=== PATIENT | female | born 1965 | race African-American/Black ===

== ENCOUNTER 2019-03-22 19:34 | Inpatient (IN) | payer OTHER ==
[~2019-03-22] VITALS: Ht 177.8 cm; Wt 103.6 kg
--- NOTE | 2019-03-22 19:45 | NUR ---
ED Nurse Note: Patient was BIBA from home due to SOB. AAO x4, VSS at this time. Patient's O2 sat upon arricval was 100 on 2L via NC. Patient has non-labor even breathing. Stated that has sarcoidosis for 7 years. Patient presented with dark brown, edematouse, with strong odor legs.
[2019-03-22 19:55] VITALS: BP 150/80
[2019-03-22 20:33] LABS: BASOPHILS % (AUTO) 1.3 % (0.0-2.0); EOSINOPHILS % (AUTO) 0.7 % (0.0-3.0); HEMATOCRIT 28.7 % (37.0-47.0); HEMOGLOBIN 9.1 G/DL (12.0-16.0); LYMPHOCYTES % (AUTO) 19.1 % (20.0-45.0); MEAN CORPUSCULAR VOLUME 88 FL (80-99); MONOCYTES % (AUTO) 4.5 % (1.0-10.0); NEUTROPHILS % (AUTO) 74.4 % (45.0-75.0); PLATELET COUNT 401 K/UL (150-450); RED BLOOD COUNT 3.25 M/UL (4.20-5.40); RED CELL DISTRIBUTION WIDTH 11.5 % (11.6-14.8); WHITE BLOOD COUNT 12.7 K/UL (4.8-10.8)
[2019-03-22 20:55] LABS: ANION GAP 8 mmol/L (5-15); BLOOD UREA NITROGEN 7 mg/dL (7-18); CALCIUM 9.6 MG/DL (8.5-10.1); CARBON DIOXIDE 34 MMOL/L (21-32); CHLORIDE 98 MMOL/L (98-107); CREATININE 0.8 MG/DL (0.55-1.30); SODIUM 140 MMOL/L (136-145)
[2019-03-22] MEDS ORDERED: AMLODIPINE BESY10 MG ORAL (20:58)
[2019-03-22] MEDS ORDERED: RANITIDINE HCL150 M2 PO (20:58)
[2019-03-22] MEDS ORDERED: GLIMEPIRIDE4 MG ORAL (20:58)
[2019-03-22] MEDS ORDERED: MONTELUKAST SOD10 MG ORAL (20:58)
[2019-03-22] MEDS ORDERED: PREDNISONE2.5 MG ORAL (20:58)
[2019-03-22] MEDS ORDERED: METOPROLOL TAR100 M1 ORAL (20:58)
[2019-03-22] MEDS ORDERED: CATAPRES0.1 MG ORAL (20:58)
[2019-03-22] MEDS ORDERED: GLIPIZIDE5 MG ORAL (20:58)
[2019-03-22] MEDS ORDERED: CEFUROXIME500 MG PO (20:58)
[2019-03-22] MEDS ORDERED: LISINOPRIL20 MG ORAL (20:58)
[2019-03-22] MEDS ORDERED: FUROSEMIDE20 M1 ORAL (20:58)
[2019-03-22] MEDS ORDERED: IPRATROPIU0.2 MG/1 M HHN (20:58)
[2019-03-22] MEDS ORDERED: SIMVASTATIN20 MG ORAL (20:58)
[2019-03-22] MEDS ORDERED: METFORMIN HCL1000 M1 ORAL (20:58)
[2019-03-22] MEDS ORDERED: DAILY VITE1 EACH ORAL (20:58)
[2019-03-22] MEDS ORDERED: FOLIC ACID1 MG ORAL (20:58)
[2019-03-22 21:06] LABS: ALANINE AMINOTRANSFERASE 18 U/L (12-78); ALBUMIN 2.9 G/DL (3.4-5.0); ALBUMIN/GLOBULIN RATIO 0.6 (1.0-2.7); ALKALINE PHOSPHATASE 115 U/L (46-116); ASPARTATE AMINO TRANSFERASE 13 U/L (15-37); BILIRUBIN,TOTAL 0.2 MG/DL (0.2-1.0)
[2019-03-22 21:19] LABS: APPEARANCE,URINE CLEAR; BILIRUBIN, URINE NEGATIVE (NEGATIVE); COLOR,URINE PALE YELLOW; GLUCOSE, URINE (UA) 3+ (NEGATIVE); KETONES,URINE NEGATIVE (NEGATIVE); LEUKOCYTE ESTERASE ,URINE NEGATIVE (NEGATIVE); NITRITE,URINE NEGATIVE (NEGATIVE); PH,URINE 7 (4.5-8.0); PROTEIN,URINE 1+ (NEGATIVE); UROBILINOGEN,URINE NORMAL MG/DL (0.0-1.0)
[2019-03-22] MEDS ORDERED: Azithromycin 500 MG in NS 275 ML IV ONE (21:30)
[2019-03-22] MEDS ORDERED: Piperacillin/Tazobactam 3.375 GM in NS 110 ML IVPB ONE (21:30)
[2019-03-22 21:55] VITALS: BP 150/80
--- NOTE | 2019-03-22 22:23 | Emergency Room Report ---
History of Present Illness General Chief Complaint: Edema Source: Patient, Family Member Present Illness HPI 53-year-old female presents ED for evaluation. Brought in by sister for evaluation of shortness of breath. History of sarcoidosis on home oxygen. States she was increasingly short of breath for the last 2 days. Also notes a cough productive with yellowish phlegm. Denies fevers or chills. Also notes swelling to her legs. Sister states she has had this swelling to her legs for several months now. Denies pain. No other aggravating relieving factors. Denies any other associated symptoms Allergies: Coded Allergies: No Known Allergies (Unverified , 03/22/19) Patient History Past Medical History: DM, other - sarcoidosis Past Surgical History: none Pertinent Family History: none Social History: Denies: smoking, alcohol use, drug use Now: No Immunizations: UTD Reviewed Nursing Documentation: PMH: Agreed; PSxH: Agreed Nursing Documentation-PM Past Medical History: No History, Except For Hx Diabetes: Yes Review of Systems All Other Systems: negative except mentioned in HPI Physical Exam Vital Signs Date Time Temp Pulse Resp B/P (MAP) Pulse Ox O2 Delivery O2 Flow Rate FiO2 03/22/19 19:28 97.9 80 18 150/80 (103) 95 Room Air Sp02 EP Interpretation: reviewed, normal General Appearance: no apparent distress, alert, GCS 15, non-toxic Head: normocephalic Eyes: bilateral eye normal inspection, bilateral eye PERRL ENT: normal ENT inspection Neck: normal inspection Respiratory: chest non-tender, lungs clear, crackles, speaking full sentences Cardiovascular #1: regular rate, rhythm, no edema Gastrointestinal: normal inspection Rectal: deferred Genitourinary: no CVA tenderness Musculoskeletal: swelling - chronic cutaneous venous stasis ulcers bilateral LEs Neurologic: alert, oriented x3, responsive, motor strength/tone normal, sensory intact, speech normal Psychiatric: normal inspection Skin: other - see nursing notes for skin Lymphatic: no adenopathy Medical Decision Making Diagnostic Impression: Primary Impression: Dyspnea Qualified Codes: R06.00 - Dyspnea, unspecified Additional Impressions: Sarcoidosis Chronic cutaneous venous stasis ulcer ER Course Hospital Course 53-year-old F presenting to ED with SOB. h/o sarcoidosis. leg welling Differential diagnoses include: Pneumonia, CHF exacerbation, pneumothorax, fluid overload Clinical course Patient placed on stretcher. On quality assurance monitor body with stable vitals. After initial history and physical, I ordered labs, IV fluids, EKG, chest x-ray, blood cultures, UA. Labs - noted leukocytosis hemoglobin/hematocrit stable, glucose 304, lactic 3.0 , K 3.0 CXR - difffuse interstitial changes, ? infiltrate abx givne. K repleted. Patient not given 30 cc/kg fluid bolus due to interstitial lung disease. Dr Rubi will consult for wound care of the legs Case discussed with Dr. Little and he agreed to the patient to his service for further care and support I feel this is a highly complex case requiring extensive working including EKG/ Rhythm strip, Xray/CT/US, Blood/urine lab work, repeat exams while in ED, and administration of strong opiates/narcotics for pain control, admission to hospital or close patient follow up. Diagnosis - dyspnea, sarcoidosis, chronic utaneous venous stasis ulcer Patient admitted to telemetry in serious condition Labs Test 03/22/19 20:19 03/22/19 20:35 03/22/19 22:01 White Blood Count 12.7 K/UL (4.8-10.8) Red Blood Count 3.25 M/UL (4.20-5.40) Hemoglobin 9.1 G/DL (12.0-16.0) Hematocrit 28.7 % (37.0-47.0) Mean Corpuscular Volume 88 FL (80-99) Mean Corpuscular Hemoglobin 28.2 PG (27.0-31.0) Mean Corpuscular Hemoglobin Concent 31.9 G/DL (32.0-36.0) Red Cell Distribution Width 11.5 % (11.6-14.8) Platelet Count 401 K/UL (150-450) Mean Platelet Volume 5.6 FL (6.5-10.1) Neutrophils (%) (Auto) 74.4 % (45.0-75.0) Lymphocytes (%) (Auto) 19.1 % (20.0-45.0) Monocytes (%) (Auto) 4.5 % (1.0-10.0) Eosinophils (%) (Auto) 0.7 % (0.0-3.0) Basophils (%) (Auto) 1.3 % (0.0-2.0) Sodium Level 140 MMOL/L (136-145) Potassium Level 3.0 MMOL/L (3.5-5.1) Chloride Level 98 MMOL/L (98-107) Carbon Dioxide Level 34 MMOL/L (21-32) Anion Gap 8 mmol/L (5-15) Blood Urea Nitrogen 7 mg/dL (7-18) Creatinine 0.8 MG/DL (0.55-1.30) Estimat Glomerular Filtration Rate > 60 mL/min (>60) Glucose Level 304 MG/DL (74-106) Lactic Acid Level 3.00 mmol/L (0.4-2.0) Calcium Level 9.6 MG/DL (8.5-10.1) Total Bilirubin 0.2 MG/DL (0.2-1.0) Aspartate Amino Transf (AST/SGOT) 13 U/L (15-37) Alanine Aminotransferase (ALT/SGPT) 18 U/L (12-78) Alkaline Phosphatase 115 U/L (46-116) Troponin I 0.000 ng/mL (0.000-0.056) Pro-B-Type Natriuretic Peptide 481 pg/mL (0-125) Total Protein 8.1 G/DL (6.4-8.2) Albumin 2.9 G/DL (3.4-5.0) Globulin 5.2 g/dL Albumin/Globulin Ratio 0.6 (1.0-2.7) Urine Color Pale yellow Urine Appearance Clear Urine pH 7 (4.5-8.0) Urine Specific [employer] 1.005 (1.005-1.035) Urine Protein 1+ (NEGATIVE) Urine Glucose (UA) 3+ (NEGATIVE) Urine Ketones Negative (NEGATIVE) Urine Blood Negative (NEGATIVE) Urine Nitrite Negative (NEGATIVE) Urine Bilirubin Negative (NEGATIVE) Urine Urobilinogen Normal MG/DL (0.0-1.0) Urine Leukocyte Esterase Negative (NEGATIVE) Urine RBC 0-2 /HPF (0 - 2) Urine WBC 0-2 /HPF (0 - 2) Urine Squamous Epithelial Cells Few /LPF (NONE/OCC) Urine Bacteria Few /HPF (NONE) EKG Diagnostic Results Rate: tachycardiac Rhythm: NSR ST Segments: no acute changes Rhythm Strip Diag. Results EP Interpretation: yes Rhythm: NSR, no PVC's, no ectopy Chest X-Ray Diagnostic Results Chest X-Ray Diagnostic Results : Chest X-Ray Ordered: Yes # of Views/Limited/Complete: 1 View Indication: Shortness of Breath EP Interpretation: Yes Interpretation: no pneumothorax, other - diffuse interstitial changes Impression: Other - sarcoidosis/?infiltrate Electronically Signed by: Electronically signed by Dixon Cole MD Last Vital Signs Date Time Temp Pulse Resp B/P (MAP) Pulse Ox O2 Delivery O2 Flow Rate FiO2 03/22/19 19:55 80 18 Room Air 03/22/19 19:55 97.9 150/80 95 Status: improved Disposition: ADMITTED INPATIENT Condition: Serious Referrals: NOT CHOSEN IPA/,REFERRING (PCP) Dixon Cole MD Mar 22, 2019 22:23
--- NOTE | 2019-03-22 23:20 | NUR ---
ED Nurse Note: Patient was admirted to Tele due to SOB, and severe sarcoidosis of vlopwer extremityes. AAO x4, VSS at this time. Patient was transfered to the unit via gurney by [facility] protocol, with all belongings.
[2019-03-23] VITALS: BP 141/84
--- NOTE | 2019-03-23 | NUR ---
NURSE NOTES: report received from Larissa RN, pt. in bed awake, A/O x's3-4- able to make needs known, family at bedside, equipment monitor phototypesetting placed, pt. teaching done, full body assessment done- skin intact- pt. has history of Sarcoidosis and has very dry thick flakey skin to bilateral lower extremities, no signs or symptoms of acute cardiac or respiratory distress noted, bed in lowest position and call light within easy reach, safety brakes engaged, pt,. appears to be saturating well on 2L NC- no distress noted- pt. noted to be anxious, pt. 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 hand 20G - IV intact and patent, safety measures continued, will continue with plan of care.
--- NOTE | 2019-03-23 | NUR ---
NURSE NOTES: DR. Cano called with orders- orders given by doctor and read back to doctor- orders carried out. Also Home medications reviewed with physician with some changes made.
[2019-03-23] MEDS ORDERED: Azithromycin 500 MG in D5W 275 ML IVPB SCH (01:15)
[2019-03-23] MEDS ORDERED: Azithromycin 500 MG in D5W 275 ML IV SCH (01:30)
[2019-03-23] MEDS: Albuterol/Ipratropium 3ml neb HHN SCH ×6 (02:15→23:06)
[2019-03-23 03:57] VITALS: BP 154/74
[2019-03-23] MEDS: NovoLOG Insulin Flexpen SUBQ SCH ×4 (06:18→21:15)
[2019-03-23] MEDS: Piperacillin/Tazobactam 3.375 GM in NS 110 ML IVPB SCH ×3 (06:18→22:53)
--- NOTE | 2019-03-23 07:14 | NUR ---
HAND-OFF: Report given to Maye RN, pt. remains stable and no signs of distress noted.
--- NOTE | 2019-03-23 07:34 | NUR ---
HAND-OFF: Report given to Maye KOENIG, nurse aware to f/u on abnormal am labs and RX prednisone and simvastatin ordered by doctor with pharmacy to see if available.
--- NOTE | 2019-03-23 07:35 | NUR ---
NURSE NOTES: Report received from Angy KOENIG.Pt resting in bed awake,alert anxious c/o sob ,pt on 2l NC but requested RT to increase it to 4 L NC.c/o pain to LE ,pt with Cellulitis,will medic with pain med Tylenol 650 mg,SR up x2,call nvoak within reach at bedside, HOB elevated ,bed lock in lowest position ,IV site to RH intact,skin warm and dry,will continue with plans of care.
[2019-03-23 08:00] VITALS: BP 182/72
--- NOTE | 2019-03-23 08:00 | NUR ---
NURSE NOTES: seen by Dr Walker,noted K level low 3.0,ordered for potassuim replacement. Kdur 40 meq PO.
--- NOTE | 2019-03-23 08:26 | Pulmonology Progress Note ---
Assessment/Plan Assessment/Plan Pulmonary Consultation HPI Patient is a 53-year-old woman admitted with cough, shortness of breath, worse for 2 days, LE swelling. Previous history of sarcoidosis, respiratory failure on home oxygen, on chronic Prednisone therapy, Diabetes, Hypertension. Complains of a cough productive with yellowish phlegm. Denies fevers or chills. She has had this swelling to her legs for several months. Denies pain. No other aggravating relieving factors. Denies any other associated symptoms Allergies: No Known Allergies Past Medical History: Diabetes Mellitus, Sarcoidosis, Hypertension Past Surgical History: none Pertinent Family History: none Social History: Denies: smoking, alcohol use, drug use All Other Systems: negative except mentioned in HPI Physical Exam Vital Signs Noted Date Time Temp Pulse Resp B/P (MAP) Pulse Ox O2 Delivery O2 Flow Rate FiO2 03/22/19 19:28 97.9 80 18 150/80 (103) 95 Room Air General Appearance: no apparent distress, alert, GCS 15, non-toxic Head: normocephalic Eyes: bilateral eye normal inspection, bilateral eye PERRL ENT: moist mm, no LN Neck: normal inspection Respiratory: chest non-tender, lungs clear, basal crackles Cardiovascular: regular rate, rhythm, HS1, HS2 normal, no edema Gastrointestinal: normal inspection Musculoskeletal: swelling - chronic cutaneous venous stasis ulcers bilateral legs Neurologic: alert, oriented x3, responsive, motor strength/tone normal, sensory intact, speech normal, no focal signs Impression: Pneumonia Sarcoidosis Chronic Respiratory Failure Diabetes on Metformin Elevated lactic acid Hypertension Chronic cutaneous venous stasis ulcer Plan IV antibiotics DC Metformin ISS Swallowing evaluation Aspiration precautions TIP PUNCHER meds including prednisone HHN O2 PRN PPX Analgesia PRN Dr Rubi followingt for wound care Labs Test 03/22/19 20:19 03/22/19 20:35 03/22/19 22:01 White Blood Count 12.7 K/UL (4.8-10.8) Red Blood Count 3.25 M/UL (4.20-5.40) Hemoglobin 9.1 G/DL (12.0-16.0) Hematocrit 28.7 % (37.0-47.0) Mean Corpuscular Volume 88 FL (80-99) Mean Corpuscular Hemoglobin 28.2 PG (27.0-31.0) Mean Corpuscular Hemoglobin Concent 31.9 G/DL (32.0-36.0) Red Cell Distribution Width 11.5 % (11.6-14.8) Platelet Count 401 K/UL (150-450) Mean Platelet Volume 5.6 FL (6.5-10.1) Neutrophils (%) (Auto) 74.4 % (45.0-75.0) Lymphocytes (%) (Auto) 19.1 % (20.0-45.0) Monocytes (%) (Auto) 4.5 % (1.0-10.0) Eosinophils (%) (Auto) 0.7 % (0.0-3.0) Basophils (%) (Auto) 1.3 % (0.0-2.0) Sodium Level 140 MMOL/L (136-145) Potassium Level 3.0 MMOL/L (3.5-5.1) Chloride Level 98 MMOL/L (98-107) Carbon Dioxide Level 34 MMOL/L (21-32) Anion Gap 8 mmol/L (5-15) Blood Urea Nitrogen 7 mg/dL (7-18) Creatinine 0.8 MG/DL (0.55-1.30) Estimat Glomerular Filtration Rate > 60 mL/min (>60) Glucose Level 304 MG/DL (74-106) Lactic Acid Level 3.00 mmol/L (0.4-2.0) Calcium Level 9.6 MG/DL (8.5-10.1) Total Bilirubin 0.2 MG/DL (0.2-1.0) Aspartate Amino Transf (AST/SGOT) 13 U/L (15-37) Alanine Aminotransferase (ALT/SGPT) 18 U/L (12-78) Alkaline Phosphatase 115 U/L (46-116) Troponin I 0.000 ng/mL (0.000-0.056) Pro-B-Type Natriuretic Peptide 481 pg/mL (0-125) Total Protein 8.1 G/DL (6.4-8.2) Albumin 2.9 G/DL (3.4-5.0) Globulin 5.2 g/dL Albumin/Globulin Ratio 0.6 (1.0-2.7) Urine Color Pale yellow Urine Appearance Clear Urine pH 7 (4.5-8.0) Urine Specific [place] 1.005 (1.005-1.035) Urine Protein 1+ (NEGATIVE) Urine Glucose (UA) 3+ (NEGATIVE) Urine Ketones Negative (NEGATIVE) Urine Blood Negative (NEGATIVE) Urine Nitrite Negative (NEGATIVE) Urine Bilirubin Negative (NEGATIVE) Urine Urobilinogen Normal MG/DL (0.0-1.0) Urine Leukocyte Esterase Negative (NEGATIVE) Urine RBC 0-2 /HPF (0 - 2) Urine WBC 0-2 /HPF (0 - 2) Urine Squamous Epithelial Cells Few /LPF (NONE/OCC) Urine Bacteria Few /HPF (NONE) EKG: Rate: tachycardiac Rhythm: NSR ST Segments: no acute changes Chest X-Ray: no pneumothorax, other - diffuse interstitial changes - sarcoidosis, ?infiltrate Subjective ROS Limited/Unobtainable: No Respiratory: Reports: shortness of breath Allergies: Coded Allergies: No Known Allergies (Unverified , 03/22/19) Objective Last 24 Hour Vital Signs Date Time Temp Pulse Resp B/P (MAP) Pulse Ox O2 Delivery O2 Flow Rate FiO2 03/23/19 04:00 105 03/23/19 03:57 98.9 81 20 154/74 (100) 98 03/23/19 02:27 110 22 99 Nasal Cannula 3.0 32 03/23/19 02:26 98.4 110 20 135/76 100 Nasal Cannula 2.0 03/23/19 02:24 98 Nasal Cannula 3.0 32 03/23/19 02:22 108 22 98 Nasal Cannula 3.0 03/23/19 02:20 108 22 98 Nasal Cannula 3.0 03/23/19 00:00 97.4 64 18 141/84 (103) 96 03/23/19 00:00 Nasal Cannula 2.0 03/23/19 00:00 135 03/22/19 21:55 97.9 18 150/80 95 Room Air 03/22/19 19:55 80 18 Room Air 03/22/19 19:55 97.9 18 150/80 95 Room Air 03/22/19 19:28 97.9 80 18 150/80 (103) 95 Room Air Laboratory Tests 03/22/19 20:19: White Blood Count 12.7H, Red Blood Count 3.25L, Hemoglobin 9.1L, Hematocrit 28.7L, Mean Corpuscular Volume 88, Mean Corpuscular Hemoglobin 28.2, Mean Corpuscular Hemoglobin Concent 31.9L, Red Cell Distribution Width 11.5L, Platelet Count 401, Mean Platelet Volume 5.6L, Neutrophils (%) (Auto) 74.4, Lymphocytes (%) (Auto) 19.1L, Monocytes (%) (Auto) 4.5, Eosinophils (%) (Auto) 0.7, Basophils (%) (Auto) 1.3, Sodium Level 140, Potassium Level 3.0L, Chloride Level 98, Carbon Dioxide Level 34H, Anion Gap 8, Blood Urea Nitrogen 7, Creatinine 0.8, Estimat Glomerular Filtration Rate > 60, Glucose Level 304H, Lactic Acid Level 3.00H, Calcium Level 9.6, Total Bilirubin 0.2, Aspartate Amino Transf (AST/SGOT) 13L, Alanine Aminotransferase (ALT/SGPT) 18, Alkaline Phosphatase 115, Troponin I 0.000, Pro-B-Type Natriuretic Peptide 481H, Total Protein 8.1, Albumin 2.9L, Globulin 5.2, Albumin/Globulin Ratio 0.6L 03/22/19 20:35: Urine Color Pale yellow, Urine Appearance Clear, Urine pH 7, Urine Specific [place] 1.005, Urine Protein 1+H, Urine Glucose (UA) 3+H, Urine Ketones Negative , Urine Blood Negative, Urine Nitrite Negative, Urine Bilirubin Negative, Urine Urobilinogen Normal, Urine Leukocyte Esterase Negative, Urine RBC 0-2, Urine WBC 0-2, Urine Squamous Epithelial Cells Few, Urine Bacteria Few 03/22/19 22:01: Lactic Acid Level 3.10H Current Medications Medications (Trade) Dose Ordered Sig/Malissa Route PRN Reason Start Time Stop Time Status Last Admin Dose Admin Acetaminophen (Tylenol) 650 mg Q6H PRN ORAL Mild Pain/Temp > 100.5 03/23/19 00:30 04/22/19 00:29 Albuterol/ Ipratropium (Albuterol/ Ipratropium) 3 ml Q4HRT HHN 03/23/19 03:00 03/28/19 02:59 03/23/19 08:01 Amlodipine Besylate (Norvasc) 10 mg DAILY ORAL 03/23/19 09:00 04/22/19 08:59 Azithromycin 500 mg/Dextrose 275 ml @ 275 mls/hr Q24HRS IV 03/23/19 21:00 03/29/19 21:59 Clonidine HCl (Catapres Tab) 0.1 mg Q12H PRN ORAL SBP >160 03/23/19 00:30 04/22/19 00:29 Dextrose (Dextrose 50%) 25 ml Q30M PRN IV Hypoglycemia 03/23/19 00:30 04/22/19 00:29 Dextrose (Dextrose 50%) 50 ml Q30M PRN IV Hypoglycemia 03/23/19 00:30 04/22/19 00:29 Famotidine (Pepcid) 20 mg BID ORAL 03/23/19 09:00 04/22/19 08:59 Folic Acid (Folate) 1 mg DAILY ORAL 03/23/19 09:00 04/22/19 08:59 Furosemide (Lasix) 20 mg DAILY ORAL 03/23/19 09:00 04/22/19 08:59 Glipizide (Glucotrol) 10 mg BID ORAL 03/23/19 09:00 04/22/19 08:59 Heparin Sodium (Porcine) (Heparin 5000 units/ml) 5,000 units EVERY 12 HOURS SUBQ 03/23/19 09:00 04/22/19 08:59 Insulin Aspart (NovoLOG) BEFORE MEALS AND HS SUBQ 03/23/19 06:30 04/22/19 06:29 Lisinopril (Prinivil) 20 mg DAILY ORAL 03/23/19 09:00 04/22/19 08:59 Metoprolol Tartrate (Lopressor) 50 mg Q12HR ORAL 03/23/19 09:00 04/22/19 08:59 Montelukast Sodium (Singulair) 10 mg DAILY ORAL 03/23/19 09:00 04/22/19 08:59 Multivitamins (Multivitamins) 1 tab DAILY ORAL 03/23/19 09:00 04/22/19 08:59 Ondansetron HCl (Zofran) 4 mg Q6H PRN IVP Nausea & Vomiting 03/23/19 00:30 04/22/19 00:29 Piperacillin Sod/ Tazobactam Sod 3.375 gm/Sodium Chloride 110 ml @ 27.5 mls/hr Q8HR IVPB 03/23/19 06:00 03/30/19 05:59 03/23/19 06:18 Vinh Cano MD Mar 23, 2019 08:26
[2019-03-23] MEDS: Metoprolol Tartrate 50mg tab ORAL SCH ×2 (08:52→21:01)
[2019-03-23] MEDS ORDERED: Lisinopril 20mg tab ORAL SCH (09:00)
[2019-03-23] MEDS ORDERED: GlipiZIDE 5mg tab ORAL SCH (09:00)
[2019-03-23] MEDS ORDERED: Montelukast 10mg tablet ORAL SCH (09:00)
[2019-03-23] MEDS ORDERED: Heparin 5000 units/ml inj SUBQ SCH (09:00)
--- NOTE | 2019-03-23 11:18 | NUR ---
NURSE NOTES: Seen by Dr Cano,with orders noted
--- NOTE | 2019-03-23 11:23 | NUR ---
NURSE NOTES: Called Dr. Cano upon patient's request for Prednisone. Order noted and carried out
[2019-03-23 12:00] VITALS: BP 150/71
--- NOTE | 2019-03-23 12:23 | Consultation ---
Consult Note Consult Note asked to eval for fluid and electrolyte management 53-year-old female presents ED for evaluation. Brought in by sister for evaluation of shortness of breath. History of sarcoidosis on home oxygen. States she was increasingly short of breath for the last 2 days. Also notes a cough productive with yellowish phlegm. Denies fevers or chills. Also notes swelling to her legs. Sister states she has had this swelling to her legs for several months now. Denies pain. No other aggravating relieving factors. Denies any other associated symptoms No Known Allergies (Unverified , 03/22/19) Past Medical History: DM, other - sarcoidosis Reviewed Nursing Documentation: PMH: Agreed; PSxH: Agreed Past Medical History: No History, Except For Hx Diabetes: Yes interviewed examined data reviewed . Assessment/Plan Hypokalemia Pneumonia Sarcoidosis Chronic Respiratory Failure Diabetes OOC Elevated lactic acid Hypertension OOC Chronic cutaneous venous stasis ulcer Adjust BP meds Adjust BS meds K supplement Monitor labs 2D echo per orders Tre Ochoa MD Mar 23, 2019 12:23
[2019-03-23] MEDS ORDERED: HydrALAZINE 25mg tab ORAL PRN (12:30)
--- NOTE | 2019-03-23 13:39 | Diagnostic Imaging Report ---
APPROVED REPORT CPT Code: 79797 Present Symptoms Lower Extremity Edema: Bilateral Shortness of breath Technically difficult study due to pain. BILATERAL: Imaging reveals a patent deep venous system bilaterally. There is no evidence of thrombus within the common femoral, superficial femoral, and popliteal veins. The greater saphenous veins are within normal limits. Doppler indicates normal spontaneous flow within these segments. The calf veins not well visualized.
[2019-03-23] MEDS: Guaifenesin/DM 10ml syrup ORAL PRN ×2 (13:49→22:59)
--- NOTE | 2019-03-23 14:30 | NUR ---
NURSE NOTES: Seen by MENA Vega and cleaned LE cellulitis.
--- NOTE | 2019-03-23 14:50 | NUR ---
SWALLOW / SPEECH THERAPY NOTE: SWALLOW STATUS: PATIENT REFERRED FOR SWALLOW EVAL. CHART REVIEWED BUT PT NOT AVAILABLE. PER RN, NO OVERT S/S OF ASPIRATION ON SOFT CHEW DIET WITH ADEQUATE INTAKE. PATIENT HAS A CHRONIC COUGH W/O PO INTAKE. DR BERMUDEZ PUT PT ON NECTAR THICK LIQUIDS BUT PER RN NO OVERT S/S OF ASPIRATION WHEN SHE OBSERVED HER WITH THIN LIQUIDS. PT MAY NOT COMPLY WITH NECTAR THICK LIQUIDS. HAS ASPIRATION RISK GIVEN RESPIRATORY ISSUES. ? IF HAS A SILENT ASPIRATION RISK AND CXR NOTES SARCODOSIS / ? INFILTRATE AND MD NOTES BASAL CRACKLES. PT HAS GERD ON PROTONIX. PLAN: WILL ASSESS FULLY TOMORROW CONSIDER MOD BARIUM SWALLOW STUDY TO ASSESS SWALLOW, DETERMINE ASPIRATION RISK, AND ATTEMPT TRIAL TX TECHNIQUES. CONTINUE WITH CURRENT DIET/LIQUIDS WITH GENERAL ASPIRATION PRECAUTIONS FOR NOW. D/W ARYA OSBORNE
[2019-03-23] MEDS ORDERED: NS 275ml ONE (15:18)
[2019-03-23] MEDS ORDERED: Tubing IV Secondary IV ONE (15:18)
--- NOTE | 2019-03-23 15:46 | NUR ---
NURSE NOTES:WOUND CARE NOTES: Pt that is legally blind whom on admission with lymphedemae both lower ext with Hyperkeratosis skin . Both lower ext are grossly malodorous.Both lower ext thoroughly assessed for presence of any wounds under scales and fissures but no wounds noted . Pt verbalized R lower ext is more tender than L lower ext. Toes are mycotic and grossly elongated and malformed web spaces of toes are difficult to separate due to poor hygiene and xerosis skin. Pt admitted to being unable to care for feet secondary to being blind and stated she lives at home with mother. Pt stated she was advised in past to see a sports director for nail care. Both lower ext washed and scrubbed with washcloths. Excessive amounts of thick scaly skin from both lower ext and both feet removed with friction and emollient. Excessive amt of malodorous hyperkeratotic removed from web spaces of toes. Unable to accurately assess head of R 2nd metatarsal secondary to malformed growth of nail matrix. Both lower ext were then wrapped loosely with Saran wrap for 20 mins for moisture Absorption than removed. Tx.Plan: Wash both lower ext with Hibiclens(Chlorhexidine )soap.Apply Lac Hydrin Lotion to Damp Skin. Wrap loosely with Saran wrap for 20 mins then remove wrap. Twice Daily.
[2019-03-23 16:00] VITALS: BP 160/76
--- NOTE | 2019-03-23 16:30 | Consultation ---
History of Present Illness General Chief Complaint: Edema Present Illness Allergies: Coded Allergies: No Known Allergies (Unverified , 03/22/19) Medication History Scheduled Amlodipine Besylate* (Amlodipine Besylate*), 10 MG ORAL DAILY, (Reported) Folic Acid* (Folic Acid*), 1 MG ORAL DAILY, (Reported) Furosemide* (Lasix*), 20 MG ORAL DAILY, (Reported) Glipizide* (Glipizide*), 10 MG ORAL BIDAC, (Reported) Lisinopril (Lisinopril*), 20 MG ORAL DAILY, (Reported) Montelukast Sodium* (Montelukast Sodium*), 10 MG ORAL DAILY, (Reported) Multivitamin (Daily Janice), 1 TAB ORAL DAILY, (Reported) Prednisone* (Prednisone*), 5 MG ORAL DAILY, (Reported) Simvastatin (Zocor), 20 MG ORAL BEDTIME, (Reported) Miscellaneous Medications Ranitidine HCl (Ranitidine HCl), 150 MG PO, (Reported) Discontinued Medications Cefuroxime Axetil* (Cefuroxime*), 500 MG PO Q12HR, (Reported) Discontinued Reason: MD discontinued med Clonidine Hcl* (Catapres*), 0.1 MG ORAL EVERY 6 HOURS, (Reported) Discontinued Reason: MD discontinued med Glimepiride* (Glimepiride*), 4 MG ORAL BEFORE BREAKFAST, (Reported) Discontinued Reason: Medication dose changed Ipratropium [place] 0.5MG/2.5ML (Ipratropium Colp 0.5MG/2.5ML), 0.5 MG HHN Q6H PRN for Shortness of Breath, (Reported) Discontinued Reason: MD discontinued med Metformin Hcl* (Metformin Hcl*), 1,000 MG ORAL DAILY, (Reported) Discontinued Reason: MD discontinued med Metoprolol Tartrate* (Metoprolol Tartrate*), 100 MG ORAL EVERY 12 HOURS, ( Reported) Discontinued Reason: MD discontinued med Patient History Healthcare decision maker SISTER & SELF Resuscitation status Full Code Advanced Directive on File No Physical Exam Last 24 Hour Vital Signs Date Time Temp Pulse Resp B/P (MAP) Pulse Ox O2 Delivery O2 Flow Rate FiO2 03/23/19 13:48 150/71 03/23/19 12:00 94 03/23/19 11:41 94 18 99 Nasal Cannula 4.0 36 03/23/19 11:36 98 Nasal Cannula 2.0 28 03/23/19 11:33 91 16 98 Nasal Cannula 4.0 36 03/23/19 09:00 Nasal Cannula 4.0 03/23/19 08:52 126 182/72 03/23/19 08:52 126 182/72 03/23/19 08:51 182/72 03/23/19 08:00 128 03/23/19 08:00 97.7 126 20 182/72 (108) 96 03/23/19 04:00 105 03/23/19 03:57 98.9 81 20 154/74 (100) 98 03/23/19 02:27 110 22 99 Nasal Cannula 3.0 32 03/23/19 02:26 98.4 110 20 135/76 100 Nasal Cannula 2.0 03/23/19 02:24 98 Nasal Cannula 3.0 32 03/23/19 02:22 108 22 98 Nasal Cannula 3.0 03/23/19 02:20 108 22 98 Nasal Cannula 3.0 03/23/19 00:00 97.4 64 18 141/84 (103) 96 03/23/19 00:00 Nasal Cannula 2.0 03/23/19 00:00 135 03/22/19 21:55 97.9 18 150/80 95 Room Air 03/22/19 19:55 80 18 Room Air 03/22/19 19:55 97.9 18 150/80 95 Room Air 03/22/19 19:28 97.9 80 18 150/80 (103) 95 Room Air Laboratory Tests Test 03/22/19 20:19 03/22/19 20:35 03/22/19 22:01 White Blood Count 12.7 K/UL (4.8-10.8) H Red Blood Count 3.25 M/UL (4.20-5.40) L Hemoglobin 9.1 G/DL (12.0-16.0) L Hematocrit 28.7 % (37.0-47.0) L Mean Corpuscular Volume 88 FL (80-99) Mean Corpuscular Hemoglobin 28.2 PG (27.0-31.0) Mean Corpuscular Hemoglobin Concent 31.9 G/DL (32.0-36.0) L Red Cell Distribution Width 11.5 % (11.6-14.8) L Platelet Count 401 K/UL (150-450) Mean Platelet Volume 5.6 FL (6.5-10.1) L Neutrophils (%) (Auto) 74.4 % (45.0-75.0) Lymphocytes (%) (Auto) 19.1 % (20.0-45.0) L Monocytes (%) (Auto) 4.5 % (1.0-10.0) Eosinophils (%) (Auto) 0.7 % (0.0-3.0) Basophils (%) (Auto) 1.3 % (0.0-2.0) Sodium Level 140 MMOL/L (136-145) Potassium Level 3.0 MMOL/L (3.5-5.1) L Chloride Level 98 MMOL/L (98-107) Carbon Dioxide Level 34 MMOL/L (21-32) H Anion Gap 8 mmol/L (5-15) Blood Urea Nitrogen 7 mg/dL (7-18) Creatinine 0.8 MG/DL (0.55-1.30) Estimat Glomerular Filtration Rate > 60 mL/min (>60) Glucose Level 304 MG/DL (74-106) H Lactic Acid Level 3.00 mmol/L (0.4-2.0) H 3.10 mmol/L (0.66-2.22) H Calcium Level 9.6 MG/DL (8.5-10.1) Total Bilirubin 0.2 MG/DL (0.2-1.0) Aspartate Amino Transf (AST/SGOT) 13 U/L (15-37) L Alanine Aminotransferase (ALT/SGPT) 18 U/L (12-78) Alkaline Phosphatase 115 U/L (46-116) Troponin I 0.000 ng/mL (0.000-0.056) Pro-B-Type Natriuretic Peptide 481 pg/mL (0-125) H Total Protein 8.1 G/DL (6.4-8.2) Albumin 2.9 G/DL (3.4-5.0) L Globulin 5.2 g/dL Albumin/Globulin Ratio 0.6 (1.0-2.7) L Urine Color Pale yellow Urine Appearance Clear Urine pH 7 (4.5-8.0) Urine Specific [place] 1.005 (1.005-1.035) Urine Protein 1+ (NEGATIVE) H Urine Glucose (UA) 3+ (NEGATIVE) H Urine Ketones Negative (NEGATIVE) Urine Blood Negative (NEGATIVE) Urine Nitrite Negative (NEGATIVE) Urine Bilirubin Negative (NEGATIVE) Urine Urobilinogen Normal MG/DL (0.0-1.0) Urine Leukocyte Esterase Negative (NEGATIVE) Urine RBC 0-2 /HPF (0 - 2) Urine WBC 0-2 /HPF (0 - 2) Urine Squamous Epithelial Cells Few /LPF (NONE/OCC) Urine Bacteria Few /HPF (NONE) Height (Feet): 5 Height (Inches): 10.00 Weight (Pounds): 228 Medications Current Medications Medications (Trade) Dose Ordered Sig/Malissa Route PRN Reason Start Time Stop Time Status Last Admin Dose Admin Acetaminophen (Tylenol) 650 mg Q6H PRN ORAL Mild Pain/Temp > 100.5 03/23/19 00:30 04/22/19 00:29 03/23/19 15:47 Albuterol/ Ipratropium (Albuterol/ Ipratropium) 3 ml Q4HRT HHN 03/23/19 03:00 03/28/19 02:59 03/23/19 16:02 Amlodipine Besylate (Norvasc) 10 mg DAILY ORAL 03/23/19 09:00 04/22/19 08:59 03/23/19 08:52 Azithromycin 500 mg/Dextrose 275 ml @ 275 mls/hr Q24HRS IV 03/23/19 21:00 03/29/19 21:59 Clonidine HCl (Catapres Tab) 0.1 mg EVERY 8 HOURS ORAL 03/23/19 14:00 04/22/19 13:59 03/23/19 13:48 Dextrose (Dextrose 50%) 25 ml Q30M PRN IV Hypoglycemia 03/23/19 00:30 04/22/19 00:29 Dextrose (Dextrose 50%) 50 ml Q30M PRN IV Hypoglycemia 03/23/19 00:30 04/22/19 00:29 Furosemide (Lasix) 20 mg DAILY ORAL 03/23/19 09:00 04/22/19 08:59 03/23/19 08:52 Guaifenesin/ Dextromethorphan (Robitussin DM Syrup) 5 ml Q6H PRN ORAL For Cough 03/23/19 11:15 04/22/19 11:14 03/23/19 13:49 Heparin Sodium (Porcine) (Heparin 5000 units/ml) 5,000 units EVERY 12 HOURS SUBQ 03/23/19 09:00 04/22/19 08:59 03/23/19 09:02 Hydralazine HCl (Apresoline) 25 mg Q4H PRN ORAL bp over 160 syst 03/23/19 12:30 04/22/19 12:29 Insulin Aspart (NovoLOG) BEFORE MEALS AND HS SUBQ 03/23/19 06:30 04/22/19 06:29 03/23/19 11:49 Metoprolol Tartrate (Lopressor) 50 mg Q12HR ORAL 03/23/19 09:00 04/22/19 08:59 03/23/19 08:52 Montelukast Sodium (Singulair) 10 mg BEDTIME ORAL 03/24/19 21:00 04/23/19 20:59 Multivitamins (Multivitamins) 1 tab DAILY ORAL 03/23/19 09:00 04/22/19 08:59 03/23/19 08:51 Nateglinide (Starlix) 120 mg TIAC ORAL 03/23/19 16:30 04/22/19 16:29 Ondansetron HCl (Zofran) 4 mg Q6H PRN IVP Nausea & Vomiting 03/23/19 00:30 04/22/19 00:29 Pantoprazole (Protonix) 40 mg BID ORAL 03/23/19 18:00 04/22/19 17:59 Piperacillin Sod/ Tazobactam Sod 3.375 gm/Sodium Chloride 110 ml @ 27.5 mls/hr Q8HR IVPB 03/23/19 06:00 03/30/19 05:59 03/23/19 13:47 Potassium Chloride (K-Dur) 40 meq DAILY ORAL 03/23/19 12:30 04/22/19 12:29 03/23/19 13:46 Assessment/Plan Assessment/Plan: Hematology Consultation REQ : Guillaume Little RFC: Anemia eval DOS: 03/23/19 ID 53-year-old female presents ED for evaluation. Brought in by sister for evaluation of shortness of breath. History of sarcoidosis on home oxygen. States she was increasingly short of breath for the last 2 days. Also notes a cough productive with yellowish phlegm. Denies fevers or chills. Also notes swelling to her legs. Sister states she has had this swelling to her legs for several months now. Denies pain. No other aggravating relieving factors. Denies any other associated symptoms, per patient has a history of anemia from before, does not know the cause but has had it for a while, has not had bleeding before, no prior w/u. This am agitated. Coded Allergies: No Known Allergies (Unverified , 03/22/19) Patient History Past Medical History: DM, other - sarcoidosis Past Surgical History: none Pertinent Family History: none Social History: Denies: smoking, alcohol use, drug use Now: No Immunizations: UTD Reviewed Nursing Documentation: PMH: Agreed; PSxH: Agreed Nursing Documentation-PMH Past Medical History: No History, Except For Hx Diabetes: Yes Review of Systems All Other Systems: negative except mentioned in HPI Physical Exam: Vitals: reviewed General Appearance: NAD HEENT: normocephalic, atraumatic Neck: non-tender, normal alignment Respiratory/Chest: normal breath sounds bilaterally Cardiovascular/Chest: normal peripheral pulses, normal rate Abdomen: normal bowel sounds, soft, nontender Extremities: normal range of motion, chronic cutaneous venous stasis ulcers Labs: reviewed Imaging: noted Diagnostic Impression: # Anemia of chronic disease (or of iron deficiency) due to underlying chronic medical issues, multifactorial --> Anemia workup has been ordered, rule out gi bleed --> No evidence of hemolysis is noted, peripheral smear has been reviewed. --> Hgb goal >7. Transfuse prn. --> Epogen or iron at this time is not particularly indicated --> Medications have been reviewed --> low threshold for gi evaluation in case has occult + --> bone marrow biopsy is not indicated given the other more likely causes # Anemia due to chf --> diuresis if required by cards # Dyspnea with resp failure --> abx and steriods per pulm # Chronic cutaneous venous stasis ulcer --> wound care/surg recs # Hypok --> kcl was given # Sarcoidosis # DVT ppx lovenox sq The timing of this note does not necessarily reflect the time of the patient was seen. GREATLY APPRECIATE CONSULTATION. Javier Walker MD Mar 23, 2019 16:30
--- NOTE | 2019-03-23 17:51 | NUR ---
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
--- NOTE | 2019-03-23 18:17 | Cardiology Report ---
APPROVED REPORT EKG Measurement Heart [id number] Sinus tachycardia with premature atrial complexes Biatrial enlargement Left ventricular hypertrophy with repolarization abnormality Abnormal ECG
--- NOTE | 2019-03-23 19:00 | NUR ---
NURSE NOTES: Received report from ARYA Jackson, patient in stable condition, AOx4, legally blind, denies pain at this time, on 2LO2 n/c, IV site on R hand G20, asymptomatic, intact, patent, bed lowest position, call light within reach, side rails X3, family at bed.
--- NOTE | 2019-03-23 19:16 | NUR ---
HAND-OFF: Report given to Mildred KOENIG.Pt resting quietly in bed no further c/o to LE presented..
[2019-03-23 20:00] VITALS: BP 131/77
--- NOTE | 2019-03-23 20:00 | Consultation ---
DATE OF CONSULTATION: 03/23/2019 INFECTIOUS DISEASE CONSULT CONSULTING PHYSICIAN: Endy Klein M.D. PRIMARY ATTENDING: Guillaume Little M.D. REASON FOR CONSULT: Pneumonia. HISTORY OF PRESENT ILLNESS: This is a 53-year-old female admitted yesterday complaining of shortness of breath, also has chronic edema of legs and wound. At the time of admission, had leukocytosis of 12.7. PAST MEDICAL HISTORY: Significant for diabetes mellitus, sarcoidosis, the patient is on oxygen at home. Has chronic stasis ulcer and dermatitis of both legs, she is receiving wound care. Has hypertension. Has anemia. Has blindness of both eyes. ALLERGIES: No known drug allergy. MEDICATIONS: Getting Lovenox, azithromycin, Singulair, Protonix, Starlix, clonidine, hydralazine, multivitamin, Zosyn, insulin, metoprolol, heparin, Tylenol, Zofran. SOCIAL HISTORY: Single. She is an ex-smoker. Stopped 8 years ago. Denies alcohol and drug abuse. REVIEW OF SYSTEMS: No fever. No chills. Has cough and shortness of breath that is better compared to yesterday. No nausea. No vomiting. No diarrhea, but has loose stool. No problem passing urine. PHYSICAL EXAMINATION: VITAL SIGNS: Temperature is 97.7, blood pressure 150/71, pulse 94. GENERAL APPEARANCE: No acute distress. HEAD AND NECK: Bilateral blindness. HEART: Normal rate. LUNGS: Clear. Getting oxygen by nasal cannula. ABDOMEN: Soft, nontender. SKIN: Chronic skin changes of lower extremities with deformity of all of the toe nails. LABORATORY AND DIAGNOSTIC DATA: WBC 12.7, hemoglobin 9.1, hematocrit 28.7, platelets 401. Lactic acid 2.1. Sodium 130, potassium 3, chloride 98, bicarb 34, BUN 7, creatinine 0.8, glucose 304. Albumin is 2.9. Venous duplex was negative for DVT. Chest x-ray showed bilateral congestion and interstitial infiltrate. IMPRESSION: Pneumonia, uncontrolled diabetes mellitus, sarcoidosis, hypokalemia, chronic stasis dermatitis and ulceration of legs, blindness, anemia , hypertension. RECOMMENDATION: Agree with current antibiotics, Zosyn and azithromycin. We will follow up CBC. We will follow up the cultures. At the end of my exam, I thank Dr. Little for involving me in the care of this patient. Endy Klein M.D. DR: UMER JOB#: [id number] CC: FUNMILAYO
[2019-03-23] MEDS: Azithromycin 500 MG in D5W 275 ML IV SCH (20:59)
--- NOTE | 2019-03-23 21:00 | NUR ---
NURSE NOTES: Patient refuses thick liquid. Explained to patient the risks and notified the Charge nurse and .
--- NOTE | 2019-03-23 21:17 | Consultation ---
History of Present Illness General Date patient seen: Mar 23, 2019 Reason for Hospitalization: Edema Present Illness HPI This is a very pleasant 53 year old female with multiple medical comorbidities who was admitted to [facility] for care and management after visit to ED for SOB. On admission noted to have lower extremity edema and chronic wounds. Surgery called to evaluate and assist with care. patient seen, chart reviewed, patient examined. states she has had edema in legs for some months now and intermittently flares up. no outpatient care provided. leukocytosis. DVT US ordered Allergies: Coded Allergies: No Known Allergies (Unverified , 03/22/19) Medication History Scheduled Amlodipine Besylate* (Amlodipine Besylate*), 10 MG ORAL DAILY, (Reported) Folic Acid* (Folic Acid*), 1 MG ORAL DAILY, (Reported) Furosemide* (Lasix*), 20 MG ORAL DAILY, (Reported) Glipizide* (Glipizide*), 10 MG ORAL BIDAC, (Reported) Lisinopril (Lisinopril*), 20 MG ORAL DAILY, (Reported) Montelukast Sodium* (Montelukast Sodium*), 10 MG ORAL DAILY, (Reported) Multivitamin (Daily Janice), 1 TAB ORAL DAILY, (Reported) Prednisone* (Prednisone*), 5 MG ORAL DAILY, (Reported) Simvastatin (Zocor), 20 MG ORAL BEDTIME, (Reported) Miscellaneous Medications Ranitidine HCl (Ranitidine HCl), 150 MG PO, (Reported) Discontinued Medications Cefuroxime Axetil* (Cefuroxime*), 500 MG PO Q12HR, (Reported) Discontinued Reason: MD discontinued med Clonidine Hcl* (Catapres*), 0.1 MG ORAL EVERY 6 HOURS, (Reported) Discontinued Reason: MD discontinued med Glimepiride* (Glimepiride*), 4 MG ORAL BEFORE BREAKFAST, (Reported) Discontinued Reason: Medication dose changed Ipratropium [place] 0.5MG/2.5ML (Ipratropium [place] 0.5MG/2.5ML), 0.5 MG HHN Q6H PRN for Shortness of Breath, (Reported) Discontinued Reason: MD discontinued med Metformin Hcl* (Metformin Hcl*), 1,000 MG ORAL DAILY, (Reported) Discontinued Reason: MD discontinued med Metoprolol Tartrate* (Metoprolol Tartrate*), 100 MG ORAL EVERY 12 HOURS, ( Reported) Discontinued Reason: MD discontinued med Patient History Healthcare decision maker SISTER & SELF Resuscitation status Full Code Advanced Directive on File No Review of Systems Review of Symptoms General ROS: no weight loss or fever Psychological ROS: no depression or mood changes, no memory loss Ophthalmic ROS: no visual changes or eye irritation ENT ROS: no nasal congestion, hearing loss, dizziness Allergy and Immunology ROS: no allergic symptoms or urticaria Hematological and Lymphatic ROS: no swollen glands, unusual bleeding or bruising Endocrine ROS: no polyuria, polydipsia, weight changes, temperature intolerance Respiratory ROS: no cough, shortness of breath, or wheezing Cardiovascular ROS: no chest pain or dyspnea on exertion Gastrointestinal ROS: denies abdominal pain, no bright red blood in stool. Musculoskeletal ROS: no myalgias or arthralgias Neurological ROS: no TIA or stroke symptoms Dermatological ROS: no new or changing skin lesions, rashes or pruritis Physical Exam Physical Exam General appearance: alert, cooperative, no distress, appears stated age Head: Normocephalic, without obvious abnormality, atraumatic Eyes: conjunctivae/corneas clear. PERRL, EOM's intact. Fundi benign Throat: Lips, mucosa, and tongue normal. Teeth and gums normal Neck: supple, symmetrical, trachea midline, no adenopathy, thyroid: not enlarged, symmetric, no tenderness/mass/nodules, no carotid bruit and no JVD Lungs: clear to auscultation bilaterally Heart: regular rate and rhythm, S1, S2 normal, no murmur, click, rub or gallop Abdomen: soft, non-tender. Bowel sounds normal. No masses, no organomegaly Extremities: edema Pulses: 2+ and symmetric Skin: Skin color, texture, turgor normal. No rashes or lesions Neurologic: Grossly normal Last 24 Hour Vital Signs Date Time Temp Pulse Resp B/P (MAP) Pulse Ox O2 Delivery O2 Flow Rate FiO2 03/23/19 21:01 114 131/77 03/23/19 19:45 102 20 99 Nasal Cannula 4.0 36 03/23/19 19:35 98 Nasal Cannula 4.0 36 03/23/19 19:35 101 20 98 Nasal Cannula 4.0 36 03/23/19 16:11 95 18 100 Nasal Cannula 4.0 36 03/23/19 16:02 90 18 97 Nasal Cannula 4.0 36 03/23/19 16:00 98.6 86 20 160/76 (104) 99 03/23/19 16:00 105 03/23/19 13:48 150/71 03/23/19 12:00 94 03/23/19 12:00 96.6 96 20 150/71 (97) 100 03/23/19 11:41 94 18 99 Nasal Cannula 4.0 36 03/23/19 11:36 98 Nasal Cannula 2.0 28 03/23/19 11:33 91 16 98 Nasal Cannula 4.0 36 03/23/19 09:00 Nasal Cannula 4.0 03/23/19 08:52 126 182/72 03/23/19 08:52 126 182/72 03/23/19 08:51 182/72 03/23/19 08:10 117 20 99 Nasal Cannula 4.0 36 03/23/19 08:03 118 20 98 Nasal Cannula 4.0 36 03/23/19 08:00 128 03/23/19 08:00 97.7 126 20 182/72 (108) 96 03/23/19 04:00 105 03/23/19 03:57 98.9 81 20 154/74 (100) 98 03/23/19 02:27 110 22 99 Nasal Cannula 3.0 32 03/23/19 02:26 98.4 110 20 135/76 100 Nasal Cannula 2.0 03/23/19 02:24 98 Nasal Cannula 3.0 32 03/23/19 02:22 108 22 98 Nasal Cannula 3.0 03/23/19 02:20 108 22 98 Nasal Cannula 3.0 03/23/19 00:00 97.4 64 18 141/84 (103) 96 03/23/19 00:00 Nasal Cannula 2.0 03/23/19 00:00 135 03/22/19 21:55 97.9 18 150/80 95 Room Air Intake and Output 03/22/19 03/23/19 18:59 06:59 # Voids 2 Laboratory Tests Test 03/22/19 22:01 03/23/19 18:05 Lactic Acid Level 3.10 mmol/L (0.66-2.22) H Lactate Dehydrogenase 192 U/L (81-234) Height (Feet): 5 Height (Inches): 10.00 Weight (Pounds): 228 Medications Current Medications Medications (Trade) Dose Ordered Sig/Malissa Route PRN Reason Start Time Stop Time Status Last Admin Dose Admin Acetaminophen (Tylenol) 650 mg Q6H PRN ORAL Mild Pain/Temp > 100.5 03/23/19 00:30 04/22/19 00:29 03/23/19 15:47 Albuterol/ Ipratropium (Albuterol/ Ipratropium) 3 ml Q4HRT HHN 03/23/19 03:00 03/28/19 02:59 03/23/19 19:35 Amlodipine Besylate (Norvasc) 10 mg DAILY ORAL 03/23/19 09:00 04/22/19 08:59 03/23/19 08:52 Azithromycin 500 mg/Dextrose 275 ml @ 275 mls/hr Q24HRS IV 03/23/19 21:00 03/29/19 21:59 03/23/19 20:59 Clonidine HCl (Catapres Tab) 0.1 mg EVERY 8 HOURS ORAL 03/23/19 14:00 04/22/19 13:59 03/23/19 13:48 Dextrose (Dextrose 50%) 25 ml Q30M PRN IV Hypoglycemia 03/23/19 00:30 04/22/19 00:29 Dextrose (Dextrose 50%) 50 ml Q30M PRN IV Hypoglycemia 03/23/19 00:30 04/22/19 00:29 Enoxaparin Sodium (Lovenox) 40 mg DAILY SUBQ 03/24/19 09:00 04/23/19 08:59 Furosemide (Lasix) 20 mg DAILY ORAL 03/23/19 09:00 04/22/19 08:59 03/23/19 08:52 Guaifenesin/ Dextromethorphan (Robitussin DM Syrup) 5 ml Q6H PRN ORAL For Cough 03/23/19 11:15 04/22/19 11:14 03/23/19 13:49 Hydralazine HCl (Apresoline) 25 mg Q4H PRN ORAL bp over 160 syst 03/23/19 12:30 04/22/19 12:29 Insulin Aspart (NovoLOG) BEFORE MEALS AND HS SUBQ 03/23/19 06:30 04/22/19 06:29 03/23/19 18:11 Metoprolol Tartrate (Lopressor) 50 mg Q12HR ORAL 03/23/19 09:00 04/22/19 08:59 03/23/19 21:01 Montelukast Sodium (Singulair) 10 mg BEDTIME ORAL 03/24/19 21:00 04/23/19 20:59 Multivitamins (Multivitamins) 1 tab DAILY ORAL 03/23/19 09:00 04/22/19 08:59 03/23/19 08:51 Nateglinide (Starlix) 120 mg TIAC ORAL 03/23/19 16:30 04/22/19 16:29 03/23/19 18:09 Ondansetron HCl (Zofran) 4 mg Q6H PRN IVP Nausea & Vomiting 03/23/19 00:30 04/22/19 00:29 Pantoprazole (Protonix) 40 mg BID ORAL 03/23/19 18:00 04/22/19 17:59 03/23/19 18:08 Piperacillin Sod/ Tazobactam Sod 3.375 gm/Sodium Chloride 110 ml @ 27.5 mls/hr Q8HR IVPB 03/23/19 06:00 03/30/19 05:59 03/23/19 13:47 Potassium Chloride (K-Dur) 40 meq DAILY ORAL 03/23/19 12:30 04/22/19 12:29 03/23/19 13:46 Assessment/Plan Problem List: (1) Edema of both lower extremities ICD Codes: R60.0 - Localized edema SNOMED: 73297161, 00502230, 596007768 (2) Sarcoidosis ICD Codes: D86.9 - Sarcoidosis, unspecified SNOMED: 35299282, 686451239 (3) Chronic cutaneous venous stasis ulcer Assessment & Plan: patient presented with venous stasis dermatitis of bilateral lower extremities. states has had for some time. scaling wounds with chronic scaring. mostly dry with some open areas. does not receive care often for them. no compression stockings. -daily chlorhexidine wash bilateral lower extremity -apply Lac Hydrin lotion and wrap with saran wrap for 20 mins BID -keep legs elevated when possible -will follow with recs thank you for allowing me to participate in patients care. ICD Codes: I83.009 - Varicose veins of unspecified lower extremity with ulcer of unspecified site; L97.909 - Non-pressure chronic ulcer of unspecified part of unspecified lower leg with unspecified severity SNOMED: 59023805, 767135656 (4) Dyspnea ICD Codes: R06.00 - Dyspnea, unspecified SNOMED: 925399567 Qualifiers: Qualified Codes: R06.00 - Dyspnea, unspecified Timbo Rubi Mar 23, 2019 21:17
[2019-03-24] VITALS: BP 103/47
[2019-03-24] MEDS: Albuterol/Ipratropium 3ml neb HHN SCH ×6 (02:03→23:16)
[2019-03-24 04:00] VITALS: BP 116/62
--- NOTE | 2019-03-24 04:30 | History and Physical Report ---
DATE OF ADMISSION: 03/22/2019 HISTORY OF PRESENT ILLNESS: lower extremity cellulitis. Also, admitted for shortness of breath and sarcoidosis, cough and swelling in the lower extremities, chronic, hypokalemia, and elevated sugar as well. The patient complains of productive cough and wheezing, shortness of breath for past couple of days. The patient also has chronic venous stasis and cyanosis in the lower extremities. The patient has a history of smoking and history of sarcoidosis. The patient denies orthopnea. Denies fever, chills. PAST MEDICAL HISTORY: Sarcoidosis, chronic venous stasis, edema of lower extremities, blind, venous stasis, hyperlipidemia, GERD, and COPD as well as NIDDM, hypertension. PAST SURGICAL HISTORY: None. ALLERGIES: No known allergies. MEDICATIONS: , Lasix, furosemide, amlodipine, montelukast, ranitidine, simvastatin. FAMILY HISTORY: Noncontributory. SOCIAL HISTORY: She has a history of smoking. Denies alcohol or street drugs. REVIEW OF SYSTEMS: HEENT: Denies headaches. RESPIRATORY: Shortness of breath and productive cough wheezing. CARDIOVASCULAR: Denies chest pain. GASTROINTESTINAL: Denies nausea, vomiting, diarrhea. EXTREMITIES: Denies pain in the lower extremities. CENTRAL NERVOUS SYSTEM: No change in vision or speech pattern. Feels weak. PHYSICAL EXAMINATION: VITAL SIGNS: Temperature 98.6, pulse is 95, blood pressure is 160/76. HEENT: PERRLA. NECK: Supple. No lymphadenopathy. CHEST: Bibasilar rhonchi. CARDIOVASCULAR: Regular rate and rhythm. GASTROINTESTINAL: Abdomen is soft. Positive bowel sounds. EXTREMITIES: The patient has and venous stasis. lower extremity and poor hygiene. LABORATORY DATA: WBC of 12.7, hemoglobin 9.1, and platelets 401,000. Sodium 140, potassium 3, BUN of 7, creatinine 0.8, glucose of 304. ASSESSMENT AND PLAN: NIDDM in the setting of sarcoidosis. I have asked Dr. Parra to see her as well as Dr. Cano and Dr. Ochoa, Dr. Mccullough and Dr. Endy Klein also have been consulted to see the patient for the above-mentioned diagnoses and treatment as well. Guillaume Little M.D. DR: ELIA JOB#: [id number] CC:
[2019-03-24] MEDS: Piperacillin/Tazobactam 3.375 GM in NS 110 ML IVPB SCH ×3 (06:11→22:53)
[2019-03-24] MEDS: NovoLOG Insulin Flexpen SUBQ SCH ×4 (06:21→20:55)
--- NOTE | 2019-03-24 07:30 | NUR ---
NURSE NOTES: Report given to ARYA Almonte, patient in stable condition, plan of care endorsed
[2019-03-24 07:34] LABS: BASOPHILS % (AUTO) 0.6 % (0.0-2.0); EOSINOPHILS % (AUTO) 2.5 % (0.0-3.0); HEMATOCRIT 28.1 % (37.0-47.0); HEMOGLOBIN 8.7 G/DL (12.0-16.0); LYMPHOCYTES % (AUTO) 19.4 % (20.0-45.0); MEAN CORPUSCULAR VOLUME 91 FL (80-99); MONOCYTES % (AUTO) 6.8 % (1.0-10.0); NEUTROPHILS % (AUTO) 70.7 % (45.0-75.0); PLATELET COUNT 386 K/UL (150-450); RED CELL DISTRIBUTION WIDTH 12.2 % (11.6-14.8); WHITE BLOOD COUNT 11.8 K/UL (4.8-10.8)
[2019-03-24 07:50] LABS: ANION GAP 4 mmol/L (5-15); BLOOD UREA NITROGEN 3 mg/dL (7-18); CALCIUM 9.7 MG/DL (8.5-10.1); CARBON DIOXIDE 39 MMOL/L (21-32); CHLORIDE 99 MMOL/L (98-107); POTASSIUM 3.6 MMOL/L (3.5-5.1); SODIUM 142 MMOL/L (136-145)
[2019-03-24 08:00] VITALS: BP 138/63
--- NOTE | 2019-03-24 08:08 | NUR ---
NURSE NOTES: Report received from ARYA Dexter. Pt shows no signs of distress, A+Ox3, denies pain/SOB. Respirations are even and unlabored on 2 L NC. IV site is patent and intact. Bed is at lowest position, brakes engaged, siderails x2, bed alarm on, and call light within reach. Pt is in stable condition at this time; will continue to monitor.
[2019-03-24 08:14] LABS: % IRON SATURATION 7 % (15-50); IRON 15 ug/dL (50-175); TOTAL IRON BINDING CAPACITY 205 ug/dL (250-450)
[2019-03-24 08:44] LABS: ALANINE AMINOTRANSFERASE 16 U/L (12-78); ALBUMIN 2.3 G/DL (3.4-5.0); ALBUMIN/GLOBULIN RATIO 0.5 (1.0-2.7); ALKALINE PHOSPHATASE 109 U/L (46-116); ANION GAP 4 mmol/L (5-15); ASPARTATE AMINO TRANSFERASE 15 U/L (15-37); BILIRUBIN,TOTAL 0.4 MG/DL (0.2-1.0); BLOOD UREA NITROGEN 4 mg/dL (7-18); CALCIUM 9.3 MG/DL (8.5-10.1); CARBON DIOXIDE 37 MMOL/L (21-32); CHLORIDE 101 MMOL/L (98-107); CHOLESTEROL 142 MG/DL (< 200); FERRITIN 44 NG/ML (8-388); GAMMA GLUTAMYL TRANSPEPTIDASE 112 U/L (5-85); HDL CHOLESTEROL 65 MG/DL (40-60); PHOSPHORUS 4.3 MG/DL (2.5-4.9); POTASSIUM 3.1 MMOL/L (3.5-5.1); SODIUM 142 MMOL/L (136-145); TRIGLYCERIDES 105 MG/DL (30-150)
[2019-03-24] MEDS: Metoprolol Tartrate 50mg tab ORAL SCH ×2 (08:45→20:51)
[2019-03-24] MEDS: Enoxaparin 40mg Inj SUBQ SCH (08:46)
[2019-03-24] MEDS: Lac Hydrin 12% Lotion 8oz TOPIC SCH ×2 (08:46→17:27)
--- NOTE | 2019-03-24 08:52 | Infectious Diseases Prog Note ---
Assessment/Plan Assessment/Plan IMPRESSION: Pneumonia, Uncontrolled diabetes mellitus, Sarcoidosis, Hypokalemia, Chronic stasis dermatitis and ulceration of legs, Blindness, Anemia, Hypertension. RECOMMENDATION: Continue Zosyn and azithromycin. We will follow up the cultures. Wound care Subjective ROS Limited/Unobtainable: No Constitutional: Reports: no symptoms Respiratory: Reports: shortness of breath, dry cough Cardiovascular: Reports: no symptoms Gastrointestinal/Abdominal: Reports: no symptoms Genitourinary: Reports: no symptoms Allergies: Coded Allergies: No Known Allergies (Unverified , 03/22/19) Objective Vital Signs Last 24 Hour Vital Signs Date Time Temp Pulse Resp B/P (MAP) Pulse Ox O2 Delivery O2 Flow Rate FiO2 03/24/19 08:45 107 138/63 03/24/19 08:44 107 138/63 03/24/19 08:41 107 28 97 Nasal Cannula 4.0 36 03/24/19 08:40 97 Nasal Cannula 4.0 36 03/24/19 08:00 99.5 102 22 138/63 (88) 98 03/24/19 06:00 116/62 03/24/19 04:00 96 03/24/19 04:00 98.1 78 18 116/62 (80) 99 03/24/19 02:13 90 18 99 Nasal Cannula 4.0 36 03/24/19 02:03 92 18 97 Nasal Cannula 4.0 36 03/24/19 00:00 105 03/24/19 00:00 98.2 111 18 103/47 (65) 94 03/23/19 23:16 105 20 98 Nasal Cannula 4.0 36 03/23/19 23:06 104 20 97 Nasal Cannula 4.0 36 03/23/19 22:56 165/82 03/23/19 21:01 114 131/77 03/23/19 21:00 Nasal Cannula 4.0 03/23/19 20:00 109 03/23/19 20:00 98.6 114 18 131/77 (95) 98 03/23/19 19:45 102 20 99 Nasal Cannula 4.0 36 03/23/19 19:35 98 Nasal Cannula 4.0 36 03/23/19 19:35 101 20 98 Nasal Cannula 4.0 36 03/23/19 16:11 95 18 100 Nasal Cannula 4.0 36 03/23/19 16:02 90 18 97 Nasal Cannula 4.0 36 03/23/19 16:00 98.6 86 20 160/76 (104) 99 03/23/19 16:00 105 03/23/19 13:48 150/71 03/23/19 12:00 94 03/23/19 12:00 96.6 96 20 150/71 (97) 100 03/23/19 11:41 94 18 99 Nasal Cannula 4.0 36 03/23/19 11:36 98 Nasal Cannula 2.0 28 03/23/19 11:33 91 16 98 Nasal Cannula 4.0 36 03/23/19 09:00 Nasal Cannula 4.0 03/23/19 08:52 126 182/72 03/23/19 08:52 126 182/72 03/23/19 08:51 182/72 Height (Feet): 5 Height (Inches): 10.00 Weight (Pounds): 228 General Appearance: no acute distress HEENT: other - blind Respiratory/Chest: lungs clear Cardiovascular: tachycardia Abdomen: soft, non tender, other - ventral hernia Extremities: other - edema Skin: other - bilaterl leg skin changes Neurologic/Psychiatric: alert, oriented x 3, responsive Microbiology Date/Time Source Procedure Growth Status 03/22/19 20:19 Blood Blood Culture - Preliminary NO GROWTH AFTER 24 HOURS Resulted 03/22/19 20:04 Blood Blood Culture - Preliminary NO GROWTH AFTER 24 HOURS Resulted 03/24/19 00:07 Nose - Final Complete 03/24/19 00:07 Nose - Final Complete Laboratory Tests Test 03/23/19 18:05 03/24/19 05:20 Lactate Dehydrogenase 192 U/L (81-234) White Blood Count 11.8 K/UL (4.8-10.8) H Red Blood Count 3.10 M/UL (4.20-5.40) L Hemoglobin 8.7 G/DL (12.0-16.0) L Hematocrit 28.1 % (37.0-47.0) L Mean Corpuscular Volume 91 FL (80-99) Mean Corpuscular Hemoglobin 28.1 PG (27.0-31.0) Mean Corpuscular Hemoglobin Concent 31.0 G/DL (32.0-36.0) L Red Cell Distribution Width 12.2 % (11.6-14.8) Platelet Count 386 K/UL (150-450) Mean Platelet Volume 5.9 FL (6.5-10.1) L Neutrophils (%) (Auto) 70.7 % (45.0-75.0) Lymphocytes (%) (Auto) 19.4 % (20.0-45.0) L Monocytes (%) (Auto) 6.8 % (1.0-10.0) Eosinophils (%) (Auto) 2.5 % (0.0-3.0) Basophils (%) (Auto) 0.6 % (0.0-2.0) Sodium Level 142 MMOL/L (136-145) Potassium Level 3.6 MMOL/L (3.5-5.1) Chloride Level 99 MMOL/L (98-107) Carbon Dioxide Level 39 MMOL/L (21-32) H Anion Gap 4 mmol/L (5-15) L Blood Urea Nitrogen 3 mg/dL (7-18) L Creatinine 1.0 MG/DL (0.55-1.30) Estimat Glomerular Filtration Rate > 60 mL/min (>60) Glucose Level 121 MG/DL (74-106) H Hemoglobin A1c 11.4 % (4.3-6.0) H Lactic Acid Level 0.90 mmol/L (0.4-2.0) Uric Acid 5.8 MG/DL (2.6-7.2) Calcium Level 9.7 MG/DL (8.5-10.1) Phosphorus Level 4.3 MG/DL (2.5-4.9) Magnesium Level 1.3 MG/DL (1.8-2.4) L Iron Level 15 ug/dL (50-175) L Total Iron Binding Capacity 205 ug/dL (250-450) L Percent Iron Saturation 7 % (15-50) L Unsaturated Iron Binding 190 ug/dL (112-346) Ferritin 44 NG/ML (8-388) Total Bilirubin 0.4 MG/DL (0.2-1.0) Gamma Glutamyl Transpeptidase 112 U/L (5-85) H Aspartate Amino Transf (AST/SGOT) 15 U/L (15-37) Alanine Aminotransferase (ALT/SGPT) 16 U/L (12-78) Alkaline Phosphatase 109 U/L (46-116) Troponin I 0.004 ng/mL (0.000-0.056) C-Reactive Protein, Quantitative 15.7 mg/dL (0.00-0.90) H Pro-B-Type Natriuretic Peptide 688 pg/mL (0-125) H Total Protein 6.9 G/DL (6.4-8.2) Albumin 2.3 G/DL (3.4-5.0) L Globulin 4.6 g/dL Albumin/Globulin Ratio 0.5 (1.0-2.7) L Triglycerides Level 105 MG/DL (30-150) Cholesterol Level 142 MG/DL (< 200) LDL Cholesterol 59 mg/dL (<100) HDL Cholesterol 65 MG/DL (40-60) H Cholesterol/HDL Ratio 2.2 (3.3-4.4) L Vitamin B12 Level Pending Folate Pending Thyroid Stimulating Hormone (TSH) 1.180 uiU/mL (0.358-3.740) Current Medications Medications (Trade) Dose Ordered Sig/Malissa Route PRN Reason Start Time Stop Time Status Last Admin Dose Admin Acetaminophen (Tylenol) 650 mg Q6H PRN ORAL Mild Pain/Temp > 100.5 03/23/19 00:30 04/22/19 00:29 03/23/19 23:00 Albuterol/ Ipratropium (Albuterol/ Ipratropium) 3 ml Q4HRT HHN 03/23/19 03:00 03/28/19 02:59 03/24/19 08:43 Amlodipine Besylate (Norvasc) 10 mg DAILY ORAL 03/23/19 09:00 04/22/19 08:59 03/24/19 08:44 Ammonium Lactate (Lac Hydrin) 1 applic TWICE A DAY TOPIC 03/24/19 09:00 04/23/19 08:59 03/24/19 08:46 Azithromycin 500 mg/Dextrose 275 ml @ 275 mls/hr Q24HRS IV 03/23/19 21:00 03/29/19 21:59 03/23/19 20:59 Clonidine HCl (Catapres Tab) 0.1 mg EVERY 8 HOURS ORAL 03/23/19 14:00 04/22/19 13:59 03/23/19 22:56 Dextrose (Dextrose 50%) 25 ml Q30M PRN IV Hypoglycemia 03/23/19 00:30 04/22/19 00:29 Dextrose (Dextrose 50%) 50 ml Q30M PRN IV Hypoglycemia 03/23/19 00:30 04/22/19 00:29 Enoxaparin Sodium (Lovenox) 40 mg DAILY SUBQ 03/24/19 09:00 04/23/19 08:59 03/24/19 08:46 Furosemide (Lasix) 20 mg DAILY ORAL 03/23/19 09:00 04/22/19 08:59 03/24/19 08:45 Guaifenesin/ Dextromethorphan (Robitussin DM Syrup) 5 ml Q6H PRN ORAL For Cough 03/23/19 11:15 04/22/19 11:14 03/23/19 22:59 Hydralazine HCl (Apresoline) 25 mg Q4H PRN ORAL bp over 160 syst 03/23/19 12:30 04/22/19 12:29 Insulin Aspart (NovoLOG) BEFORE MEALS AND HS SUBQ 03/23/19 06:30 04/22/19 06:29 03/23/19 21:15 Metoprolol Tartrate (Lopressor) 50 mg Q12HR ORAL 03/23/19 09:00 04/22/19 08:59 03/24/19 08:45 Montelukast Sodium (Singulair) 10 mg BEDTIME ORAL 03/24/19 21:00 04/23/19 20:59 Multivitamins (Multivitamins) 1 tab DAILY ORAL 03/23/19 09:00 04/22/19 08:59 03/24/19 08:44 Nateglinide (Starlix) 120 mg TIAC ORAL 03/23/19 16:30 04/22/19 16:29 03/24/19 06:18 Ondansetron HCl (Zofran) 4 mg Q6H PRN IVP Nausea & Vomiting 03/23/19 00:30 04/22/19 00:29 Pantoprazole (Protonix) 40 mg BID ORAL 03/23/19 18:00 04/22/19 17:59 03/24/19 08:44 Piperacillin Sod/ Tazobactam Sod 3.375 gm/Sodium Chloride 110 ml @ 27.5 mls/hr Q8HR IVPB 03/23/19 06:00 03/30/19 05:59 03/24/19 06:11 Potassium Chloride (K-Dur) 40 meq DAILY ORAL 03/23/19 12:30 04/22/19 12:29 03/24/19 08:44 Prednisone (predniSONE) 5 mg DAILY ORAL 03/24/19 09:00 04/23/19 08:59 03/24/19 08:47 Endy Klein MD Mar 24, 2019 08:52
[2019-03-24] MEDS ORDERED: Dyna-Hex 2% Top Sol 2oz TOPIC ONE (09:00)
--- NOTE | 2019-03-24 09:01 | NUR ---
RADIOLOGY DEPT., CHEST X-RAY DONE.-P.DYE
[2019-03-24] MEDS: Dyna-Hex 2% Top Sol 2oz TOPIC SCH ×2 (09:26→17:27)
[2019-03-24] MEDS ORDERED: Varibar Honey 250ml MC PRN (10:00)
[2019-03-24] MEDS ORDERED: Varibar Nectar 240ml MC PRN (10:00)
[2019-03-24] MEDS ORDERED: Varibar Pudding 230ml MC PRN (10:00)
--- NOTE | 2019-03-24 10:06 | NUR ---
NURSE NOTES: Pt asking to have her prednisone BID because that is how she takes it at home. Asked Dr. Cano and he said to change it to BID. He also said yes to video swallow study. Orders noted and carried out.
--- NOTE | 2019-03-24 10:29 | NUR ---
NOTES: REFERRED FOR SWALLOW EVALUATION BY DR BERMUDEZ, SEE FULL REPORT TO FOLLOW IN CARE ACTIVITY SECTION. DYSPHAGIA RISK FACTORS FOR THIS 53 Y.O.F.: ACUTE SOB X2 DAYS, RESP FAILURE, SARCODOSIS OF LUNG 2012 DX, PNA, ON 4 LITERS 01 NC, RR 24 AT TIMES 16-18, BRONCHOSPASM W/O PO INTAKE (3 YEARS PER PATIENT), YELLOW PHLEGM, BASAL CRACKLES AND ? INFILTRATE. H/O GERD, COPD, DM, HTN. BILATERAL BLINDNESS POLST/AD NOT IN CHART REGARDING TUBE FEEDING PREFERENCES AT HOME ON A REGULAR DIET (SHOULD BE ADA AND GERD/BLAND DIETS) BUT DOES NOT COMPLY AND LIKES SODAS) [facility] CHEW DIET AND NECTAR THICK LIQUIDS (DISLIKES THICKENED LIQUIDS). GOOD INTAKE. ALERT AND ABLE TO EXPRESS NEEDS. 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 DIFFICULTY WITH THIN LIQUIDS VIA STRAW SEQUENTIAL SIPS (NEEDS TO TAKE A BREATH AFTER 2-3 SIPS SHE GETS SOB), NO OVERT S/S OF ASPIRATION. ? IF SHE HAS A SILENT ASPIRATION RISK RECOMMENDATIONS: MODIFIED BARIUM SWALLOW STUDY IP OR OP IF DC (PT NOT RECEPTIVE TO STUDY TODAY) TO FURTHER ASSESS SWALLOW, DETERMINE SILENT ASP RISK, AND ATTEMPT TRIAL TX. COMPLETED EAT-10 QUESTIONNAIRE FOR COPD PATIENTS. CONTINUE WITH SOFT CHEW DIET BUT UPGRADE TO THIN LIQUIDS ONE SIP AT A TIME WITH POSTED ASPIRATON/REFLUX PRECAUTIONS. HAS A CHRONIC THROAT CLEAR AND BRONCHOSPASM THAT SHE ATTRIBUTES TO HER LUNG SARCOIDOSIS. ? GERD RELATED OR EXACERBATES HER COUGHING AND THROAT CLEARING HABIT. ALSO ON PREDNISONE WHICH HAS SOME S/E OF DRY MOUTH ? THROAT, AND CAN CAUSE HEARTBURN/INDIGESTION. CONSIDER GI CONSULT REGARDING GERD (ON PROTONIX NOW AND ANOTHER MED AT HOME) NOT FOLLOWING BLAND/ANTI-GERD DIET (LIKES HER CARBONATED LIQUIDS WHICH ARE NOT GOOD FOR GERD). CONSIDER RD FOR DIET CONSULT REGARDING ADA (LIKES HER SODAS) AND BLAND DIET (SPOKE WITH CONNER) EDUCATED/TRAINED PT/RN (ANDREW) IN POSTED ASP/REFLUX PRECAUTIONS. SKILLED DYSPHAGIA MANAGEMENT AND TX IF INDICATED PER MBSS RESULTS IF SHE IS RECEPTIVE TO THE STUDY. VOICE IS CLEAR BUT HAS RISK FOR VOCAL FOLD DAMAGE WITH BRONCHOSPASM NEEDS VOCAL HYGIENE EDUCATION
--- NOTE | 2019-03-24 11:02 | Nephrology Progress Note ---
Assessment/Plan Problem List: (1) Electrolyte imbalance (2) Hypertension, uncontrolled (3) Diabetes type 2, uncontrolled (4) Pneumonia Assessment Anemia - Low Iron Hypokalemia Low Mag Pneumonia Sarcoidosis Chronic Respiratory Failure Diabetes OOC Elevated lactic acid Hypertension OOC Chronic cutaneous venous stasis ulcer Plan IV Venofer for low Iron mag and Kcl and Phos supplement as needed- Adjust BP meds Adjust BS meds Monitor labs 2D echo 65% EjFx per orders Subjective Constitutional: Reports: malaise, weakness Objective Objective Last 24 Hour Vital Signs Date Time Temp Pulse Resp B/P (MAP) Pulse Ox O2 Delivery O2 Flow Rate FiO2 03/24/19 09:00 Nasal Cannula 2.0 03/24/19 08:56 102 24 100 Nasal Cannula 4.0 36 03/24/19 08:45 107 138/63 03/24/19 08:44 107 138/63 03/24/19 08:41 107 28 97 Nasal Cannula 4.0 36 03/24/19 08:40 97 Nasal Cannula 4.0 36 03/24/19 08:00 99.5 102 22 138/63 (88) 98 03/24/19 06:00 116/62 03/24/19 04:00 96 03/24/19 04:00 98.1 78 18 116/62 (80) 99 03/24/19 02:13 90 18 99 Nasal Cannula 4.0 36 03/24/19 02:03 92 18 97 Nasal Cannula 4.0 36 03/24/19 00:00 105 03/24/19 00:00 98.2 111 18 103/47 (65) 94 03/23/19 23:16 105 20 98 Nasal Cannula 4.0 36 03/23/19 23:06 104 20 97 Nasal Cannula 4.0 36 03/23/19 22:56 165/82 03/23/19 21:01 114 131/77 03/23/19 21:00 Nasal Cannula 4.0 03/23/19 20:00 109 03/23/19 20:00 98.6 114 18 131/77 (95) 98 03/23/19 19:45 102 20 99 Nasal Cannula 4.0 36 03/23/19 19:35 98 Nasal Cannula 4.0 36 03/23/19 19:35 101 20 98 Nasal Cannula 4.0 36 03/23/19 16:11 95 18 100 Nasal Cannula 4.0 36 03/23/19 16:02 90 18 97 Nasal Cannula 4.0 36 03/23/19 16:00 98.6 86 20 160/76 (104) 99 03/23/19 16:00 105 03/23/19 13:48 150/71 03/23/19 12:00 94 03/23/19 12:00 96.6 96 20 150/71 (97) 100 03/23/19 11:41 94 18 99 Nasal Cannula 4.0 36 03/23/19 11:36 98 Nasal Cannula 2.0 28 03/23/19 11:33 91 16 98 Nasal Cannula 4.0 36 Intake and Output 03/23/19 03/24/19 19:00 07:00 Intake Total 620 ml 120 ml Output Total 2400 ml Balance -1780 ml 120 ml Intake Oral 620 ml 120 ml Output Urine Total 2400 ml # Voids 3 4 # Bowel Movements 2 Laboratory Tests 03/23/19 18:05: Lactate Dehydrogenase 192 03/24/19 05:20: White Blood Count 11.8H, Red Blood Count 3.10L, Hemoglobin 8.7L, Hematocrit 28.1L, Mean Corpuscular Volume 91, Mean Corpuscular Hemoglobin 28.1, Mean Corpuscular Hemoglobin Concent 31.0L, Red Cell Distribution Width 12.2, Platelet Count 386, Mean Platelet Volume 5.9L, Neutrophils (%) (Auto) 70.7, Lymphocytes (%) (Auto) 19.4L, Monocytes (%) (Auto) 6.8, Eosinophils (%) (Auto) 2.5, Basophils (%) (Auto) 0.6, Sodium Level 142, Potassium Level 3.6, Chloride Level 99, Carbon Dioxide Level 39H, Anion Gap 4L, Blood Urea Nitrogen 3L, Creatinine 1.0, Estimat Glomerular Filtration Rate > 60, Glucose Level 121H, Hemoglobin A1c 11.4H, Lactic Acid Level 0.90, Uric Acid 5.8, Calcium Level 9.7, Phosphorus Level 4.3, Magnesium Level 1.3L, Iron Level 15L, Total Iron Binding Capacity 205L, Percent Iron Saturation 7L, Unsaturated Iron Binding 190, Ferritin 44, Total Bilirubin 0.4, Gamma Glutamyl Transpeptidase 112H, Aspartate Amino Transf (AST/SGOT) 15, Alanine Aminotransferase (ALT/SGPT) 16, Alkaline Phosphatase 109, Troponin I 0.004, C-Reactive Protein, Quantitative 15.7H, Pro-B -Type Natriuretic Peptide 688H, Total Protein 6.9, Albumin 2.3L, Globulin 4.6, Albumin/Globulin Ratio 0.5L, Triglycerides Level 105, Cholesterol Level 142, LDL Cholesterol 59, HDL Cholesterol 65H, Cholesterol/HDL Ratio 2.2L, Vitamin B12 Level 680, Folate 72.5H, Thyroid Stimulating Hormone (TSH) 1.180 Height (Feet): 5 Height (Inches): 10.00 Weight (Pounds): 228 General Appearance: mild distress Cardiovascular: tachycardia Respiratory/Chest: decreased breath sounds Abdomen: distended Tre Ochoa MD Mar 24, 2019 11:02
[2019-03-24 12:00] VITALS: BP 137/61
[2019-03-24] MEDS ORDERED: Iron Sucrose 200 MG in NS 110 ML IV ONE ×3 (12:00→14:00)
--- NOTE | 2019-03-24 12:05 | Pulmonology Progress Note ---
Assessment/Plan Assessment/Plan Pulmonary Progress Note HPI Patient is a 53-year-old woman admitted with cough, shortness of breath, worse for 2 days, LE swelling. Previous history of sarcoidosis, respiratory failure on home oxygen, on chronic Prednisone therapy, Diabetes, Hypertension. Complains of a cough productive with yellowish phlegm. Denies fevers or chills. She has had this swelling to her legs for several months. Denies pain. No other aggravating relieving factors. Denies any other associated symptoms , less SOB, glucose control improved Allergies: No Known Allergies Past Medical History: Diabetes Mellitus, Sarcoidosis, Hypertension Past Surgical History: none Pertinent Family History: none Social History: Denies: smoking, alcohol use, drug use All Other Systems: negative except mentioned in HPI Physical Exam Vital Signs Noted General Appearance: no apparent distress, alert, GCS 15, non-toxic Head: normocephalic Eyes: bilateral eye normal inspection, bilateral eye PERRL ENT: moist mm, no LN Neck: normal inspection Respiratory: chest non-tender, lungs clear, basal crackles Cardiovascular: regular rate, rhythm, HS1, HS2 normal, no edema Gastrointestinal: normal inspection Musculoskeletal: swelling - chronic cutaneous venous stasis ulcers bilateral legs Neurologic: alert, oriented x3, blind, responsive, motor strength/tone normal, sensory intact, speech normal, no focal signs Impression: Pneumonia Sarcoidosis Chronic Respiratory Failure Diabetes on Metformin Elevated lactic acid Hypertension Chronic cutaneous venous stasis ulcer Plan IV antibiotics DC Metformin Repeat Lactate ISS Swallowing evaluation 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 5mg bid HHN O2 PRN PPX Analgesia PRN Dr Rubi followingt for wound care Labs Test 03/22/19 20:19 03/22/19 20:35 03/22/19 22:01 White Blood Count 12.7 K/UL (4.8-10.8) Red Blood Count 3.25 M/UL (4.20-5.40) Hemoglobin 9.1 G/DL (12.0-16.0) Hematocrit 28.7 % (37.0-47.0) Mean Corpuscular Volume 88 FL (80-99) Mean Corpuscular Hemoglobin 28.2 PG (27.0-31.0) Mean Corpuscular Hemoglobin Concent 31.9 G/DL (32.0-36.0) Red Cell Distribution Width 11.5 % (11.6-14.8) Platelet Count 401 K/UL (150-450) Mean Platelet Volume 5.6 FL (6.5-10.1) Neutrophils (%) (Auto) 74.4 % (45.0-75.0) Lymphocytes (%) (Auto) 19.1 % (20.0-45.0) Monocytes (%) (Auto) 4.5 % (1.0-10.0) Eosinophils (%) (Auto) 0.7 % (0.0-3.0) Basophils (%) (Auto) 1.3 % (0.0-2.0) Sodium Level 140 MMOL/L (136-145) Potassium Level 3.0 MMOL/L (3.5-5.1) Chloride Level 98 MMOL/L (98-107) Carbon Dioxide Level 34 MMOL/L (21-32) Anion Gap 8 mmol/L (5-15) Blood Urea Nitrogen 7 mg/dL (7-18) Creatinine 0.8 MG/DL (0.55-1.30) Estimat Glomerular Filtration Rate > 60 mL/min (>60) Glucose Level 304 MG/DL (74-106) Lactic Acid Level 3.00 mmol/L (0.4-2.0) Calcium Level 9.6 MG/DL (8.5-10.1) Total Bilirubin 0.2 MG/DL (0.2-1.0) Aspartate Amino Transf (AST/SGOT) 13 U/L (15-37) Alanine Aminotransferase (ALT/SGPT) 18 U/L (12-78) Alkaline Phosphatase 115 U/L (46-116) Troponin I 0.000 ng/mL (0.000-0.056) Pro-B-Type Natriuretic Peptide 481 pg/mL (0-125) Total Protein 8.1 G/DL (6.4-8.2) Albumin 2.9 G/DL (3.4-5.0) Globulin 5.2 g/dL Albumin/Globulin Ratio 0.6 (1.0-2.7) Urine Color Pale yellow Urine Appearance Clear Urine pH 7 (4.5-8.0) Urine Specific Carver 1.005 (1.005-1.035) Urine Protein 1+ (NEGATIVE) Urine Glucose (UA) 3+ (NEGATIVE) Urine Ketones Negative (NEGATIVE) Urine Blood Negative (NEGATIVE) Urine Nitrite Negative (NEGATIVE) Urine Bilirubin Negative (NEGATIVE) Urine Urobilinogen Normal MG/DL (0.0-1.0) Urine Leukocyte Esterase Negative (NEGATIVE) Urine RBC 0-2 /HPF (0 - 2) Urine WBC 0-2 /HPF (0 - 2) Urine Squamous Epithelial Cells Few /LPF (NONE/OCC) Urine Bacteria Few /HPF (NONE) EKG: Rate: tachycardiac Rhythm: NSR ST Segments: no acute changes Chest X-Ray: no pneumothorax, other - diffuse interstitial changes - sarcoidosis, ?infiltrate Subjective ROS Limited/Unobtainable: No Allergies: Coded Allergies: No Known Allergies (Unverified , 03/22/19) Objective Last 24 Hour Vital Signs Date Time Temp Pulse Resp B/P (MAP) Pulse Ox O2 Delivery O2 Flow Rate FiO2 03/24/19 09:00 Nasal Cannula 2.0 03/24/19 08:56 102 24 100 Nasal Cannula 4.0 36 03/24/19 08:45 107 138/63 03/24/19 08:44 107 138/63 03/24/19 08:41 107 28 97 Nasal Cannula 4.0 36 03/24/19 08:40 97 Nasal Cannula 4.0 36 03/24/19 08:00 99.5 102 22 138/63 (88) 98 03/24/19 08:00 100 03/24/19 06:00 116/62 03/24/19 04:00 96 03/24/19 04:00 98.1 78 18 116/62 (80) 99 03/24/19 02:13 90 18 99 Nasal Cannula 4.0 36 03/24/19 02:03 92 18 97 Nasal Cannula 4.0 36 03/24/19 00:00 105 03/24/19 00:00 98.2 111 18 103/47 (65) 94 03/23/19 23:16 105 20 98 Nasal Cannula 4.0 36 03/23/19 23:06 104 20 97 Nasal Cannula 4.0 36 03/23/19 22:56 165/82 03/23/19 21:01 114 131/77 03/23/19 21:00 Nasal Cannula 4.0 03/23/19 20:00 109 03/23/19 20:00 98.6 114 18 131/77 (95) 98 03/23/19 19:45 102 20 99 Nasal Cannula 4.0 36 03/23/19 19:35 98 Nasal Cannula 4.0 36 03/23/19 19:35 101 20 98 Nasal Cannula 4.0 36 03/23/19 16:11 95 18 100 Nasal Cannula 4.0 36 03/23/19 16:02 90 18 97 Nasal Cannula 4.0 36 03/23/19 16:00 98.6 86 20 160/76 (104) 99 03/23/19 16:00 105 03/23/19 13:48 150/71 Intake and Output 03/23/19 03/24/19 19:00 07:00 Intake Total 620 ml 120 ml Output Total 2400 ml Balance -1780 ml 120 ml Intake Oral 620 ml 120 ml Output Urine Total 2400 ml # Voids 3 4 # Bowel Movements 2 Microbiology Date/Time Source Procedure Growth Status 03/22/19 20:19 Blood Blood Culture - Preliminary NO GROWTH AFTER 24 HOURS Resulted 03/22/19 20:04 Blood Blood Culture - Preliminary NO GROWTH AFTER 24 HOURS Resulted 03/24/19 00:07 Nose - Final Complete 03/24/19 00:07 Nose - Final Complete Laboratory Tests 03/23/19 18:05: Lactate Dehydrogenase 192 03/24/19 05:20: White Blood Count 11.8H, Red Blood Count 3.10L, Hemoglobin 8.7L, Hematocrit 28.1L, Mean Corpuscular Volume 91, Mean Corpuscular Hemoglobin 28.1, Mean Corpuscular Hemoglobin Concent 31.0L, Red Cell Distribution Width 12.2, Platelet Count 386, Mean Platelet Volume 5.9L, Neutrophils (%) (Auto) 70.7, Lymphocytes (%) (Auto) 19.4L, Monocytes (%) (Auto) 6.8, Eosinophils (%) (Auto) 2.5, Basophils (%) (Auto) 0.6, Sodium Level 142, Potassium Level 3.6, Chloride Level 99, Carbon Dioxide Level 39H, Anion Gap 4L, Blood Urea Nitrogen 3L, Creatinine 1.0, Estimat Glomerular Filtration Rate > 60, Glucose Level 121H, Hemoglobin A1c 11.4H, Lactic Acid Level 0.90, Uric Acid 5.8, Calcium Level 9.7, Phosphorus Level 4.3, Magnesium Level 1.3L, Iron Level 15L, Total Iron Binding Capacity 205L, Percent Iron Saturation 7L, Unsaturated Iron Binding 190, Ferritin 44, Total Bilirubin 0.4, Gamma Glutamyl Transpeptidase 112H, Aspartate Amino Transf (AST/SGOT) 15, Alanine Aminotransferase (ALT/SGPT) 16, Alkaline Phosphatase 109, Troponin I 0.004, C-Reactive Protein, Quantitative 15.7H, Pro-B -Type Natriuretic Peptide 688H, Total Protein 6.9, Albumin 2.3L, Globulin 4.6, Albumin/Globulin Ratio 0.5L, Triglycerides Level 105, Cholesterol Level 142, LDL Cholesterol 59, HDL Cholesterol 65H, Cholesterol/HDL Ratio 2.2L, Vitamin B12 Level 680, Folate 72.5H, Thyroid Stimulating Hormone (TSH) 1.180 Current Medications Medications (Trade) Dose Ordered Sig/Malissa Route PRN Reason Start Time Stop Time Status Last Admin Dose Admin Acetaminophen (Tylenol) 650 mg Q6H PRN ORAL Mild Pain/Temp > 100.5 03/23/19 00:30 04/22/19 00:29 03/23/19 23:00 Albuterol/ Ipratropium (Albuterol/ Ipratropium) 3 ml Q4HRT HHN 03/23/19 03:00 03/28/19 02:59 03/24/19 08:43 Amlodipine Besylate (Norvasc) 10 mg DAILY ORAL 03/23/19 09:00 04/22/19 08:59 03/24/19 08:44 Ammonium Lactate (Lac Hydrin) 1 applic TWICE A DAY TOPIC 03/24/19 09:00 04/23/19 08:59 03/24/19 08:46 Azithromycin 500 mg/Dextrose 275 ml @ 275 mls/hr Q24HRS IV 03/23/19 21:00 03/29/19 21:59 03/23/19 20:59 Barium Sulfate (Varibar Honey) 250 ml NOW PRN Radiology Procedure 03/24/19 10:00 03/27/19 09:58 Barium Sulfate (Varibar [place]ra) 230 ml NOW PRN Radiology Procedure 03/24/19 10:00 03/27/19 09:58 Barium Sulfate (Varibar Pudding) 230 ml NOW PRN Radiology Procedure 03/24/19 10:00 03/27/19 09:58 Chlorhexidine Gluconate (Sonya-Hex 2%) 1 applic BID TOPIC 03/24/19 09:30 04/23/19 09:29 03/24/19 09:26 Clonidine HCl (Catapres Tab) 0.1 mg EVERY 8 HOURS ORAL 03/23/19 14:00 04/22/19 13:59 03/23/19 22:56 Dextrose (Dextrose 50%) 25 ml Q30M PRN IV Hypoglycemia 03/23/19 00:30 04/22/19 00:29 Dextrose (Dextrose 50%) 50 ml Q30M PRN IV Hypoglycemia 03/23/19 00:30 04/22/19 00:29 Enoxaparin Sodium (Lovenox) 40 mg DAILY SUBQ 03/24/19 09:00 04/23/19 08:59 03/24/19 08:46 Guaifenesin/ Dextromethorphan (Robitussin DM Syrup) 5 ml Q6H PRN ORAL For Cough 03/23/19 11:15 04/22/19 11:14 03/23/19 22:59 Hydralazine HCl (Apresoline) 25 mg Q4H PRN ORAL bp over 160 syst 03/23/19 12:30 04/22/19 12:29 Insulin Aspart (NovoLOG) BEFORE MEALS AND HS SUBQ 03/23/19 06:30 04/22/19 06:29 03/24/19 11:38 Iron Sucrose 100 mg/Sodium Chloride 60 ml @ 240 mls/hr BEDTIME IV 03/25/19 21:00 03/29/19 21:14 Iron Sucrose 200 mg/Sodium Chloride 120 ml @ 240 mls/hr ONCE ONCE IV 03/24/19 12:00 03/24/19 12:29 Magnesium Sulfate 100 ml @ 100 mls/hr Q1H IVPB 03/24/19 09:30 03/24/19 13:29 03/24/19 11:37 Metoprolol Tartrate (Lopressor) 50 mg Q12HR ORAL 03/23/19 09:00 04/22/19 08:59 03/24/19 08:45 Montelukast Sodium (Singulair) 10 mg BEDTIME ORAL 03/24/19 21:00 04/23/19 20:59 Multivitamins (Multivitamins) 1 tab DAILY ORAL 03/23/19 09:00 04/22/19 08:59 03/24/19 08:44 Nateglinide (Starlix) 120 mg TIAC ORAL 03/23/19 16:30 04/22/19 16:29 03/24/19 11:37 Ondansetron HCl (Zofran) 4 mg Q6H PRN IVP Nausea & Vomiting 03/23/19 00:30 04/22/19 00:29 Pantoprazole (Protonix) 40 mg BID ORAL 03/23/19 18:00 04/22/19 17:59 03/24/19 08:44 Piperacillin Sod/ Tazobactam Sod 3.375 gm/Sodium Chloride 110 ml @ 27.5 mls/hr Q8HR IVPB 03/23/19 06:00 03/30/19 05:59 03/24/19 06:11 Potassium Chloride (K-Dur) 40 meq TWICE A DAY ORAL 03/24/19 18:00 04/23/19 17:59 Prednisone (predniSONE) 5 mg BID ORAL 03/24/19 18:00 04/23/19 08:59 Vinh Cano MD Mar 24, 2019 12:05
--- NOTE | 2019-03-24 12:49 | Diagnostic Imaging Report ---
Indication: Cough Comparison: 03/22/2019 A single view chest radiograph was obtained. Findings: Patchy infiltrates again demonstrated without significant change accounting for differences in technique. Heart is enlarged but stable. IMPRESSION: No change
--- NOTE | 2019-03-24 14:21 | NUR ---
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 98.2 HR 102 RR 20 B/P 137/61 4L NC WBC 11.8 CO2 39 CXR= NO CHANGES IS: IRON IV AZITHROMAX IV ZOSYN IV SINGULAR PO ALB HHN TELE STATUS
--- NOTE | 2019-03-24 14:57 | Surgery Progress Note ---
Surgery Progress Note Subjective Additional Comments no acute events doing well labs improved wounds already improved with dressings changes podiatry to eval for toe nails as they need to be trimmed. Objective Last 24 Hour Vital Signs Date Time Temp Pulse Resp B/P (MAP) Pulse Ox O2 Delivery O2 Flow Rate FiO2 03/24/19 14:17 138/62 03/24/19 12:30 99 20 99 Nasal Cannula 4.0 36 03/24/19 12:17 102 20 97 Nasal Cannula 4.0 36 03/24/19 12:00 98.2 91 23 137/61 (86) 99 03/24/19 12:00 92 03/24/19 09:00 Nasal Cannula 2.0 03/24/19 08:56 102 24 100 Nasal Cannula 4.0 36 03/24/19 08:45 107 138/63 03/24/19 08:44 107 138/63 03/24/19 08:41 107 28 97 Nasal Cannula 4.0 36 03/24/19 08:40 97 Nasal Cannula 4.0 36 03/24/19 08:00 99.5 102 22 138/63 (88) 98 03/24/19 08:00 100 03/24/19 06:00 116/62 03/24/19 04:00 96 03/24/19 04:00 98.1 78 18 116/62 (80) 99 03/24/19 02:13 90 18 99 Nasal Cannula 4.0 36 03/24/19 02:03 92 18 97 Nasal Cannula 4.0 36 03/24/19 00:00 105 03/24/19 00:00 98.2 111 18 103/47 (65) 94 03/23/19 23:16 105 20 98 Nasal Cannula 4.0 36 03/23/19 23:06 104 20 97 Nasal Cannula 4.0 36 03/23/19 22:56 165/82 03/23/19 21:01 114 131/77 03/23/19 21:00 Nasal Cannula 4.0 03/23/19 20:00 109 03/23/19 20:00 98.6 114 18 131/77 (95) 98 03/23/19 19:45 102 20 99 Nasal Cannula 4.0 36 03/23/19 19:35 98 Nasal Cannula 4.0 36 03/23/19 19:35 101 20 98 Nasal Cannula 4.0 36 03/23/19 16:11 95 18 100 Nasal Cannula 4.0 36 03/23/19 16:02 90 18 97 Nasal Cannula 4.0 36 03/23/19 16:00 98.6 86 20 160/76 (104) 99 03/23/19 16:00 105 I&O Intake and Output 03/23/19 03/24/19 19:00 07:00 Intake Total 620 ml 120 ml Output Total 2400 ml Balance -1780 ml 120 ml Intake Oral 620 ml 120 ml Output Urine Total 2400 ml # Voids 3 4 # Bowel Movements 2 Dressing: dry Wound: clean Cardiovascular: RSR Respiratory: clear Abdomen: soft, non-tender, present bowel sounds Extremities: no cyanosis, other Laboratory Tests Test 03/23/19 18:05 03/24/19 05:20 Lactate Dehydrogenase 192 U/L (81-234) White Blood Count 11.8 K/UL (4.8-10.8) H Red Blood Count 3.10 M/UL (4.20-5.40) L Hemoglobin 8.7 G/DL (12.0-16.0) L Hematocrit 28.1 % (37.0-47.0) L Mean Corpuscular Volume 91 FL (80-99) Mean Corpuscular Hemoglobin 28.1 PG (27.0-31.0) Mean Corpuscular Hemoglobin Concent 31.0 G/DL (32.0-36.0) L Red Cell Distribution Width 12.2 % (11.6-14.8) Platelet Count 386 K/UL (150-450) Mean Platelet Volume 5.9 FL (6.5-10.1) L Neutrophils (%) (Auto) 70.7 % (45.0-75.0) Lymphocytes (%) (Auto) 19.4 % (20.0-45.0) L Monocytes (%) (Auto) 6.8 % (1.0-10.0) Eosinophils (%) (Auto) 2.5 % (0.0-3.0) Basophils (%) (Auto) 0.6 % (0.0-2.0) Sodium Level 142 MMOL/L (136-145) Potassium Level 3.6 MMOL/L (3.5-5.1) Chloride Level 99 MMOL/L (98-107) Carbon Dioxide Level 39 MMOL/L (21-32) H Anion Gap 4 mmol/L (5-15) L Blood Urea Nitrogen 3 mg/dL (7-18) L Creatinine 1.0 MG/DL (0.55-1.30) Estimat Glomerular Filtration Rate > 60 mL/min (>60) Glucose Level 121 MG/DL (74-106) H Hemoglobin A1c 11.4 % (4.3-6.0) H Lactic Acid Level 0.90 mmol/L (0.4-2.0) Uric Acid 5.8 MG/DL (2.6-7.2) Calcium Level 9.7 MG/DL (8.5-10.1) Phosphorus Level 4.3 MG/DL (2.5-4.9) Magnesium Level 1.3 MG/DL (1.8-2.4) L Iron Level 15 ug/dL (50-175) L Total Iron Binding Capacity 205 ug/dL (250-450) L Percent Iron Saturation 7 % (15-50) L Unsaturated Iron Binding 190 ug/dL (112-346) Ferritin 44 NG/ML (8-388) Total Bilirubin 0.4 MG/DL (0.2-1.0) Gamma Glutamyl Transpeptidase 112 U/L (5-85) H Aspartate Amino Transf (AST/SGOT) 15 U/L (15-37) Alanine Aminotransferase (ALT/SGPT) 16 U/L (12-78) Alkaline Phosphatase 109 U/L (46-116) Troponin I 0.004 ng/mL (0.000-0.056) C-Reactive Protein, Quantitative 15.7 mg/dL (0.00-0.90) H Pro-B-Type Natriuretic Peptide 688 pg/mL (0-125) H Total Protein 6.9 G/DL (6.4-8.2) Albumin 2.3 G/DL (3.4-5.0) L Globulin 4.6 g/dL Albumin/Globulin Ratio 0.5 (1.0-2.7) L Triglycerides Level 105 MG/DL (30-150) Cholesterol Level 142 MG/DL (< 200) LDL Cholesterol 59 mg/dL (<100) HDL Cholesterol 65 MG/DL (40-60) H Cholesterol/HDL Ratio 2.2 (3.3-4.4) L Vitamin B12 Level 680 PG/ML (193-986) Folate 72.5 NG/ML (8.6-58.9) H Thyroid Stimulating Hormone (TSH) 1.180 uiU/mL (0.358-3.740) Plan Problems: (1) Edema of both lower extremities (2) Sarcoidosis (3) Chronic cutaneous venous stasis ulcer Assessment & Plan: patient presented with venous stasis dermatitis of bilateral lower extremities. states has had for some time. scaling wounds with chronic scaring. mostly dry with some open areas. does not receive care often for them. no compression stockings. -daily chlorhexidine wash bilateral lower extremity -apply Lac Hydrin lotion and wrap with saran wrap for 20 mins BID -keep legs elevated when possible -will follow with recs -podiatry for eval thank you for allowing me to participate in patients care. (4) Dyspnea Timbo Rubi Mar 24, 2019 14:57
--- NOTE | 2019-03-24 14:59 | Consultation ---
Consult Note Assessment/Plan A/ 1) DM 2 2) Onychogryphosis Painful x 10 toes 3) Venous stasis P/ 1) Toenails were debrided x 10 without complication. Nurse was present and patient was very appreciative 2) Cont wound care per General Surgery Thank you Montez Durham DPM Mar 24, 2019 14:59
--- NOTE | 2019-03-24 15:07 | Hematology/Onc Progress Note ---
Assessment/Plan Assessment/Plan Diagnostic Impression: # Anemia of iron deficiency rule out underlying gi bleed, ferritin 44 --> Anemia workup has been ordered, rule out gi bleed (ferritin is low) --> No evidence of hemolysis is noted, peripheral smear has been reviewed. --> Hgb goal >7. Transfuse prn. --> IV IROn has been started x 5 days --> Medications have been reviewed --> low threshold for gi evaluation in case has occult + --> bone marrow biopsy is not indicated given the other more likely causes # Anemia due to chf --> diuresis if required by cards --> for volume overload, further diuresis # Dyspnea with resp failure --> abx and steriods per pulm # Chronic cutaneous venous stasis ulcer --> wound care/surg recs # Hypok --> kcl was given # Sarcoidosis # DVT ppx lovenox sq The timing of this note does not necessarily reflect the time of the patient was seen. GREATLY APPRECIATE CONSULTATION. Subjective Constitutional: Denies: no symptoms, chills, fever, malaise, weakness, other HEENT: Denies: no symptoms, eye pain, blurred vision, tearing, double vision, ear pain, ear discharge, nose pain, nose congestion, throat pain, throat swelling, mouth pain, mouth swelling, other Cardiovascular: Denies: no symptoms, chest pain, edema, irregular heart rate, lightheadedness, palpitations, syncope, other Gastrointestinal/Abdominal: Denies: no symptoms, abdomen distended, abdominal pain, black stools, tarry stools, blood in stool, constipated, diarrhea, difficulty swallowing, nausea, poor appetite, poor fluid intake, rectal bleeding , vomiting, other Genitourinary: Denies: no symptoms, burning, discharge, frequency, flank pain, hematuria, incontinence, pain, urgency, other Neurologic/Psychiatric: Denies: no symptoms, anxiety, depressed, emotional problems, headache, numbness, paresthesia, pre-existing deficit, seizure, tingling, tremors, weakness, other Endocrine: Denies: no symptoms, excessive sweating, flushing, intolerance to cold, intolerance to heat, increased hunger, increased thirst, increased urine, unexplained weight gain, unexplained weight loss, other Allergies: Coded Allergies: No Known Allergies (Unverified , 03/22/19) Subjective 03/24: dressing changes with wounds slowly improving, on iv iron Objective Objective Current Medications Medications (Trade) Dose Ordered Sig/Malissa Route PRN Reason Start Time Stop Time Status Last Admin Dose Admin Acetaminophen (Tylenol) 650 mg Q6H PRN ORAL Mild Pain/Temp > 100.5 03/23/19 00:30 04/22/19 00:29 03/24/19 14:17 Albuterol/ Ipratropium (Albuterol/ Ipratropium) 3 ml Q4HRT HHN 03/23/19 03:00 03/28/19 02:59 03/24/19 12:19 Amlodipine Besylate (Norvasc) 10 mg DAILY ORAL 03/23/19 09:00 04/22/19 08:59 03/24/19 08:44 Ammonium Lactate (Lac Hydrin) 1 applic TWICE A DAY TOPIC 03/24/19 09:00 04/23/19 08:59 03/24/19 08:46 Azithromycin 500 mg/Dextrose 275 ml @ 275 mls/hr Q24HRS IV 03/23/19 21:00 03/29/19 21:59 03/23/19 20:59 Barium Sulfate (Varibar Honey) 250 ml NOW PRN Radiology Procedure 03/24/19 10:00 03/27/19 09:58 Barium Sulfate (Varibar [place]) 230 ml NOW PRN Radiology Procedure 03/24/19 10:00 03/27/19 09:58 Barium Sulfate (Varibar Pudding) 230 ml NOW PRN Radiology Procedure 03/24/19 10:00 03/27/19 09:58 Chlorhexidine Gluconate (Sonya-Hex 2%) 1 applic BID TOPIC 03/24/19 09:30 04/23/19 09:29 03/24/19 09:26 Clonidine HCl (Catapres Tab) 0.1 mg EVERY 8 HOURS ORAL 03/23/19 14:00 04/22/19 13:59 03/24/19 14:17 Dextrose (Dextrose 50%) 25 ml Q30M PRN IV Hypoglycemia 03/23/19 00:30 04/22/19 00:29 Dextrose (Dextrose 50%) 50 ml Q30M PRN IV Hypoglycemia 03/23/19 00:30 04/22/19 00:29 Enoxaparin Sodium (Lovenox) 40 mg DAILY SUBQ 03/24/19 09:00 04/23/19 08:59 03/24/19 08:46 Famotidine (Pepcid) 20 mg BID ORAL 03/24/19 14:15 04/23/19 14:14 03/24/19 14:17 Guaifenesin/ Dextromethorphan (Robitussin DM Syrup) 5 ml Q6H PRN ORAL For Cough 03/23/19 11:15 04/22/19 11:14 03/23/19 22:59 Hydralazine HCl (Apresoline) 25 mg Q4H PRN ORAL bp over 160 syst 03/23/19 12:30 04/22/19 12:29 Insulin Aspart (NovoLOG) BEFORE MEALS AND HS SUBQ 03/23/19 06:30 04/22/19 06:29 03/24/19 11:38 Iron Sucrose 100 mg/Sodium Chloride 60 ml @ 240 mls/hr BEDTIME IV 03/25/19 21:00 03/29/19 21:14 Metoprolol Tartrate (Lopressor) 50 mg Q12HR ORAL 03/23/19 09:00 04/22/19 08:59 03/24/19 08:45 Montelukast Sodium (Singulair) 10 mg BEDTIME ORAL 03/24/19 21:00 04/23/19 20:59 Multivitamins (Multivitamins) 1 tab DAILY ORAL 03/23/19 09:00 04/22/19 08:59 03/24/19 08:44 Nateglinide (Starlix) 120 mg TIAC ORAL 03/23/19 16:30 04/22/19 16:29 03/24/19 11:37 Ondansetron HCl (Zofran) 4 mg Q6H PRN IVP Nausea & Vomiting 03/23/19 00:30 04/22/19 00:29 Pantoprazole (Protonix) 40 mg BID ORAL 03/23/19 18:00 04/22/19 17:59 03/24/19 08:44 Piperacillin Sod/ Tazobactam Sod 3.375 gm/Sodium Chloride 110 ml @ 27.5 mls/hr Q8HR IVPB 03/23/19 06:00 03/30/19 05:59 03/24/19 06:11 Potassium Chloride (K-Dur) 40 meq TWICE A DAY ORAL 03/24/19 18:00 04/23/19 17:59 Prednisone (predniSONE) 5 mg BID ORAL 03/24/19 18:00 04/23/19 08:59 Last 24 Hour Vital Signs Date Time Temp Pulse Resp B/P (MAP) Pulse Ox O2 Delivery O2 Flow Rate FiO2 03/24/19 14:17 138/62 03/24/19 12:30 99 20 99 Nasal Cannula 4.0 36 03/24/19 12:17 102 20 97 Nasal Cannula 4.0 36 03/24/19 12:00 98.2 91 23 137/61 (86) 99 03/24/19 12:00 92 03/24/19 09:00 Nasal Cannula 2.0 03/24/19 08:56 102 24 100 Nasal Cannula 4.0 36 03/24/19 08:45 107 138/63 03/24/19 08:44 107 138/63 03/24/19 08:41 107 28 97 Nasal Cannula 4.0 36 03/24/19 08:40 97 Nasal Cannula 4.0 36 03/24/19 08:00 99.5 102 22 138/63 (88) 98 03/24/19 08:00 100 03/24/19 06:00 116/62 03/24/19 04:00 96 03/24/19 04:00 98.1 78 18 116/62 (80) 99 03/24/19 02:13 90 18 99 Nasal Cannula 4.0 36 03/24/19 02:03 92 18 97 Nasal Cannula 4.0 36 03/24/19 00:00 105 03/24/19 00:00 98.2 111 18 103/47 (65) 94 03/23/19 23:16 105 20 98 Nasal Cannula 4.0 36 03/23/19 23:06 104 20 97 Nasal Cannula 4.0 36 03/23/19 22:56 165/82 03/23/19 21:01 114 131/77 03/23/19 21:00 Nasal Cannula 4.0 03/23/19 20:00 109 03/23/19 20:00 98.6 114 18 131/77 (95) 98 03/23/19 19:45 102 20 99 Nasal Cannula 4.0 36 03/23/19 19:35 98 Nasal Cannula 4.0 36 03/23/19 19:35 101 20 98 Nasal Cannula 4.0 36 03/23/19 16:11 95 18 100 Nasal Cannula 4.0 36 03/23/19 16:02 90 18 97 Nasal Cannula 4.0 36 03/23/19 16:00 98.6 86 20 160/76 (104) 99 03/23/19 16:00 105 03/23/19 13:48 150/71 03/23/19 12:00 94 03/23/19 12:00 96.6 96 20 150/71 (97) 100 03/23/19 11:41 94 18 99 Nasal Cannula 4.0 36 03/23/19 11:36 98 Nasal Cannula 2.0 28 03/23/19 11:33 91 16 98 Nasal Cannula 4.0 36 03/23/19 09:00 Nasal Cannula 4.0 03/23/19 08:52 126 182/72 03/23/19 08:52 126 182/72 03/23/19 08:51 182/72 03/23/19 08:10 117 20 99 Nasal Cannula 4.0 36 03/23/19 08:03 118 20 98 Nasal Cannula 4.0 36 03/23/19 08:00 128 03/23/19 08:00 97.7 126 20 182/72 (108) 96 03/23/19 04:00 105 03/23/19 03:57 98.9 81 20 154/74 (100) 98 03/23/19 02:27 110 22 99 Nasal Cannula 3.0 32 03/23/19 02:26 98.4 110 20 135/76 100 Nasal Cannula 2.0 03/23/19 02:24 98 Nasal Cannula 3.0 32 03/23/19 02:22 108 22 98 Nasal Cannula 3.0 03/23/19 02:20 108 22 98 Nasal Cannula 3.0 03/23/19 00:00 97.4 64 18 141/84 (103) 96 03/23/19 00:00 Nasal Cannula 2.0 03/23/19 00:00 135 03/22/19 21:55 97.9 18 150/80 95 Room Air 03/22/19 19:55 80 18 Room Air 03/22/19 19:55 97.9 18 150/80 95 Room Air 03/22/19 19:28 97.9 80 18 150/80 (103) 95 Room Air Intake and Output 8/7/19 8/8/19 19:00 07:00 Intake Total 620 ml 120 ml Output Total 2400 ml Balance -1780 ml 120 ml Intake Oral 620 ml 120 ml Output Urine Total 2400 ml # Voids 3 4 # Bowel Movements 2 Labs Test 03/22/19 20:19 03/22/19 20:35 03/22/19 22:01 03/23/19 18:05 White Blood Count 12.7 K/UL (4.8-10.8) Red Blood Count 3.25 M/UL (4.20-5.40) Hemoglobin 9.1 G/DL (12.0-16.0) Hematocrit 28.7 % (37.0-47.0) Mean Corpuscular Volume 88 FL (80-99) Mean Corpuscular Hemoglobin 28.2 PG (27.0-31.0) Mean Corpuscular Hemoglobin Concent 31.9 G/DL (32.0-36.0) Red Cell Distribution Width 11.5 % (11.6-14.8) Platelet Count 401 K/UL (150-450) Mean Platelet Volume 5.6 FL (6.5-10.1) Neutrophils (%) (Auto) 74.4 % (45.0-75.0) Lymphocytes (%) (Auto) 19.1 % (20.0-45.0) Monocytes (%) (Auto) 4.5 % (1.0-10.0) Eosinophils (%) (Auto) 0.7 % (0.0-3.0) Basophils (%) (Auto) 1.3 % (0.0-2.0) Sodium Level 140 MMOL/L (136-145) Potassium Level 3.0 MMOL/L (3.5-5.1) Chloride Level 98 MMOL/L (98-107) Carbon Dioxide Level 34 MMOL/L (21-32) Anion Gap 8 mmol/L (5-15) Blood Urea Nitrogen 7 mg/dL (7-18) Creatinine 0.8 MG/DL (0.55-1.30) Estimat Glomerular Filtration Rate > 60 mL/min (>60) Glucose Level 304 MG/DL (74-106) Lactic Acid Level 3.00 mmol/L (0.4-2.0) 3.10 mmol/L (0.66-2.22) Calcium Level 9.6 MG/DL (8.5-10.1) Total Bilirubin 0.2 MG/DL (0.2-1.0) Aspartate Amino Transf (AST/SGOT) 13 U/L (15-37) Alanine Aminotransferase (ALT/SGPT) 18 U/L (12-78) Alkaline Phosphatase 115 U/L (46-116) Troponin I 0.000 ng/mL (0.000-0.056) Pro-B-Type Natriuretic Peptide 481 pg/mL (0-125) Total Protein 8.1 G/DL (6.4-8.2) Albumin 2.9 G/DL (3.4-5.0) Globulin 5.2 g/dL Albumin/Globulin Ratio 0.6 (1.0-2.7) Urine Color Pale yellow Urine Appearance Clear Urine pH 7 (4.5-8.0) Urine Specific [place] 1.005 (1.005-1.035) Urine Protein 1+ (NEGATIVE) Urine Glucose (UA) 3+ (NEGATIVE) Urine Ketones Negative (NEGATIVE) Urine Blood Negative (NEGATIVE) Urine Nitrite Negative (NEGATIVE) Urine Bilirubin Negative (NEGATIVE) Urine Urobilinogen Normal MG/DL (0.0-1.0) Urine Leukocyte Esterase Negative (NEGATIVE) Urine RBC 0-2 /HPF (0 - 2) Urine WBC 0-2 /HPF (0 - 2) Urine Squamous Epithelial Cells Few /LPF (NONE/OCC) Urine Bacteria Few /HPF (NONE) Lactate Dehydrogenase 192 U/L (81-234) Test 03/24/19 05:20 White Blood Count 11.8 K/UL (4.8-10.8) Red Blood Count 3.10 M/UL (4.20-5.40) Hemoglobin 8.7 G/DL (12.0-16.0) Hematocrit 28.1 % (37.0-47.0) Mean Corpuscular Volume 91 FL (80-99) Mean Corpuscular Hemoglobin 28.1 PG (27.0-31.0) Mean Corpuscular Hemoglobin Concent 31.0 G/DL (32.0-36.0) Red Cell Distribution Width 12.2 % (11.6-14.8) Platelet Count 386 K/UL (150-450) Mean Platelet Volume 5.9 FL (6.5-10.1) Neutrophils (%) (Auto) 70.7 % (45.0-75.0) Lymphocytes (%) (Auto) 19.4 % (20.0-45.0) Monocytes (%) (Auto) 6.8 % (1.0-10.0) Eosinophils (%) (Auto) 2.5 % (0.0-3.0) Basophils (%) (Auto) 0.6 % (0.0-2.0) Sodium Level 142 MMOL/L (136-145) Potassium Level 3.6 MMOL/L (3.5-5.1) Chloride Level 99 MMOL/L (98-107) Carbon Dioxide Level 39 MMOL/L (21-32) Anion Gap 4 mmol/L (5-15) Blood Urea Nitrogen 3 mg/dL (7-18) Creatinine 1.0 MG/DL (0.55-1.30) Estimat Glomerular Filtration Rate > 60 mL/min (>60) Glucose Level 121 MG/DL (74-106) Hemoglobin A1c 11.4 % (4.3-6.0) Lactic Acid Level 0.90 mmol/L (0.4-2.0) Uric Acid 5.8 MG/DL (2.6-7.2) Calcium Level 9.7 MG/DL (8.5-10.1) Phosphorus Level 4.3 MG/DL (2.5-4.9) Magnesium Level 1.3 MG/DL (1.8-2.4) Iron Level 15 ug/dL (50-175) Total Iron Binding Capacity 205 ug/dL (250-450) Percent Iron Saturation 7 % (15-50) Unsaturated Iron Binding 190 ug/dL (112-346) Ferritin 44 NG/ML (8-388) Total Bilirubin 0.4 MG/DL (0.2-1.0) Gamma Glutamyl Transpeptidase 112 U/L (5-85) Aspartate Amino Transf (AST/SGOT) 15 U/L (15-37) Alanine Aminotransferase (ALT/SGPT) 16 U/L (12-78) Alkaline Phosphatase 109 U/L (46-116) Troponin I 0.004 ng/mL (0.000-0.056) C-Reactive Protein, Quantitative 15.7 mg/dL (0.00-0.90) Pro-B-Type Natriuretic Peptide 688 pg/mL (0-125) Total Protein 6.9 G/DL (6.4-8.2) Albumin 2.3 G/DL (3.4-5.0) Globulin 4.6 g/dL Albumin/Globulin Ratio 0.5 (1.0-2.7) Triglycerides Level 105 MG/DL (30-150) Cholesterol Level 142 MG/DL (< 200) LDL Cholesterol 59 mg/dL (<100) HDL Cholesterol 65 MG/DL (40-60) Cholesterol/HDL Ratio 2.2 (3.3-4.4) Vitamin B12 Level 680 PG/ML (193-986) Folate 72.5 NG/ML (8.6-58.9) Thyroid Stimulating Hormone (TSH) 1.180 uiU/mL (0.358-3.740) Micro Microbiology Date/Time Source Procedure Growth Status 03/24/19 00:07 Nose - Final Complete 03/24/19 00:07 Nose - Final Complete Height (Feet): 5 Height (Inches): 10.00 Weight (Pounds): 228 Objective Vitals: reviewed General Appearance: NAD HEENT: normocephalic, atraumatic Neck: non-tender, normal alignment Respiratory/Chest: normal breath sounds bilaterally Cardiovascular/Chest: normal peripheral pulses, normal rate Abdomen: normal bowel sounds, soft, nontender Extremities: normal range of motion, chronic cutaneous venous stasis ulcers Javier Walker MD Mar 24, 2019 15:07
[2019-03-24 16:00] VITALS: BP 132/59
--- NOTE | 2019-03-24 19:00 | NUR ---
NURSE NOTES: Received pt and report from ARYA Almonte. Observed pt resting in bed with both eyes open. 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 ripsaw matcher is in placed, IV site intact, asymptomatic and patent. Bed is in the lowest position and locked. Call light within reach. No signs/symptoms of acute distress noted at this time. Will continue plan of care.
--- NOTE | 2019-03-24 19:07 | NUR ---
HAND-OFF: Report given to ARYA Dover. Pt is in stable condition; plan of care endorsed.
[2019-03-24 20:00] VITALS: BP 118/57
[2019-03-24] MEDS: Montelukast 10mg tablet ORAL SCH (20:50)
[2019-03-24] MEDS: Azithromycin 500 MG in D5W 275 ML IV SCH (20:50)
--- NOTE | 2019-03-24 22:37 | General Progress Note ---
Assessment/Plan Problem List: (1) Sarcoidosis ICD Codes: D86.9 - Sarcoidosis, unspecified SNOMED: 97505102, 372389287 (2) Chronic cutaneous venous stasis ulcer ICD Codes: I83.009 - Varicose veins of unspecified lower extremity with ulcer of unspecified site; L97.909 - Non-pressure chronic ulcer of unspecified part of unspecified lower leg with unspecified severity SNOMED: 03306016, 533679459 (3) Edema of both lower extremities ICD Codes: R60.0 - Localized edema SNOMED: 56687620, 33328319, 085931132 (4) Electrolyte imbalance ICD Codes: E87.8 - Other disorders of electrolyte and fluid balance, not elsewhere classified SNOMED: 670197009 (5) Hypertension, uncontrolled ICD Codes: I10 - Essential (primary) hypertension SNOMED: 67383770, 06092020 (6) Diabetes type 2, uncontrolled ICD Codes: E11.65 - Type 2 diabetes mellitus with hyperglycemia SNOMED: 78567339, 632315297 Status: progressing Assessment/Plan: cellulitis of lower extremity sob sarcoidosis severe venous stasis abx per id Subjective ROS Limited/Unobtainable: Yes Allergies: Coded Allergies: No Known Allergies (Unverified , 03/22/19) Objective Last 24 Hour Vital Signs Date Time Temp Pulse Resp B/P (MAP) Pulse Ox O2 Delivery O2 Flow Rate FiO2 03/24/19 20:51 91 118/57 03/24/19 20:00 98.1 91 18 118/57 (77) 98 03/24/19 20:00 94 03/24/19 19:17 95 18 99 Nasal Cannula 4.0 36 03/24/19 19:05 92 18 99 Nasal Cannula 4.0 36 03/24/19 19:05 99 Nasal Cannula 4.0 36 03/24/19 16:00 89 03/24/19 16:00 99.5 92 22 132/59 (83) 99 03/24/19 15:46 98 20 99 Nasal Cannula 4.0 36 03/24/19 15:35 91 20 98 Nasal Cannula 4.0 36 03/24/19 14:17 138/62 03/24/19 12:30 99 20 99 Nasal Cannula 4.0 36 03/24/19 12:17 102 20 97 Nasal Cannula 4.0 36 03/24/19 12:00 98.2 91 23 137/61 (86) 99 03/24/19 12:00 92 03/24/19 09:00 Nasal Cannula 2.0 03/24/19 08:56 102 24 100 Nasal Cannula 4.0 36 03/24/19 08:45 107 138/63 03/24/19 08:44 107 138/63 03/24/19 08:41 107 28 97 Nasal Cannula 4.0 36 03/24/19 08:40 97 Nasal Cannula 4.0 36 03/24/19 08:00 99.5 102 22 138/63 (88) 98 03/24/19 08:00 100 03/24/19 06:00 116/62 03/24/19 04:00 96 03/24/19 04:00 98.1 78 18 116/62 (80) 99 03/24/19 02:13 90 18 99 Nasal Cannula 4.0 36 03/24/19 02:03 92 18 97 Nasal Cannula 4.0 36 03/24/19 00:00 105 03/24/19 00:00 98.2 111 18 103/47 (65) 94 03/23/19 23:16 105 20 98 Nasal Cannula 4.0 36 03/23/19 23:06 104 20 97 Nasal Cannula 4.0 36 03/23/19 22:56 165/82 Intake and Output 03/23/19 03/24/19 18:59 06:59 Intake Total 620 ml 120 ml Output Total 2400 ml Balance -1780 ml 120 ml Intake Oral 620 ml 120 ml Output Urine Total 2400 ml # Voids 3 4 # Bowel Movements 2 Laboratory Tests 03/24/19 05:20: White Blood Count 11.8H, Red Blood Count 3.10L, Hemoglobin 8.7L, Hematocrit 28.1L, Mean Corpuscular Volume 91, Mean Corpuscular Hemoglobin 28.1, Mean Corpuscular Hemoglobin Concent 31.0L, Red Cell Distribution Width 12.2, Platelet Count 386, Mean Platelet Volume 5.9L, Neutrophils (%) (Auto) 70.7, Lymphocytes (%) (Auto) 19.4L, Monocytes (%) (Auto) 6.8, Eosinophils (%) (Auto) 2.5, Basophils (%) (Auto) 0.6, Sodium Level 142, Potassium Level 3.6, Chloride Level 99, Carbon Dioxide Level 39H, Anion Gap 4L, Blood Urea Nitrogen 3L, Creatinine 1.0, Estimat Glomerular Filtration Rate > 60, Glucose Level 121H, Hemoglobin A1c 11.4H, Lactic Acid Level 0.90, Uric Acid 5.8, Calcium Level 9.7, Phosphorus Level 4.3, Magnesium Level 1.3L, Iron Level 15L, Total Iron Binding Capacity 205L, Percent Iron Saturation 7L, Unsaturated Iron Binding 190, Ferritin 44, Total Bilirubin 0.4, Gamma Glutamyl Transpeptidase 112H, Aspartate Amino Transf (AST/SGOT) 15, Alanine Aminotransferase (ALT/SGPT) 16, Alkaline Phosphatase 109, Troponin I 0.004, C-Reactive Protein, Quantitative 15.7H, Pro-B -Type Natriuretic Peptide 688H, Total Protein 6.9, Albumin 2.3L, Globulin 4.6, Albumin/Globulin Ratio 0.5L, Triglycerides Level 105, Cholesterol Level 142, LDL Cholesterol 59, HDL Cholesterol 65H, Cholesterol/HDL Ratio 2.2L, Vitamin B12 Level 680, Folate 72.5H, Thyroid Stimulating Hormone (TSH) 1.180 Height (Feet): 5 Height (Inches): 10.00 Weight (Pounds): 228 Cardiovascular: normal rate Respiratory/Chest: lungs clear Guillaume Little MD Mar 24, 2019 22:37
--- NOTE | 2019-03-24 23:45 | NUR ---
HAND-OFF: Report given to ARYA Roman.
[2019-03-25] VITALS: BP 123/53
--- NOTE | 2019-03-25 00:16 | NUR ---
NURSE NOTES: patient received. patient in no acute distress at this time. patient complains of no pain at this time. patient 02 running and patent. purwick by bedside. wounds dressed dried and intact. IV asymptomatic and patent. patient bed in lowest position and locked. bed alarm on. call light within reach. will continue to monitor.
[2019-03-25] MEDS: Albuterol/Ipratropium 3ml neb HHN SCH ×6 (03:36→22:15)
[2019-03-25 04:00] VITALS: BP 137/73
[2019-03-25] MEDS: Piperacillin/Tazobactam 3.375 GM in NS 110 ML IVPB SCH ×3 (05:59→21:53)
[2019-03-25] MEDS: NovoLOG Insulin Flexpen SUBQ SCH ×4 (06:33→21:52)
--- NOTE | 2019-03-25 07:02 | NUR ---
HAND-OFF: Report given to richard spears. patient stable.
[2019-03-25 07:07] LABS: ANION GAP 3 mmol/L (5-15); BLOOD UREA NITROGEN 8 mg/dL (7-18); CALCIUM 8.9 MG/DL (8.5-10.1); CARBON DIOXIDE 36 MMOL/L (21-32); CHLORIDE 101 MMOL/L (98-107); CREATININE 0.9 MG/DL (0.55-1.30); POTASSIUM 3.8 MMOL/L (3.5-5.1); SODIUM 140 MMOL/L (136-145)
[2019-03-25 07:10] LABS: ALANINE AMINOTRANSFERASE 18 U/L (12-78); ALBUMIN 2.1 G/DL (3.4-5.0); ALKALINE PHOSPHATASE 104 U/L (46-116); ASPARTATE AMINO TRANSFERASE 14 U/L (15-37); BILIRUBIN,DIRECT < 0.1 MG/DL (0.0-0.3); BILIRUBIN,TOTAL 0.2 MG/DL (0.2-1.0); PHOSPHORUS 5.1 MG/DL (2.5-4.9)
--- NOTE | 2019-03-25 07:19 | NUR ---
NURSE NOTES: Report received from ARYA Del Valle. Pt shows no signs of distress, A+Ox3, denies pain/SOB. Respirations are even and unlabored on 2 L NC. IV site is patent and intact. Bed is at lowest position, brakes engaged, siderails x2, bed alarm on, and call light within reach. Pt is in stable condition at this time; will continue to monitor. Addendum: 03/25/19 at 0720 by ANDREW LOPEZ RN Report received from [place]. Pt is A+Ox4.
[2019-03-25 07:24] LABS: HEMATOCRIT 25.1 % (37.0-47.0); HEMOGLOBIN 7.7 G/DL (12.0-16.0); MEAN CORPUSCULAR VOLUME 90 FL (80-99); PLATELET COUNT 332 K/UL (150-450); RED BLOOD COUNT 2.79 M/UL (4.20-5.40); RED CELL DISTRIBUTION WIDTH 12.1 % (11.6-14.8); WHITE BLOOD COUNT 7.8 K/UL (4.8-10.8)
[2019-03-25 08:00] VITALS: BP 133/55
--- NOTE | 2019-03-25 08:14 | Diagnostic Imaging Report ---
Indication: Reason For Exam: SOB Technique: Single AP view of the chest. Comparison: None. Findings: The heart is enlarged when accounting for projection and technique. Prominent mediastinal shadow may be due to underlying lung disease versus mediastinal or hilar lymphadenopathy. No large pleural effusion. No pneumothorax. There is severe bilateral airspace disease characterized by patchy reticular opacities associated with cystic changes/bullae. IMPRESSION: Severe bilateral airspace disease may represent severe emphysema, advanced cystic lung disease, or pulmonary fibrosis. Patchy airspace opacities may be related to underlying lung disease but superimposed multifocal pneumonia is not excluded. High-resolution CT chest with inspiration/expiration may be obtained for more complete evaluation.
[2019-03-25] MEDS: Dyna-Hex 2% Top Sol 2oz TOPIC SCH ×2 (08:43→17:20)
[2019-03-25] MEDS: Metoprolol Tartrate 50mg tab ORAL SCH ×2 (08:44→21:54)
[2019-03-25] MEDS: Enoxaparin 40mg Inj SUBQ SCH (08:45)
[2019-03-25] MEDS: Lac Hydrin 12% Lotion 8oz TOPIC SCH ×2 (08:46→17:20)
--- NOTE | 2019-03-25 10:31 | Infectious Diseases Prog Note ---
Assessment/Plan Assessment/Plan IMPRESSION: Pneumonia, Uncontrolled diabetes mellitus, Sarcoidosis, Onychomycocic Hypokalemia, Chronic stasis dermatitis and ulceration of legs, Blindness, Anemia, Hypertension. RECOMMENDATION: Continue Zosyn and azithromycin. We will follow up the cultures. Wound care Subjective ROS Limited/Unobtainable: No Constitutional: Reports: no symptoms Respiratory: Reports: dry cough Cardiovascular: Reports: no symptoms Gastrointestinal/Abdominal: Reports: no symptoms Allergies: Coded Allergies: No Known Allergies (Unverified , 03/22/19) Objective Vital Signs Last 24 Hour Vital Signs Date Time Temp Pulse Resp B/P (MAP) Pulse Ox O2 Delivery O2 Flow Rate FiO2 03/25/19 08:44 68 133/55 03/25/19 08:43 68 133/55 03/25/19 08:00 97.4 68 20 133/55 (81) 98 03/25/19 08:00 84 03/25/19 07:44 74 16 98 Nasal Cannula 4.0 36 03/25/19 07:34 84 16 99 Nasal Cannula 4.0 36 03/25/19 07:33 99 Nasal Cannula 4.0 36 03/25/19 05:58 137/73 03/25/19 04:00 85 03/25/19 04:00 98.6 92 18 137/73 (94) 96 03/25/19 03:46 89 18 99 Nasal Cannula 4.0 36 03/25/19 03:36 89 18 99 Nasal Cannula 4.0 36 03/25/19 00:00 98.1 86 18 123/53 (76) 94 03/24/19 23:48 84 03/24/19 23:29 90 18 99 Nasal Cannula 4.0 36 03/24/19 23:17 88 18 99 Nasal Cannula 4.0 36 03/24/19 23:14 123/53 03/24/19 21:00 Nasal Cannula 2.0 03/24/19 20:51 91 118/57 03/24/19 20:00 98.1 91 18 118/57 (77) 98 03/24/19 20:00 94 03/24/19 19:17 95 18 99 Nasal Cannula 4.0 36 03/24/19 19:05 92 18 99 Nasal Cannula 4.0 36 03/24/19 19:05 99 Nasal Cannula 4.0 36 03/24/19 16:00 89 03/24/19 16:00 99.5 92 22 132/59 (83) 99 03/24/19 15:46 98 20 99 Nasal Cannula 4.0 36 03/24/19 15:35 91 20 98 Nasal Cannula 4.0 36 03/24/19 14:17 138/62 03/24/19 12:30 99 20 99 Nasal Cannula 4.0 36 03/24/19 12:17 102 20 97 Nasal Cannula 4.0 36 03/24/19 12:00 98.2 91 23 137/61 (86) 99 03/24/19 12:00 92 Height (Feet): 5 Height (Inches): 10.00 Weight (Pounds): 228 General Appearance: no acute distress HEENT: mucous membranes moist Respiratory/Chest: lungs clear Cardiovascular: normal rate Abdomen: soft, non tender Extremities: other - edema Skin: other - chronic dermatitis, Neurologic/Psychiatric: alert, oriented x 3, responsive Microbiology Date/Time Source Procedure Growth Status 03/22/19 20:19 Blood Blood Culture - Preliminary NO GROWTH AFTER 48 HOURS Resulted 03/22/19 20:04 Blood Blood Culture - Preliminary NO GROWTH AFTER 48 HOURS Resulted 03/24/19 00:07 Nose - Final Complete 03/24/19 00:07 Nose - Final Complete Laboratory Tests Test 03/25/19 06:10 White Blood Count 7.8 K/UL (4.8-10.8) Red Blood Count 2.79 M/UL (4.20-5.40) L Hemoglobin 7.7 G/DL (12.0-16.0) L Hematocrit 25.1 % (37.0-47.0) L Mean Corpuscular Volume 90 FL (80-99) Mean Corpuscular Hemoglobin 27.8 PG (27.0-31.0) Mean Corpuscular Hemoglobin Concent 30.9 G/DL (32.0-36.0) L Red Cell Distribution Width 12.1 % (11.6-14.8) Platelet Count 332 K/UL (150-450) Mean Platelet Volume 6.1 FL (6.5-10.1) L Neutrophils (%) (Auto) % (45.0-75.0) Lymphocytes (%) (Auto) % (20.0-45.0) Monocytes (%) (Auto) % (1.0-10.0) Eosinophils (%) (Auto) % (0.0-3.0) Basophils (%) (Auto) % (0.0-2.0) Neutrophils % (Manual) Pending Lymphocytes % (Manual) Pending Platelet Estimate Pending Platelet Morphology Pending Sodium Level 140 MMOL/L (136-145) Potassium Level 3.8 MMOL/L (3.5-5.1) Chloride Level 101 MMOL/L (98-107) Carbon Dioxide Level 36 MMOL/L (21-32) H Anion Gap 3 mmol/L (5-15) L Blood Urea Nitrogen 8 mg/dL (7-18) Creatinine 0.9 MG/DL (0.55-1.30) Estimat Glomerular Filtration Rate > 60 mL/min (>60) Glucose Level 256 MG/DL (74-106) #H Calcium Level 8.9 MG/DL (8.5-10.1) Phosphorus Level 5.1 MG/DL (2.5-4.9) H Magnesium Level 2.1 MG/DL (1.8-2.4) Total Bilirubin 0.2 MG/DL (0.2-1.0) Direct Bilirubin < 0.1 MG/DL (0.0-0.3) Aspartate Amino Transf (AST/SGOT) 14 U/L (15-37) L Alanine Aminotransferase (ALT/SGPT) 18 U/L (12-78) Alkaline Phosphatase 104 U/L (46-116) C-Reactive Protein, Quantitative 12.3 mg/dL (0.00-0.90) H Pro-B-Type Natriuretic Peptide 314 pg/mL (0-125) H Total Protein 6.1 G/DL (6.4-8.2) L Albumin 2.1 G/DL (3.4-5.0) L Current Medications Medications (Trade) Dose Ordered Sig/Malissa Route PRN Reason Start Time Stop Time Status Last Admin Dose Admin Acetaminophen (Tylenol) 650 mg Q6H PRN ORAL Mild Pain/Temp > 100.5 03/23/19 00:30 04/22/19 00:29 03/25/19 05:06 Albuterol/ Ipratropium (Albuterol/ Ipratropium) 3 ml Q4HRT HHN 03/23/19 03:00 03/28/19 02:59 03/25/19 07:36 Amlodipine Besylate (Norvasc) 10 mg DAILY ORAL 03/23/19 09:00 04/22/19 08:59 03/25/19 08:43 Ammonium Lactate (Lac Hydrin) 1 applic TWICE A DAY TOPIC 03/24/19 09:00 04/23/19 08:59 03/25/19 08:46 Azithromycin 500 mg/Dextrose 275 ml @ 275 mls/hr Q24HRS IV 03/23/19 21:00 03/29/19 21:59 03/24/19 20:50 Barium Sulfate (Varibar Honey) 250 ml NOW PRN Radiology Procedure 03/24/19 10:00 03/27/19 09:58 Barium Sulfate (Varibar [place]) 230 ml NOW PRN Radiology Procedure 03/24/19 10:00 03/27/19 09:58 Barium Sulfate (Varibar Pudding) 230 ml NOW PRN Radiology Procedure 03/24/19 10:00 03/27/19 09:58 Chlorhexidine Gluconate (Sonya-Hex 2%) 1 applic BID TOPIC 03/24/19 09:30 04/23/19 09:29 03/25/19 08:43 Clonidine HCl (Catapres Tab) 0.1 mg EVERY 8 HOURS ORAL 03/23/19 14:00 04/22/19 13:59 03/25/19 05:58 Dextrose (Dextrose 50%) 25 ml Q30M PRN IV Hypoglycemia 03/23/19 00:30 04/22/19 00:29 Dextrose (Dextrose 50%) 50 ml Q30M PRN IV Hypoglycemia 03/23/19 00:30 04/22/19 00:29 Enoxaparin Sodium (Lovenox) 40 mg DAILY SUBQ 03/24/19 09:00 04/23/19 08:59 03/25/19 08:45 Famotidine (Pepcid) 20 mg BID ORAL 03/24/19 14:15 04/23/19 14:14 03/25/19 08:44 Guaifenesin/ Dextromethorphan (Robitussin DM Syrup) 5 ml Q6H PRN ORAL For Cough 03/23/19 11:15 04/22/19 11:14 03/23/19 22:59 Hydralazine HCl (Apresoline) 25 mg Q4H PRN ORAL bp over 160 syst 03/23/19 12:30 04/22/19 12:29 Insulin Aspart (NovoLOG) BEFORE MEALS AND HS SUBQ 03/23/19 06:30 04/22/19 06:29 03/25/19 06:33 Iron Sucrose 100 mg/Sodium Chloride 60 ml @ 240 mls/hr BEDTIME IV 03/25/19 21:00 03/29/19 21:14 Metoprolol Tartrate (Lopressor) 50 mg Q12HR ORAL 03/23/19 09:00 04/22/19 08:59 03/25/19 08:44 Montelukast Sodium (Singulair) 10 mg BEDTIME ORAL 03/24/19 21:00 04/23/19 20:59 03/24/19 20:50 Multivitamins (Multivitamins) 1 tab DAILY ORAL 03/23/19 09:00 04/22/19 08:59 03/25/19 08:43 Nateglinide (Starlix) 120 mg TIAC ORAL 03/23/19 16:30 04/22/19 16:29 03/25/19 05:58 Ondansetron HCl (Zofran) 4 mg Q6H PRN IVP Nausea & Vomiting 03/23/19 00:30 04/22/19 00:29 Piperacillin Sod/ Tazobactam Sod 3.375 gm/Sodium Chloride 110 ml @ 27.5 mls/hr Q8HR IVPB 03/23/19 06:00 03/30/19 05:59 03/25/19 05:59 Potassium Chloride (K-Dur) 40 meq TWICE A DAY ORAL 03/24/19 18:00 04/23/19 17:59 03/25/19 08:44 Prednisone (predniSONE) 5 mg BID ORAL 03/24/19 18:00 04/23/19 08:59 03/25/19 08:43 Endy Klein MD Mar 25, 2019 10:30
[2019-03-25] MEDS ORDERED: 1/2 NS 1000ml IV ONE (10:45)
[2019-03-25] MEDS ORDERED: Tubing IV Secondary IV ONE (10:45)
--- NOTE | 2019-03-25 11:49 | NUR ---
RD ASSESSMENT & RECOMMENDATIONS SEE CARE ACTIVITY FOR COMPLETE ASSESSMENT DAILY ESTIMATED NEEDS: Needs based on DM 80.5kg adj 20-25 kcals/kg 2673-3940 total kcals 1-1.5 g protein/kg 81-121 g total protein Pt w/ edema, fluid per MD mL/kg total fluid mLs NUTRITION DIAGNOSIS: Altered nutrition related lab values r/t diabetes as evidenced by A1C 11.4, uglu 3+ on adm. (CURRENT DIET:CCHO MED soft easy chew) PO DIET RECOMMENDATIONS--->>> CCHO LOW + LOW NA + DOUBLE PRO PORTIONS for improved BG ADDITIONAL RECOMMENDATIONS: 1) Calibrated bed wts Stated wt: 180# EMR wt: 228# 2) On prednisone + high A1C Rec long acting insulin for improved glycemic control 3) Diet rec as above
[2019-03-25 12:00] VITALS: BP 116/59
[2019-03-25] MEDS: Azithromycin 250mg tab ORAL SCH (12:28)
[2019-03-25] MEDS: Tums 500mg ORAL PRN ×2 (13:09→17:19)
--- NOTE | 2019-03-25 14:05 | Pulmonology Progress Note ---
Assessment/Plan Assessment/Plan Pulmonary Progress Note HPI Patient is a 53-year-old woman admitted with cough, shortness of breath, worse for 2 days, LE swelling. Previous history of sarcoidosis, respiratory failure on home oxygen, on chronic Prednisone therapy, Diabetes, Hypertension. Complains of a cough productive with yellowish phlegm. Denies fevers or chills. She has had this swelling to her legs for several months. Denies pain. No other aggravating relieving factors. Denies any other associated symptoms , less SOB, glucose control improved. On antibiotics per ID, chronic fibrotic changes on CXR. Allergies: No Known Allergies Past Medical History: Diabetes Mellitus, Sarcoidosis, Hypertension Past Surgical History: none Pertinent Family History: none Social History: Denies: smoking, alcohol use, drug use All Other Systems: negative except mentioned in HPI Physical Exam Vital Signs Noted General Appearance: no apparent distress, alert, GCS 15, non-toxic Head: normocephalic Eyes: bilateral eye normal inspection, bilateral eye PERRL ENT: moist mm, no LN Neck: normal inspection Respiratory: chest non-tender, lungs clear, basal crackles Cardiovascular: regular rate, rhythm, HS1, HS2 normal, no edema Gastrointestinal: normal inspection Musculoskeletal: swelling - chronic cutaneous venous stasis ulcers bilateral legs Neurologic: alert, oriented x3, blind, responsive, motor strength/tone normal, sensory intact, speech normal, no focal signs Impression: Pneumonia Sarcoidosis Chronic Respiratory Failure Diabetes on Metformin Elevated lactic acid Hypertension Chronic cutaneous venous stasis ulcer Plan IV antibiotics DC Metformin Repeat Lactate ISS Swallowing evaluation Aspiration precautions [facility] meds including prednisone 5mg bid HHN O2 PRN PPX Analgesia PRN Dr Rubi followingt for wound care Labs Test 03/22/19 20:19 03/22/19 20:35 03/22/19 22:01 White Blood Count 12.7 K/UL (4.8-10.8) Red Blood Count 3.25 M/UL (4.20-5.40) Hemoglobin 9.1 G/DL (12.0-16.0) Hematocrit 28.7 % (37.0-47.0) Mean Corpuscular Volume 88 FL (80-99) Mean Corpuscular Hemoglobin 28.2 PG (27.0-31.0) Mean Corpuscular Hemoglobin Concent 31.9 G/DL (32.0-36.0) Red Cell Distribution Width 11.5 % (11.6-14.8) Platelet Count 401 K/UL (150-450) Mean Platelet Volume 5.6 FL (6.5-10.1) Neutrophils (%) (Auto) 74.4 % (45.0-75.0) Lymphocytes (%) (Auto) 19.1 % (20.0-45.0) Monocytes (%) (Auto) 4.5 % (1.0-10.0) Eosinophils (%) (Auto) 0.7 % (0.0-3.0) Basophils (%) (Auto) 1.3 % (0.0-2.0) Sodium Level 140 MMOL/L (136-145) Potassium Level 3.0 MMOL/L (3.5-5.1) Chloride Level 98 MMOL/L (98-107) Carbon Dioxide Level 34 MMOL/L (21-32) Anion Gap 8 mmol/L (5-15) Blood Urea Nitrogen 7 mg/dL (7-18) Creatinine 0.8 MG/DL (0.55-1.30) Estimat Glomerular Filtration Rate > 60 mL/min (>60) Glucose Level 304 MG/DL (74-106) Lactic Acid Level 3.00 mmol/L (0.4-2.0) Calcium Level 9.6 MG/DL (8.5-10.1) Total Bilirubin 0.2 MG/DL (0.2-1.0) Aspartate Amino Transf (AST/SGOT) 13 U/L (15-37) Alanine Aminotransferase (ALT/SGPT) 18 U/L (12-78) Alkaline Phosphatase 115 U/L (46-116) Troponin I 0.000 ng/mL (0.000-0.056) Pro-B-Type Natriuretic Peptide 481 pg/mL (0-125) Total Protein 8.1 G/DL (6.4-8.2) Albumin 2.9 G/DL (3.4-5.0) Globulin 5.2 g/dL Albumin/Globulin Ratio 0.6 (1.0-2.7) Urine Color Pale yellow Urine Appearance Clear Urine pH 7 (4.5-8.0) Urine Specific [place] 1.005 (1.005-1.035) Urine Protein 1+ (NEGATIVE) Urine Glucose (UA) 3+ (NEGATIVE) Urine Ketones Negative (NEGATIVE) Urine Blood Negative (NEGATIVE) Urine Nitrite Negative (NEGATIVE) Urine Bilirubin Negative (NEGATIVE) Urine Urobilinogen Normal MG/DL (0.0-1.0) Urine Leukocyte Esterase Negative (NEGATIVE) Urine RBC 0-2 /HPF (0 - 2) Urine WBC 0-2 /HPF (0 - 2) Urine Squamous Epithelial Cells Few /LPF (NONE/OCC) Urine Bacteria Few /HPF (NONE) EKG: Rate: tachycardiac Rhythm: NSR ST Segments: no acute changes Chest X-Ray: no pneumothorax, other - diffuse interstitial changes - sarcoidosis, ?infiltrate Subjective ROS Limited/Unobtainable: No Allergies: Coded Allergies: No Known Allergies (Unverified , 03/22/19) Objective Last 24 Hour Vital Signs Date Time Temp Pulse Resp B/P (MAP) Pulse Ox O2 Delivery O2 Flow Rate FiO2 03/25/19 13:10 120/65 03/25/19 12:00 99.0 77 20 116/59 (78) 94 03/25/19 11:09 77 20 99 Nasal Cannula 4.0 36 03/25/19 10:58 74 18 98 Nasal Cannula 4.0 36 03/25/19 09:00 Nasal Cannula 2.0 03/25/19 08:44 68 133/55 03/25/19 08:43 68 133/55 03/25/19 08:00 97.4 68 20 133/55 (81) 98 03/25/19 08:00 84 03/25/19 07:44 74 16 98 Nasal Cannula 4.0 36 03/25/19 07:34 84 16 99 Nasal Cannula 4.0 36 03/25/19 07:33 99 Nasal Cannula 4.0 36 03/25/19 05:58 137/73 03/25/19 04:00 85 03/25/19 04:00 98.6 92 18 137/73 (94) 96 03/25/19 03:46 89 18 99 Nasal Cannula 4.0 36 03/25/19 03:36 89 18 99 Nasal Cannula 4.0 36 03/25/19 00:00 98.1 86 18 123/53 (76) 94 03/24/19 23:48 84 03/24/19 23:29 90 18 99 Nasal Cannula 4.0 36 03/24/19 23:17 88 18 99 Nasal Cannula 4.0 36 03/24/19 23:14 123/53 03/24/19 21:00 Nasal Cannula 2.0 03/24/19 20:51 91 118/57 03/24/19 20:00 98.1 91 18 118/57 (77) 98 03/24/19 20:00 94 03/24/19 19:17 95 18 99 Nasal Cannula 4.0 36 03/24/19 19:05 92 18 99 Nasal Cannula 4.0 36 03/24/19 19:05 99 Nasal Cannula 4.0 36 03/24/19 16:00 89 03/24/19 16:00 99.5 92 22 132/59 (83) 99 03/24/19 15:46 98 20 99 Nasal Cannula 4.0 36 03/24/19 15:35 91 20 98 Nasal Cannula 4.0 36 03/24/19 14:17 138/62 Intake and Output 03/24/19 03/25/19 19:00 07:00 Intake Total 240 ml Balance 240 ml Intake Oral 240 ml # Voids 2 Microbiology Date/Time Source Procedure Growth Status 03/22/19 20:19 Blood Blood Culture - Preliminary NO GROWTH AFTER 48 HOURS Resulted 03/22/19 20:04 Blood Blood Culture - Preliminary NO GROWTH AFTER 48 HOURS Resulted 03/24/19 00:07 Nose - Final Complete 03/24/19 00:07 Nose - Final Complete Laboratory Tests 03/25/19 06:10: White Blood Count 7.8, Red Blood Count 2.79L, Hemoglobin 7.7L, Hematocrit 25.1L , Mean Corpuscular Volume 90, Mean Corpuscular Hemoglobin 27.8, Mean Corpuscular Hemoglobin Concent 30.9L, Red Cell Distribution Width 12.1, Platelet Count 332, Mean Platelet Volume 6.1L, Neutrophils (%) (Auto) , Lymphocytes (%) (Auto) , Monocytes (%) (Auto) , Eosinophils (%) (Auto) , Basophils (%) (Auto) , Differential Total Cells Counted 100, Neutrophils % ( Manual) 70, Lymphocytes % (Manual) 14L, Monocytes % (Manual) 13H, Eosinophils % (Manual) 1, Basophils % (Manual) 1, Band Neutrophils 1, Platelet Estimate Adequate, Platelet Morphology Normal, Red Blood Cell Morphology Normal, Sodium Level 140, Potassium Level 3.8, Chloride Level 101, Carbon Dioxide Level 36H, Anion Gap 3L, Blood Urea Nitrogen 8, Creatinine 0.9, Estimat Glomerular Filtration Rate > 60, Glucose Level 256#H, Calcium Level 8.9, Phosphorus Level 5.1H, Magnesium Level 2.1, Total Bilirubin 0.2, Direct Bilirubin < 0.1, Aspartate Amino Transf (AST/SGOT) 14L, Alanine Aminotransferase (ALT/SGPT) 18, Alkaline Phosphatase 104, C-Reactive Protein, Quantitative 12.3H, Pro-B-Type Natriuretic Peptide 314H, Total Protein 6.1L, Albumin 2.1L Current Medications Medications (Trade) Dose Ordered Sig/Malissa Route PRN Reason Start Time Stop Time Status Last Admin Dose Admin Acetaminophen (Tylenol) 650 mg Q6H PRN ORAL Mild Pain/Temp > 100.5 03/23/19 00:30 04/22/19 00:29 03/25/19 05:06 Albuterol/ Ipratropium (Albuterol/ Ipratropium) 3 ml Q4HRT HHN 03/23/19 03:00 03/28/19 02:59 03/25/19 10:58 Amlodipine Besylate (Norvasc) 10 mg DAILY ORAL 03/23/19 09:00 04/22/19 08:59 03/25/19 08:43 Ammonium Lactate (Lac Hydrin) 1 applic TWICE A DAY TOPIC 03/24/19 09:00 04/23/19 08:59 03/25/19 08:46 Azithromycin (Zithromax) 500 mg DAILY ORAL 03/25/19 13:00 03/29/19 21:59 03/25/19 12:28 Barium Sulfate (Varibar Honey) 250 ml NOW PRN Radiology Procedure 03/24/19 10:00 03/27/19 09:58 Barium Sulfate (Varibar [place]) 230 ml NOW PRN Radiology Procedure 03/24/19 10:00 03/27/19 09:58 Barium Sulfate (Varibar Pudding) 230 ml NOW PRN Radiology Procedure 03/24/19 10:00 03/27/19 09:58 Calcium Carbonate (Tums) 500 mg Q4H PRN ORAL for heartburn 03/25/19 13:00 04/24/19 12:59 03/25/19 13:09 Chlorhexidine Gluconate (Sonya-Hex 2%) 1 applic BID TOPIC 03/24/19 09:30 04/23/19 09:29 03/25/19 08:43 Clonidine HCl (Catapres Tab) 0.1 mg EVERY 8 HOURS ORAL 03/23/19 14:00 04/22/19 13:59 03/25/19 13:10 Dextrose (Dextrose 50%) 25 ml Q30M PRN IV Hypoglycemia 03/23/19 00:30 04/22/19 00:29 Dextrose (Dextrose 50%) 50 ml Q30M PRN IV Hypoglycemia 03/23/19 00:30 04/22/19 00:29 Enoxaparin Sodium (Lovenox) 40 mg DAILY SUBQ 03/24/19 09:00 04/23/19 08:59 03/25/19 08:45 Famotidine (Pepcid) 20 mg BID ORAL 03/24/19 14:15 04/23/19 14:14 03/25/19 08:44 Guaifenesin/ Dextromethorphan (Robitussin DM Syrup) 5 ml Q6H PRN ORAL For Cough 03/23/19 11:15 04/22/19 11:14 03/23/19 22:59 Hydralazine HCl (Apresoline) 25 mg Q4H PRN ORAL bp over 160 syst 03/23/19 12:30 04/22/19 12:29 Insulin Aspart (NovoLOG) BEFORE MEALS AND HS SUBQ 03/23/19 06:30 04/22/19 06:29 03/25/19 12:29 Iron Sucrose 100 mg/Sodium Chloride 60 ml @ 240 mls/hr BEDTIME IV 03/25/19 21:00 03/29/19 21:14 Metoprolol Tartrate (Lopressor) 50 mg Q12HR ORAL 03/23/19 09:00 04/22/19 08:59 03/25/19 08:44 Montelukast Sodium (Singulair) 10 mg BEDTIME ORAL 03/24/19 21:00 04/23/19 20:59 03/24/19 20:50 Multivitamins (Multivitamins) 1 tab DAILY ORAL 03/23/19 09:00 04/22/19 08:59 03/25/19 08:43 Nateglinide (Starlix) 120 mg TIAC ORAL 03/23/19 16:30 04/22/19 16:29 03/25/19 12:28 Ondansetron HCl (Zofran) 4 mg Q6H PRN IVP Nausea & Vomiting 03/23/19 00:30 04/22/19 00:29 Piperacillin Sod/ Tazobactam Sod 3.375 gm/Sodium Chloride 110 ml @ 27.5 mls/hr Q8HR IVPB 03/23/19 06:00 03/30/19 05:59 03/25/19 05:59 Potassium Chloride (K-Dur) 40 meq TWICE A DAY ORAL 03/24/19 18:00 04/23/19 17:59 03/25/19 08:44 Prednisone (predniSONE) 5 mg BID ORAL 03/24/19 18:00 04/23/19 08:59 03/25/19 08:43 Vinh Cano MD Mar 25, 2019 14:04
--- NOTE | 2019-03-25 14:12 | Hematology/Onc Progress Note ---
Assessment/Plan Assessment/Plan Diagnostic Impression: # Anemia of iron deficiency rule out underlying gi bleed, ferritin 44 --> Anemia workup has been ordered, rule out gi bleed (ferritin is low) --> No evidence of hemolysis is noted, peripheral smear has been reviewed. --> Hgb goal >7. Transfuse prn. --> IV IROn has been started x 5 days --> Medications have been reviewed --> low threshold for gi evaluation in case has occult + --> bone marrow biopsy is not indicated given the other more likely causes # Anemia due to chf --> diuresis if required by cards --> for volume overload, further diuresis # Dyspnea with resp failure --> abx and steriods per pulm # Chronic cutaneous venous stasis ulcer --> wound care/surg recs # Hypok --> kcl was given # Sarcoidosis # DVT ppx lovenox sq The timing of this note does not necessarily reflect the time of the patient was seen. GREATLY APPRECIATE CONSULTATION. Subjective HEENT: Denies: no symptoms, eye pain, blurred vision, tearing, double vision, ear pain, ear discharge, nose pain, nose congestion, throat pain, throat swelling, mouth pain, mouth swelling, other Cardiovascular: Denies: no symptoms, chest pain, edema, irregular heart rate, lightheadedness, palpitations, syncope, other Respiratory: Denies: no symptoms, cough, shortness of breath, SOB with excertion, SOB at rest, sputum, wheezing, other Gastrointestinal/Abdominal: Denies: no symptoms, abdomen distended, abdominal pain, black stools, tarry stools, blood in stool, constipated, diarrhea, difficulty swallowing, nausea, poor appetite, poor fluid intake, rectal bleeding , vomiting, other Neurologic/Psychiatric: Denies: no symptoms, anxiety, depressed, emotional problems, headache, numbness, paresthesia, pre-existing deficit, seizure, tingling, tremors, weakness, other Allergies: Coded Allergies: No Known Allergies (Unverified , 03/22/19) Subjective 03/24: dressing changes with wounds slowly improving, on iv iron 03/25: on 2l nc, no events noted, on iron, wound care, no f/c Objective Objective Current Medications Medications (Trade) Dose Ordered Sig/Malissa Route PRN Reason Start Time Stop Time Status Last Admin Dose Admin Acetaminophen (Tylenol) 650 mg Q6H PRN ORAL Mild Pain/Temp > 100.5 03/23/19 00:30 04/22/19 00:29 03/25/19 05:06 Albuterol/ Ipratropium (Albuterol/ Ipratropium) 3 ml Q4HRT HHN 03/23/19 03:00 03/28/19 02:59 03/25/19 10:58 Amlodipine Besylate (Norvasc) 10 mg DAILY ORAL 03/23/19 09:00 04/22/19 08:59 03/25/19 08:43 Ammonium Lactate (Lac Hydrin) 1 applic TWICE A DAY TOPIC 03/24/19 09:00 04/23/19 08:59 03/25/19 08:46 Azithromycin (Zithromax) 500 mg DAILY ORAL 03/25/19 13:00 03/29/19 21:59 03/25/19 12:28 Barium Sulfate (Varibar Honey) 250 ml NOW PRN Radiology Procedure 03/24/19 10:00 03/27/19 09:58 Barium Sulfate (Varibar [place]) 230 ml NOW PRN Radiology Procedure 03/24/19 10:00 03/27/19 09:58 Barium Sulfate (Varibar Pudding) 230 ml NOW PRN Radiology Procedure 03/24/19 10:00 03/27/19 09:58 Calcium Carbonate (Tums) 500 mg Q4H PRN ORAL for heartburn 03/25/19 13:00 04/24/19 12:59 03/25/19 13:09 Chlorhexidine Gluconate (Sonya-Hex 2%) 1 applic BID TOPIC 03/24/19 09:30 04/23/19 09:29 03/25/19 08:43 Clonidine HCl (Catapres Tab) 0.1 mg EVERY 8 HOURS ORAL 03/23/19 14:00 04/22/19 13:59 03/25/19 13:10 Dextrose (Dextrose 50%) 25 ml Q30M PRN IV Hypoglycemia 03/23/19 00:30 04/22/19 00:29 Dextrose (Dextrose 50%) 50 ml Q30M PRN IV Hypoglycemia 03/23/19 00:30 04/22/19 00:29 Enoxaparin Sodium (Lovenox) 40 mg DAILY SUBQ 03/24/19 09:00 04/23/19 08:59 03/25/19 08:45 Famotidine (Pepcid) 20 mg BID ORAL 03/24/19 14:15 04/23/19 14:14 03/25/19 08:44 Guaifenesin/ Dextromethorphan (Robitussin DM Syrup) 5 ml Q6H PRN ORAL For Cough 03/23/19 11:15 04/22/19 11:14 03/23/19 22:59 Hydralazine HCl (Apresoline) 25 mg Q4H PRN ORAL bp over 160 syst 03/23/19 12:30 04/22/19 12:29 Insulin Aspart (NovoLOG) BEFORE MEALS AND HS SUBQ 03/23/19 06:30 04/22/19 06:29 03/25/19 12:29 Iron Sucrose 100 mg/Sodium Chloride 60 ml @ 240 mls/hr BEDTIME IV 03/25/19 21:00 03/29/19 21:14 Metoprolol Tartrate (Lopressor) 50 mg Q12HR ORAL 03/23/19 09:00 04/22/19 08:59 03/25/19 08:44 Montelukast Sodium (Singulair) 10 mg BEDTIME ORAL 03/24/19 21:00 04/23/19 20:59 03/24/19 20:50 Multivitamins (Multivitamins) 1 tab DAILY ORAL 03/23/19 09:00 04/22/19 08:59 03/25/19 08:43 Nateglinide (Starlix) 120 mg TIAC ORAL 03/23/19 16:30 04/22/19 16:29 03/25/19 12:28 Ondansetron HCl (Zofran) 4 mg Q6H PRN IVP Nausea & Vomiting 03/23/19 00:30 04/22/19 00:29 Piperacillin Sod/ Tazobactam Sod 3.375 gm/Sodium Chloride 110 ml @ 27.5 mls/hr Q8HR IVPB 03/23/19 06:00 03/30/19 05:59 03/25/19 05:59 Potassium Chloride (K-Dur) 40 meq TWICE A DAY ORAL 03/24/19 18:00 04/23/19 17:59 03/25/19 08:44 Prednisone (predniSONE) 5 mg BID ORAL 03/24/19 18:00 04/23/19 08:59 03/25/19 08:43 Last 24 Hour Vital Signs Date Time Temp Pulse Resp B/P (MAP) Pulse Ox O2 Delivery O2 Flow Rate FiO2 03/25/19 13:10 120/65 03/25/19 12:00 99.0 77 20 116/59 (78) 94 03/25/19 11:09 77 20 99 Nasal Cannula 4.0 36 03/25/19 10:58 74 18 98 Nasal Cannula 4.0 36 03/25/19 09:00 Nasal Cannula 2.0 03/25/19 08:44 68 133/55 03/25/19 08:43 68 133/55 03/25/19 08:00 97.4 68 20 133/55 (81) 98 03/25/19 08:00 84 03/25/19 07:44 74 16 98 Nasal Cannula 4.0 36 03/25/19 07:34 84 16 99 Nasal Cannula 4.0 36 03/25/19 07:33 99 Nasal Cannula 4.0 36 03/25/19 05:58 137/73 03/25/19 04:00 85 03/25/19 04:00 98.6 92 18 137/73 (94) 96 03/25/19 03:46 89 18 99 Nasal Cannula 4.0 36 03/25/19 03:36 89 18 99 Nasal Cannula 4.0 36 03/25/19 00:00 98.1 86 18 123/53 (76) 94 03/24/19 23:48 84 03/24/19 23:29 90 18 99 Nasal Cannula 4.0 36 03/24/19 23:17 88 18 99 Nasal Cannula 4.0 36 03/24/19 23:14 123/53 03/24/19 21:00 Nasal Cannula 2.0 03/24/19 20:51 91 118/57 03/24/19 20:00 98.1 91 18 118/57 (77) 98 03/24/19 20:00 94 03/24/19 19:17 95 18 99 Nasal Cannula 4.0 36 03/24/19 19:05 92 18 99 Nasal Cannula 4.0 36 03/24/19 19:05 99 Nasal Cannula 4.0 36 03/24/19 16:00 89 03/24/19 16:00 99.5 92 22 132/59 (83) 99 03/24/19 15:46 98 20 99 Nasal Cannula 4.0 36 03/24/19 15:35 91 20 98 Nasal Cannula 4.0 36 03/24/19 14:17 138/62 03/24/19 12:30 99 20 99 Nasal Cannula 4.0 36 03/24/19 12:17 102 20 97 Nasal Cannula 4.0 36 03/24/19 12:00 98.2 91 23 137/61 (86) 99 03/24/19 12:00 92 03/24/19 09:00 Nasal Cannula 2.0 03/24/19 08:56 102 24 100 Nasal Cannula 4.0 36 03/24/19 08:45 107 138/63 03/24/19 08:44 107 138/63 03/24/19 08:41 107 28 97 Nasal Cannula 4.0 36 03/24/19 08:40 97 Nasal Cannula 4.0 36 03/24/19 08:00 99.5 102 22 138/63 (88) 98 03/24/19 08:00 100 03/24/19 06:00 116/62 03/24/19 04:00 96 03/24/19 04:00 98.1 78 18 116/62 (80) 99 03/24/19 02:13 90 18 99 Nasal Cannula 4.0 36 03/24/19 02:03 92 18 97 Nasal Cannula 4.0 36 03/24/19 00:00 105 03/24/19 00:00 98.2 111 18 103/47 (65) 94 03/23/19 23:16 105 20 98 Nasal Cannula 4.0 36 03/23/19 23:06 104 20 97 Nasal Cannula 4.0 36 03/23/19 22:56 165/82 03/23/19 21:01 114 131/77 03/23/19 21:00 Nasal Cannula 4.0 03/23/19 20:00 109 03/23/19 20:00 98.6 114 18 131/77 (95) 98 03/23/19 19:45 102 20 99 Nasal Cannula 4.0 36 03/23/19 19:35 98 Nasal Cannula 4.0 36 03/23/19 19:35 101 20 98 Nasal Cannula 4.0 36 03/23/19 16:11 95 18 100 Nasal Cannula 4.0 36 03/23/19 16:02 90 18 97 Nasal Cannula 4.0 36 03/23/19 16:00 98.6 86 20 160/76 (104) 99 03/23/19 16:00 105 Intake and Output 03/24/19 03/25/19 19:00 07:00 Intake Total 240 ml Balance 240 ml Intake Oral 240 ml # Voids 2 Labs Test 03/22/19 20:19 03/22/19 20:35 03/22/19 22:01 03/23/19 18:05 White Blood Count 12.7 K/UL (4.8-10.8) Red Blood Count 3.25 M/UL (4.20-5.40) Hemoglobin 9.1 G/DL (12.0-16.0) Hematocrit 28.7 % (37.0-47.0) Mean Corpuscular Volume 88 FL (80-99) Mean Corpuscular Hemoglobin 28.2 PG (27.0-31.0) Mean Corpuscular Hemoglobin Concent 31.9 G/DL (32.0-36.0) Red Cell Distribution Width 11.5 % (11.6-14.8) Platelet Count 401 K/UL (150-450) Mean Platelet Volume 5.6 FL (6.5-10.1) Neutrophils (%) (Auto) 74.4 % (45.0-75.0) Lymphocytes (%) (Auto) 19.1 % (20.0-45.0) Monocytes (%) (Auto) 4.5 % (1.0-10.0) Eosinophils (%) (Auto) 0.7 % (0.0-3.0) Basophils (%) (Auto) 1.3 % (0.0-2.0) Sodium Level 140 MMOL/L (136-145) Potassium Level 3.0 MMOL/L (3.5-5.1) Chloride Level 98 MMOL/L (98-107) Carbon Dioxide Level 34 MMOL/L (21-32) Anion Gap 8 mmol/L (5-15) Blood Urea Nitrogen 7 mg/dL (7-18) Creatinine 0.8 MG/DL (0.55-1.30) Estimat Glomerular Filtration Rate > 60 mL/min (>60) Glucose Level 304 MG/DL (74-106) Lactic Acid Level 3.00 mmol/L (0.4-2.0) 3.10 mmol/L (0.66-2.22) Calcium Level 9.6 MG/DL (8.5-10.1) Total Bilirubin 0.2 MG/DL (0.2-1.0) Aspartate Amino Transf (AST/SGOT) 13 U/L (15-37) Alanine Aminotransferase (ALT/SGPT) 18 U/L (12-78) Alkaline Phosphatase 115 U/L (46-116) Troponin I 0.000 ng/mL (0.000-0.056) Pro-B-Type Natriuretic Peptide 481 pg/mL (0-125) Total Protein 8.1 G/DL (6.4-8.2) Albumin 2.9 G/DL (3.4-5.0) Globulin 5.2 g/dL Albumin/Globulin Ratio 0.6 (1.0-2.7) Urine Color Pale yellow Urine Appearance Clear Urine pH 7 (4.5-8.0) Urine Specific [place] 1.005 (1.005-1.035) Urine Protein 1+ (NEGATIVE) Urine Glucose (UA) 3+ (NEGATIVE) Urine Ketones Negative (NEGATIVE) Urine Blood Negative (NEGATIVE) Urine Nitrite Negative (NEGATIVE) Urine Bilirubin Negative (NEGATIVE) Urine Urobilinogen Normal MG/DL (0.0-1.0) Urine Leukocyte Esterase Negative (NEGATIVE) Urine RBC 0-2 /HPF (0 - 2) Urine WBC 0-2 /HPF (0 - 2) Urine Squamous Epithelial Cells Few /LPF (NONE/OCC) Urine Bacteria Few /HPF (NONE) Lactate Dehydrogenase 192 U/L (81-234) Test 03/24/19 05:20 03/25/19 06:10 White Blood Count 11.8 K/UL (4.8-10.8) 7.8 K/UL (4.8-10.8) Red Blood Count 3.10 M/UL (4.20-5.40) 2.79 M/UL (4.20-5.40) Hemoglobin 8.7 G/DL (12.0-16.0) 7.7 G/DL (12.0-16.0) Hematocrit 28.1 % (37.0-47.0) 25.1 % (37.0-47.0) Mean Corpuscular Volume 91 FL (80-99) 90 FL (80-99) Mean Corpuscular Hemoglobin 28.1 PG (27.0-31.0) 27.8 PG (27.0-31.0) Mean Corpuscular Hemoglobin Concent 31.0 G/DL (32.0-36.0) 30.9 G/DL (32.0-36.0) Red Cell Distribution Width 12.2 % (11.6-14.8) 12.1 % (11.6-14.8) Platelet Count 386 K/UL (150-450) 332 K/UL (150-450) Mean Platelet Volume 5.9 FL (6.5-10.1) 6.1 FL (6.5-10.1) Neutrophils (%) (Auto) 70.7 % (45.0-75.0) % (45.0-75.0) Lymphocytes (%) (Auto) 19.4 % (20.0-45.0) % (20.0-45.0) Monocytes (%) (Auto) 6.8 % (1.0-10.0) % (1.0-10.0) Eosinophils (%) (Auto) 2.5 % (0.0-3.0) % (0.0-3.0) Basophils (%) (Auto) 0.6 % (0.0-2.0) % (0.0-2.0) Sodium Level 142 MMOL/L (136-145) 140 MMOL/L (136-145) Potassium Level 3.6 MMOL/L (3.5-5.1) 3.8 MMOL/L (3.5-5.1) Chloride Level 99 MMOL/L (98-107) 101 MMOL/L (98-107) Carbon Dioxide Level 39 MMOL/L (21-32) 36 MMOL/L (21-32) Anion Gap 4 mmol/L (5-15) 3 mmol/L (5-15) Blood Urea Nitrogen 3 mg/dL (7-18) 8 mg/dL (7-18) Creatinine 1.0 MG/DL (0.55-1.30) 0.9 MG/DL (0.55-1.30) Estimat Glomerular Filtration Rate > 60 mL/min (>60) > 60 mL/min (>60) Glucose Level 121 MG/DL (74-106) 256 MG/DL (74-106) Hemoglobin A1c 11.4 % (4.3-6.0) Lactic Acid Level 0.90 mmol/L (0.4-2.0) Uric Acid 5.8 MG/DL (2.6-7.2) Calcium Level 9.7 MG/DL (8.5-10.1) 8.9 MG/DL (8.5-10.1) Phosphorus Level 4.3 MG/DL (2.5-4.9) 5.1 MG/DL (2.5-4.9) Magnesium Level 1.3 MG/DL (1.8-2.4) 2.1 MG/DL (1.8-2.4) Iron Level 15 ug/dL (50-175) Total Iron Binding Capacity 205 ug/dL (250-450) Percent Iron Saturation 7 % (15-50) Unsaturated Iron Binding 190 ug/dL (112-346) Ferritin 44 NG/ML (8-388) Total Bilirubin 0.4 MG/DL (0.2-1.0) 0.2 MG/DL (0.2-1.0) Gamma Glutamyl Transpeptidase 112 U/L (5-85) Aspartate Amino Transf (AST/SGOT) 15 U/L (15-37) 14 U/L (15-37) Alanine Aminotransferase (ALT/SGPT) 16 U/L (12-78) 18 U/L (12-78) Alkaline Phosphatase 109 U/L (46-116) 104 U/L (46-116) Troponin I 0.004 ng/mL (0.000-0.056) C-Reactive Protein, Quantitative 15.7 mg/dL (0.00-0.90) 12.3 mg/dL (0.00-0.90) Pro-B-Type Natriuretic Peptide 688 pg/mL (0-125) 314 pg/mL (0-125) Total Protein 6.9 G/DL (6.4-8.2) 6.1 G/DL (6.4-8.2) Albumin 2.3 G/DL (3.4-5.0) 2.1 G/DL (3.4-5.0) Globulin 4.6 g/dL Albumin/Globulin Ratio 0.5 (1.0-2.7) Triglycerides Level 105 MG/DL (30-150) Cholesterol Level 142 MG/DL (< 200) LDL Cholesterol 59 mg/dL (<100) HDL Cholesterol 65 MG/DL (40-60) Cholesterol/HDL Ratio 2.2 (3.3-4.4) Vitamin B12 Level 680 PG/ML (193-986) Folate 72.5 NG/ML (8.6-58.9) Thyroid Stimulating Hormone (TSH) 1.180 uiU/mL (0.358-3.740) Differential Total Cells Counted 100 Neutrophils % (Manual) 70 % (45-75) Lymphocytes % (Manual) 14 % (20-45) Monocytes % (Manual) 13 % (1-10) Eosinophils % (Manual) 1 % (0-3) Basophils % (Manual) 1 % (0-2) Band Neutrophils 1 % (0-8) Platelet Estimate Adequate Platelet Morphology Normal Red Blood Cell Morphology Normal Direct Bilirubin < 0.1 MG/DL (0.0-0.3) Height (Feet): 5 Height (Inches): 10.00 Weight (Pounds): 228 Objective Vitals: reviewed General Appearance: NAD HEENT: normocephalic, atraumatic Neck: non-tender, normal alignment Respiratory/Chest: normal breath sounds bilaterally Cardiovascular/Chest: normal peripheral pulses, normal rate Abdomen: normal bowel sounds, soft, nontender Extremities: normal range of motion, chronic cutaneous venous stasis ulcers Javier Walker MD Mar 25, 2019 14:12
--- NOTE | 2019-03-25 14:15 | NUR ---
PT NOTE Received MD order for PT evaluation, medical record reviewed. Attempted to see patient for PT evaluation, patient declining to participate with PT at this time, c/o SOB, waiting for respiratory therapy. Suzy KOENIG notified, will follow up tomorrow.
--- NOTE | 2019-03-25 14:20 | Nephrology Progress Note ---
Assessment/Plan Problem List: (1) Electrolyte imbalance (2) Hypertension, uncontrolled (3) Diabetes type 2, uncontrolled (4) Pneumonia Assessment Anemia - Low Iron Hypokalemia Low Mag Pneumonia Sarcoidosis Chronic Respiratory Failure Diabetes OOC Elevated lactic acid Hypertension OOC Chronic cutaneous venous stasis ulcer Plan IV Venofer for low Iron mag and Kcl and Phos supplement as needed- Adjust BP meds Adjust BS meds Monitor labs 2D echo 65% EjFx per orders Subjective ROS Limited/Unobtainable: No Constitutional: Reports: malaise Objective Objective Last 24 Hour Vital Signs Date Time Temp Pulse Resp B/P (MAP) Pulse Ox O2 Delivery O2 Flow Rate FiO2 03/25/19 13:10 120/65 03/25/19 12:00 99.0 77 20 116/59 (78) 94 03/25/19 11:09 77 20 99 Nasal Cannula 4.0 36 03/25/19 10:58 74 18 98 Nasal Cannula 4.0 36 03/25/19 09:00 Nasal Cannula 2.0 03/25/19 08:44 68 133/55 03/25/19 08:43 68 133/55 03/25/19 08:00 97.4 68 20 133/55 (81) 98 03/25/19 08:00 84 03/25/19 07:44 74 16 98 Nasal Cannula 4.0 36 03/25/19 07:34 84 16 99 Nasal Cannula 4.0 36 03/25/19 07:33 99 Nasal Cannula 4.0 36 03/25/19 05:58 137/73 03/25/19 04:00 85 03/25/19 04:00 98.6 92 18 137/73 (94) 96 03/25/19 03:46 89 18 99 Nasal Cannula 4.0 36 03/25/19 03:36 89 18 99 Nasal Cannula 4.0 36 03/25/19 00:00 98.1 86 18 123/53 (76) 94 03/24/19 23:48 84 03/24/19 23:29 90 18 99 Nasal Cannula 4.0 36 03/24/19 23:17 88 18 99 Nasal Cannula 4.0 36 03/24/19 23:14 123/53 03/24/19 21:00 Nasal Cannula 2.0 03/24/19 20:51 91 118/57 03/24/19 20:00 98.1 91 18 118/57 (77) 98 03/24/19 20:00 94 03/24/19 19:17 95 18 99 Nasal Cannula 4.0 36 03/24/19 19:05 92 18 99 Nasal Cannula 4.0 36 03/24/19 19:05 99 Nasal Cannula 4.0 36 03/24/19 16:00 89 03/24/19 16:00 99.5 92 22 132/59 (83) 99 03/24/19 15:46 98 20 99 Nasal Cannula 4.0 36 03/24/19 15:35 91 20 98 Nasal Cannula 4.0 36 Intake and Output 03/24/19 03/25/19 19:00 07:00 Intake Total 240 ml Balance 240 ml Intake Oral 240 ml # Voids 2 Laboratory Tests 03/25/19 06:10: White Blood Count 7.8, Red Blood Count 2.79L, Hemoglobin 7.7L, Hematocrit 25.1L , Mean Corpuscular Volume 90, Mean Corpuscular Hemoglobin 27.8, Mean Corpuscular Hemoglobin Concent 30.9L, Red Cell Distribution Width 12.1, Platelet Count 332, Mean Platelet Volume 6.1L, Neutrophils (%) (Auto) , Lymphocytes (%) (Auto) , Monocytes (%) (Auto) , Eosinophils (%) (Auto) , Basophils (%) (Auto) , Differential Total Cells Counted 100, Neutrophils % ( Manual) 70, Lymphocytes % (Manual) 14L, Monocytes % (Manual) 13H, Eosinophils % (Manual) 1, Basophils % (Manual) 1, Band Neutrophils 1, Platelet Estimate Adequate, Platelet Morphology Normal, Red Blood Cell Morphology Normal, Sodium Level 140, Potassium Level 3.8, Chloride Level 101, Carbon Dioxide Level 36H, Anion Gap 3L, Blood Urea Nitrogen 8, Creatinine 0.9, Estimat Glomerular Filtration Rate > 60, Glucose Level 256#H, Calcium Level 8.9, Phosphorus Level 5.1H, Magnesium Level 2.1, Total Bilirubin 0.2, Direct Bilirubin < 0.1, Aspartate Amino Transf (AST/SGOT) 14L, Alanine Aminotransferase (ALT/SGPT) 18, Alkaline Phosphatase 104, C-Reactive Protein, Quantitative 12.3H, Pro-B-Type Natriuretic Peptide 314H, Total Protein 6.1L, Albumin 2.1L Height (Feet): 5 Height (Inches): 10.00 Weight (Pounds): 228 General Appearance: no apparent distress Cardiovascular: normal rate Respiratory/Chest: decreased breath sounds Tre Ochoa MD Mar 25, 2019 14:20
--- NOTE | 2019-03-25 14:47 | Surgery Progress Note ---
Surgery Progress Note Subjective Additional Comments doing better labs improved podiatry eval and treatment appreciated Objective Last 24 Hour Vital Signs Date Time Temp Pulse Resp B/P (MAP) Pulse Ox O2 Delivery O2 Flow Rate FiO2 03/25/19 13:10 120/65 03/25/19 12:00 99.0 77 20 116/59 (78) 94 03/25/19 11:09 77 20 99 Nasal Cannula 4.0 36 03/25/19 10:58 74 18 98 Nasal Cannula 4.0 36 03/25/19 09:00 Nasal Cannula 2.0 03/25/19 08:44 68 133/55 03/25/19 08:43 68 133/55 03/25/19 08:00 97.4 68 20 133/55 (81) 98 03/25/19 08:00 84 03/25/19 07:44 74 16 98 Nasal Cannula 4.0 36 03/25/19 07:34 84 16 99 Nasal Cannula 4.0 36 03/25/19 07:33 99 Nasal Cannula 4.0 36 03/25/19 05:58 137/73 03/25/19 04:00 85 03/25/19 04:00 98.6 92 18 137/73 (94) 96 03/25/19 03:46 89 18 99 Nasal Cannula 4.0 36 03/25/19 03:36 89 18 99 Nasal Cannula 4.0 36 03/25/19 00:00 98.1 86 18 123/53 (76) 94 03/24/19 23:48 84 03/24/19 23:29 90 18 99 Nasal Cannula 4.0 36 03/24/19 23:17 88 18 99 Nasal Cannula 4.0 36 03/24/19 23:14 123/53 03/24/19 21:00 Nasal Cannula 2.0 03/24/19 20:51 91 118/57 03/24/19 20:00 98.1 91 18 118/57 (77) 98 03/24/19 20:00 94 03/24/19 19:17 95 18 99 Nasal Cannula 4.0 36 03/24/19 19:05 92 18 99 Nasal Cannula 4.0 36 03/24/19 19:05 99 Nasal Cannula 4.0 36 03/24/19 16:00 89 03/24/19 16:00 99.5 92 22 132/59 (83) 99 03/24/19 15:46 98 20 99 Nasal Cannula 4.0 36 03/24/19 15:35 91 20 98 Nasal Cannula 4.0 36 I&O Intake and Output 03/24/19 03/25/19 19:00 07:00 Intake Total 240 ml Balance 240 ml Intake Oral 240 ml # Voids 2 Dressing: dry Wound: clean Cardiovascular: RSR Respiratory: clear Abdomen: soft, flat, non-tender, present bowel sounds Extremities: other Laboratory Tests Test 03/25/19 06:10 White Blood Count 7.8 K/UL (4.8-10.8) Red Blood Count 2.79 M/UL (4.20-5.40) L Hemoglobin 7.7 G/DL (12.0-16.0) L Hematocrit 25.1 % (37.0-47.0) L Mean Corpuscular Volume 90 FL (80-99) Mean Corpuscular Hemoglobin 27.8 PG (27.0-31.0) Mean Corpuscular Hemoglobin Concent 30.9 G/DL (32.0-36.0) L Red Cell Distribution Width 12.1 % (11.6-14.8) Platelet Count 332 K/UL (150-450) Mean Platelet Volume 6.1 FL (6.5-10.1) L Neutrophils (%) (Auto) % (45.0-75.0) Lymphocytes (%) (Auto) % (20.0-45.0) Monocytes (%) (Auto) % (1.0-10.0) Eosinophils (%) (Auto) % (0.0-3.0) Basophils (%) (Auto) % (0.0-2.0) Differential Total Cells Counted 100 Neutrophils % (Manual) 70 % (45-75) Lymphocytes % (Manual) 14 % (20-45) L Monocytes % (Manual) 13 % (1-10) H Eosinophils % (Manual) 1 % (0-3) Basophils % (Manual) 1 % (0-2) Band Neutrophils 1 % (0-8) Platelet Estimate Adequate Platelet Morphology Normal Red Blood Cell Morphology Normal Sodium Level 140 MMOL/L (136-145) Potassium Level 3.8 MMOL/L (3.5-5.1) Chloride Level 101 MMOL/L (98-107) Carbon Dioxide Level 36 MMOL/L (21-32) H Anion Gap 3 mmol/L (5-15) L Blood Urea Nitrogen 8 mg/dL (7-18) Creatinine 0.9 MG/DL (0.55-1.30) Estimat Glomerular Filtration Rate > 60 mL/min (>60) Glucose Level 256 MG/DL (74-106) #H Calcium Level 8.9 MG/DL (8.5-10.1) Phosphorus Level 5.1 MG/DL (2.5-4.9) H Magnesium Level 2.1 MG/DL (1.8-2.4) Total Bilirubin 0.2 MG/DL (0.2-1.0) Direct Bilirubin < 0.1 MG/DL (0.0-0.3) Aspartate Amino Transf (AST/SGOT) 14 U/L (15-37) L Alanine Aminotransferase (ALT/SGPT) 18 U/L (12-78) Alkaline Phosphatase 104 U/L (46-116) C-Reactive Protein, Quantitative 12.3 mg/dL (0.00-0.90) H Pro-B-Type Natriuretic Peptide 314 pg/mL (0-125) H Total Protein 6.1 G/DL (6.4-8.2) L Albumin 2.1 G/DL (3.4-5.0) L Plan Problems: (1) Edema of both lower extremities (2) Sarcoidosis (3) Chronic cutaneous venous stasis ulcer Assessment & Plan: patient presented with venous stasis dermatitis of bilateral lower extremities. states has had for some time. scaling wounds with chronic scaring. mostly dry with some open areas. does not receive care often for them. no compression stockings. Pt that is legally blind whom on admission with lymphedemae both lower ext with Hyperkeratosis skin . Both lower ext are grossly malodorous.Both lower ext thoroughly assessed for presence of any wounds under scales and fissures but no wounds noted . Pt verbalized R lower ext is more tender than L lower ext. Toes are mycotic and grossly elongated and malformed web spaces of toes are difficult to separate due to poor hygiene and xerosis skin. Pt admitted to being unable to care for feet secondary to being blind and stated she lives at home with mother. Pt stated she was advised in past to see a registered nursing professor for nail care. Both lower ext washed and scrubbed with washcloths. Excessive amounts of thick scaly skin from both lower ext and both feet removed with friction and emollient. Excessive amt of malodorous hyperkeratotic removed from web spaces of toes. Unable to accurately assess head of R 2nd metatarsal secondary to malformed growth of nail matrix. Both lower ext were then wrapped loosely with Saran wrap for 20 mins for moisture Absorption than removed. -daily chlorhexidine wash bilateral lower extremity -apply Lac Hydrin lotion and wrap with saran wrap for 20 mins BID -keep legs elevated when possible -will follow with recs -podiatry eval and treatment apprecaited -cont with above care plan during hospitalization and d/c thank you for allowing me to participate in patients care. (4) Dyspnea Timbo Rubi Mar 25, 2019 14:47
--- NOTE | 2019-03-25 15:54 | NUR ---
Parts Sales RepresentativeCupola Mechanic SI:Edema BP:116/59 HR:77 RR:20 T:99.0 02 Sat:94% on 4L NC H/H:7.7/25.1 CO2:36 IRON:15 TIBC:205 IS:Venofer IV Zosyn IV Lac Hydrin Topical Lovenox Sub-Q Zithromax Po Lovenox Sub-Q PT/ST Wound Care Telemetry Status
[2019-03-25 16:00] VITALS: BP 110/55
--- NOTE | 2019-03-25 19:10 | NUR ---
HAND-OFF: Report given to ARYA Garrison. Pt is in stable condition. Sitting up, visiting with family at her bedside. Plan of care endorsed.
--- NOTE | 2019-03-25 19:41 | NUR ---
NURSE NOTES: Received pt from ARYA Almonte. Pt awake, alert, and talkative. Bed in lowest position. Call light within reach. Family at bedside. Will continue to monitor.
[2019-03-25 20:00] VITALS: BP 136/66
[2019-03-25] MEDS: Iron Sucrose 100 MG in NS 55 ML IV SCH (21:52)
[2019-03-25] MEDS: Montelukast 10mg tablet ORAL SCH (21:54)
[2019-03-26] VITALS: BP 141/69
[2019-03-26] MEDS: Guaifenesin/DM 10ml syrup ORAL PRN (01:29)
--- NOTE | 2019-03-26 01:52 | NUR ---
NURSE NOTES: Called and left a message with Sidney Melvin regarding pts request for additional cough meds and stronger pain meds. Awaiting call back.
[2019-03-26] MEDS: Albuterol/Ipratropium 3ml neb HHN SCH ×6 (03:38→23:16)
[2019-03-26 04:00] VITALS: BP 137/60
[2019-03-26] MEDS: Piperacillin/Tazobactam 3.375 GM in NS 110 ML IVPB SCH ×3 (06:08→21:48)
[2019-03-26] MEDS: NovoLOG Insulin Flexpen SUBQ SCH ×4 (06:10→21:51)
[2019-03-26 07:39] LABS: ANION GAP 3 mmol/L (5-15); BLOOD UREA NITROGEN 10 mg/dL (7-18); CALCIUM 9.2 MG/DL (8.5-10.1); CARBON DIOXIDE 34 MMOL/L (21-32); CHLORIDE 102 MMOL/L (98-107); CREATININE 0.9 MG/DL (0.55-1.30); POTASSIUM 4.5 MMOL/L (3.5-5.1); SODIUM 138 MMOL/L (136-145)
[2019-03-26 08:00] VITALS: BP 135/70
--- NOTE | 2019-03-26 08:01 | NUR ---
NURSE NOTES: Received report from ARYA Garrison. The patient is resting on the bed without acute distress or shortness of breath. The patient 's bed in the lowest position, call light in reach, and fall and aspiration precaution reinforced. The patient's IV is intact and patent and Zosyn is running. Will continue plan of care.
--- NOTE | 2019-03-26 08:18 | NUR ---
HAND-OFF: Report given to ARYA Houser. Pt stable.
[2019-03-26] MEDS: Enoxaparin 40mg Inj SUBQ SCH (09:00)
--- NOTE | 2019-03-26 09:06 | Nephrology Progress Note ---
Assessment/Plan Problem List: (1) Electrolyte imbalance (2) Hypertension, uncontrolled (3) Diabetes type 2, uncontrolled (4) Pneumonia Assessment Anemia - Low Iron Hypokalemia Low Mag Pneumonia Sarcoidosis Chronic Respiratory Failure Diabetes OOC Elevated lactic acid Hypertension OOC Chronic cutaneous venous stasis ulcer Plan IV Venofer for low Iron mag and Kcl and Phos supplement as needed- Adjust BP meds Adjust BS meds Monitor labs 2D echo 65% EjFx per orders Subjective ROS Limited/Unobtainable: No Constitutional: Reports: malaise Objective Objective Last 24 Hour Vital Signs Date Time Temp Pulse Resp B/P (MAP) Pulse Ox O2 Delivery O2 Flow Rate FiO2 03/26/19 08:15 84 20 99 Nasal Cannula 4.0 36 03/26/19 08:00 98.4 75 18 135/70 (91) 100 03/26/19 07:59 82 20 100 Nasal Cannula 4.0 36 03/26/19 07:59 100 Nasal Cannula 4.0 36 03/26/19 06:08 141/69 03/26/19 04:00 83 03/26/19 04:00 98.4 83 18 137/60 (85) 97 03/26/19 03:53 78 20 98 Nasal Cannula 4.0 36 03/26/19 03:38 78 20 98 Nasal Cannula 4.0 36 03/26/19 00:00 92 03/26/19 00:00 98.4 84 16 141/69 (93) 100 03/25/19 22:27 96 20 99 Nasal Cannula 4.0 36 03/25/19 22:16 95 20 98 Nasal Cannula 4.0 36 03/25/19 21:54 90 136/66 03/25/19 21:00 Nasal Cannula 2.0 03/25/19 20:00 92 03/25/19 20:00 98.8 90 18 136/66 (89) 96 03/25/19 19:47 97 20 99 Nasal Cannula 4.0 36 03/25/19 19:37 98 Nasal Cannula 4.0 36 03/25/19 19:35 94 20 98 Nasal Cannula 4.0 36 03/25/19 16:00 98.8 82 18 110/55 (73) 97 03/25/19 16:00 85 03/25/19 15:28 82 20 99 Nasal Cannula 4.0 36 8/9/19 15:27 85 20 96 Nasal Cannula 4.0 36 03/25/19 13:10 120/65 03/25/19 12:00 80 03/25/19 12:00 99.0 77 20 116/59 (78) 94 03/25/19 11:09 77 20 99 Nasal Cannula 4.0 36 03/25/19 10:58 74 18 98 Nasal Cannula 4.0 36 Intake and Output 03/25/19 03/26/19 19:00 07:00 Intake Total 390 ml Balance 390 ml Intake Oral 280 ml IV Total 110 ml # Voids 3 6 Laboratory Tests 03/25/19 14:10: Stool Occult Blood [Pending] 03/26/19 06:15: Sodium Level 138, Potassium Level 4.5, Chloride Level 102, Carbon Dioxide Level 34H, Anion Gap 3L, Blood Urea Nitrogen 10, Creatinine 0.9, Estimat Glomerular Filtration Rate > 60, Glucose Level 251H, Calcium Level 9.2 Height (Feet): 5 Height (Inches): 10.00 Weight (Pounds): 228 General Appearance: no apparent distress, other - coughing less Cardiovascular: normal rate Respiratory/Chest: decreased breath sounds Abdomen: soft Tre Ochoa MD Mar 26, 2019 09:06
[2019-03-26] MEDS: Metoprolol Tartrate 50mg tab ORAL SCH ×2 (09:23→21:49)
[2019-03-26] MEDS: Azithromycin 250mg tab ORAL SCH (09:24)
[2019-03-26] MEDS: Lac Hydrin 12% Lotion 8oz TOPIC SCH ×2 (09:24→18:24)
[2019-03-26] MEDS: Dyna-Hex 2% Top Sol 2oz TOPIC SCH ×2 (09:24→18:24)
--- NOTE | 2019-03-26 09:30 | NUR ---
NURSE NOTES: Dr. Cano ordered ABG, Duoneb breathing treatment q4hr, and chest x-ray. Carried out the order. Will continue plan of care.
[2019-03-26 09:38] LABS: ALANINE AMINOTRANSFERASE 37 U/L (12-78); ALBUMIN 2.2 G/DL (3.4-5.0); ALKALINE PHOSPHATASE 142 U/L (46-116); ASPARTATE AMINO TRANSFERASE 42 U/L (15-37); BILIRUBIN,DIRECT < 0.1 MG/DL (0.0-0.3); BILIRUBIN,TOTAL 0.1 MG/DL (0.2-1.0); PHOSPHORUS 4.4 MG/DL (2.5-4.9)
--- NOTE | 2019-03-26 10:35 | NUR ---
RADIOLOGY DEPT., CHEST X-RAY DONE.-P.DYE
--- NOTE | 2019-03-26 10:48 | Diagnostic Imaging Report ---
EXAM: XR Chest, 1 View CLINICAL HISTORY: SOB TECHNIQUE: Frontal view of the chest. COMPARISON: 03/24/19 FINDINGS: Lungs: Reduced lung volumes. Irregular patchy pulmonary opacities and scarring. Some volume loss in the right hemithorax and shift of the heart and other mediastinal structures to the right. Pleural space: Right pleural effusion versus pleural thickening. No pneumothorax. Heart: See above. Mediastinum: Large Cardia Mediastinal silhouette. Bones/joints: No acute fracture. IMPRESSION: No significant change since the prior exam
--- NOTE | 2019-03-26 11:06 | Pulmonology Progress Note ---
Assessment/Plan Assessment/Plan Pulmonary Progress Note HPI Patient is a 53-year-old woman admitted with cough, shortness of breath, worse for 2 days, LE swelling. Previous history of sarcoidosis, respiratory failure on home oxygen, on chronic Prednisone therapy, Diabetes, Hypertension. Complains of a cough productive with yellowish phlegm. Denies fevers or chills. She has had this swelling to her legs for several months. Denies pain. No other aggravating relieving factors. Denies any other associated symptoms , less SOB, glucose control improved. On antibiotics per ID, chronic fibrotic changes on CXR. Some SOB overnight, CXR stable, remains on Prednsione, HHN, ABG pending Allergies: No Known Allergies Past Medical History: Diabetes Mellitus, Sarcoidosis, Hypertension Past Surgical History: none Pertinent Family History: none Social History: Denies: smoking, alcohol use, drug use All Other Systems: negative except mentioned in HPI Physical Exam Vital Signs Noted General Appearance: no apparent distress, alert, GCS 15, non-toxic Head: normocephalic Eyes: bilateral eye normal inspection, bilateral eye PERRL ENT: moist mm, no LN Neck: normal inspection Respiratory: chest non-tender, lungs clear, basal crackles Cardiovascular: regular rate, rhythm, HS1, HS2 normal, no edema Gastrointestinal: normal inspection Musculoskeletal: swelling - chronic cutaneous venous stasis ulcers bilateral legs Neurologic: alert, oriented x3, blind, responsive, motor strength/tone normal, sensory intact, speech normal, no focal signs Impression: Pneumonia Sarcoidosis Chronic Respiratory Failure Diabetes on Metformin Elevated lactic acid Hypertension Chronic cutaneous venous stasis ulcer Plan IV antibiotics DC Metformin Repeat Lactate ISS Swallowing evaluation Aspiration precautions [employer] meds including prednisone 5mg bid HHN O2 PRN PPX Analgesia PRN Dr Rubi following for wound care Labs Test 03/22/19 20:19 03/22/19 20:35 03/22/19 22:01 White Blood Count 12.7 K/UL (4.8-10.8) Red Blood Count 3.25 M/UL (4.20-5.40) Hemoglobin 9.1 G/DL (12.0-16.0) Hematocrit 28.7 % (37.0-47.0) Mean Corpuscular Volume 88 FL (80-99) Mean Corpuscular Hemoglobin 28.2 PG (27.0-31.0) Mean Corpuscular Hemoglobin Concent 31.9 G/DL (32.0-36.0) Red Cell Distribution Width 11.5 % (11.6-14.8) Platelet Count 401 K/UL (150-450) Mean Platelet Volume 5.6 FL (6.5-10.1) Neutrophils (%) (Auto) 74.4 % (45.0-75.0) Lymphocytes (%) (Auto) 19.1 % (20.0-45.0) Monocytes (%) (Auto) 4.5 % (1.0-10.0) Eosinophils (%) (Auto) 0.7 % (0.0-3.0) Basophils (%) (Auto) 1.3 % (0.0-2.0) Sodium Level 140 MMOL/L (136-145) Potassium Level 3.0 MMOL/L (3.5-5.1) Chloride Level 98 MMOL/L (98-107) Carbon Dioxide Level 34 MMOL/L (21-32) Anion Gap 8 mmol/L (5-15) Blood Urea Nitrogen 7 mg/dL (7-18) Creatinine 0.8 MG/DL (0.55-1.30) Estimat Glomerular Filtration Rate > 60 mL/min (>60) Glucose Level 304 MG/DL (74-106) Lactic Acid Level 3.00 mmol/L (0.4-2.0) Calcium Level 9.6 MG/DL (8.5-10.1) Total Bilirubin 0.2 MG/DL (0.2-1.0) Aspartate Amino Transf (AST/SGOT) 13 U/L (15-37) Alanine Aminotransferase (ALT/SGPT) 18 U/L (12-78) Alkaline Phosphatase 115 U/L (46-116) Troponin I 0.000 ng/mL (0.000-0.056) Pro-B-Type Natriuretic Peptide 481 pg/mL (0-125) Total Protein 8.1 G/DL (6.4-8.2) Albumin 2.9 G/DL (3.4-5.0) Globulin 5.2 g/dL Albumin/Globulin Ratio 0.6 (1.0-2.7) Urine Color Pale yellow Urine Appearance Clear Urine pH 7 (4.5-8.0) Urine Specific [place] 1.005 (1.005-1.035) Urine Protein 1+ (NEGATIVE) Urine Glucose (UA) 3+ (NEGATIVE) Urine Ketones Negative (NEGATIVE) Urine Blood Negative (NEGATIVE) Urine Nitrite Negative (NEGATIVE) Urine Bilirubin Negative (NEGATIVE) Urine Urobilinogen Normal MG/DL (0.0-1.0) Urine Leukocyte Esterase Negative (NEGATIVE) Urine RBC 0-2 /HPF (0 - 2) Urine WBC 0-2 /HPF (0 - 2) Urine Squamous Epithelial Cells Few /LPF (NONE/OCC) Urine Bacteria Few /HPF (NONE) EKG: Rate: tachycardiac Rhythm: NSR ST Segments: no acute changes Chest X-Ray: Irregular patchy pulmonary opacities and scarring. Some volume loss in the right hemithorax and shift of the heart and other mediastinal structures to the right. Pleural space: Right pleural effusion versus pleural thickening. No pneumothorax. Subjective ROS Limited/Unobtainable: No Allergies: Coded Allergies: No Known Allergies (Unverified , 03/22/19) Objective Last 24 Hour Vital Signs Date Time Temp Pulse Resp B/P (MAP) Pulse Ox O2 Delivery O2 Flow Rate FiO2 03/26/19 09:23 75 135/70 03/26/19 09:23 75 135/70 03/26/19 08:15 84 20 99 Nasal Cannula 4.0 36 03/26/19 08:00 75 03/26/19 08:00 98.4 75 18 135/70 (91) 100 03/26/19 07:59 82 20 100 Nasal Cannula 4.0 36 03/26/19 07:59 100 Nasal Cannula 4.0 36 03/26/19 06:08 141/69 03/26/19 04:00 83 03/26/19 04:00 98.4 83 18 137/60 (85) 97 03/26/19 03:53 78 20 98 Nasal Cannula 4.0 36 03/26/19 03:38 78 20 98 Nasal Cannula 4.0 36 03/26/19 00:00 92 03/26/19 00:00 98.4 84 16 141/69 (93) 100 03/25/19 22:27 96 20 99 Nasal Cannula 4.0 36 03/25/19 22:16 95 20 98 Nasal Cannula 4.0 36 03/25/19 21:54 90 136/66 03/25/19 21:00 Nasal Cannula 2.0 03/25/19 20:00 92 03/25/19 20:00 98.8 90 18 136/66 (89) 96 03/25/19 19:47 97 20 99 Nasal Cannula 4.0 36 03/25/19 19:37 98 Nasal Cannula 4.0 36 03/25/19 19:35 94 20 98 Nasal Cannula 4.0 36 03/25/19 16:00 98.8 82 18 110/55 (73) 97 03/25/19 16:00 85 03/25/19 15:28 82 20 99 Nasal Cannula 4.0 36 03/25/19 15:27 85 20 96 Nasal Cannula 4.0 36 03/25/19 13:10 120/65 03/25/19 12:00 80 03/25/19 12:00 99.0 77 20 116/59 (78) 94 03/25/19 11:09 77 20 99 Nasal Cannula 4.0 36 Intake and Output 03/25/19 03/26/19 18:59 06:59 Intake Total 510 ml Balance 510 ml Intake Oral 400 ml IV Total 110 ml # Voids 3 6 Microbiology Date/Time Source Procedure Growth Status 03/24/19 00:07 Nose - Final Complete 03/24/19 00:07 Nose - Final Complete Laboratory Tests 03/25/19 14:10: Stool Occult Blood [Pending] 03/26/19 06:15: Sodium Level 138, Potassium Level 4.5, Chloride Level 102, Carbon Dioxide Level 34H, Anion Gap 3L, Blood Urea Nitrogen 10, Creatinine 0.9, Estimat Glomerular Filtration Rate > 60, Glucose Level 251H, Calcium Level 9.2, Phosphorus Level 4.4, Magnesium Level 2.0, Total Bilirubin 0.1L, Direct Bilirubin < 0.1, Aspartate Amino Transf (AST/SGOT) 42H, Alanine Aminotransferase (ALT/SGPT) 37, Alkaline Phosphatase 142H, Total Protein 7.0, Albumin 2.2L Current Medications Medications (Trade) Dose Ordered Sig/Malissa Route PRN Reason Start Time Stop Time Status Last Admin Dose Admin Acetaminophen (Tylenol) 650 mg Q6H PRN ORAL Mild Pain/Temp > 100.5 03/23/19 00:30 04/22/19 00:29 03/26/19 06:09 Albuterol/ Ipratropium (Albuterol/ Ipratropium) 3 ml Q4HRT HHN 8/10/19 11:00 03/31/19 10:59 Amlodipine Besylate (Norvasc) 10 mg DAILY ORAL 03/23/19 09:00 04/22/19 08:59 03/26/19 09:23 Ammonium Lactate (Lac Hydrin) 1 applic TWICE A DAY TOPIC 03/24/19 09:00 04/23/19 08:59 03/26/19 09:24 Azithromycin (Zithromax) 500 mg DAILY ORAL 03/25/19 13:00 03/29/19 21:59 03/26/19 09:24 Barium Sulfate (Varibar Honey) 250 ml NOW PRN Radiology Procedure 03/24/19 10:00 03/27/19 09:58 Barium Sulfate (Varibar [place]) 230 ml NOW PRN Radiology Procedure 03/24/19 10:00 03/27/19 09:58 Barium Sulfate (Varibar Pudding) 230 ml NOW PRN Radiology Procedure 03/24/19 10:00 03/27/19 09:58 Calcium Carbonate (Tums) 500 mg Q4H PRN ORAL for heartburn 03/25/19 13:00 04/24/19 12:59 03/25/19 17:19 Chlorhexidine Gluconate (Sonya-Hex 2%) 1 applic BID TOPIC 03/24/19 09:30 04/23/19 09:29 03/26/19 09:24 Clonidine HCl (Catapres Tab) 0.1 mg EVERY 8 HOURS ORAL 03/23/19 14:00 04/22/19 13:59 03/26/19 06:08 Dextrose (Dextrose 50%) 25 ml Q30M PRN IV Hypoglycemia 03/23/19 00:30 04/22/19 00:29 Dextrose (Dextrose 50%) 50 ml Q30M PRN IV Hypoglycemia 03/23/19 00:30 04/22/19 00:29 Enoxaparin Sodium (Lovenox) 40 mg DAILY SUBQ 03/24/19 09:00 04/23/19 08:59 03/25/19 08:45 Famotidine (Pepcid) 20 mg BID ORAL 03/24/19 14:15 04/23/19 14:14 03/26/19 09:23 Guaifenesin/ Dextromethorphan (Robitussin DM Syrup) 5 ml Q6H PRN ORAL For Cough 03/23/19 11:15 04/22/19 11:14 03/26/19 01:29 Hydralazine HCl (Apresoline) 25 mg Q4H PRN ORAL bp over 160 syst 03/23/19 12:30 04/22/19 12:29 Insulin Aspart (NovoLOG) BEFORE MEALS AND HS SUBQ 03/23/19 06:30 04/22/19 06:29 03/26/19 06:10 Iron Sucrose 100 mg/Sodium Chloride 60 ml @ 240 mls/hr BEDTIME IV 03/25/19 21:00 03/29/19 21:14 03/25/19 21:52 Metoprolol Tartrate (Lopressor) 50 mg Q12HR ORAL 03/23/19 09:00 04/22/19 08:59 03/26/19 09:23 Montelukast Sodium (Singulair) 10 mg BEDTIME ORAL 03/24/19 21:00 04/23/19 20:59 03/25/19 21:54 Multivitamins (Multivitamins) 1 tab DAILY ORAL 03/23/19 09:00 04/22/19 08:59 03/26/19 09:23 Nateglinide (Starlix) 120 mg TIAC ORAL 03/23/19 16:30 04/22/19 16:29 03/26/19 06:08 Ondansetron HCl (Zofran) 4 mg Q6H PRN IVP Nausea & Vomiting 03/23/19 00:30 04/22/19 00:29 Piperacillin Sod/ Tazobactam Sod 3.375 gm/Sodium Chloride 110 ml @ 27.5 mls/hr Q8HR IVPB 03/23/19 06:00 03/30/19 05:59 03/26/19 06:08 Potassium Chloride (K-Dur) 40 meq TWICE A DAY ORAL 03/24/19 18:00 04/23/19 17:59 03/26/19 09:23 Prednisone (predniSONE) 5 mg BID ORAL 03/24/19 18:00 04/23/19 08:59 03/26/19 09:23 Vinh Cano MD Mar 26, 2019 11:06
--- NOTE | 2019-03-26 11:12 | Surgery Progress Note ---
Surgery Progress Note Subjective Symptoms: improved Objective Last 24 Hour Vital Signs Date Time Temp Pulse Resp B/P (MAP) Pulse Ox O2 Delivery O2 Flow Rate FiO2 03/26/19 09:23 75 135/70 03/26/19 09:23 75 135/70 03/26/19 08:15 84 20 99 Nasal Cannula 4.0 36 03/26/19 08:00 75 03/26/19 08:00 98.4 75 18 135/70 (91) 100 03/26/19 07:59 82 20 100 Nasal Cannula 4.0 36 03/26/19 07:59 100 Nasal Cannula 4.0 36 03/26/19 06:08 141/69 03/26/19 04:00 83 03/26/19 04:00 98.4 83 18 137/60 (85) 97 03/26/19 03:53 78 20 98 Nasal Cannula 4.0 36 03/26/19 03:38 78 20 98 Nasal Cannula 4.0 36 03/26/19 00:00 92 03/26/19 00:00 98.4 84 16 141/69 (93) 100 03/25/19 22:27 96 20 99 Nasal Cannula 4.0 36 03/25/19 22:16 95 20 98 Nasal Cannula 4.0 36 03/25/19 21:54 90 136/66 03/25/19 21:00 Nasal Cannula 2.0 03/25/19 20:00 92 03/25/19 20:00 98.8 90 18 136/66 (89) 96 03/25/19 19:47 97 20 99 Nasal Cannula 4.0 36 03/25/19 19:37 98 Nasal Cannula 4.0 36 03/25/19 19:35 94 20 98 Nasal Cannula 4.0 36 03/25/19 16:00 98.8 82 18 110/55 (73) 97 03/25/19 16:00 85 03/25/19 15:28 82 20 99 Nasal Cannula 4.0 36 03/25/19 15:27 85 20 96 Nasal Cannula 4.0 36 03/25/19 13:10 120/65 03/25/19 12:00 80 03/25/19 12:00 99.0 77 20 116/59 (78) 94 I&O Intake and Output 03/25/19 03/26/19 18:59 06:59 Intake Total 510 ml Balance 510 ml Intake Oral 400 ml IV Total 110 ml # Voids 3 6 Dressing: dry Wound: clean, dry Cardiovascular: RSR Respiratory: clear Abdomen: soft, non-tender, present bowel sounds Extremities: no cyanosis Laboratory Tests Test 03/25/19 14:10 03/26/19 06:15 Stool Occult Blood Pending Sodium Level 138 MMOL/L (136-145) Potassium Level 4.5 MMOL/L (3.5-5.1) Chloride Level 102 MMOL/L (98-107) Carbon Dioxide Level 34 MMOL/L (21-32) H Anion Gap 3 mmol/L (5-15) L Blood Urea Nitrogen 10 mg/dL (7-18) Creatinine 0.9 MG/DL (0.55-1.30) Estimat Glomerular Filtration Rate > 60 mL/min (>60) Glucose Level 251 MG/DL (74-106) H Calcium Level 9.2 MG/DL (8.5-10.1) Phosphorus Level 4.4 MG/DL (2.5-4.9) Magnesium Level 2.0 MG/DL (1.8-2.4) Total Bilirubin 0.1 MG/DL (0.2-1.0) L Direct Bilirubin < 0.1 MG/DL (0.0-0.3) Aspartate Amino Transf (AST/SGOT) 42 U/L (15-37) H Alanine Aminotransferase (ALT/SGPT) 37 U/L (12-78) Alkaline Phosphatase 142 U/L (46-116) H Total Protein 7.0 G/DL (6.4-8.2) Albumin 2.2 G/DL (3.4-5.0) L Plan Problems: (1) Edema of both lower extremities (2) Sarcoidosis (3) Chronic cutaneous venous stasis ulcer Assessment & Plan: patient presented with venous stasis dermatitis of bilateral lower extremities. states has had for some time. scaling wounds with chronic scaring. mostly dry with some open areas. does not receive care often for them. no compression stockings. Pt that is legally blind whom on admission with lymphedemae both lower ext with Hyperkeratosis skin . Both lower ext are grossly malodorous.Both lower ext thoroughly assessed for presence of any wounds under scales and fissures but no wounds noted . Pt verbalized R lower ext is more tender than L lower ext. Toes are mycotic and grossly elongated and malformed web spaces of toes are difficult to separate due to poor hygiene and xerosis skin. Pt admitted to being unable to care for feet secondary to being blind and stated she lives at home with mother. Pt stated she was advised in past to see a surgery technician for nail care. Both lower ext washed and scrubbed with washcloths. Excessive amounts of thick scaly skin from both lower ext and both feet removed with friction and emollient. Excessive amt of malodorous hyperkeratotic removed from web spaces of toes. Unable to accurately assess head of R 2nd metatarsal secondary to malformed growth of nail matrix. Both lower ext were then wrapped loosely with Saran wrap for 20 mins for moisture Absorption than removed. -daily chlorhexidine wash bilateral lower extremity -apply Lac Hydrin lotion and wrap with saran wrap for 20 mins BID -keep legs elevated when possible -will follow with recs -podiatry eval and treatment apprecaited -cont with above care plan during hospitalization and d/c thank you for allowing me to participate in patients care. (4) Dyspnea Timbo Rubi Mar 26, 2019 11:11
[2019-03-26 12:00] VITALS: BP 128/65
--- NOTE | 2019-03-26 13:07 | NUR ---
NURSE NOTES: Notified Dr. Wakler that regarding hemoglobin level of 7.7 on 03/25/2019. The patient does not have s/s of active bleeding. Will carry out order as soon as receives it and will continue plan of care.
--- NOTE | 2019-03-26 15:06 | NUR ---
NURSE NOTES: Per Dr. Cano, 1/2 dose of Albuterol q2hr PRN for shortness of breath and q4hr Duoneb therapy ordered. Carried out the order. Will continue plan of care.
--- NOTE | 2019-03-26 15:39 | NUR ---
RESPIRATORY NOTE: Pt refused Arterial blood gas work. RN aware.
[2019-03-26 16:00] VITALS: BP 130/70
[2019-03-26] MEDS ORDERED: Albuterol ud Inhalation HHN SCH (16:00)
--- NOTE | 2019-03-26 16:00 | NUR ---
NURSE NOTES: The patient is stable without acute distress or shortness of breath. Will continue plan of care.
--- NOTE | 2019-03-26 16:37 | NUR ---
PT Note PT elmira completed, treatment initiated. Patient was able to ambulate with a FWW. She required constant verbal cues for direction due to blindness and manual assist to steer the FWW. Patient needs PT services to increase her muscle strength and balance to improve her functional mobility and gait. Addendum: 03/26/19 at 1638 by DES REDD PT Amended: Links added.
[2019-03-26] MEDS: Tums 500mg ORAL PRN (18:50)
[2019-03-26 20:00] VITALS: BP 105/75
--- NOTE | 2019-03-26 20:11 | NUR ---
HAND-OFF: Report given to ARYA Garrison. The patient is resting on the bed without acute distress or shortness of breath. The patient's bed in the lowest position, call light in reach, and fall and aspiration precaution reinforced. IV site intact and patent. Endorsed plan of care.
--- NOTE | 2019-03-26 20:30 | NUR ---
NURSE NOTES: Received pt from ARYA Houser. Pt awake, alert, and talkative. Bed in lowest position. Call light within reach. Will continue to monitor.
[2019-03-26] MEDS: Montelukast 10mg tablet ORAL SCH (21:49)
[2019-03-26] MEDS: Iron Sucrose 100 MG in NS 55 ML IV SCH (21:52)
--- NOTE | 2019-03-26 23:10 | General Progress Note ---
Assessment/Plan Problem List: (1) Sarcoidosis ICD Codes: D86.9 - Sarcoidosis, unspecified SNOMED: 79883572, 405534269 (2) Chronic cutaneous venous stasis ulcer ICD Codes: I83.009 - Varicose veins of unspecified lower extremity with ulcer of unspecified site; L97.909 - Non-pressure chronic ulcer of unspecified part of unspecified lower leg with unspecified severity SNOMED: 38643656, 167502023 (3) Edema of both lower extremities ICD Codes: R60.0 - Localized edema SNOMED: 03742651, 89687633, 476437026 (4) Electrolyte imbalance ICD Codes: E87.8 - Other disorders of electrolyte and fluid balance, not elsewhere classified SNOMED: 601743199 (5) Hypertension, uncontrolled ICD Codes: I10 - Essential (primary) hypertension SNOMED: 20150638, 73248150 (6) Diabetes type 2, uncontrolled ICD Codes: E11.65 - Type 2 diabetes mellitus with hyperglycemia SNOMED: 27497552, 876477163 Status: progressing Assessment/Plan: cellulitis of lower extremity sarcoidosis severe venous stasis not hyopxic poor hygiene severely crusted over lower extremity afebrile Subjective ROS Limited/Unobtainable: Yes Allergies: Coded Allergies: No Known Allergies (Unverified , 03/22/19) Objective Last 24 Hour Vital Signs Date Time Temp Pulse Resp B/P (MAP) Pulse Ox O2 Delivery O2 Flow Rate FiO2 03/26/19 21:49 82 130/70 03/26/19 20:00 98.3 99 18 105/75 (85) 98 03/26/19 19:40 82 18 99 Nasal Cannula 4.0 36 03/26/19 19:33 98 Nasal Cannula 4.0 36 03/26/19 19:32 80 18 98 Nasal Cannula 4.0 36 03/26/19 16:00 81 03/26/19 16:00 98.2 78 20 130/70 (90) 100 03/26/19 15:50 81 20 99 Nasal Cannula 4.0 36 03/26/19 15:33 82 20 99 Nasal Cannula 4.0 36 03/26/19 14:00 128/65 03/26/19 12:30 86 20 99 Nasal Cannula 4.0 36 03/26/19 12:13 88 20 96 Nasal Cannula 4.0 36 03/26/19 12:00 96 03/26/19 12:00 97.3 85 20 128/65 (86) 100 03/26/19 09:23 75 135/70 03/26/19 09:23 75 135/70 03/26/19 09:00 Nasal Cannula 2.0 03/26/19 08:15 84 20 99 Nasal Cannula 4.0 36 03/26/19 08:00 75 03/26/19 08:00 98.4 75 18 135/70 (91) 100 03/26/19 07:59 82 20 100 Nasal Cannula 4.0 36 03/26/19 07:59 100 Nasal Cannula 4.0 36 03/26/19 06:08 141/69 03/26/19 04:00 83 03/26/19 04:00 98.4 83 18 137/60 (85) 97 03/26/19 03:53 78 20 98 Nasal Cannula 4.0 36 03/26/19 03:38 78 20 98 Nasal Cannula 4.0 36 03/26/19 00:00 92 03/26/19 00:00 98.4 84 16 141/69 (93) 100 Intake and Output 03/25/19 03/26/19 19:00 07:00 Intake Total 390 ml Balance 390 ml Intake Oral 280 ml IV Total 110 ml # Voids 3 6 Laboratory Tests 03/26/19 06:15: Sodium Level 138, Potassium Level 4.5, Chloride Level 102, Carbon Dioxide Level 34H, Anion Gap 3L, Blood Urea Nitrogen 10, Creatinine 0.9, Estimat Glomerular Filtration Rate > 60, Glucose Level 251H, Calcium Level 9.2, Phosphorus Level 4.4, Magnesium Level 2.0, Total Bilirubin 0.1L, Direct Bilirubin < 0.1, Aspartate Amino Transf (AST/SGOT) 42H, Alanine Aminotransferase (ALT/SGPT) 37, Alkaline Phosphatase 142H, Total Protein 7.0, Albumin 2.2L Height (Feet): 5 Height (Inches): 10.00 Weight (Pounds): 228 Cardiovascular: normal rate Respiratory/Chest: lungs clear Abdomen: soft Guillaume Little MD Mar 26, 2019 23:10
[2019-03-27] VITALS: BP 151/68
[2019-03-27] MEDS: Albuterol/Ipratropium 3ml neb HHN SCH ×6 (02:47→22:24)
--- NOTE | 2019-03-27 03:42 | NUR ---
NURSE NOTES: called and left a message with Dr. Walker regarding lab order for today. Awaiting call back.
[2019-03-27 04:00] VITALS: BP 147/87
[2019-03-27] MEDS: Guaifenesin/DM 10ml syrup ORAL PRN (04:25)
[2019-03-27] MEDS: Albuterol ud Inhalation HHN PRN ×2 (04:59→21:26)
[2019-03-27] MEDS: Piperacillin/Tazobactam 3.375 GM in NS 110 ML IVPB SCH ×3 (06:05→23:42)
[2019-03-27] MEDS: NovoLOG Insulin Flexpen SUBQ SCH ×4 (06:07→22:00)
--- NOTE | 2019-03-27 07:07 | NUR ---
NURSE NOTES: Received report from ARYA Garrison. The patient is resting on the bed without acute distress or shortness of breath. The patient's bed in the lowest position, call light in reach, and fall and aspiration precaution reinforced. IV site on right FA 20G intact and patent SL. Will continue plan of care.
--- NOTE | 2019-03-27 07:15 | NUR ---
HAND-OFF: Report given to ARYA Houser. Pt stable.
[2019-03-27 08:00] VITALS: BP 146/82
[2019-03-27 08:22] LABS: BASOPHILS % (AUTO) 1.1 % (0.0-2.0); EOSINOPHILS % (AUTO) 2.7 % (0.0-3.0); HEMATOCRIT 29.1 % (37.0-47.0); HEMOGLOBIN 8.8 G/DL (12.0-16.0); LYMPHOCYTES % (AUTO) 20.7 % (20.0-45.0); MEAN CORPUSCULAR VOLUME 91 FL (80-99); MONOCYTES % (AUTO) 8.4 % (1.0-10.0); PLATELET COUNT 406 K/UL (150-450); RED CELL DISTRIBUTION WIDTH 12.2 % (11.6-14.8); WHITE BLOOD COUNT 10.7 K/UL (4.8-10.8)
[2019-03-27 08:36] LABS: ANION GAP 6 mmol/L (5-15); BLOOD UREA NITROGEN 9 mg/dL (7-18); CALCIUM 9.6 MG/DL (8.5-10.1); CARBON DIOXIDE 31 MMOL/L (21-32); CHLORIDE 101 MMOL/L (98-107); CREATININE 0.8 MG/DL (0.55-1.30); SODIUM 138 MMOL/L (136-145)
[2019-03-27] MEDS: Enoxaparin 40mg Inj SUBQ SCH ×2 (09:00→09:57)
[2019-03-27] MEDS: Metoprolol Tartrate 50mg tab ORAL SCH ×2 (09:09→21:55)
[2019-03-27] MEDS: Azithromycin 250mg tab ORAL SCH (09:10)
[2019-03-27] MEDS: Dyna-Hex 2% Top Sol 2oz TOPIC SCH ×2 (09:10→18:00)
[2019-03-27] MEDS: Lac Hydrin 12% Lotion 8oz TOPIC SCH ×2 (09:11→18:00)
[2019-03-27] MEDS: Tums 500mg ORAL PRN (10:00)
--- NOTE | 2019-03-27 10:42 | Nephrology Progress Note ---
Assessment/Plan Problem List: (1) Electrolyte imbalance (2) Hypertension, uncontrolled (3) Diabetes type 2, uncontrolled (4) Pneumonia Assessment Anemia - Low Iron Hypokalemia Low Mag Pneumonia Sarcoidosis Chronic Respiratory Failure Diabetes OOC Elevated lactic acid Hypertension OOC Chronic cutaneous venous stasis ulcer Plan IV Venofer for low Iron mag and Kcl and Phos supplement as needed- Adjust BP meds Adjust BS meds Monitor labs 2D echo 65% EjFx per orders Subjective ROS Limited/Unobtainable: No Objective Objective Last 24 Hour Vital Signs Date Time Temp Pulse Resp B/P (MAP) Pulse Ox O2 Delivery O2 Flow Rate FiO2 03/27/19 10:22 110 26 99 Nasal Cannula 4.0 36 03/27/19 10:13 108 24 96 Nasal Cannula 4.0 36 03/27/19 09:10 98 146/82 03/27/19 09:09 98 146/82 03/27/19 08:00 98.1 98 18 146/82 (103) 98 03/27/19 07:35 91 18 99 Nasal Cannula 4.0 36 03/27/19 07:26 97 Nasal Cannula 4.0 36 03/27/19 07:26 89 17 97 Nasal Cannula 4.0 36 03/27/19 06:00 147/87 03/27/19 05:02 94 18 100 Nasal Cannula 4.0 36 03/27/19 04:50 91 18 99 Nasal Cannula 4.0 36 03/27/19 04:00 98.6 70 18 147/87 (107) 97 03/27/19 04:00 91 03/27/19 02:58 80 18 99 Nasal Cannula 4.0 36 03/27/19 02:47 80 18 98 Nasal Cannula 4.0 36 03/27/19 00:00 93 03/27/19 00:00 98.4 85 18 151/68 (95) 98 03/26/19 23:26 81 18 98 Nasal Cannula 4.0 36 03/26/19 23:16 81 18 98 Nasal Cannula 4.0 36 03/26/19 21:49 82 130/70 03/26/19 21:00 Nasal Cannula 2.0 03/26/19 20:00 98.3 99 18 105/75 (85) 98 03/26/19 20:00 109 03/26/19 19:40 82 18 99 Nasal Cannula 4.0 36 03/26/19 19:33 98 Nasal Cannula 4.0 36 03/26/19 19:32 80 18 98 Nasal Cannula 4.0 36 03/26/19 16:00 81 03/26/19 16:00 98.2 78 20 130/70 (90) 100 03/26/19 15:50 81 20 99 Nasal Cannula 4.0 36 03/26/19 15:33 82 20 99 Nasal Cannula 4.0 36 03/26/19 14:00 128/65 03/26/19 12:30 86 20 99 Nasal Cannula 4.0 36 03/26/19 12:13 88 20 96 Nasal Cannula 4.0 36 03/26/19 12:00 96 03/26/19 12:00 97.3 85 20 128/65 (86) 100 Intake and Output 03/26/19 03/27/19 19:00 07:00 Intake Total 650 ml Output Total 1800 ml 2500 ml Balance -1150 ml -2500 ml Intake Oral 650 ml Output Urine Total 1800 ml 2500 ml # Bowel Movements 1 Laboratory Tests 03/27/19 07:50: White Blood Count 10.7, Red Blood Count 3.20L, Hemoglobin 8.8L, Hematocrit 29.1L , Mean Corpuscular Volume 91, Mean Corpuscular Hemoglobin 27.6, Mean Corpuscular Hemoglobin Concent 30.4L, Red Cell Distribution Width 12.2, Platelet Count 406, Mean Platelet Volume 6.1L, Neutrophils (%) (Auto) 67.0, Lymphocytes (%) (Auto) 20.7, Monocytes (%) (Auto) 8.4, Eosinophils (%) (Auto) 2.7, Basophils (%) (Auto) 1.1, Sodium Level 138, Potassium Level 4.0, Chloride Level 101, Carbon Dioxide Level 31, Anion Gap 6, Blood Urea Nitrogen 9, Creatinine 0.8, Estimat Glomerular Filtration Rate > 60, Glucose Level 188H, Calcium Level 9.6 Height (Feet): 5 Height (Inches): 10.00 Weight (Pounds): 228 General Appearance: no apparent distress Cardiovascular: tachycardia Respiratory/Chest: decreased breath sounds Abdomen: soft Tre Ochoa MD Mar 27, 2019 10:42
--- NOTE | 2019-03-27 10:49 | Infectious Diseases Prog Note ---
Assessment/Plan Assessment/Plan IMPRESSION: Pneumonia, Uncontrolled diabetes mellitus, Sarcoidosis, Onychomycocic Hypokalemia, Chronic stasis dermatitis and ulceration of legs, Blindness, Anemia, Hypertension. RECOMMENDATION: Continue Zosyn and azithromycin. Check BNP Wound care Subjective ROS Limited/Unobtainable: No Constitutional: Reports: no symptoms Respiratory: Reports: shortness of breath, dry cough Cardiovascular: Reports: dyspnea on exertion Genitourinary: Reports: no symptoms Musculoskeletal: Reports: pain, other - on legs Allergies: Coded Allergies: No Known Allergies (Unverified , 03/22/19) Objective Vital Signs Last 24 Hour Vital Signs Date Time Temp Pulse Resp B/P (MAP) Pulse Ox O2 Delivery O2 Flow Rate FiO2 03/27/19 10:22 110 26 99 Nasal Cannula 4.0 36 03/27/19 10:13 108 24 96 Nasal Cannula 4.0 36 03/27/19 09:10 98 146/82 03/27/19 09:09 98 146/82 03/27/19 08:00 98.1 98 18 146/82 (103) 98 03/27/19 07:35 91 18 99 Nasal Cannula 4.0 36 03/27/19 07:26 97 Nasal Cannula 4.0 36 03/27/19 07:26 89 17 97 Nasal Cannula 4.0 36 03/27/19 06:00 147/87 03/27/19 05:02 94 18 100 Nasal Cannula 4.0 36 03/27/19 04:50 91 18 99 Nasal Cannula 4.0 36 03/27/19 04:00 98.6 70 18 147/87 (107) 97 03/27/19 04:00 91 03/27/19 02:58 80 18 99 Nasal Cannula 4.0 36 03/27/19 02:47 80 18 98 Nasal Cannula 4.0 36 03/27/19 00:00 93 03/27/19 00:00 98.4 85 18 151/68 (95) 98 03/26/19 23:26 81 18 98 Nasal Cannula 4.0 36 03/26/19 23:16 81 18 98 Nasal Cannula 4.0 36 03/26/19 21:49 82 130/70 03/26/19 21:00 Nasal Cannula 2.0 03/26/19 20:00 98.3 99 18 105/75 (85) 98 03/26/19 20:00 109 03/26/19 19:40 82 18 99 Nasal Cannula 4.0 36 03/26/19 19:33 98 Nasal Cannula 4.0 36 03/26/19 19:32 80 18 98 Nasal Cannula 4.0 36 03/26/19 16:00 81 03/26/19 16:00 98.2 78 20 130/70 (90) 100 03/26/19 15:50 81 20 99 Nasal Cannula 4.0 36 03/26/19 15:33 82 20 99 Nasal Cannula 4.0 36 03/26/19 14:00 128/65 03/26/19 12:30 86 20 99 Nasal Cannula 4.0 36 03/26/19 12:13 88 20 96 Nasal Cannula 4.0 36 03/26/19 12:00 96 03/26/19 12:00 97.3 85 20 128/65 (86) 100 Height (Feet): 5 Height (Inches): 10.00 Weight (Pounds): 228 General Appearance: no acute distress HEENT: mucous membranes moist Respiratory/Chest: decreased breath sounds, other - oxygen by nasal cannula Cardiovascular: tachycardia Abdomen: soft, non tender Extremities: other - edema of legs Skin: other - legs stasis dermatitis Neurologic/Psychiatric: alert, oriented x 3, responsive Laboratory Tests Test 03/27/19 07:50 White Blood Count 10.7 K/UL (4.8-10.8) Red Blood Count 3.20 M/UL (4.20-5.40) L Hemoglobin 8.8 G/DL (12.0-16.0) L Hematocrit 29.1 % (37.0-47.0) L Mean Corpuscular Volume 91 FL (80-99) Mean Corpuscular Hemoglobin 27.6 PG (27.0-31.0) Mean Corpuscular Hemoglobin Concent 30.4 G/DL (32.0-36.0) L Red Cell Distribution Width 12.2 % (11.6-14.8) Platelet Count 406 K/UL (150-450) Mean Platelet Volume 6.1 FL (6.5-10.1) L Neutrophils (%) (Auto) 67.0 % (45.0-75.0) Lymphocytes (%) (Auto) 20.7 % (20.0-45.0) Monocytes (%) (Auto) 8.4 % (1.0-10.0) Eosinophils (%) (Auto) 2.7 % (0.0-3.0) Basophils (%) (Auto) 1.1 % (0.0-2.0) Sodium Level 138 MMOL/L (136-145) Potassium Level 4.0 MMOL/L (3.5-5.1) Chloride Level 101 MMOL/L (98-107) Carbon Dioxide Level 31 MMOL/L (21-32) Anion Gap 6 mmol/L (5-15) Blood Urea Nitrogen 9 mg/dL (7-18) Creatinine 0.8 MG/DL (0.55-1.30) Estimat Glomerular Filtration Rate > 60 mL/min (>60) Glucose Level 188 MG/DL (74-106) H Calcium Level 9.6 MG/DL (8.5-10.1) Current Medications Medications (Trade) Dose Ordered Sig/Malissa Route PRN Reason Start Time Stop Time Status Last Admin Dose Admin Acetaminophen (Tylenol) 650 mg Q6H PRN ORAL Mild Pain/Temp > 100.5 03/23/19 00:30 04/22/19 00:29 03/26/19 06:09 Albuterol Sulfate (Proventil) 1.25 mg Q2H PRN HHN Shortness of Breath 03/26/19 15:06 03/31/19 15:05 03/27/19 04:59 Albuterol/ Ipratropium (Albuterol/ Ipratropium) 3 ml Q4HRT HHN 03/26/19 11:00 03/31/19 10:59 03/27/19 10:13 Amlodipine Besylate (Norvasc) 10 mg DAILY ORAL 03/23/19 09:00 04/22/19 08:59 03/27/19 09:10 Ammonium Lactate (Lac Hydrin) 1 applic TWICE A DAY TOPIC 03/24/19 09:00 04/23/19 08:59 03/27/19 09:11 Azithromycin (Zithromax) 500 mg DAILY ORAL 03/25/19 13:00 03/29/19 21:59 03/27/19 09:10 Calcium Carbonate (Tums) 500 mg Q4H PRN ORAL for heartburn 03/25/19 13:00 04/24/19 12:59 03/27/19 10:00 Chlorhexidine Gluconate (Sonya-Hex 2%) 1 applic BID TOPIC 03/24/19 09:30 04/23/19 09:29 03/27/19 09:10 Clonidine HCl (Catapres Tab) 0.1 mg EVERY 8 HOURS ORAL 03/23/19 14:00 04/22/19 13:59 03/26/19 06:08 Dextrose (Dextrose 50%) 25 ml Q30M PRN IV Hypoglycemia 03/23/19 00:30 04/22/19 00:29 Dextrose (Dextrose 50%) 50 ml Q30M PRN IV Hypoglycemia 03/23/19 00:30 04/22/19 00:29 Enoxaparin Sodium (Lovenox) 40 mg DAILY SUBQ 03/24/19 09:00 04/23/19 08:59 03/27/19 09:57 Famotidine (Pepcid) 20 mg BID ORAL 03/24/19 14:15 04/23/19 14:14 03/27/19 09:10 Guaifenesin/ Dextromethorphan (Robitussin DM Syrup) 5 ml Q6H PRN ORAL For Cough 03/23/19 11:15 04/22/19 11:14 03/27/19 04:25 Hydralazine HCl (Apresoline) 25 mg Q4H PRN ORAL bp over 160 syst 03/23/19 12:30 04/22/19 12:29 Insulin Aspart (NovoLOG) BEFORE MEALS AND HS SUBQ 03/23/19 06:30 04/22/19 06:29 03/27/19 06:07 Iron Sucrose 100 mg/Sodium Chloride 60 ml @ 240 mls/hr BEDTIME IV 03/25/19 21:00 03/29/19 21:14 03/26/19 21:52 Metoprolol Tartrate (Lopressor) 50 mg Q12HR ORAL 03/23/19 09:00 04/22/19 08:59 03/27/19 09:09 Montelukast Sodium (Singulair) 10 mg BEDTIME ORAL 03/24/19 21:00 04/23/19 20:59 03/26/19 21:49 Multivitamins (Multivitamins) 1 tab DAILY ORAL 03/23/19 09:00 04/22/19 08:59 03/27/19 09:10 Nateglinide (Starlix) 120 mg TIAC ORAL 03/23/19 16:30 04/22/19 16:29 03/27/19 06:06 Ondansetron HCl (Zofran) 4 mg Q6H PRN IVP Nausea & Vomiting 03/23/19 00:30 04/22/19 00:29 Piperacillin Sod/ Tazobactam Sod 3.375 gm/Sodium Chloride 110 ml @ 27.5 mls/hr Q8HR IVPB 03/23/19 06:00 03/30/19 05:59 03/27/19 06:05 Potassium Chloride (K-Dur) 40 meq TWICE A DAY ORAL 03/24/19 18:00 04/23/19 17:59 03/27/19 09:09 Prednisone (predniSONE) 5 mg BID ORAL 03/24/19 18:00 04/23/19 08:59 03/27/19 09:10 Endy Klein MD Mar 27, 2019 10:49
[2019-03-27 12:00] VITALS: BP 141/66
--- NOTE | 2019-03-27 12:00 | NUR ---
NURSE NOTES: The patient is resting without acute distress or shortness of breath. Will continue plan of care.
--- NOTE | 2019-03-27 12:15 | Surgery Progress Note ---
Surgery Progress Note Subjective Additional Comments no acute events comfortable exam stable cxr noted labs okay Objective Last 24 Hour Vital Signs Date Time Temp Pulse Resp B/P (MAP) Pulse Ox O2 Delivery O2 Flow Rate FiO2 03/27/19 10:22 110 26 99 Nasal Cannula 4.0 36 03/27/19 10:13 108 24 96 Nasal Cannula 4.0 36 03/27/19 09:10 98 146/82 03/27/19 09:09 98 146/82 03/27/19 08:00 98.1 98 18 146/82 (103) 98 03/27/19 07:35 91 18 99 Nasal Cannula 4.0 36 03/27/19 07:26 97 Nasal Cannula 4.0 36 03/27/19 07:26 89 17 97 Nasal Cannula 4.0 36 03/27/19 06:00 147/87 03/27/19 05:02 94 18 100 Nasal Cannula 4.0 36 03/27/19 04:50 91 18 99 Nasal Cannula 4.0 36 03/27/19 04:00 98.6 70 18 147/87 (107) 97 03/27/19 04:00 91 03/27/19 02:58 80 18 99 Nasal Cannula 4.0 36 03/27/19 02:47 80 18 98 Nasal Cannula 4.0 36 03/27/19 00:00 93 03/27/19 00:00 98.4 85 18 151/68 (95) 98 03/26/19 23:26 81 18 98 Nasal Cannula 4.0 36 03/26/19 23:16 81 18 98 Nasal Cannula 4.0 36 03/26/19 21:49 82 130/70 03/26/19 21:00 Nasal Cannula 2.0 03/26/19 20:00 98.3 99 18 105/75 (85) 98 03/26/19 20:00 109 03/26/19 19:40 82 18 99 Nasal Cannula 4.0 36 03/26/19 19:33 98 Nasal Cannula 4.0 36 03/26/19 19:32 80 18 98 Nasal Cannula 4.0 36 03/26/19 16:00 81 03/26/19 16:00 98.2 78 20 130/70 (90) 100 03/26/19 15:50 81 20 99 Nasal Cannula 4.0 36 03/26/19 15:33 82 20 99 Nasal Cannula 4.0 36 03/26/19 14:00 128/65 03/26/19 12:30 86 20 99 Nasal Cannula 4.0 36 I&O Intake and Output 03/26/19 03/27/19 19:00 07:00 Intake Total 650 ml Output Total 1800 ml 2500 ml Balance -1150 ml -2500 ml Intake Oral 650 ml Output Urine Total 1800 ml 2500 ml # Bowel Movements 1 Dressing: dry Wound: clean Cardiovascular: RSR Respiratory: clear Abdomen: soft, non-tender, present bowel sounds Extremities: edema, no tenderness, no cyanosis, other Laboratory Tests Test 03/27/19 07:50 White Blood Count 10.7 K/UL (4.8-10.8) Red Blood Count 3.20 M/UL (4.20-5.40) L Hemoglobin 8.8 G/DL (12.0-16.0) L Hematocrit 29.1 % (37.0-47.0) L Mean Corpuscular Volume 91 FL (80-99) Mean Corpuscular Hemoglobin 27.6 PG (27.0-31.0) Mean Corpuscular Hemoglobin Concent 30.4 G/DL (32.0-36.0) L Red Cell Distribution Width 12.2 % (11.6-14.8) Platelet Count 406 K/UL (150-450) Mean Platelet Volume 6.1 FL (6.5-10.1) L Neutrophils (%) (Auto) 67.0 % (45.0-75.0) Lymphocytes (%) (Auto) 20.7 % (20.0-45.0) Monocytes (%) (Auto) 8.4 % (1.0-10.0) Eosinophils (%) (Auto) 2.7 % (0.0-3.0) Basophils (%) (Auto) 1.1 % (0.0-2.0) Sodium Level 138 MMOL/L (136-145) Potassium Level 4.0 MMOL/L (3.5-5.1) Chloride Level 101 MMOL/L (98-107) Carbon Dioxide Level 31 MMOL/L (21-32) Anion Gap 6 mmol/L (5-15) Blood Urea Nitrogen 9 mg/dL (7-18) Creatinine 0.8 MG/DL (0.55-1.30) Estimat Glomerular Filtration Rate > 60 mL/min (>60) Glucose Level 188 MG/DL (74-106) H Calcium Level 9.6 MG/DL (8.5-10.1) Plan Problems: (1) Edema of both lower extremities (2) Sarcoidosis (3) Chronic cutaneous venous stasis ulcer Assessment & Plan: patient presented with venous stasis dermatitis of bilateral lower extremities. states has had for some time. scaling wounds with chronic scaring. mostly dry with some open areas. does not receive care often for them. no compression stockings. Pt that is legally blind whom on admission with lymphedemae both lower ext with Hyperkeratosis skin . Both lower ext are grossly malodorous.Both lower ext thoroughly assessed for presence of any wounds under scales and fissures but no wounds noted . Pt verbalized R lower ext is more tender than L lower ext. Toes are mycotic and grossly elongated and malformed web spaces of toes are difficult to separate due to poor hygiene and xerosis skin. Pt admitted to being unable to care for feet secondary to being blind and stated she lives at home with mother. Pt stated she was advised in past to see a piano regulator for nail care. Both lower ext washed and scrubbed with washcloths. Excessive amounts of thick scaly skin from both lower ext and both feet removed with friction and emollient. Excessive amt of malodorous hyperkeratotic removed from web spaces of toes. Unable to accurately assess head of R 2nd metatarsal secondary to malformed growth of nail matrix. Both lower ext were then wrapped loosely with Saran wrap for 20 mins for moisture Absorption than removed. -daily chlorhexidine wash bilateral lower extremity -apply Lac Hydrin lotion and wrap with saran wrap for 20 mins BID -keep legs elevated when possible -will follow with recs -podiatry eval and treatment appreciated -cont with above care plan during hospitalization and d/c thank you for allowing me to participate in patients care. (4) Dyspnea Timbo Rubi Mar 27, 2019 12:15
--- NOTE | 2019-03-27 14:18 | NUR ---
PT note Attempted to see patient x 3. Patient refused each time, c/o not feeling well.
--- NOTE | 2019-03-27 15:33 | Hematology/Onc Progress Note ---
Assessment/Plan Assessment/Plan Diagnostic Impression: # Anemia of iron deficiency rule out underlying gi bleed, ferritin 44 --> Anemia workup has been ordered, rule out gi bleed (ferritin is low) --> No evidence of hemolysis is noted, peripheral smear has been reviewed. --> Hgb goal >7. Transfuse prn. --> IV IROn has been started x 5 days --> Medications have been reviewed --> low threshold for gi evaluation in case has occult + --> bone marrow biopsy is not indicated given the other more likely causes --> renal is aware # Anemia due to chf --> diuresis if required by cards --> for volume overload, further diuresis # Dyspnea with resp failure --> abx and steriods per pulm # Chronic cutaneous venous stasis ulcer --> wound care/surg recs # Hypok --> kcl was given # Sarcoidosis # DVT ppx lovenox sq The timing of this note does not necessarily reflect the time of the patient was seen. GREATLY APPRECIATE CONSULTATION. Subjective HEENT: Denies: no symptoms, eye pain, blurred vision, tearing, double vision, ear pain, ear discharge, nose pain, nose congestion, throat pain, throat swelling, mouth pain, mouth swelling, other Cardiovascular: Denies: no symptoms, chest pain, edema, irregular heart rate, lightheadedness, palpitations, syncope, other Respiratory: Denies: no symptoms, cough, shortness of breath, SOB with excertion, SOB at rest, sputum, wheezing, other Gastrointestinal/Abdominal: Denies: no symptoms, abdomen distended, abdominal pain, black stools, tarry stools, blood in stool, constipated, diarrhea, difficulty swallowing, nausea, poor appetite, poor fluid intake, rectal bleeding , vomiting, other Genitourinary: Denies: no symptoms, burning, discharge, frequency, flank pain, hematuria, incontinence, pain, urgency, other Neurologic/Psychiatric: Reports: no symptoms, anxiety, depressed, emotional problems, headache, numbness, paresthesia, pre-existing deficit, seizure, tingling, tremors, weakness, other Allergies: Coded Allergies: No Known Allergies (Unverified , 03/22/19) Subjective 03/24: dressing changes with wounds slowly improving, on iv iron 03/25: on 2l nc, no events noted, on iron, wound care, no f/c 03/27: remains on abx, wound care, lonveox dvt ppx Objective Objective Current Medications Medications (Trade) Dose Ordered Sig/Malissa Route PRN Reason Start Time Stop Time Status Last Admin Dose Admin Acetaminophen (Tylenol) 650 mg Q6H PRN ORAL Mild Pain/Temp > 100.5 03/23/19 00:30 04/22/19 00:29 03/27/19 11:02 Albuterol Sulfate (Proventil) 1.25 mg Q2H PRN HHN Shortness of Breath 03/26/19 15:06 03/31/19 15:05 03/27/19 04:59 Albuterol/ Ipratropium (Albuterol/ Ipratropium) 3 ml Q4HRT HHN 03/26/19 11:00 03/31/19 10:59 03/27/19 14:04 Amlodipine Besylate (Norvasc) 10 mg DAILY ORAL 03/23/19 09:00 04/22/19 08:59 03/27/19 09:10 Ammonium Lactate (Lac Hydrin) 1 applic TWICE A DAY TOPIC 03/24/19 09:00 04/23/19 08:59 03/27/19 09:11 Azithromycin (Zithromax) 500 mg DAILY ORAL 03/25/19 13:00 03/29/19 21:59 03/27/19 09:10 Calcium Carbonate (Tums) 500 mg Q4H PRN ORAL for heartburn 03/25/19 13:00 04/24/19 12:59 03/27/19 10:00 Chlorhexidine Gluconate (Sonya-Hex 2%) 1 applic BID TOPIC 03/24/19 09:30 04/23/19 09:29 03/27/19 09:10 Clonidine HCl (Catapres Tab) 0.1 mg EVERY 8 HOURS ORAL 03/23/19 14:00 04/22/19 13:59 03/27/19 14:39 Dextrose (Dextrose 50%) 25 ml Q30M PRN IV Hypoglycemia 03/23/19 00:30 04/22/19 00:29 Dextrose (Dextrose 50%) 50 ml Q30M PRN IV Hypoglycemia 03/23/19 00:30 04/22/19 00:29 Enoxaparin Sodium (Lovenox) 40 mg DAILY SUBQ 03/24/19 09:00 04/23/19 08:59 03/27/19 09:57 Famotidine (Pepcid) 20 mg BID ORAL 03/24/19 14:15 04/23/19 14:14 03/27/19 09:10 Guaifenesin/ Dextromethorphan (Robitussin DM Syrup) 5 ml Q6H PRN ORAL For Cough 03/23/19 11:15 04/22/19 11:14 03/27/19 04:25 Hydralazine HCl (Apresoline) 25 mg Q4H PRN ORAL bp over 160 syst 03/23/19 12:30 04/22/19 12:29 Insulin Aspart (NovoLOG) BEFORE MEALS AND HS SUBQ 03/23/19 06:30 04/22/19 06:29 03/27/19 12:22 Iron Sucrose 100 mg/Sodium Chloride 60 ml @ 240 mls/hr BEDTIME IV 03/25/19 21:00 03/29/19 21:14 03/26/19 21:52 Metoprolol Tartrate (Lopressor) 50 mg Q12HR ORAL 03/23/19 09:00 04/22/19 08:59 03/27/19 09:09 Montelukast Sodium (Singulair) 10 mg BEDTIME ORAL 03/24/19 21:00 04/23/19 20:59 03/26/19 21:49 Multivitamins (Multivitamins) 1 tab DAILY ORAL 03/23/19 09:00 04/22/19 08:59 03/27/19 09:10 Nateglinide (Starlix) 120 mg TIAC ORAL 03/23/19 16:30 04/22/19 16:29 03/27/19 12:21 Ondansetron HCl (Zofran) 4 mg Q6H PRN IVP Nausea & Vomiting 03/23/19 00:30 04/22/19 00:29 Piperacillin Sod/ Tazobactam Sod 3.375 gm/Sodium Chloride 110 ml @ 27.5 mls/hr Q8HR IVPB 03/23/19 06:00 03/30/19 05:59 03/27/19 14:40 Potassium Chloride (K-Dur) 40 meq TWICE A DAY ORAL 03/24/19 18:00 04/23/19 17:59 03/27/19 09:09 Prednisone (predniSONE) 5 mg BID ORAL 03/24/19 18:00 04/23/19 08:59 03/27/19 09:10 Last 24 Hour Vital Signs Date Time Temp Pulse Resp B/P (MAP) Pulse Ox O2 Delivery O2 Flow Rate FiO2 03/27/19 14:39 141/66 03/27/19 14:15 97 22 99 Nasal Cannula 4.0 36 03/27/19 14:04 94 21 96 Nasal Cannula 4.0 36 03/27/19 10:22 110 26 99 Nasal Cannula 4.0 36 03/27/19 10:13 108 24 96 Nasal Cannula 4.0 36 03/27/19 09:10 98 146/82 03/27/19 09:09 98 146/82 03/27/19 08:00 98.1 98 18 146/82 (103) 98 03/27/19 07:35 91 18 99 Nasal Cannula 4.0 36 03/27/19 07:26 97 Nasal Cannula 4.0 36 03/27/19 07:26 89 17 97 Nasal Cannula 4.0 36 03/27/19 06:00 147/87 03/27/19 05:02 94 18 100 Nasal Cannula 4.0 36 03/27/19 04:50 91 18 99 Nasal Cannula 4.0 36 03/27/19 04:00 98.6 70 18 147/87 (107) 97 03/27/19 04:00 91 03/27/19 02:58 80 18 99 Nasal Cannula 4.0 36 03/27/19 02:47 80 18 98 Nasal Cannula 4.0 36 03/27/19 00:00 93 03/27/19 00:00 98.4 85 18 151/68 (95) 98 03/26/19 23:26 81 18 98 Nasal Cannula 4.0 36 03/26/19 23:16 81 18 98 Nasal Cannula 4.0 36 03/26/19 21:49 82 130/70 03/26/19 21:00 Nasal Cannula 2.0 03/26/19 20:00 98.3 99 18 105/75 (85) 98 03/26/19 20:00 109 03/26/19 19:40 82 18 99 Nasal Cannula 4.0 36 03/26/19 19:33 98 Nasal Cannula 4.0 36 03/26/19 19:32 80 18 98 Nasal Cannula 4.0 36 03/26/19 16:00 81 03/26/19 16:00 98.2 78 20 130/70 (90) 100 03/26/19 15:50 81 20 99 Nasal Cannula 4.0 36 03/26/19 15:33 82 20 99 Nasal Cannula 4.0 36 03/26/19 14:00 128/65 03/26/19 12:30 86 20 99 Nasal Cannula 4.0 36 03/26/19 12:13 88 20 96 Nasal Cannula 4.0 36 03/26/19 12:00 96 03/26/19 12:00 97.3 85 20 128/65 (86) 100 03/26/19 09:23 75 135/70 03/26/19 09:23 75 135/70 03/26/19 09:00 Nasal Cannula 2.0 03/26/19 08:15 84 20 99 Nasal Cannula 4.0 36 03/26/19 08:00 75 03/26/19 08:00 98.4 75 18 135/70 (91) 100 03/26/19 07:59 82 20 100 Nasal Cannula 4.0 36 03/26/19 07:59 100 Nasal Cannula 4.0 36 03/26/19 06:08 141/69 03/26/19 04:00 83 03/26/19 04:00 98.4 83 18 137/60 (85) 97 03/26/19 03:53 78 20 98 Nasal Cannula 4.0 36 03/26/19 03:38 78 20 98 Nasal Cannula 4.0 36 03/26/19 00:00 92 03/26/19 00:00 98.4 84 16 141/69 (93) 100 03/25/19 22:27 96 20 99 Nasal Cannula 4.0 36 03/25/19 22:16 95 20 98 Nasal Cannula 4.0 36 03/25/19 21:54 90 136/66 03/25/19 21:00 Nasal Cannula 2.0 03/25/19 20:00 92 03/25/19 20:00 98.8 90 18 136/66 (89) 96 03/25/19 19:47 97 20 99 Nasal Cannula 4.0 36 03/25/19 19:37 98 Nasal Cannula 4.0 36 03/25/19 19:35 94 20 98 Nasal Cannula 4.0 36 03/25/19 16:00 98.8 82 18 110/55 (73) 97 03/25/19 16:00 85 Intake and Output 03/26/19 03/27/19 19:00 07:00 Intake Total 650 ml Output Total 1800 ml 2500 ml Balance -1150 ml -2500 ml Intake Oral 650 ml Output Urine Total 1800 ml 2500 ml # Bowel Movements 1 Labs Test 03/25/19 06:10 03/25/19 14:10 03/26/19 06:15 03/27/19 07:50 White Blood Count 7.8 K/UL (4.8-10.8) 10.7 K/UL (4.8-10.8) Red Blood Count 2.79 M/UL (4.20-5.40) 3.20 M/UL (4.20-5.40) Hemoglobin 7.7 G/DL (12.0-16.0) 8.8 G/DL (12.0-16.0) Hematocrit 25.1 % (37.0-47.0) 29.1 % (37.0-47.0) Mean Corpuscular Volume 90 FL (80-99) 91 FL (80-99) Mean Corpuscular Hemoglobin 27.8 PG (27.0-31.0) 27.6 PG (27.0-31.0) Mean Corpuscular Hemoglobin Concent 30.9 G/DL (32.0-36.0) 30.4 G/DL (32.0-36.0) Red Cell Distribution Width 12.1 % (11.6-14.8) 12.2 % (11.6-14.8) Platelet Count 332 K/UL (150-450) 406 K/UL (150-450) Mean Platelet Volume 6.1 FL (6.5-10.1) 6.1 FL (6.5-10.1) Neutrophils (%) (Auto) % (45.0-75.0) 67.0 % (45.0-75.0) Lymphocytes (%) (Auto) % (20.0-45.0) 20.7 % (20.0-45.0) Monocytes (%) (Auto) % (1.0-10.0) 8.4 % (1.0-10.0) Eosinophils (%) (Auto) % (0.0-3.0) 2.7 % (0.0-3.0) Basophils (%) (Auto) % (0.0-2.0) 1.1 % (0.0-2.0) Differential Total Cells Counted 100 Neutrophils % (Manual) 70 % (45-75) Lymphocytes % (Manual) 14 % (20-45) Monocytes % (Manual) 13 % (1-10) Eosinophils % (Manual) 1 % (0-3) Basophils % (Manual) 1 % (0-2) Band Neutrophils 1 % (0-8) Platelet Estimate Adequate Platelet Morphology Normal Red Blood Cell Morphology Normal Sodium Level 140 MMOL/L (136-145) 138 MMOL/L (136-145) 138 MMOL/L (136-145) Potassium Level 3.8 MMOL/L (3.5-5.1) 4.5 MMOL/L (3.5-5.1) 4.0 MMOL/L (3.5-5.1) Chloride Level 101 MMOL/L (98-107) 102 MMOL/L (98-107) 101 MMOL/L (98-107) Carbon Dioxide Level 36 MMOL/L (21-32) 34 MMOL/L (21-32) 31 MMOL/L (21-32) Anion Gap 3 mmol/L (5-15) 3 mmol/L (5-15) 6 mmol/L (5-15) Blood Urea Nitrogen 8 mg/dL (7-18) 10 mg/dL (7-18) 9 mg/dL (7-18) Creatinine 0.9 MG/DL (0.55-1.30) 0.9 MG/DL (0.55-1.30) 0.8 MG/DL (0.55-1.30) Estimat Glomerular Filtration Rate > 60 mL/min (>60) > 60 mL/min (>60) > 60 mL/min (>60) Glucose Level 256 MG/DL (74-106) 251 MG/DL (74-106) 188 MG/DL (74-106) Calcium Level 8.9 MG/DL (8.5-10.1) 9.2 MG/DL (8.5-10.1) 9.6 MG/DL (8.5-10.1) Phosphorus Level 5.1 MG/DL (2.5-4.9) 4.4 MG/DL (2.5-4.9) Magnesium Level 2.1 MG/DL (1.8-2.4) 2.0 MG/DL (1.8-2.4) Total Bilirubin 0.2 MG/DL (0.2-1.0) 0.1 MG/DL (0.2-1.0) Direct Bilirubin < 0.1 MG/DL (0.0-0.3) < 0.1 MG/DL (0.0-0.3) Aspartate Amino Transf (AST/SGOT) 14 U/L (15-37) 42 U/L (15-37) Alanine Aminotransferase (ALT/SGPT) 18 U/L (12-78) 37 U/L (12-78) Alkaline Phosphatase 104 U/L (46-116) 142 U/L (46-116) C-Reactive Protein, Quantitative 12.3 mg/dL (0.00-0.90) Pro-B-Type Natriuretic Peptide 314 pg/mL (0-125) Total Protein 6.1 G/DL (6.4-8.2) 7.0 G/DL (6.4-8.2) Albumin 2.1 G/DL (3.4-5.0) 2.2 G/DL (3.4-5.0) Stool Occult Blood Negative (NEGATIVE) Height (Feet): 5 Height (Inches): 10.00 Weight (Pounds): 228 Objective Vitals: reviewed General Appearance: NAD HEENT: normocephalic, atraumatic Neck: non-tender, normal alignment Respiratory/Chest: normal breath sounds bilaterally Cardiovascular/Chest: normal peripheral pulses, normal rate Abdomen: normal bowel sounds, soft, nontender Extremities: normal range of motion, chronic cutaneous venous stasis ulcers Javier Walker MD Mar 27, 2019 15:33
[2019-03-27 16:00] VITALS: BP 118/60
--- NOTE | 2019-03-27 17:35 | NUR ---
NURSE NOTES: Notified Dr. Little regarding critical glucose result. The patient's blood glucose was 440. Will continue to monitor the patient closely. Will carry ou the order as soon as receives it. Will continue plan of care.
--- NOTE | 2019-03-27 18:00 | NUR ---
NURSE NOTES: The patient received couple times of breathing treatment due to breathing discomfort. Will monitor the patient closely. Will continue plan of care.
--- NOTE | 2019-03-27 19:47 | NUR ---
NURSE NOTES: Spoke with Dr. Sadia Sal regarding critical result of blood sugar. Per Dr. Sadia Sal, Lantus 25 unit Q12hrs, Novolog 15 units and Novolg sliding scale, and Metformin 1000mg 1tab PO BID. Also, HgA1c ordered by Dr. Mccullough. Will carry out the order as soon as possible.
--- NOTE | 2019-03-27 19:50 | NUR ---
HAND-OFF: Report given to ARYA Garrison. The patient is resting on the bed without acute distress or shortness of breath. The patient's bed in the lowest position, call ight in reach, and fall and aspiration precaution reinforced. Endorsed plan of care.
--- NOTE | 2019-03-27 19:51 | NUR ---
NURSE NOTES: Received pt from ARYA Houser. Pt awake, alert, and talkative. Bed in lowest position. Call light within reach. Will continue to monitor.
[2019-03-27 20:00] VITALS: BP 124/71
[2019-03-27] MEDS ORDERED: Levemir Flexpen SUBQ SCH (21:00)
--- NOTE | 2019-03-27 21:01 | Pulmonology Progress Note ---
Assessment/Plan Assessment/Plan Pulmonary Progress Note HPI Patient is a 53-year-old woman admitted with cough, shortness of breath, worse for 2 days, LE swelling. Previous history of sarcoidosis, respiratory failure on home oxygen, on chronic Prednisone therapy, Diabetes, Hypertension. Complains of a cough productive with yellowish phlegm. Denies fevers or chills. She has had this swelling to her legs for several months. Denies pain. No other aggravating relieving factors. Denies any other associated symptoms , less SOB, glucose control improved. On antibiotics per ID, chronic fibrotic changes on CXR. CXR stable, remains on Prednisne, HHN, less SOB Allergies: No Known Allergies Past Medical History: Diabetes Mellitus, Sarcoidosis, Hypertension Past Surgical History: none Pertinent Family History: none Social History: Denies: smoking, alcohol use, drug use All Other Systems: negative except mentioned in HPI Physical Exam Vital Signs Noted General Appearance: no apparent distress, alert, GCS 15, non-toxic Head: normocephalic Eyes: bilateral eye normal inspection, bilateral eye PERRL ENT: moist mm, no LN Neck: normal inspection Respiratory: chest non-tender, lungs clear, basal crackles Cardiovascular: regular rate, rhythm, HS1, HS2 normal, no edema Gastrointestinal: normal inspection Musculoskeletal: swelling - chronic cutaneous venous stasis ulcers bilateral legs Neurologic: alert, oriented x3, blind, responsive, motor strength/tone normal, sensory intact, speech normal, no focal signs Impression: Pneumonia Sarcoidosis Chronic Respiratory Failure Diabetes on Metformin Elevated lactic acid Hypertension Chronic cutaneous venous stasis ulcer Plan IV antibiotics DC Metformin Repeat Lactate ISS Swallowing evaluation Aspiration precautions 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 including prednisone 5mg bid HHN O2 PRN PPX Analgesia PRN Dr Rubi following for wound care Labs Test 03/22/19 20:19 03/22/19 20:35 03/22/19 22:01 White Blood Count 12.7 K/UL (4.8-10.8) Red Blood Count 3.25 M/UL (4.20-5.40) Hemoglobin 9.1 G/DL (12.0-16.0) Hematocrit 28.7 % (37.0-47.0) Mean Corpuscular Volume 88 FL (80-99) Mean Corpuscular Hemoglobin 28.2 PG (27.0-31.0) Mean Corpuscular Hemoglobin Concent 31.9 G/DL (32.0-36.0) Red Cell Distribution Width 11.5 % (11.6-14.8) Platelet Count 401 K/UL (150-450) Mean Platelet Volume 5.6 FL (6.5-10.1) Neutrophils (%) (Auto) 74.4 % (45.0-75.0) Lymphocytes (%) (Auto) 19.1 % (20.0-45.0) Monocytes (%) (Auto) 4.5 % (1.0-10.0) Eosinophils (%) (Auto) 0.7 % (0.0-3.0) Basophils (%) (Auto) 1.3 % (0.0-2.0) Sodium Level 140 MMOL/L (136-145) Potassium Level 3.0 MMOL/L (3.5-5.1) Chloride Level 98 MMOL/L (98-107) Carbon Dioxide Level 34 MMOL/L (21-32) Anion Gap 8 mmol/L (5-15) Blood Urea Nitrogen 7 mg/dL (7-18) Creatinine 0.8 MG/DL (0.55-1.30) Estimat Glomerular Filtration Rate > 60 mL/min (>60) Glucose Level 304 MG/DL (74-106) Lactic Acid Level 3.00 mmol/L (0.4-2.0) Calcium Level 9.6 MG/DL (8.5-10.1) Total Bilirubin 0.2 MG/DL (0.2-1.0) Aspartate Amino Transf (AST/SGOT) 13 U/L (15-37) Alanine Aminotransferase (ALT/SGPT) 18 U/L (12-78) Alkaline Phosphatase 115 U/L (46-116) Troponin I 0.000 ng/mL (0.000-0.056) Pro-B-Type Natriuretic Peptide 481 pg/mL (0-125) Total Protein 8.1 G/DL (6.4-8.2) Albumin 2.9 G/DL (3.4-5.0) Globulin 5.2 g/dL Albumin/Globulin Ratio 0.6 (1.0-2.7) Urine Color Pale yellow Urine Appearance Clear Urine pH 7 (4.5-8.0) Urine Specific [place] 1.005 (1.005-1.035) Urine Protein 1+ (NEGATIVE) Urine Glucose (UA) 3+ (NEGATIVE) Urine Ketones Negative (NEGATIVE) Urine Blood Negative (NEGATIVE) Urine Nitrite Negative (NEGATIVE) Urine Bilirubin Negative (NEGATIVE) Urine Urobilinogen Normal MG/DL (0.0-1.0) Urine Leukocyte Esterase Negative (NEGATIVE) Urine RBC 0-2 /HPF (0 - 2) Urine WBC 0-2 /HPF (0 - 2) Urine Squamous Epithelial Cells Few /LPF (NONE/OCC) Urine Bacteria Few /HPF (NONE) EKG: Rate: tachycardiac Rhythm: NSR ST Segments: no acute changes Chest X-Ray: Irregular patchy pulmonary opacities and scarring. Some volume loss in the right hemithorax and shift of the heart and other mediastinal structures to the right. Pleural space: Right pleural effusion versus pleural thickening. No pneumothorax. Subjective ROS Limited/Unobtainable: No Allergies: Coded Allergies: No Known Allergies (Unverified , 03/22/19) Objective Last 24 Hour Vital Signs Date Time Temp Pulse Resp B/P (MAP) Pulse Ox O2 Delivery O2 Flow Rate FiO2 03/27/19 18:54 100 20 99 Nasal Cannula 4.0 36 03/27/19 18:46 98 Nasal Cannula 4.0 36 03/27/19 18:46 104 24 98 Nasal Cannula 4.0 36 03/27/19 16:00 98.2 95 18 118/60 (79) 96 03/27/19 16:00 97 03/27/19 14:39 141/66 03/27/19 14:15 97 22 99 Nasal Cannula 4.0 36 03/27/19 14:04 94 21 96 Nasal Cannula 4.0 36 03/27/19 12:00 110 03/27/19 12:00 98.1 94 18 141/66 (91) 98 03/27/19 10:22 110 26 99 Nasal Cannula 4.0 36 03/27/19 10:13 108 24 96 Nasal Cannula 4.0 36 03/27/19 09:10 98 146/82 03/27/19 09:09 98 146/82 03/27/19 09:00 Nasal Cannula 2.0 03/27/19 08:00 98.1 98 18 146/82 (103) 98 03/27/19 08:00 106 03/27/19 07:35 91 18 99 Nasal Cannula 4.0 36 03/27/19 07:26 97 Nasal Cannula 4.0 36 03/27/19 07:26 89 17 97 Nasal Cannula 4.0 36 03/27/19 06:00 147/87 03/27/19 05:02 94 18 100 Nasal Cannula 4.0 36 03/27/19 04:50 91 18 99 Nasal Cannula 4.0 36 03/27/19 04:00 98.6 70 18 147/87 (107) 97 03/27/19 04:00 91 03/27/19 02:58 80 18 99 Nasal Cannula 4.0 36 03/27/19 02:47 80 18 98 Nasal Cannula 4.0 36 03/27/19 00:00 93 03/27/19 00:00 98.4 85 18 151/68 (95) 98 03/26/19 23:26 81 18 98 Nasal Cannula 4.0 36 03/26/19 23:16 81 18 98 Nasal Cannula 4.0 36 03/26/19 21:49 82 130/70 Intake and Output 03/26/19 03/27/19 18:59 06:59 Intake Total 650 ml Output Total 1800 ml 2500 ml Balance -1150 ml -2500 ml Intake Oral 650 ml Output Urine Total 1800 ml 2500 ml # Bowel Movements 1 Laboratory Tests 03/27/19 07:50: White Blood Count 10.7, Red Blood Count 3.20L, Hemoglobin 8.8L, Hematocrit 29.1L , Mean Corpuscular Volume 91, Mean Corpuscular Hemoglobin 27.6, Mean Corpuscular Hemoglobin Concent 30.4L, Red Cell Distribution Width 12.2, Platelet Count 406, Mean Platelet Volume 6.1L, Neutrophils (%) (Auto) 67.0, Lymphocytes (%) (Auto) 20.7, Monocytes (%) (Auto) 8.4, Eosinophils (%) (Auto) 2.7, Basophils (%) (Auto) 1.1, Sodium Level 138, Potassium Level 4.0, Chloride Level 101, Carbon Dioxide Level 31, Anion Gap 6, Blood Urea Nitrogen 9, Creatinine 0.8, Estimat Glomerular Filtration Rate > 60, Glucose Level 188H, Calcium Level 9.6 03/27/19 20:30: Glucose Level 240H Current Medications Medications (Trade) Dose Ordered Sig/Malissa Route PRN Reason Start Time Stop Time Status Last Admin Dose Admin Acetaminophen (Tylenol) 650 mg Q6H PRN ORAL Mild Pain/Temp > 100.5 03/23/19 00:30 04/22/19 00:29 03/27/19 11:02 Albuterol Sulfate (Proventil) 1.25 mg Q2H PRN HHN Shortness of Breath 03/26/19 15:06 03/31/19 15:05 03/27/19 04:59 Albuterol/ Ipratropium (Albuterol/ Ipratropium) 3 ml Q4HRT HHN 03/26/19 11:00 03/31/19 10:59 03/27/19 18:45 Amlodipine Besylate (Norvasc) 10 mg DAILY ORAL 03/23/19 09:00 04/22/19 08:59 03/27/19 09:10 Ammonium Lactate (Lac Hydrin) 1 applic TWICE A DAY TOPIC 03/24/19 09:00 04/23/19 08:59 03/27/19 18:00 Azithromycin (Zithromax) 500 mg DAILY ORAL 03/25/19 13:00 03/29/19 21:59 03/27/19 09:10 Calcium Carbonate (Tums) 500 mg Q4H PRN ORAL for heartburn 03/25/19 13:00 04/24/19 12:59 03/27/19 10:00 Chlorhexidine Gluconate (Sonya-Hex 2%) 1 applic BID TOPIC 03/24/19 09:30 04/23/19 09:29 03/27/19 18:00 Clonidine HCl (Catapres Tab) 0.1 mg EVERY 8 HOURS ORAL 03/23/19 14:00 04/22/19 13:59 03/27/19 14:39 Dextrose (Dextrose 50%) 25 ml Q30M PRN IV Hypoglycemia 03/27/19 20:15 04/26/19 20:14 Dextrose (Dextrose 50%) 50 ml Q30M PRN IV Hypoglycemia 03/27/19 20:15 04/26/19 20:14 Enoxaparin Sodium (Lovenox) 40 mg DAILY SUBQ 03/24/19 09:00 04/23/19 08:59 03/27/19 09:57 Famotidine (Pepcid) 20 mg BID ORAL 03/24/19 14:15 04/23/19 14:14 03/27/19 18:00 Guaifenesin/ Dextromethorphan (Robitussin DM Syrup) 5 ml Q6H PRN ORAL For Cough 03/23/19 11:15 04/22/19 11:14 03/27/19 04:25 Hydralazine HCl (Apresoline) 25 mg Q4H PRN ORAL bp over 160 syst 03/23/19 12:30 04/22/19 12:29 Insulin Aspart (NovoLOG) BEFORE MEALS AND HS SUBQ 03/27/19 21:00 04/26/19 20:59 Insulin Aspart (NovoLOG) 15 units TIAC SUBQ 03/28/19 06:30 04/27/19 06:29 Insulin Detemir (Levemir) 25 units Q12HR SUBQ 03/27/19 21:00 04/26/19 20:59 Iron Sucrose 100 mg/Sodium Chloride 60 ml @ 240 mls/hr BEDTIME IV 03/25/19 21:00 03/29/19 21:14 03/26/19 21:52 Metformin HCl (Glucophage) 1,000 mg BID ORAL 03/28/19 09:00 04/27/19 08:59 Metoprolol Tartrate (Lopressor) 50 mg Q12HR ORAL 03/23/19 09:00 04/22/19 08:59 03/27/19 09:09 Montelukast Sodium (Singulair) 10 mg BEDTIME ORAL 03/24/19 21:00 04/23/19 20:59 03/26/19 21:49 Multivitamins (Multivitamins) 1 tab DAILY ORAL 03/23/19 09:00 04/22/19 08:59 03/27/19 09:10 Nateglinide (Starlix) 120 mg TIAC ORAL 03/23/19 16:30 04/22/19 16:29 03/27/19 17:32 Ondansetron HCl (Zofran) 4 mg Q6H PRN IVP Nausea & Vomiting 03/23/19 00:30 04/22/19 00:29 Piperacillin Sod/ Tazobactam Sod 3.375 gm/Sodium Chloride 110 ml @ 27.5 mls/hr Q8HR IVPB 03/23/19 06:00 03/30/19 05:59 03/27/19 14:40 Potassium Chloride (K-Dur) 40 meq TWICE A DAY ORAL 03/24/19 18:00 04/23/19 17:59 03/27/19 18:00 Prednisone (predniSONE) 5 mg BID ORAL 03/24/19 18:00 04/23/19 08:59 03/27/19 18:00 Vinh Cano MD Mar 27, 2019 21:01
[2019-03-27] MEDS: Montelukast 10mg tablet ORAL SCH (21:55)
--- NOTE | 2019-03-27 22:59 | General Progress Note ---
Assessment/Plan Problem List: (1) Sarcoidosis ICD Codes: D86.9 - Sarcoidosis, unspecified SNOMED: 24377365, 499732531 (2) Chronic cutaneous venous stasis ulcer ICD Codes: I83.009 - Varicose veins of unspecified lower extremity with ulcer of unspecified site; L97.909 - Non-pressure chronic ulcer of unspecified part of unspecified lower leg with unspecified severity SNOMED: 92917899, 776463555 (3) Edema of both lower extremities ICD Codes: R60.0 - Localized edema SNOMED: 41138280, 81790051, 852967549 (4) Electrolyte imbalance ICD Codes: E87.8 - Other disorders of electrolyte and fluid balance, not elsewhere classified SNOMED: 363250377 (5) Hypertension, uncontrolled ICD Codes: I10 - Essential (primary) hypertension SNOMED: 40858520, 47075552 (6) Diabetes type 2, uncontrolled ICD Codes: E11.65 - Type 2 diabetes mellitus with hyperglycemia SNOMED: 40704036, 651855074 Status: progressing Assessment/Plan: cellulitis of lower extremity sarcoidosis elevated sugar so consulted engineering leader reviewed chart and labs poor hygiene severely crusted over lower extremity afebrile Subjective ROS Limited/Unobtainable: Yes Allergies: Coded Allergies: No Known Allergies (Unverified , 03/22/19) Objective Last 24 Hour Vital Signs Date Time Temp Pulse Resp B/P (MAP) Pulse Ox O2 Delivery O2 Flow Rate FiO2 03/27/19 22:32 90 20 98 Nasal Cannula 4.0 36 03/27/19 22:20 90 20 98 Nasal Cannula 4.0 36 03/27/19 21:55 95 124/71 03/27/19 21:30 95 18 100 Nasal Cannula 4.0 36 03/27/19 21:20 90 18 98 Nasal Cannula 4.0 36 03/27/19 20:00 98.3 107 16 124/71 (88) 100 03/27/19 18:54 100 20 99 Nasal Cannula 4.0 36 03/27/19 18:46 98 Nasal Cannula 4.0 36 03/27/19 18:46 104 24 98 Nasal Cannula 4.0 36 03/27/19 16:00 98.2 95 18 118/60 (79) 96 03/27/19 16:00 97 03/27/19 14:39 141/66 03/27/19 14:15 97 22 99 Nasal Cannula 4.0 36 03/27/19 14:04 94 21 96 Nasal Cannula 4.0 36 03/27/19 12:00 110 03/27/19 12:00 98.1 94 18 141/66 (91) 98 03/27/19 10:22 110 26 99 Nasal Cannula 4.0 36 03/27/19 10:13 108 24 96 Nasal Cannula 4.0 36 03/27/19 09:10 98 146/82 03/27/19 09:09 98 146/82 03/27/19 09:00 Nasal Cannula 2.0 03/27/19 08:00 98.1 98 18 146/82 (103) 98 03/27/19 08:00 106 03/27/19 07:35 91 18 99 Nasal Cannula 4.0 36 03/27/19 07:26 97 Nasal Cannula 4.0 36 03/27/19 07:26 89 17 97 Nasal Cannula 4.0 36 03/27/19 06:00 147/87 03/27/19 05:02 94 18 100 Nasal Cannula 4.0 36 03/27/19 04:50 91 18 99 Nasal Cannula 4.0 36 03/27/19 04:00 98.6 70 18 147/87 (107) 97 03/27/19 04:00 91 03/27/19 02:58 80 18 99 Nasal Cannula 4.0 36 03/27/19 02:47 80 18 98 Nasal Cannula 4.0 36 03/27/19 00:00 93 03/27/19 00:00 98.4 85 18 151/68 (95) 98 03/26/19 23:26 81 18 98 Nasal Cannula 4.0 36 03/26/19 23:16 81 18 98 Nasal Cannula 4.0 36 Intake and Output 03/26/19 03/27/19 19:00 07:00 Intake Total 650 ml Output Total 1800 ml 2500 ml Balance -1150 ml -2500 ml Intake Oral 650 ml Output Urine Total 1800 ml 2500 ml # Bowel Movements 1 Laboratory Tests 03/27/19 07:50: White Blood Count 10.7, Red Blood Count 3.20L, Hemoglobin 8.8L, Hematocrit 29.1L , Mean Corpuscular Volume 91, Mean Corpuscular Hemoglobin 27.6, Mean Corpuscular Hemoglobin Concent 30.4L, Red Cell Distribution Width 12.2, Platelet Count 406, Mean Platelet Volume 6.1L, Neutrophils (%) (Auto) 67.0, Lymphocytes (%) (Auto) 20.7, Monocytes (%) (Auto) 8.4, Eosinophils (%) (Auto) 2.7, Basophils (%) (Auto) 1.1, Sodium Level 138, Potassium Level 4.0, Chloride Level 101, Carbon Dioxide Level 31, Anion Gap 6, Blood Urea Nitrogen 9, Creatinine 0.8, Estimat Glomerular Filtration Rate > 60, Glucose Level 188H, Calcium Level 9.6 03/27/19 20:30: Glucose Level 240H Height (Feet): 5 Height (Inches): 10.00 Weight (Pounds): 228 Cardiovascular: normal rate Respiratory/Chest: lungs clear Guillaume Little MD Mar 27, 2019 22:59
[2019-03-27] MEDS: Iron Sucrose 100 MG in NS 55 ML IV SCH (23:40)
[2019-03-28] VITALS: BP 128/69
[2019-03-28] MEDS: Guaifenesin/DM 10ml syrup ORAL PRN (02:11)
[2019-03-28] MEDS: Albuterol/Ipratropium 3ml neb HHN SCH ×6 (02:28→23:08)
--- NOTE | 2019-03-28 03:30 | Consultation ---
DATE OF CONSULTATION: 03/27/2019 NOTE: VERY POOR AUDIO QUALITY CONSULTING PHYSICIAN: Doron Mccullough M.D. REFERRING PHYSICIAN: Guillaume Little M.D. p.o. b.i.d. The shortness of breath sarcoidosis. The patient . PHYSICAL EXAMINATION: GENERAL: the patient is in no acute distress. VITAL SIGNS: Blood pressure , pulse 90, respirations 27, and temperature 98.1. HEAD AND NECK: . EXTREMITIES: No edema. sarcoidosis. The patient weighs 99 kg and is 72 inches tall. She received regular insulin 25 units q.12 h. and lispro 15 t.i.d. p.o. b.i.d. 20 mg b.i.d. t.i.d. a.c. glucose level came down to . Dr. will see her in the a.m. Doron Mccullough M.D. DR: JENNIFER JOB#: [id number] CC:
[2019-03-28 04:00] VITALS: BP 151/71
[2019-03-28] MEDS: Piperacillin/Tazobactam 3.375 GM in NS 110 ML IVPB SCH ×3 (06:09→21:12)
[2019-03-28] MEDS: NovoLOG Insulin Flexpen SUBQ SCH ×7 (06:11→21:13)
--- NOTE | 2019-03-28 06:34 | General Progress Note ---
Assessment/Plan Problem List: (1) Sarcoidosis ICD Codes: D86.9 - Sarcoidosis, unspecified SNOMED: 07852549, 982678438 (2) Chronic cutaneous venous stasis ulcer ICD Codes: I83.009 - Varicose veins of unspecified lower extremity with ulcer of unspecified site; L97.909 - Non-pressure chronic ulcer of unspecified part of unspecified lower leg with unspecified severity SNOMED: 46983197, 150596068 (3) Diabetes type 2, uncontrolled ICD Codes: E11.65 - Type 2 diabetes mellitus with hyperglycemia SNOMED: 96894252, 200830453 (4) Hypertension, uncontrolled ICD Codes: I10 - Essential (primary) hypertension SNOMED: 54364102, 67702924 Status: progressing Assessment/Plan: increase Levemir to 28 units bid continue Novolog 15 units ac tid + SSI continue Starlix 120 mg ac tid Subjective Allergies: Coded Allergies: No Known Allergies (Unverified , 03/22/19) All Systems: reviewed and negative except above Subjective events noted glucose values elevated Item Value Date Time Bedside Blood Glucose 236 mg/dl H 03/28/19 0612 Bedside Blood Glucose 271 mg/dl H 03/27/19 2200 Bedside Blood Glucose 440 mg/dl H 03/27/19 1733 Bedside Blood Glucose 253 mg/dl H 03/27/19 1222 Bedside Blood Glucose 289 mg/dl H 03/27/19 0607 Objective Last 24 Hour Vital Signs Date Time Temp Pulse Resp B/P (MAP) Pulse Ox O2 Delivery O2 Flow Rate FiO2 03/28/19 06:00 151/71 03/28/19 04:00 98.5 91 18 151/71 (97) 96 03/28/19 04:00 83 03/28/19 02:41 88 18 99 Nasal Cannula 4.0 36 03/28/19 02:29 94 24 97 Nasal Cannula 4.0 36 03/28/19 02:29 94 24 97 Nasal Cannula 4.0 36 03/28/19 00:00 84 03/28/19 00:00 98.3 105 18 128/69 (88) 100 03/27/19 22:32 90 20 98 Nasal Cannula 4.0 36 03/27/19 22:20 90 20 98 Nasal Cannula 4.0 36 03/27/19 22:00 124/71 03/27/19 21:55 95 124/71 8/11/19 21:30 95 18 100 Nasal Cannula 4.0 36 03/27/19 21:20 90 18 98 Nasal Cannula 4.0 36 03/27/19 21:00 Nasal Cannula 4.0 03/27/19 20:00 104 03/27/19 20:00 98.3 107 16 124/71 (88) 100 03/27/19 18:54 100 20 99 Nasal Cannula 4.0 36 03/27/19 18:46 98 Nasal Cannula 4.0 36 03/27/19 18:46 104 24 98 Nasal Cannula 4.0 36 03/27/19 16:00 98.2 95 18 118/60 (79) 96 03/27/19 16:00 97 03/27/19 14:39 141/66 03/27/19 14:15 97 22 99 Nasal Cannula 4.0 36 03/27/19 14:04 94 21 96 Nasal Cannula 4.0 36 03/27/19 12:00 110 03/27/19 12:00 98.1 94 18 141/66 (91) 98 03/27/19 10:22 110 26 99 Nasal Cannula 4.0 36 03/27/19 10:13 108 24 96 Nasal Cannula 4.0 36 03/27/19 09:10 98 146/82 03/27/19 09:09 98 146/82 03/27/19 09:00 Nasal Cannula 2.0 03/27/19 08:00 98.1 98 18 146/82 (103) 98 03/27/19 08:00 106 03/27/19 07:35 91 18 99 Nasal Cannula 4.0 36 03/27/19 07:26 97 Nasal Cannula 4.0 36 03/27/19 07:26 89 17 97 Nasal Cannula 4.0 36 Intake and Output 03/27/19 03/28/19 19:00 07:00 Intake Total 350 ml 360 ml Output Total 1200 ml Balance -850 ml 360 ml Intake Oral 350 ml 360 ml Output Urine Total 1200 ml # Voids 4 # Bowel Movements 2 Laboratory Tests 03/27/19 07:50: White Blood Count 10.7, Red Blood Count 3.20L, Hemoglobin 8.8L, Hematocrit 29.1L , Mean Corpuscular Volume 91, Mean Corpuscular Hemoglobin 27.6, Mean Corpuscular Hemoglobin Concent 30.4L, Red Cell Distribution Width 12.2, Platelet Count 406, Mean Platelet Volume 6.1L, Neutrophils (%) (Auto) 67.0, Lymphocytes (%) (Auto) 20.7, Monocytes (%) (Auto) 8.4, Eosinophils (%) (Auto) 2.7, Basophils (%) (Auto) 1.1, Sodium Level 138, Potassium Level 4.0, Chloride Level 101, Carbon Dioxide Level 31, Anion Gap 6, Blood Urea Nitrogen 9, Creatinine 0.8, Estimat Glomerular Filtration Rate > 60, Glucose Level 188H, Calcium Level 9.6 03/27/19 20:30: Glucose Level 240H Height (Feet): 5 Height (Inches): 10.00 Weight (Pounds): 228 General Appearance: no apparent distress Neck: normal alignment Cardiovascular: normal rate Respiratory/Chest: decreased breath sounds Abdomen: normal bowel sounds Edema: 1+ Arm (L), 1+ Arm (R), 1+ Leg (L), 1+ Leg (R), 1+ Pedal (L), 1+ Pedal ( R), 1+ Generalized Objective Current Medications Medications (Trade) Dose Ordered Sig/Malissa Route PRN Reason Start Time Stop Time Status Last Admin Dose Admin Acetaminophen (Tylenol) 650 mg Q6H PRN ORAL Mild Pain/Temp > 100.5 03/23/19 00:30 04/22/19 00:29 03/27/19 11:02 Albuterol Sulfate (Proventil) 1.25 mg Q2H PRN HHN Shortness of Breath 03/26/19 15:06 03/31/19 15:05 03/27/19 21:26 Albuterol/ Ipratropium (Albuterol/ Ipratropium) 3 ml Q4HRT HHN 03/26/19 11:00 03/31/19 10:59 03/28/19 02:28 Amlodipine Besylate (Norvasc) 10 mg DAILY ORAL 03/23/19 09:00 04/22/19 08:59 03/27/19 09:10 Ammonium Lactate (Lac Hydrin) 1 applic TWICE A DAY TOPIC 03/24/19 09:00 04/23/19 08:59 03/27/19 18:00 Azithromycin (Zithromax) 500 mg DAILY ORAL 03/25/19 13:00 03/29/19 21:59 03/27/19 09:10 Calcium Carbonate (Tums) 500 mg Q4H PRN ORAL for heartburn 03/25/19 13:00 04/24/19 12:59 03/27/19 10:00 Chlorhexidine Gluconate (Sonya-Hex 2%) 1 applic BID TOPIC 03/24/19 09:30 04/23/19 09:29 03/27/19 18:00 Clonidine HCl (Catapres Tab) 0.1 mg EVERY 8 HOURS ORAL 03/23/19 14:00 04/22/19 13:59 03/27/19 14:39 Dextrose (Dextrose 50%) 25 ml Q30M PRN IV Hypoglycemia 03/27/19 20:15 04/26/19 20:14 Dextrose (Dextrose 50%) 50 ml Q30M PRN IV Hypoglycemia 03/27/19 20:15 04/26/19 20:14 Enoxaparin Sodium (Lovenox) 40 mg DAILY SUBQ 03/24/19 09:00 04/23/19 08:59 03/27/19 09:57 Famotidine (Pepcid) 20 mg BID ORAL 03/24/19 14:15 04/23/19 14:14 03/27/19 18:00 Guaifenesin/ Dextromethorphan (Robitussin DM Syrup) 5 ml Q6H PRN ORAL For Cough 03/23/19 11:15 04/22/19 11:14 03/28/19 02:11 Hydralazine HCl (Apresoline) 25 mg Q4H PRN ORAL bp over 160 syst 03/23/19 12:30 04/22/19 12:29 Insulin Aspart (NovoLOG) BEFORE MEALS AND HS SUBQ 03/27/19 21:00 04/26/19 20:59 03/28/19 06:12 Insulin Aspart (NovoLOG) 15 units TIAC SUBQ 03/28/19 06:30 04/27/19 06:29 03/28/19 06:11 Insulin Detemir (Levemir) 25 units Q12HR SUBQ 03/27/19 21:00 04/26/19 20:59 03/27/19 21:59 Iron Sucrose 100 mg/Sodium Chloride 60 ml @ 240 mls/hr BEDTIME IV 03/25/19 21:00 03/29/19 21:14 03/27/19 23:40 Metformin HCl (Glucophage) 1,000 mg BID ORAL 03/28/19 09:00 04/27/19 08:59 Metoprolol Tartrate (Lopressor) 50 mg Q12HR ORAL 03/23/19 09:00 04/22/19 08:59 03/27/19 21:55 Montelukast Sodium (Singulair) 10 mg BEDTIME ORAL 03/24/19 21:00 04/23/19 20:59 03/27/19 21:55 Multivitamins (Multivitamins) 1 tab DAILY ORAL 03/23/19 09:00 04/22/19 08:59 03/27/19 09:10 Nateglinide (Starlix) 120 mg TIAC ORAL 03/23/19 16:30 04/22/19 16:29 03/28/19 06:10 Ondansetron HCl (Zofran) 4 mg Q6H PRN IVP Nausea & Vomiting 03/23/19 00:30 04/22/19 00:29 Piperacillin Sod/ Tazobactam Sod 3.375 gm/Sodium Chloride 110 ml @ 27.5 mls/hr Q8HR IVPB 03/23/19 06:00 03/30/19 05:59 03/28/19 06:09 Potassium Chloride (K-Dur) 40 meq TWICE A DAY ORAL 03/24/19 18:00 04/23/19 17:59 03/27/19 18:00 Prednisone (predniSONE) 5 mg BID ORAL 03/24/19 18:00 04/23/19 08:59 03/27/19 18:00 Skinny Aguillon MD Mar 28, 2019 06:33
--- NOTE | 2019-03-28 07:27 | NUR ---
HAND-OFF: Report given to ARYA Houser. Pt stable.
[2019-03-28 08:00] VITALS: BP 154/87
--- NOTE | 2019-03-28 08:07 | NUR ---
NURSE NOTES: Received report from ARYA Garrison. The patient is resting on the bed without acute distress or shortness of breath. The patient's bed in the lowest position, call light in reach, and fall and aspiration precaution reinforced. IV site is intact and patent. Will continue plan of care.
[2019-03-28] MEDS: metFORMIN 500mg tab ORAL SCH ×2 (09:37→17:15)
[2019-03-28] MEDS: Metoprolol Tartrate 50mg tab ORAL SCH ×2 (09:38→21:08)
[2019-03-28] MEDS: Azithromycin 250mg tab ORAL SCH (09:39)
[2019-03-28] MEDS: Levemir Flexpen SUBQ SCH ×2 (09:40→21:15)
[2019-03-28] MEDS: Enoxaparin 40mg Inj SUBQ SCH (09:41)
[2019-03-28] MEDS: Lac Hydrin 12% Lotion 8oz TOPIC SCH ×2 (09:42→17:16)
[2019-03-28] MEDS: Dyna-Hex 2% Top Sol 2oz TOPIC SCH ×2 (09:42→17:16)
--- NOTE | 2019-03-28 10:08 | Hematology/Onc Progress Note ---
Assessment/Plan Assessment/Plan Diagnostic Impression: # Anemia of iron deficiency rule out underlying gi bleed, ferritin 44 --> Anemia workup has been ordered, rule out gi bleed (ferritin is low) --> No evidence of hemolysis is noted, peripheral smear has been reviewed. --> Hgb goal >7. Transfuse prn. --> IV IROn has been started x 5 days --> Medications have been reviewed --> low threshold for gi evaluation in case has occult + --> bone marrow biopsy is not indicated given the other more likely causes --> renal is aware # Anemia due to chf --> diuresis if required by cards --> for volume overload, further diuresis # Dyspnea with resp failure --> abx and steriods per pulm # Chronic cutaneous venous stasis ulcer --> wound care/surg recs # DM2 with a1c >10 --> accuchecks qac/qhs --> iss with coverage low dose # Hypok --> kcl was given # Sarcoidosis # Antimicrobial is on zosyn # DVT ppx lovenox sq The timing of this note does not necessarily reflect the time of the patient was seen. GREATLY APPRECIATE CONSULTATION. Subjective Constitutional: Denies: no symptoms, chills, fever, malaise, weakness, other HEENT: Denies: no symptoms, eye pain, blurred vision, tearing, double vision, ear pain, ear discharge, nose pain, nose congestion, throat pain, throat swelling, mouth pain, mouth swelling, other Cardiovascular: Denies: no symptoms, chest pain, edema, irregular heart rate, lightheadedness, palpitations, syncope, other Gastrointestinal/Abdominal: Denies: no symptoms, abdomen distended, abdominal pain, black stools, tarry stools, blood in stool, constipated, diarrhea, difficulty swallowing, nausea, poor appetite, poor fluid intake, rectal bleeding , vomiting, other Endocrine: Denies: no symptoms, excessive sweating, flushing, intolerance to cold, intolerance to heat, increased hunger, increased thirst, increased urine, unexplained weight gain, unexplained weight loss, other Hematologic/Lymphatic: Denies: no symptoms, anemia, easy bleeding, easy bruising, adenopathy, other Allergies: Coded Allergies: No Known Allergies (Unverified , 03/22/19) Subjective 03/24: dressing changes with wounds slowly improving, on iv iron 03/25: on 2l nc, no events noted, on iron, wound care, no f/c 03/27: remains on abx, wound care, lonveox dvt ppx 03/28: no events, on abx, no f/c, no major events Objective Objective Current Medications Medications (Trade) Dose Ordered Sig/Malissa Route PRN Reason Start Time Stop Time Status Last Admin Dose Admin Acetaminophen (Tylenol) 650 mg Q6H PRN ORAL Mild Pain/Temp > 100.5 03/23/19 00:30 04/22/19 00:29 03/27/19 11:02 Albuterol Sulfate (Proventil) 1.25 mg Q2H PRN HHN Shortness of Breath 03/26/19 15:06 03/31/19 15:05 03/27/19 21:26 Albuterol/ Ipratropium (Albuterol/ Ipratropium) 3 ml Q4HRT HHN 03/26/19 11:00 03/31/19 10:59 03/28/19 07:18 Amlodipine Besylate (Norvasc) 10 mg DAILY ORAL 03/23/19 09:00 04/22/19 08:59 03/28/19 09:38 Ammonium Lactate (Lac Hydrin) 1 applic TWICE A DAY TOPIC 03/24/19 09:00 04/23/19 08:59 03/28/19 09:42 Azithromycin (Zithromax) 500 mg DAILY ORAL 03/25/19 13:00 03/29/19 21:59 03/28/19 09:39 Calcium Carbonate (Tums) 500 mg Q4H PRN ORAL for heartburn 03/25/19 13:00 04/24/19 12:59 03/27/19 10:00 Chlorhexidine Gluconate (Sonya-Hex 2%) 1 applic BID TOPIC 03/24/19 09:30 04/23/19 09:29 03/28/19 09:42 Clonidine HCl (Catapres Tab) 0.1 mg EVERY 8 HOURS ORAL 03/23/19 14:00 04/22/19 13:59 03/27/19 14:39 Dextrose (Dextrose 50%) 25 ml Q30M PRN IV Hypoglycemia 03/27/19 20:15 04/26/19 20:14 Dextrose (Dextrose 50%) 50 ml Q30M PRN IV Hypoglycemia 03/27/19 20:15 04/26/19 20:14 Enoxaparin Sodium (Lovenox) 40 mg DAILY SUBQ 03/24/19 09:00 04/23/19 08:59 03/28/19 09:41 Famotidine (Pepcid) 20 mg BID ORAL 03/24/19 14:15 04/23/19 14:14 03/28/19 09:38 Guaifenesin/ Dextromethorphan (Robitussin DM Syrup) 5 ml Q6H PRN ORAL For Cough 03/23/19 11:15 04/22/19 11:14 03/28/19 02:11 Hydralazine HCl (Apresoline) 25 mg Q4H PRN ORAL bp over 160 syst 03/23/19 12:30 04/22/19 12:29 Insulin Aspart (NovoLOG) BEFORE MEALS AND HS SUBQ 03/27/19 21:00 04/26/19 20:59 03/28/19 06:12 Insulin Aspart (NovoLOG) 15 units TIAC SUBQ 03/28/19 06:30 04/27/19 06:29 03/28/19 06:11 Insulin Detemir (Levemir) 28 units Q12HR SUBQ 03/28/19 09:00 04/26/19 20:59 03/28/19 09:40 Iron Sucrose 100 mg/Sodium Chloride 60 ml @ 240 mls/hr BEDTIME IV 03/25/19 21:00 03/29/19 21:14 03/27/19 23:40 Metformin HCl (Glucophage) 1,000 mg BID ORAL 03/28/19 09:00 04/27/19 08:59 03/28/19 09:37 Metoprolol Tartrate (Lopressor) 50 mg Q12HR ORAL 03/23/19 09:00 04/22/19 08:59 03/28/19 09:38 Montelukast Sodium (Singulair) 10 mg BEDTIME ORAL 03/24/19 21:00 04/23/19 20:59 03/27/19 21:55 Multivitamins (Multivitamins) 1 tab DAILY ORAL 03/23/19 09:00 04/22/19 08:59 03/28/19 09:38 Nateglinide (Starlix) 120 mg TIAC ORAL 03/23/19 16:30 04/22/19 16:29 03/28/19 06:10 Ondansetron HCl (Zofran) 4 mg Q6H PRN IVP Nausea & Vomiting 03/23/19 00:30 04/22/19 00:29 Piperacillin Sod/ Tazobactam Sod 3.375 gm/Sodium Chloride 110 ml @ 27.5 mls/hr Q8HR IVPB 03/23/19 06:00 03/30/19 05:59 03/28/19 06:09 Potassium Chloride (K-Dur) 40 meq TWICE A DAY ORAL 03/24/19 18:00 04/23/19 17:59 03/28/19 09:37 Prednisone (predniSONE) 5 mg BID ORAL 03/24/19 18:00 04/23/19 08:59 03/28/19 09:39 Last 24 Hour Vital Signs Date Time Temp Pulse Resp B/P (MAP) Pulse Ox O2 Delivery O2 Flow Rate FiO2 03/28/19 09:38 109 154/87 03/28/19 09:38 109 154/87 03/28/19 08:00 98.1 109 20 154/87 (109) 99 03/28/19 07:19 100 20 99 Nasal Cannula 4.0 36 03/28/19 07:19 98 Nasal Cannula 4.0 36 03/28/19 07:08 98 22 99 Nasal Cannula 4.0 36 03/28/19 06:00 151/71 03/28/19 04:00 98.5 91 18 151/71 (97) 96 03/28/19 04:00 83 03/28/19 02:41 88 18 99 Nasal Cannula 4.0 36 03/28/19 02:29 94 24 97 Nasal Cannula 4.0 36 03/28/19 02:29 94 24 97 Nasal Cannula 4.0 36 03/28/19 00:00 84 03/28/19 00:00 98.3 105 18 128/69 (88) 100 03/27/19 22:32 90 20 98 Nasal Cannula 4.0 36 03/27/19 22:20 90 20 98 Nasal Cannula 4.0 36 03/27/19 22:00 124/71 03/27/19 21:55 95 124/71 03/27/19 21:30 95 18 100 Nasal Cannula 4.0 36 03/27/19 21:20 90 18 98 Nasal Cannula 4.0 36 03/27/19 21:00 Nasal Cannula 4.0 03/27/19 20:00 104 03/27/19 20:00 98.3 107 16 124/71 (88) 100 03/27/19 18:54 100 20 99 Nasal Cannula 4.0 36 03/27/19 18:46 98 Nasal Cannula 4.0 36 03/27/19 18:46 104 24 98 Nasal Cannula 4.0 36 03/27/19 16:00 98.2 95 18 118/60 (79) 96 03/27/19 16:00 97 03/27/19 14:39 141/66 03/27/19 14:15 97 22 99 Nasal Cannula 4.0 36 03/27/19 14:04 94 21 96 Nasal Cannula 4.0 36 03/27/19 12:00 110 03/27/19 12:00 98.1 94 18 141/66 (91) 98 03/27/19 10:22 110 26 99 Nasal Cannula 4.0 36 03/27/19 10:13 108 24 96 Nasal Cannula 4.0 36 03/27/19 09:10 98 146/82 03/27/19 09:09 98 146/82 03/27/19 09:00 Nasal Cannula 2.0 03/27/19 08:00 98.1 98 18 146/82 (103) 98 03/27/19 08:00 106 03/27/19 07:35 91 18 99 Nasal Cannula 4.0 36 03/27/19 07:26 97 Nasal Cannula 4.0 36 03/27/19 07:26 89 17 97 Nasal Cannula 4.0 36 03/27/19 06:00 147/87 03/27/19 05:02 94 18 100 Nasal Cannula 4.0 36 03/27/19 04:50 91 18 99 Nasal Cannula 4.0 36 03/27/19 04:00 98.6 70 18 147/87 (107) 97 03/27/19 04:00 91 03/27/19 02:58 80 18 99 Nasal Cannula 4.0 36 03/27/19 02:47 80 18 98 Nasal Cannula 4.0 36 03/27/19 00:00 93 03/27/19 00:00 98.4 85 18 151/68 (95) 98 03/26/19 23:26 81 18 98 Nasal Cannula 4.0 36 03/26/19 23:16 81 18 98 Nasal Cannula 4.0 36 03/26/19 21:49 82 130/70 03/26/19 21:00 Nasal Cannula 2.0 03/26/19 20:00 98.3 99 18 105/75 (85) 98 03/26/19 20:00 109 03/26/19 19:40 82 18 99 Nasal Cannula 4.0 36 03/26/19 19:33 98 Nasal Cannula 4.0 36 03/26/19 19:32 80 18 98 Nasal Cannula 4.0 36 03/26/19 16:00 81 03/26/19 16:00 98.2 78 20 130/70 (90) 100 03/26/19 15:50 81 20 99 Nasal Cannula 4.0 36 03/26/19 15:33 82 20 99 Nasal Cannula 4.0 36 03/26/19 14:00 128/65 03/26/19 12:30 86 20 99 Nasal Cannula 4.0 36 03/26/19 12:13 88 20 96 Nasal Cannula 4.0 36 03/26/19 12:00 96 03/26/19 12:00 97.3 85 20 128/65 (86) 100 Intake and Output 03/27/19 03/28/19 19:00 07:00 Intake Total 350 ml 360 ml Output Total 1200 ml Balance -850 ml 360 ml Intake Oral 350 ml 360 ml Output Urine Total 1200 ml # Voids 4 # Bowel Movements 2 Labs Test 03/25/19 14:10 03/26/19 06:15 03/27/19 07:50 03/27/19 20:30 Stool Occult Blood Negative (NEGATIVE) Sodium Level 138 MMOL/L (136-145) 138 MMOL/L (136-145) Potassium Level 4.5 MMOL/L (3.5-5.1) 4.0 MMOL/L (3.5-5.1) Chloride Level 102 MMOL/L (98-107) 101 MMOL/L (98-107) Carbon Dioxide Level 34 MMOL/L (21-32) 31 MMOL/L (21-32) Anion Gap 3 mmol/L (5-15) 6 mmol/L (5-15) Blood Urea Nitrogen 10 mg/dL (7-18) 9 mg/dL (7-18) Creatinine 0.9 MG/DL (0.55-1.30) 0.8 MG/DL (0.55-1.30) Estimat Glomerular Filtration Rate > 60 mL/min (>60) > 60 mL/min (>60) Glucose Level 251 MG/DL (74-106) 188 MG/DL (74-106) 240 MG/DL (74-106) Calcium Level 9.2 MG/DL (8.5-10.1) 9.6 MG/DL (8.5-10.1) Phosphorus Level 4.4 MG/DL (2.5-4.9) Magnesium Level 2.0 MG/DL (1.8-2.4) Total Bilirubin 0.1 MG/DL (0.2-1.0) Direct Bilirubin < 0.1 MG/DL (0.0-0.3) Aspartate Amino Transf (AST/SGOT) 42 U/L (15-37) Alanine Aminotransferase (ALT/SGPT) 37 U/L (12-78) Alkaline Phosphatase 142 U/L (46-116) Total Protein 7.0 G/DL (6.4-8.2) Albumin 2.2 G/DL (3.4-5.0) White Blood Count 10.7 K/UL (4.8-10.8) Red Blood Count 3.20 M/UL (4.20-5.40) Hemoglobin 8.8 G/DL (12.0-16.0) Hematocrit 29.1 % (37.0-47.0) Mean Corpuscular Volume 91 FL (80-99) Mean Corpuscular Hemoglobin 27.6 PG (27.0-31.0) Mean Corpuscular Hemoglobin Concent 30.4 G/DL (32.0-36.0) Red Cell Distribution Width 12.2 % (11.6-14.8) Platelet Count 406 K/UL (150-450) Mean Platelet Volume 6.1 FL (6.5-10.1) Neutrophils (%) (Auto) 67.0 % (45.0-75.0) Lymphocytes (%) (Auto) 20.7 % (20.0-45.0) Monocytes (%) (Auto) 8.4 % (1.0-10.0) Eosinophils (%) (Auto) 2.7 % (0.0-3.0) Basophils (%) (Auto) 1.1 % (0.0-2.0) Test 03/28/19 06:14 Hemoglobin A1c 10.9 % (4.3-6.0) Pro-B-Type Natriuretic Peptide 555 pg/mL (0-125) Height (Feet): 5 Height (Inches): 10.00 Weight (Pounds): 228 Objective Vitals: reviewed General Appearance: NAD HEENT: normocephalic, atraumatic Neck: non-tender, normal alignment Respiratory/Chest: normal breath sounds bilaterally Cardiovascular/Chest: normal peripheral pulses, normal rate Abdomen: normal bowel sounds, soft, nontender Extremities: normal range of motion, chronic cutaneous venous stasis ulcers/ crusting Javier Walker MD Mar 28, 2019 10:08
--- NOTE | 2019-03-28 10:16 | NUR ---
*-* INSURANCE *-* ALL CLINICALS AND REVIEWS HAVE BEEN FAXED TO: [facility] AUTH#[id number] FAX ALL CLINICALS TO: [phone]
--- NOTE | 2019-03-28 10:49 | Infectious Diseases Prog Note ---
Assessment/Plan Assessment/Plan IMPRESSION: Pneumonia, Uncontrolled diabetes mellitus, Sarcoidosis, Onychomycocic Hypokalemia, Chronic stasis dermatitis and ulceration of legs, Blindness, Anemia, Hypertension. RECOMMENDATION: Continue Zosyn X 1day Discontinue azithromycin. Check BNP Wound care Subjective ROS Limited/Unobtainable: No Constitutional: Reports: other - doing better Respiratory: Reports: shortness of breath, dry cough Gastrointestinal/Abdominal: Reports: no symptoms Genitourinary: Reports: no symptoms Allergies: Coded Allergies: No Known Allergies (Unverified , 03/22/19) Objective Vital Signs Last 24 Hour Vital Signs Date Time Temp Pulse Resp B/P (MAP) Pulse Ox O2 Delivery O2 Flow Rate FiO2 03/28/19 09:38 109 154/87 03/28/19 09:38 109 154/87 03/28/19 08:00 98.1 109 20 154/87 (109) 99 03/28/19 07:19 100 20 99 Nasal Cannula 4.0 36 03/28/19 07:19 98 Nasal Cannula 4.0 36 03/28/19 07:08 98 22 99 Nasal Cannula 4.0 36 03/28/19 06:00 151/71 03/28/19 04:00 98.5 91 18 151/71 (97) 96 03/28/19 04:00 83 03/28/19 02:41 88 18 99 Nasal Cannula 4.0 36 03/28/19 02:29 94 24 97 Nasal Cannula 4.0 36 03/28/19 02:29 94 24 97 Nasal Cannula 4.0 36 03/28/19 00:00 84 03/28/19 00:00 98.3 105 18 128/69 (88) 100 03/27/19 22:32 90 20 98 Nasal Cannula 4.0 36 03/27/19 22:20 90 20 98 Nasal Cannula 4.0 36 03/27/19 22:00 124/71 03/27/19 21:55 95 124/71 03/27/19 21:30 95 18 100 Nasal Cannula 4.0 36 03/27/19 21:20 90 18 98 Nasal Cannula 4.0 36 03/27/19 21:00 Nasal Cannula 4.0 03/27/19 20:00 104 03/27/19 20:00 98.3 107 16 124/71 (88) 100 03/27/19 18:54 100 20 99 Nasal Cannula 4.0 36 03/27/19 18:46 98 Nasal Cannula 4.0 36 03/27/19 18:46 104 24 98 Nasal Cannula 4.0 36 03/27/19 16:00 98.2 95 18 118/60 (79) 96 03/27/19 16:00 97 03/27/19 14:39 141/66 03/27/19 14:15 97 22 99 Nasal Cannula 4.0 36 03/27/19 14:04 94 21 96 Nasal Cannula 4.0 36 03/27/19 12:00 110 03/27/19 12:00 98.1 94 18 141/66 (91) 98 Height (Feet): 5 Height (Inches): 10.00 Weight (Pounds): 228 General Appearance: no acute distress HEENT: mucous membranes moist Respiratory/Chest: lungs clear, other - Oxygen by nasal cannula Cardiovascular: normal rate Abdomen: soft, non tender Extremities: other - edema of legs, finger clubbing Skin: other - hyperkratois of legs Neurologic/Psychiatric: alert, responsive Laboratory Tests Test 03/27/19 20:30 03/28/19 06:14 Glucose Level 240 MG/DL (74-106) H Hemoglobin A1c 10.9 % (4.3-6.0) H Pro-B-Type Natriuretic Peptide 555 pg/mL (0-125) H Current Medications Medications (Trade) Dose Ordered Sig/Malissa Route PRN Reason Start Time Stop Time Status Last Admin Dose Admin Acetaminophen (Tylenol) 650 mg Q6H PRN ORAL Mild Pain/Temp > 100.5 03/23/19 00:30 04/22/19 00:29 03/27/19 11:02 Albuterol Sulfate (Proventil) 1.25 mg Q2H PRN HHN Shortness of Breath 03/26/19 15:06 03/31/19 15:05 03/27/19 21:26 Albuterol/ Ipratropium (Albuterol/ Ipratropium) 3 ml Q4HRT HHN 03/26/19 11:00 03/31/19 10:59 03/28/19 07:18 Amlodipine Besylate (Norvasc) 10 mg DAILY ORAL 03/23/19 09:00 04/22/19 08:59 03/28/19 09:38 Ammonium Lactate (Lac Hydrin) 1 applic TWICE A DAY TOPIC 03/24/19 09:00 04/23/19 08:59 03/28/19 09:42 Azithromycin (Zithromax) 500 mg DAILY ORAL 03/25/19 13:00 03/29/19 21:59 03/28/19 09:39 Calcium Carbonate (Tums) 500 mg Q4H PRN ORAL for heartburn 03/25/19 13:00 04/24/19 12:59 03/27/19 10:00 Chlorhexidine Gluconate (Sonya-Hex 2%) 1 applic BID TOPIC 03/24/19 09:30 04/23/19 09:29 03/28/19 09:42 Clonidine HCl (Catapres Tab) 0.1 mg EVERY 8 HOURS ORAL 03/23/19 14:00 04/22/19 13:59 03/27/19 14:39 Dextrose (Dextrose 50%) 25 ml Q30M PRN IV Hypoglycemia 03/27/19 20:15 04/26/19 20:14 Dextrose (Dextrose 50%) 50 ml Q30M PRN IV Hypoglycemia 03/27/19 20:15 04/26/19 20:14 Enoxaparin Sodium (Lovenox) 40 mg DAILY SUBQ 03/24/19 09:00 04/23/19 08:59 03/28/19 09:41 Famotidine (Pepcid) 20 mg BID ORAL 03/24/19 14:15 04/23/19 14:14 03/28/19 09:38 Guaifenesin/ Dextromethorphan (Robitussin DM Syrup) 5 ml Q6H PRN ORAL For Cough 03/23/19 11:15 04/22/19 11:14 03/28/19 02:11 Hydralazine HCl (Apresoline) 25 mg Q4H PRN ORAL bp over 160 syst 03/23/19 12:30 04/22/19 12:29 Insulin Aspart (NovoLOG) BEFORE MEALS AND HS SUBQ 03/27/19 21:00 04/26/19 20:59 03/28/19 06:12 Insulin Aspart (NovoLOG) 15 units TIAC SUBQ 03/28/19 06:30 04/27/19 06:29 03/28/19 06:11 Insulin Detemir (Levemir) 28 units Q12HR SUBQ 03/28/19 09:00 04/26/19 20:59 03/28/19 09:40 Iron Sucrose 100 mg/Sodium Chloride 60 ml @ 240 mls/hr BEDTIME IV 03/25/19 21:00 03/29/19 21:14 03/27/19 23:40 Metformin HCl (Glucophage) 1,000 mg BID ORAL 03/28/19 09:00 04/27/19 08:59 03/28/19 09:37 Metoprolol Tartrate (Lopressor) 50 mg Q12HR ORAL 03/23/19 09:00 04/22/19 08:59 03/28/19 09:38 Montelukast Sodium (Singulair) 10 mg BEDTIME ORAL 03/24/19 21:00 04/23/19 20:59 03/27/19 21:55 Multivitamins (Multivitamins) 1 tab DAILY ORAL 03/23/19 09:00 04/22/19 08:59 03/28/19 09:38 Nateglinide (Starlix) 120 mg TIAC ORAL 03/23/19 16:30 04/22/19 16:29 03/28/19 06:10 Ondansetron HCl (Zofran) 4 mg Q6H PRN IVP Nausea & Vomiting 03/23/19 00:30 04/22/19 00:29 Piperacillin Sod/ Tazobactam Sod 3.375 gm/Sodium Chloride 110 ml @ 27.5 mls/hr Q8HR IVPB 03/23/19 06:00 03/30/19 05:59 03/28/19 06:09 Potassium Chloride (K-Dur) 40 meq TWICE A DAY ORAL 03/24/19 18:00 04/23/19 17:59 03/28/19 09:37 Prednisone (predniSONE) 5 mg BID ORAL 03/24/19 18:00 04/23/19 08:59 03/28/19 09:39 Endy Klein MD Mar 28, 2019 10:49
--- NOTE | 2019-03-28 11:37 | Surgery Progress Note ---
Surgery Progress Note Subjective Additional Comments no acute events doing well no complaints labs improved exam improved Objective Last 24 Hour Vital Signs Date Time Temp Pulse Resp B/P (MAP) Pulse Ox O2 Delivery O2 Flow Rate FiO2 03/28/19 11:03 88 22 99 Nasal Cannula 4.0 36 03/28/19 10:55 78 20 97 Nasal Cannula 4.0 36 03/28/19 09:38 109 154/87 03/28/19 09:38 109 154/87 03/28/19 08:00 98.1 109 20 154/87 (109) 99 03/28/19 07:19 100 20 99 Nasal Cannula 4.0 36 03/28/19 07:19 98 Nasal Cannula 4.0 36 03/28/19 07:08 98 22 99 Nasal Cannula 4.0 36 03/28/19 06:00 151/71 03/28/19 04:00 98.5 91 18 151/71 (97) 96 03/28/19 04:00 83 03/28/19 02:41 88 18 99 Nasal Cannula 4.0 36 03/28/19 02:29 94 24 97 Nasal Cannula 4.0 36 03/28/19 02:29 94 24 97 Nasal Cannula 4.0 36 03/28/19 00:00 84 03/28/19 00:00 98.3 105 18 128/69 (88) 100 03/27/19 22:32 90 20 98 Nasal Cannula 4.0 36 03/27/19 22:20 90 20 98 Nasal Cannula 4.0 36 03/27/19 22:00 124/71 03/27/19 21:55 95 124/71 03/27/19 21:30 95 18 100 Nasal Cannula 4.0 36 03/27/19 21:20 90 18 98 Nasal Cannula 4.0 36 03/27/19 21:00 Nasal Cannula 4.0 03/27/19 20:00 104 03/27/19 20:00 98.3 107 16 124/71 (88) 100 03/27/19 18:54 100 20 99 Nasal Cannula 4.0 36 03/27/19 18:46 98 Nasal Cannula 4.0 36 03/27/19 18:46 104 24 98 Nasal Cannula 4.0 36 03/27/19 16:00 98.2 95 18 118/60 (79) 96 03/27/19 16:00 97 03/27/19 14:39 141/66 03/27/19 14:15 97 22 99 Nasal Cannula 4.0 36 03/27/19 14:04 94 21 96 Nasal Cannula 4.0 36 03/27/19 12:00 110 03/27/19 12:00 98.1 94 18 141/66 (91) 98 I&O Intake and Output 03/27/19 03/28/19 19:00 07:00 Intake Total 350 ml 360 ml Output Total 1200 ml Balance -850 ml 360 ml Intake Oral 350 ml 360 ml Output Urine Total 1200 ml # Voids 4 # Bowel Movements 2 Dressing: dry Wound: clean Cardiovascular: RSR Respiratory: clear Abdomen: soft, flat, present bowel sounds, non-distended Extremities: edema Laboratory Tests Test 03/27/19 20:30 03/28/19 06:14 Glucose Level 240 MG/DL (74-106) H Hemoglobin A1c 10.9 % (4.3-6.0) H Pro-B-Type Natriuretic Peptide 555 pg/mL (0-125) H Plan Problems: (1) Edema of both lower extremities (2) Sarcoidosis (3) Chronic cutaneous venous stasis ulcer Assessment & Plan: patient presented with venous stasis dermatitis of bilateral lower extremities. states has had for some time. scaling wounds with chronic scaring. mostly dry with some open areas. does not receive care often for them. no compression stockings. Pt that is legally blind whom on admission with lymphedemae both lower ext with Hyperkeratosis skin . Both lower ext are grossly malodorous.Both lower ext thoroughly assessed for presence of any wounds under scales and fissures but no wounds noted . Pt verbalized R lower ext is more tender than L lower ext. Toes are mycotic and grossly elongated and malformed web spaces of toes are difficult to separate due to poor hygiene and xerosis skin. Pt admitted to being unable to care for feet secondary to being blind and stated she lives at home with mother. Pt stated she was advised in past to see a batch heat treat operator for nail care. Both lower ext washed and scrubbed with washcloths. Excessive amounts of thick scaly skin from both lower ext and both feet removed with friction and emollient. Excessive amt of malodorous hyperkeratotic removed from web spaces of toes. Unable to accurately assess head of R 2nd metatarsal secondary to malformed growth of nail matrix. Both lower ext were then wrapped loosely with Saran wrap for 20 mins for moisture Absorption than removed. -daily chlorhexidine wash bilateral lower extremity -apply Lac Hydrin lotion and wrap with saran wrap for 20 mins BID -keep legs elevated when possible -will follow with recs -podiatry eval and treatment appreciated -cont with above care plan during hospitalization and d/c d/c planning from surgical standpoint thank you for allowing me to participate in patients care. (4) Dyspnea Timbo Rubi Mar 28, 2019 11:37
--- NOTE | 2019-03-28 11:40 | General Progress Note ---
Assessment/Plan Problem List: (1) Sarcoidosis ICD Codes: D86.9 - Sarcoidosis, unspecified SNOMED: 72080730, 490316496 (2) Chronic cutaneous venous stasis ulcer ICD Codes: I83.009 - Varicose veins of unspecified lower extremity with ulcer of unspecified site; L97.909 - Non-pressure chronic ulcer of unspecified part of unspecified lower leg with unspecified severity SNOMED: 05725744, 799531794 (3) Edema of both lower extremities ICD Codes: R60.0 - Localized edema SNOMED: 54924597, 58615341, 866847788 (4) Electrolyte imbalance ICD Codes: E87.8 - Other disorders of electrolyte and fluid balance, not elsewhere classified SNOMED: 167089767 (5) Hypertension, uncontrolled ICD Codes: I10 - Essential (primary) hypertension SNOMED: 00514911, 93548425 (6) Diabetes type 2, uncontrolled ICD Codes: E11.65 - Type 2 diabetes mellitus with hyperglycemia SNOMED: 81564318, 393296670 Status: progressing Assessment/Plan: cellulitis of lower extremity sarcoidosis elevated sugar so consulted slab inspector labile sugar abx per id no acute events poor hygien of legs reviewed chart Subjective ROS Limited/Unobtainable: Yes Allergies: Coded Allergies: No Known Allergies (Unverified , 03/22/19) Objective Last 24 Hour Vital Signs Date Time Temp Pulse Resp B/P (MAP) Pulse Ox O2 Delivery O2 Flow Rate FiO2 03/28/19 11:03 88 22 99 Nasal Cannula 4.0 36 03/28/19 10:55 78 20 97 Nasal Cannula 4.0 36 03/28/19 09:38 109 154/87 03/28/19 09:38 109 154/87 03/28/19 08:00 98.1 109 20 154/87 (109) 99 03/28/19 07:19 100 20 99 Nasal Cannula 4.0 36 03/28/19 07:19 98 Nasal Cannula 4.0 36 03/28/19 07:08 98 22 99 Nasal Cannula 4.0 36 03/28/19 06:00 151/71 03/28/19 04:00 98.5 91 18 151/71 (97) 96 03/28/19 04:00 83 03/28/19 02:41 88 18 99 Nasal Cannula 4.0 36 03/28/19 02:29 94 24 97 Nasal Cannula 4.0 36 03/28/19 02:29 94 24 97 Nasal Cannula 4.0 36 03/28/19 00:00 84 03/28/19 00:00 98.3 105 18 128/69 (88) 100 03/27/19 22:32 90 20 98 Nasal Cannula 4.0 36 03/27/19 22:20 90 20 98 Nasal Cannula 4.0 36 03/27/19 22:00 124/71 03/27/19 21:55 95 124/71 03/27/19 21:30 95 18 100 Nasal Cannula 4.0 36 03/27/19 21:20 90 18 98 Nasal Cannula 4.0 36 03/27/19 21:00 Nasal Cannula 4.0 03/27/19 20:00 104 03/27/19 20:00 98.3 107 16 124/71 (88) 100 03/27/19 18:54 100 20 99 Nasal Cannula 4.0 36 03/27/19 18:46 98 Nasal Cannula 4.0 36 03/27/19 18:46 104 24 98 Nasal Cannula 4.0 36 03/27/19 16:00 98.2 95 18 118/60 (79) 96 03/27/19 16:00 97 03/27/19 14:39 141/66 03/27/19 14:15 97 22 99 Nasal Cannula 4.0 36 03/27/19 14:04 94 21 96 Nasal Cannula 4.0 36 03/27/19 12:00 110 03/27/19 12:00 98.1 94 18 141/66 (91) 98 Intake and Output 03/27/19 03/28/19 19:00 07:00 Intake Total 350 ml 360 ml Output Total 1200 ml Balance -850 ml 360 ml Intake Oral 350 ml 360 ml Output Urine Total 1200 ml # Voids 4 # Bowel Movements 2 Laboratory Tests 03/27/19 20:30: Glucose Level 240H 03/28/19 06:14: Hemoglobin A1c 10.9H, Pro-B-Type Natriuretic Peptide 555H Height (Feet): 5 Height (Inches): 10.00 Weight (Pounds): 228 Cardiovascular: normal rate Respiratory/Chest: chest wall non-tender Guillaume Little MD Mar 28, 2019 11:40
[2019-03-28 12:00] VITALS: BP 153/75
--- NOTE | 2019-03-28 12:00 | NUR ---
NURSE NOTES: The patient is stable without acute distress or shortness of breath. Will continue plan of care.
--- NOTE | 2019-03-28 12:17 | Nephrology Progress Note ---
Assessment/Plan Problem List: (1) Electrolyte imbalance (2) Hypertension, uncontrolled (3) Diabetes type 2, uncontrolled (4) Pneumonia Assessment Anemia - Low Iron Hypokalemia Low Mag Pneumonia Sarcoidosis Chronic Respiratory Failure Diabetes OOC Elevated lactic acid Hypertension OOC Chronic cutaneous venous stasis ulcer Plan IV Venofer for low Iron mag and Kcl and Phos supplement as needed- Adjust BP meds Adjust BS meds Monitor labs 2D echo 65% EjFx per orders Subjective ROS Limited/Unobtainable: No Objective Objective Last 24 Hour Vital Signs Date Time Temp Pulse Resp B/P (MAP) Pulse Ox O2 Delivery O2 Flow Rate FiO2 03/28/19 11:03 88 22 99 Nasal Cannula 4.0 36 03/28/19 10:55 78 20 97 Nasal Cannula 4.0 36 03/28/19 09:38 109 154/87 03/28/19 09:38 109 154/87 03/28/19 08:00 98.1 109 20 154/87 (109) 99 03/28/19 07:19 100 20 99 Nasal Cannula 4.0 36 03/28/19 07:19 98 Nasal Cannula 4.0 36 03/28/19 07:08 98 22 99 Nasal Cannula 4.0 36 03/28/19 06:00 151/71 03/28/19 04:00 98.5 91 18 151/71 (97) 96 03/28/19 04:00 83 03/28/19 02:41 88 18 99 Nasal Cannula 4.0 36 03/28/19 02:29 94 24 97 Nasal Cannula 4.0 36 03/28/19 02:29 94 24 97 Nasal Cannula 4.0 36 03/28/19 00:00 84 03/28/19 00:00 98.3 105 18 128/69 (88) 100 03/27/19 22:32 90 20 98 Nasal Cannula 4.0 36 03/27/19 22:20 90 20 98 Nasal Cannula 4.0 36 03/27/19 22:00 124/71 03/27/19 21:55 95 124/71 03/27/19 21:30 95 18 100 Nasal Cannula 4.0 36 03/27/19 21:20 90 18 98 Nasal Cannula 4.0 36 03/27/19 21:00 Nasal Cannula 4.0 03/27/19 20:00 104 03/27/19 20:00 98.3 107 16 124/71 (88) 100 03/27/19 18:54 100 20 99 Nasal Cannula 4.0 36 03/27/19 18:46 98 Nasal Cannula 4.0 36 03/27/19 18:46 104 24 98 Nasal Cannula 4.0 36 03/27/19 16:00 98.2 95 18 118/60 (79) 96 03/27/19 16:00 97 03/27/19 14:39 141/66 03/27/19 14:15 97 22 99 Nasal Cannula 4.0 36 03/27/19 14:04 94 21 96 Nasal Cannula 4.0 36 Intake and Output 03/27/19 03/28/19 19:00 07:00 Intake Total 350 ml 360 ml Output Total 1200 ml Balance -850 ml 360 ml Intake Oral 350 ml 360 ml Output Urine Total 1200 ml # Voids 4 # Bowel Movements 2 Laboratory Tests 03/27/19 20:30: Glucose Level 240H 03/28/19 06:14: Hemoglobin A1c 10.9H, Pro-B-Type Natriuretic Peptide 555H Height (Feet): 5 Height (Inches): 10.00 Weight (Pounds): 228 General Appearance: no apparent distress Respiratory/Chest: decreased breath sounds Abdomen: soft Objective no change Tre Ochoa MD Mar 28, 2019 12:16
--- NOTE | 2019-03-28 13:27 | Cardiology Report ---
APPROVED REPORT EXAM: Two-dimensional and M-mode echocardiogram with Doppler and color Doppler. INDICATION Congestive Heart Failure M-Mode DIMENSIONS IVSd1.3 (0.7-1.1cm)Left Atrium (MM)1.3 (1.6-4.0cm) LVDd4.1 (3.5-5.6cm)Aortic Root2.4 (2.0-3.7cm) PWd1.1 (0.7-1.1cm)Aortic Cusp Exc.1.6 (1.5-2.0cm) LVDs2.0 (2.5-4.0cm) PWs1.6 cm Technically difficult and limited study due to poor acoustic windows. Study quality precludes accurate assessment of regional wall motion. Normal left ventricular chamber size, systolic function and wall motion. Left ventricular ejection fraction estimated to be 65 %. Mild left ventricular hypertrophy. No evidence of pericardial effusion. Left atrial chamber size is at upper normal limits. Right cardiac chamber sizes are within normal limits. Focal aortic valve sclerosis with adequate cusp excursion. Thickened mitral valve leaflets with normal excursion. Mild mitral annulus and aortic root calcification. Normal pulmonic valve structure. Normal tricuspid valve structure. IVC is normal in size with physiological collapse. A color flow and spectral Doppler study was performed and revealed: No aortic regurgitation. No mitral regurgitation. Mitral diastolic velocities suggest mild left ventricular diastolic dysfunction (Grade I). Mild tricuspid regurgitation. Tricuspid systolic velocities suggests peak right ventricular systolic pressure of 52 mmHg, consistent with moderate pulmonary hypertension. Trace pulmonic regurgitation present.
[2019-03-28] MEDS: Tums 500mg ORAL PRN (14:31)
[2019-03-28 16:00] VITALS: BP 132/67
--- NOTE | 2019-03-28 16:00 | NUR ---
NURSE NOTES: The patient is stable without acute distress or shortness of breath. Will continue plan of care.
[2019-03-28 20:00] VITALS: BP 138/71
--- NOTE | 2019-03-28 20:09 | General Progress Note ---
Assessment/Plan Problem List: (1) Sarcoidosis ICD Codes: D86.9 - Sarcoidosis, unspecified SNOMED: 03494278, 948231850 (2) Chronic cutaneous venous stasis ulcer ICD Codes: I83.009 - Varicose veins of unspecified lower extremity with ulcer of unspecified site; L97.909 - Non-pressure chronic ulcer of unspecified part of unspecified lower leg with unspecified severity SNOMED: 05997237, 926453268 (3) Edema of both lower extremities ICD Codes: R60.0 - Localized edema SNOMED: 14407108, 78025771, 466190299 (4) Electrolyte imbalance ICD Codes: E87.8 - Other disorders of electrolyte and fluid balance, not elsewhere classified SNOMED: 697626665 (5) Hypertension, uncontrolled ICD Codes: I10 - Essential (primary) hypertension SNOMED: 05276516, 64687000 (6) Diabetes type 2, uncontrolled ICD Codes: E11.65 - Type 2 diabetes mellitus with hyperglycemia SNOMED: 79437730, 415538149 Status: progressing Assessment/Plan: cellulitis of lower extremity improving blind afebrile no acute events sarcoidosis elevated sugar labile sugar Subjective ROS Limited/Unobtainable: Yes Allergies: Coded Allergies: No Known Allergies (Unverified , 03/22/19) Objective Last 24 Hour Vital Signs Date Time Temp Pulse Resp B/P (MAP) Pulse Ox O2 Delivery O2 Flow Rate FiO2 03/28/19 16:00 107 03/28/19 16:00 98.1 101 20 132/67 (88) 99 03/28/19 15:13 89 20 99 Nasal Cannula 4.0 36 03/28/19 15:02 91 18 96 Nasal Cannula 4.0 36 03/28/19 14:17 153/75 03/28/19 12:00 85 03/28/19 12:00 97.7 89 20 153/75 (101) 99 03/28/19 11:03 88 22 99 Nasal Cannula 4.0 36 03/28/19 10:55 78 20 97 Nasal Cannula 4.0 36 03/28/19 09:38 109 154/87 03/28/19 09:38 109 154/87 03/28/19 09:00 Nasal Cannula 2.0 03/28/19 08:00 95 03/28/19 08:00 98.1 109 20 154/87 (109) 99 03/28/19 07:19 100 20 99 Nasal Cannula 4.0 36 03/28/19 07:19 98 Nasal Cannula 4.0 36 03/28/19 07:08 98 22 99 Nasal Cannula 4.0 36 03/28/19 06:00 151/71 03/28/19 04:00 98.5 91 18 151/71 (97) 96 03/28/19 04:00 83 03/28/19 02:41 88 18 99 Nasal Cannula 4.0 36 03/28/19 02:29 94 24 97 Nasal Cannula 4.0 36 03/28/19 02:29 94 24 97 Nasal Cannula 4.0 36 03/28/19 00:00 84 03/28/19 00:00 98.3 105 18 128/69 (88) 100 03/27/19 22:32 90 20 98 Nasal Cannula 4.0 36 03/27/19 22:20 90 20 98 Nasal Cannula 4.0 36 03/27/19 22:00 124/71 03/27/19 21:55 95 124/71 03/27/19 21:30 95 18 100 Nasal Cannula 4.0 36 03/27/19 21:20 90 18 98 Nasal Cannula 4.0 36 03/27/19 21:00 Nasal Cannula 4.0 Intake and Output 03/27/19 03/28/19 18:59 06:59 Intake Total 350 ml 360 ml Output Total 1200 ml Balance -850 ml 360 ml Intake Oral 350 ml 360 ml Output Urine Total 1200 ml # Voids 4 # Bowel Movements 2 Laboratory Tests 03/27/19 20:30: Glucose Level 240H 03/28/19 06:14: Hemoglobin A1c 10.9H, Pro-B-Type Natriuretic Peptide 555H Height (Feet): 5 Height (Inches): 10.00 Weight (Pounds): 228 Neck: supple Cardiovascular: normal rate Respiratory/Chest: lungs clear Abdomen: non tender Guillaume Little MD Mar 28, 2019 20:09
--- NOTE | 2019-03-28 20:14 | NUR ---
HAND-OFF: Report given to ARYA Martel. The patient is resting on the bed without acute distress .The patient's bed in the lowest position, call light in reach, and fall and aspiration precaution reinforced. Informed Tahmina that the patient is scheduled for video swallow test. Endorsed plan of care.
[2019-03-28] MEDS: Montelukast 10mg tablet ORAL SCH (21:08)
[2019-03-28] MEDS: Iron Sucrose 100 MG in NS 55 ML IV SCH (21:08)
--- NOTE | 2019-03-28 21:48 | Pulmonology Progress Note ---
Assessment/Plan Assessment/Plan Pulmonary Progress Note HPI Patient is a 53-year-old woman admitted with cough, shortness of breath, worse for 2 days, LE swelling. Previous history of sarcoidosis, respiratory failure on home oxygen, on chronic Prednisone therapy, Diabetes, Hypertension. Complains of a cough productive with yellowish phlegm. Denies fevers or chills. She has had this swelling to her legs for several months. Denies pain. No other aggravating relieving factors. Denies any other associated symptoms , less SOB, glucose control improved. On antibiotics per ID, chronic fibrotic changes on CXR. CXR stable, remains on Prednisne, HHN, less SOB, no new complaints Allergies: No Known Allergies Past Medical History: Diabetes Mellitus, Sarcoidosis, Hypertension Past Surgical History: none Pertinent Family History: none Social History: Denies: smoking, alcohol use, drug use All Other Systems: negative except mentioned in HPI Physical Exam Vital Signs Noted General Appearance: no apparent distress, alert, GCS 15, non-toxic Head: normocephalic Eyes: bilateral eye normal inspection, bilateral eye PERRL ENT: moist mm, no LN Neck: normal inspection Respiratory: chest non-tender, lungs clear, basal crackles Cardiovascular: regular rate, rhythm, HS1, HS2 normal, no edema Gastrointestinal: normal inspection Musculoskeletal: swelling - chronic cutaneous venous stasis ulcers bilateral legs Neurologic: alert, oriented x3, blind, responsive, motor strength/tone normal, sensory intact, speech normal, no focal signs Impression: Pneumonia Sarcoidosis Chronic Respiratory Failure Diabetes on Metformin Hypertension Chronic cutaneous venous stasis ulcer Plan IV antibiotics DC Metformin Repeat Lactate ISS Swallowing evaluation Aspiration precautions 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 including prednisone 5mg bid HHN O2 PRN PPX Analgesia PRN Dr Rubi following for wound care Labs Test 03/22/19 20:19 03/22/19 20:35 03/22/19 22:01 White Blood Count 12.7 K/UL (4.8-10.8) Red Blood Count 3.25 M/UL (4.20-5.40) Hemoglobin 9.1 G/DL (12.0-16.0) Hematocrit 28.7 % (37.0-47.0) Mean Corpuscular Volume 88 FL (80-99) Mean Corpuscular Hemoglobin 28.2 PG (27.0-31.0) Mean Corpuscular Hemoglobin Concent 31.9 G/DL (32.0-36.0) Red Cell Distribution Width 11.5 % (11.6-14.8) Platelet Count 401 K/UL (150-450) Mean Platelet Volume 5.6 FL (6.5-10.1) Neutrophils (%) (Auto) 74.4 % (45.0-75.0) Lymphocytes (%) (Auto) 19.1 % (20.0-45.0) Monocytes (%) (Auto) 4.5 % (1.0-10.0) Eosinophils (%) (Auto) 0.7 % (0.0-3.0) Basophils (%) (Auto) 1.3 % (0.0-2.0) Sodium Level 140 MMOL/L (136-145) Potassium Level 3.0 MMOL/L (3.5-5.1) Chloride Level 98 MMOL/L (98-107) Carbon Dioxide Level 34 MMOL/L (21-32) Anion Gap 8 mmol/L (5-15) Blood Urea Nitrogen 7 mg/dL (7-18) Creatinine 0.8 MG/DL (0.55-1.30) Estimat Glomerular Filtration Rate > 60 mL/min (>60) Glucose Level 304 MG/DL (74-106) Lactic Acid Level 3.00 mmol/L (0.4-2.0) Calcium Level 9.6 MG/DL (8.5-10.1) Total Bilirubin 0.2 MG/DL (0.2-1.0) Aspartate Amino Transf (AST/SGOT) 13 U/L (15-37) Alanine Aminotransferase (ALT/SGPT) 18 U/L (12-78) Alkaline Phosphatase 115 U/L (46-116) Troponin I 0.000 ng/mL (0.000-0.056) Pro-B-Type Natriuretic Peptide 481 pg/mL (0-125) Total Protein 8.1 G/DL (6.4-8.2) Albumin 2.9 G/DL (3.4-5.0) Globulin 5.2 g/dL Albumin/Globulin Ratio 0.6 (1.0-2.7) Urine Color Pale yellow Urine Appearance Clear Urine pH 7 (4.5-8.0) Urine Specific [place] 1.005 (1.005-1.035) Urine Protein 1+ (NEGATIVE) Urine Glucose (UA) 3+ (NEGATIVE) Urine Ketones Negative (NEGATIVE) Urine Blood Negative (NEGATIVE) Urine Nitrite Negative (NEGATIVE) Urine Bilirubin Negative (NEGATIVE) Urine Urobilinogen Normal MG/DL (0.0-1.0) Urine Leukocyte Esterase Negative (NEGATIVE) Urine RBC 0-2 /HPF (0 - 2) Urine WBC 0-2 /HPF (0 - 2) Urine Squamous Epithelial Cells Few /LPF (NONE/OCC) Urine Bacteria Few /HPF (NONE) EKG: Rate: tachycardiac Rhythm: NSR ST Segments: no acute changes Chest X-Ray: Irregular patchy pulmonary opacities and scarring. Some volume loss in the right hemithorax and shift of the heart and other mediastinal structures to the right. Pleural space: Right pleural effusion versus pleural thickening. No pneumothorax. Subjective ROS Limited/Unobtainable: No Allergies: Coded Allergies: No Known Allergies (Unverified , 03/22/19) Objective Last 24 Hour Vital Signs Date Time Temp Pulse Resp B/P (MAP) Pulse Ox O2 Delivery O2 Flow Rate FiO2 03/28/19 21:09 138/71 03/28/19 21:08 114 138/71 03/28/19 20:00 98.7 114 18 138/71 (93) 97 03/28/19 19:48 99 20 100 Nasal Cannula 4.0 36 03/28/19 19:38 98 18 100 Nasal Cannula 4.0 36 03/28/19 19:38 100 Nasal Cannula 4.0 36 03/28/19 16:00 107 03/28/19 16:00 98.1 101 20 132/67 (88) 99 03/28/19 15:13 89 20 99 Nasal Cannula 4.0 36 03/28/19 15:02 91 18 96 Nasal Cannula 4.0 36 03/28/19 14:17 153/75 03/28/19 12:00 85 03/28/19 12:00 97.7 89 20 153/75 (101) 99 03/28/19 11:03 88 22 99 Nasal Cannula 4.0 36 03/28/19 10:55 78 20 97 Nasal Cannula 4.0 36 03/28/19 09:38 109 154/87 03/28/19 09:38 109 154/87 03/28/19 09:00 Nasal Cannula 2.0 03/28/19 08:00 95 03/28/19 08:00 98.1 109 20 154/87 (109) 99 03/28/19 07:19 100 20 99 Nasal Cannula 4.0 36 03/28/19 07:19 98 Nasal Cannula 4.0 36 03/28/19 07:08 98 22 99 Nasal Cannula 4.0 36 03/28/19 06:00 151/71 03/28/19 04:00 98.5 91 18 151/71 (97) 96 03/28/19 04:00 83 03/28/19 02:41 88 18 99 Nasal Cannula 4.0 36 03/28/19 02:29 94 24 97 Nasal Cannula 4.0 36 03/28/19 02:29 94 24 97 Nasal Cannula 4.0 36 03/28/19 00:00 84 03/28/19 00:00 98.3 105 18 128/69 (88) 100 03/27/19 22:32 90 20 98 Nasal Cannula 4.0 36 03/27/19 22:20 90 20 98 Nasal Cannula 4.0 36 03/27/19 22:00 124/71 03/27/19 21:55 95 124/71 Intake and Output 03/27/19 03/28/19 18:59 06:59 Intake Total 350 ml 360 ml Output Total 1200 ml Balance -850 ml 360 ml Intake Oral 350 ml 360 ml Output Urine Total 1200 ml # Voids 4 # Bowel Movements 2 Laboratory Tests 03/28/19 06:14: Hemoglobin A1c 10.9H, Pro-B-Type Natriuretic Peptide 555H Current Medications Medications (Trade) Dose Ordered Sig/Malissa Route PRN Reason Start Time Stop Time Status Last Admin Dose Admin Acetaminophen (Tylenol) 650 mg Q6H PRN ORAL Mild Pain/Temp > 100.5 03/23/19 00:30 04/22/19 00:29 03/27/19 11:02 Albuterol Sulfate (Proventil) 1.25 mg Q2H PRN HHN Shortness of Breath 03/26/19 15:06 03/31/19 15:05 03/27/19 21:26 Albuterol/ Ipratropium (Albuterol/ Ipratropium) 3 ml Q4HRT HHN 03/26/19 11:00 03/31/19 10:59 03/28/19 19:38 Amlodipine Besylate (Norvasc) 10 mg DAILY ORAL 03/23/19 09:00 04/22/19 08:59 03/28/19 09:38 Ammonium Lactate (Lac Hydrin) 1 applic TWICE A DAY TOPIC 03/24/19 09:00 04/23/19 08:59 03/28/19 17:16 Calcium Carbonate (Tums) 500 mg Q4H PRN ORAL for heartburn 03/25/19 13:00 04/24/19 12:59 03/28/19 14:31 Chlorhexidine Gluconate (Sonya-Hex 2%) 1 applic BID TOPIC 03/24/19 09:30 04/23/19 09:29 03/28/19 17:16 Clonidine HCl (Catapres Tab) 0.1 mg EVERY 8 HOURS ORAL 03/23/19 14:00 04/22/19 13:59 03/28/19 21:09 Dextrose (Dextrose 50%) 25 ml Q30M PRN IV Hypoglycemia 03/27/19 20:15 04/26/19 20:14 Dextrose (Dextrose 50%) 50 ml Q30M PRN IV Hypoglycemia 03/27/19 20:15 04/26/19 20:14 Enoxaparin Sodium (Lovenox) 40 mg DAILY SUBQ 03/24/19 09:00 04/23/19 08:59 03/28/19 09:41 Famotidine (Pepcid) 20 mg BID ORAL 03/24/19 14:15 04/23/19 14:14 03/28/19 17:16 Guaifenesin/ Dextromethorphan (Robitussin DM Syrup) 5 ml Q6H PRN ORAL For Cough 03/23/19 11:15 04/22/19 11:14 03/28/19 02:11 Hydralazine HCl (Apresoline) 25 mg Q4H PRN ORAL bp over 160 syst 03/23/19 12:30 04/22/19 12:29 Insulin Aspart (NovoLOG) BEFORE MEALS AND HS SUBQ 03/27/19 21:00 04/26/19 20:59 03/28/19 21:13 Insulin Aspart (NovoLOG) 15 units TIAC SUBQ 03/28/19 06:30 04/27/19 06:29 03/28/19 17:15 Insulin Detemir (Levemir) 28 units Q12HR SUBQ 03/28/19 09:00 04/26/19 20:59 03/28/19 21:15 Iron Sucrose 100 mg/Sodium Chloride 60 ml @ 240 mls/hr BEDTIME IV 03/25/19 21:00 03/29/19 21:14 03/28/19 21:08 Metformin HCl (Glucophage) 1,000 mg BID ORAL 03/28/19 09:00 04/27/19 08:59 03/28/19 17:15 Metoprolol Tartrate (Lopressor) 50 mg Q12HR ORAL 03/23/19 09:00 04/22/19 08:59 03/28/19 21:08 Montelukast Sodium (Singulair) 10 mg BEDTIME ORAL 03/24/19 21:00 04/23/19 20:59 03/28/19 21:08 Multivitamins (Multivitamins) 1 tab DAILY ORAL 03/23/19 09:00 04/22/19 08:59 03/28/19 09:38 Nateglinide (Starlix) 120 mg TIAC ORAL 03/23/19 16:30 04/22/19 16:29 03/28/19 17:13 Ondansetron HCl (Zofran) 4 mg Q6H PRN IVP Nausea & Vomiting 03/23/19 00:30 04/22/19 00:29 Piperacillin Sod/ Tazobactam Sod 3.375 gm/Sodium Chloride 110 ml @ 27.5 mls/hr Q8HR IVPB 03/23/19 06:00 03/30/19 05:59 03/28/19 21:12 Potassium Chloride (K-Dur) 40 meq TWICE A DAY ORAL 03/24/19 18:00 04/23/19 17:59 03/28/19 17:15 Prednisone (predniSONE) 5 mg BID ORAL 03/24/19 18:00 04/23/19 08:59 03/28/19 17:16 Vinh Cano MD Mar 28, 2019 21:48
[2019-03-29] VITALS (7 sets, daily range): BP systolic 116–148; BP diastolic 60–76
[2019-03-29] MEDS: Albuterol/Ipratropium 3ml neb HHN SCH ×5 (02:10→19:24)
[2019-03-29] MEDS: Guaifenesin/DM 10ml syrup ORAL PRN (03:06)
[2019-03-29] MEDS: Piperacillin/Tazobactam 3.375 GM in NS 110 ML IVPB SCH ×2 (05:38→14:00)
[2019-03-29] MEDS: NovoLOG Insulin Flexpen SUBQ SCH ×7 (05:42→21:20)
--- NOTE | 2019-03-29 05:52 | General Progress Note ---
Assessment/Plan Problem List: (1) Sarcoidosis ICD Codes: D86.9 - Sarcoidosis, unspecified SNOMED: 33877078, 990643902 (2) Chronic cutaneous venous stasis ulcer ICD Codes: I83.009 - Varicose veins of unspecified lower extremity with ulcer of unspecified site; L97.909 - Non-pressure chronic ulcer of unspecified part of unspecified lower leg with unspecified severity SNOMED: 95306996, 994633979 (3) Diabetes type 2, uncontrolled ICD Codes: E11.65 - Type 2 diabetes mellitus with hyperglycemia SNOMED: 34689806, 363407319 (4) Hypertension, uncontrolled ICD Codes: I10 - Essential (primary) hypertension SNOMED: 61715954, 84935542 Status: progressing Assessment/Plan: increase Levemir to 30 units bid continue Novolog 15 units ac tid + SSI continue Starlix 120 mg ac tid continue Metformin 1000 mg bid I discussed with RN to educate the patient on self administration of insulin by counting the "clicks" of insulin pen I explained to patient that she needs to stay on insulin shots after discharge she will also need to have a "talking meter" for glucose monitoring Rx for all the diabetic supplies left in chart Subjective Allergies: Coded Allergies: No Known Allergies (Unverified , 03/22/19) All Systems: reviewed and negative except above Subjective events noted glucose values improving fasting glucose is still on higher side she has concerns about insulin injection after discharge - being legally blind also has concerns about the seay of medications and affordability Item Value Date Time Bedside Blood Glucose 201 mg/dl H 03/29/19 0543 Bedside Blood Glucose 247 mg/dl H 03/28/19 2115 Bedside Blood Glucose 262 mg/dl H 03/28/19 1715 Bedside Blood Glucose 135 mg/dl H 03/28/19 1211 Objective Last 24 Hour Vital Signs Date Time Temp Pulse Resp B/P (MAP) Pulse Ox O2 Delivery O2 Flow Rate FiO2 03/29/19 05:38 148/63 03/29/19 04:00 98.2 76 18 148/63 (91) 100 03/29/19 04:00 86 03/29/19 02:20 77 20 100 Nasal Cannula 4.0 36 03/29/19 02:10 75 18 100 Nasal Cannula 4.0 36 03/29/19 00:00 98.2 88 18 138/69 (92) 100 8/13/19 00:00 88 03/29/19 00:00 106 03/28/19 23:19 92 20 100 Nasal Cannula 4.0 36 03/28/19 23:08 91 18 100 Nasal Cannula 4.0 36 03/28/19 21:09 138/71 03/28/19 21:08 114 138/71 03/28/19 21:00 Nasal Cannula 2.0 03/28/19 20:00 98.7 114 18 138/71 (93) 97 03/28/19 20:00 107 03/28/19 19:48 99 20 100 Nasal Cannula 4.0 36 03/28/19 19:38 98 18 100 Nasal Cannula 4.0 36 03/28/19 19:38 100 Nasal Cannula 4.0 36 03/28/19 16:00 107 03/28/19 16:00 98.1 101 20 132/67 (88) 99 03/28/19 15:13 89 20 99 Nasal Cannula 4.0 36 03/28/19 15:02 91 18 96 Nasal Cannula 4.0 36 03/28/19 14:17 153/75 03/28/19 12:00 85 03/28/19 12:00 97.7 89 20 153/75 (101) 99 03/28/19 11:03 88 22 99 Nasal Cannula 4.0 36 03/28/19 10:55 78 20 97 Nasal Cannula 4.0 36 03/28/19 09:38 109 154/87 03/28/19 09:38 109 154/87 03/28/19 09:00 Nasal Cannula 2.0 03/28/19 08:00 95 03/28/19 08:00 98.1 109 20 154/87 (109) 99 03/28/19 07:19 100 20 99 Nasal Cannula 4.0 36 03/28/19 07:19 98 Nasal Cannula 4.0 36 03/28/19 07:08 98 22 99 Nasal Cannula 4.0 36 03/28/19 06:00 151/71 Intake and Output 03/28/19 03/29/19 19:00 07:00 Output Total 400 ml Balance -400 ml Output Urine Total 400 ml # Voids 2 # Bowel Movements 3 1 Laboratory Tests 03/28/19 06:14: Hemoglobin A1c 10.9H, Pro-B-Type Natriuretic Peptide 555H Height (Feet): 5 Height (Inches): 10.00 Weight (Pounds): 228 General Appearance: no apparent distress EENT: other - legally blind Neck: normal alignment Cardiovascular: normal rate Respiratory/Chest: lungs clear Pelvis: normal external exam Objective Current Medications Medications (Trade) Dose Ordered Sig/Malissa Route PRN Reason Start Time Stop Time Status Last Admin Dose Admin Acetaminophen (Tylenol) 650 mg Q6H PRN ORAL Mild Pain/Temp > 100.5 03/23/19 00:30 04/22/19 00:29 03/27/19 11:02 Albuterol Sulfate (Proventil) 1.25 mg Q2H PRN HHN Shortness of Breath 03/26/19 15:06 03/31/19 15:05 03/27/19 21:26 Albuterol/ Ipratropium (Albuterol/ Ipratropium) 3 ml Q4HRT HHN 03/26/19 11:00 03/31/19 10:59 03/29/19 02:10 Amlodipine Besylate (Norvasc) 10 mg DAILY ORAL 03/23/19 09:00 04/22/19 08:59 03/28/19 09:38 Ammonium Lactate (Lac Hydrin) 1 applic TWICE A DAY TOPIC 03/24/19 09:00 04/23/19 08:59 03/28/19 17:16 Calcium Carbonate (Tums) 500 mg Q4H PRN ORAL for heartburn 03/25/19 13:00 04/24/19 12:59 03/28/19 14:31 Chlorhexidine Gluconate (Sonya-Hex 2%) 1 applic BID TOPIC 03/24/19 09:30 04/23/19 09:29 03/28/19 17:16 Clonidine HCl (Catapres Tab) 0.1 mg EVERY 8 HOURS ORAL 03/23/19 14:00 04/22/19 13:59 03/29/19 05:38 Dextrose (Dextrose 50%) 25 ml Q30M PRN IV Hypoglycemia 03/27/19 20:15 04/26/19 20:14 Dextrose (Dextrose 50%) 50 ml Q30M PRN IV Hypoglycemia 03/27/19 20:15 04/26/19 20:14 Enoxaparin Sodium (Lovenox) 40 mg DAILY SUBQ 03/24/19 09:00 9/7/19 08:59 03/28/19 09:41 Famotidine (Pepcid) 20 mg BID ORAL 03/24/19 14:15 04/23/19 14:14 03/28/19 17:16 Guaifenesin/ Dextromethorphan (Robitussin DM Syrup) 5 ml Q6H PRN ORAL For Cough 03/23/19 11:15 04/22/19 11:14 03/29/19 03:06 Hydralazine HCl (Apresoline) 25 mg Q4H PRN ORAL bp over 160 syst 03/23/19 12:30 04/22/19 12:29 Insulin Aspart (NovoLOG) BEFORE MEALS AND HS SUBQ 03/27/19 21:00 04/26/19 20:59 03/29/19 05:43 Insulin Aspart (NovoLOG) 15 units TIAC SUBQ 03/28/19 06:30 04/27/19 06:29 03/29/19 05:42 Insulin Detemir (Levemir) 28 units Q12HR SUBQ 03/28/19 09:00 04/26/19 20:59 03/28/19 21:15 Iron Sucrose 100 mg/Sodium Chloride 60 ml @ 240 mls/hr BEDTIME IV 03/25/19 21:00 03/29/19 21:14 03/28/19 21:08 Metformin HCl (Glucophage) 1,000 mg BID ORAL 03/28/19 09:00 04/27/19 08:59 03/28/19 17:15 Metoprolol Tartrate (Lopressor) 50 mg Q12HR ORAL 03/23/19 09:00 04/22/19 08:59 03/28/19 21:08 Montelukast Sodium (Singulair) 10 mg BEDTIME ORAL 03/24/19 21:00 04/23/19 20:59 03/28/19 21:08 Multivitamins (Multivitamins) 1 tab DAILY ORAL 03/23/19 09:00 04/22/19 08:59 03/28/19 09:38 Nateglinide (Starlix) 120 mg TIAC ORAL 03/23/19 16:30 04/22/19 16:29 03/29/19 05:38 Ondansetron HCl (Zofran) 4 mg Q6H PRN IVP Nausea & Vomiting 03/23/19 00:30 04/22/19 00:29 Piperacillin Sod/ Tazobactam Sod 3.375 gm/Sodium Chloride 110 ml @ 27.5 mls/hr Q8HR IVPB 03/23/19 06:00 03/30/19 05:59 03/29/19 05:38 Potassium Chloride (K-Dur) 40 meq TWICE A DAY ORAL 03/24/19 18:00 04/23/19 17:59 03/28/19 17:15 Prednisone (predniSONE) 5 mg BID ORAL 03/24/19 18:00 04/23/19 08:59 03/28/19 17:16 Skinny Aguillon MD Mar 29, 2019 05:52
--- NOTE | 2019-03-29 06:08 | NUR ---
HAND-OFF: Report given to Paco KOENIG.
--- NOTE | 2019-03-29 07:30 | NUR ---
NURSE NOTES: Received report from Tanner Martel. Pt is sitting in bed receiving a breathing treatment. Bed is in lowest position, side rails up X2, and call light is within reach. WIll continue to monitor.
--- NOTE | 2019-03-29 08:05 | Surgery Progress Note ---
Surgery Progress Note Subjective Additional Comments doing much better family at bedside discussed care plan and progress so far Objective Last 24 Hour Vital Signs Date Time Temp Pulse Resp B/P (MAP) Pulse Ox O2 Delivery O2 Flow Rate FiO2 03/29/19 07:32 64 20 100 Nasal Cannula 4.0 36 03/29/19 07:27 60 20 99 Nasal Cannula 4.0 36 03/29/19 07:27 99 Nasal Cannula 4.0 36 03/29/19 05:38 148/63 03/29/19 04:00 98.2 76 18 148/63 (91) 100 03/29/19 04:00 86 03/29/19 02:20 77 20 100 Nasal Cannula 4.0 36 03/29/19 02:10 75 18 100 Nasal Cannula 4.0 36 03/29/19 00:00 98.2 88 18 138/69 (92) 100 03/29/19 00:00 88 03/29/19 00:00 106 03/28/19 23:19 92 20 100 Nasal Cannula 4.0 36 03/28/19 23:08 91 18 100 Nasal Cannula 4.0 36 03/28/19 21:09 138/71 03/28/19 21:08 114 138/71 03/28/19 21:00 Nasal Cannula 2.0 03/28/19 20:00 98.7 114 18 138/71 (93) 97 03/28/19 20:00 107 03/28/19 19:48 99 20 100 Nasal Cannula 4.0 36 03/28/19 19:38 98 18 100 Nasal Cannula 4.0 36 03/28/19 19:38 100 Nasal Cannula 4.0 36 03/28/19 16:00 107 03/28/19 16:00 98.1 101 20 132/67 (88) 99 03/28/19 15:13 89 20 99 Nasal Cannula 4.0 36 03/28/19 15:02 91 18 96 Nasal Cannula 4.0 36 03/28/19 14:17 153/75 03/28/19 12:00 85 03/28/19 12:00 97.7 89 20 153/75 (101) 99 03/28/19 11:03 88 22 99 Nasal Cannula 4.0 36 03/28/19 10:55 78 20 97 Nasal Cannula 4.0 36 03/28/19 09:38 109 154/87 03/28/19 09:38 109 154/87 03/28/19 09:00 Nasal Cannula 2.0 I&O Intake and Output 03/28/19 03/29/19 19:00 07:00 Intake Total 100 ml Output Total 400 ml Balance -400 ml 100 ml Intake Oral 100 ml Output Urine Total 400 ml # Voids 2 3 # Bowel Movements 3 1 Dressing: dry Wound: clean Cardiovascular: RSR Respiratory: clear Abdomen: soft, flat, non-tender, present bowel sounds Extremities: edema, no tenderness, no cyanosis Plan Problems: (1) Edema of both lower extremities (2) Sarcoidosis (3) Chronic cutaneous venous stasis ulcer Assessment & Plan: patient presented with venous stasis dermatitis of bilateral lower extremities. states has had for some time. scaling wounds with chronic scaring. mostly dry with some open areas. does not receive care often for them. no compression stockings. Pt that is legally blind whom on admission with lymphedemae both lower ext with Hyperkeratosis skin . Both lower ext are grossly malodorous.Both lower ext thoroughly assessed for presence of any wounds under scales and fissures but no wounds noted . Pt verbalized R lower ext is more tender than L lower ext. Toes are mycotic and grossly elongated and malformed web spaces of toes are difficult to separate due to poor hygiene and xerosis skin. Pt admitted to being unable to care for feet secondary to being blind and stated she lives at home with mother. Pt stated she was advised in past to see a parliamentary archivist for nail care. Both lower ext washed and scrubbed with washcloths. Excessive amounts of thick scaly skin from both lower ext and both feet removed with friction and emollient. Excessive amt of malodorous hyperkeratotic removed from web spaces of toes. Unable to accurately assess head of R 2nd metatarsal secondary to malformed growth of nail matrix. Both lower ext were then wrapped loosely with Saran wrap for 20 mins for moisture Absorption than removed. -daily chlorhexidine wash bilateral lower extremity -apply Lac Hydrin lotion and wrap with saran wrap for 20 mins BID -keep legs elevated when possible -will follow with recs -podiatry eval and treatment appreciated -cont with above care plan during hospitalization and d/c d/c planning from surgical standpoint thank you for allowing me to participate in patients care. (4) Dyspnea Benyamini,Timbo Mar 29, 2019 08:05
[2019-03-29] MEDS: Dyna-Hex 2% Top Sol 2oz TOPIC SCH ×2 (09:28→17:33)
[2019-03-29] MEDS: metFORMIN 500mg tab ORAL SCH ×2 (09:28→17:33)
[2019-03-29] MEDS: Metoprolol Tartrate 50mg tab ORAL SCH ×2 (09:29→21:21)
[2019-03-29] MEDS: Enoxaparin 40mg Inj SUBQ SCH (09:34)
[2019-03-29] MEDS: Levemir Flexpen SUBQ SCH ×2 (09:37→21:19)
[2019-03-29] MEDS: Lac Hydrin 12% Lotion 8oz TOPIC SCH ×2 (09:39→18:00)
--- NOTE | 2019-03-29 10:12 | NUR ---
Social Work This SW received a consult to assist with a home safety evaluation. This Sw met with patient who is legally blind, while remains independent with ADLS, ambulation. Patient explains she lives with her mother who is 80 years old and unable to assist her. Patient aware she will be discharge today, while expressing concerns that she will need assistance with wound care. Home Care to follow for P.T and wound care. This SW recommended [facility], while patient explains she does not qualify due to income is too high. This Sw offered additional private pay home caregiver list; patient declined at this time due to stating she cannot afford these services. Patient to learn how to perform wound care, as able. Patient stating her mother will not be assisting her (and there is no other family to assist).
--- NOTE | 2019-03-29 11:59 | Nephrology Progress Note ---
Assessment/Plan Problem List: (1) Electrolyte imbalance (2) Hypertension, uncontrolled (3) Diabetes type 2, uncontrolled (4) Pneumonia Assessment Anemia - Low Iron Hypokalemia Low Mag Pneumonia Sarcoidosis Chronic Respiratory Failure Diabetes OOC Elevated lactic acid Hypertension OOC Chronic cutaneous venous stasis ulcer Plan no labs today IV Venofer for low Iron mag and Kcl and Phos supplement as needed- Adjust BP meds Adjust BS meds Monitor labs 2D echo 65% EjFx per orders ? DC Subjective ROS Limited/Unobtainable: No Interval Events/Complaints seen at 8.30 am Objective Objective Last 24 Hour Vital Signs Date Time Temp Pulse Resp B/P (MAP) Pulse Ox O2 Delivery O2 Flow Rate FiO2 03/29/19 11:12 78 20 100 Nasal Cannula 4.0 36 03/29/19 11:05 74 20 99 Nasal Cannula 4.0 36 03/29/19 09:29 79 129/65 03/29/19 09:29 79 129/65 03/29/19 09:00 Nasal Cannula 2.0 03/29/19 08:00 97.7 79 20 129/65 (86) 100 03/29/19 08:00 79 03/29/19 07:32 64 20 100 Nasal Cannula 4.0 36 03/29/19 07:27 60 20 99 Nasal Cannula 4.0 36 03/29/19 07:27 99 Nasal Cannula 4.0 36 03/29/19 05:38 148/63 03/29/19 04:00 98.2 76 18 148/63 (91) 100 03/29/19 04:00 86 03/29/19 02:20 77 20 100 Nasal Cannula 4.0 36 03/29/19 02:10 75 18 100 Nasal Cannula 4.0 36 03/29/19 00:00 98.2 88 18 138/69 (92) 100 03/29/19 00:00 88 03/29/19 00:00 106 03/28/19 23:19 92 20 100 Nasal Cannula 4.0 36 03/28/19 23:08 91 18 100 Nasal Cannula 4.0 36 03/28/19 21:09 138/71 03/28/19 21:08 114 138/71 03/28/19 21:00 Nasal Cannula 2.0 03/28/19 20:00 98.7 114 18 138/71 (93) 97 03/28/19 20:00 107 03/28/19 19:48 99 20 100 Nasal Cannula 4.0 36 03/28/19 19:38 98 18 100 Nasal Cannula 4.0 36 03/28/19 19:38 100 Nasal Cannula 4.0 36 03/28/19 16:00 107 03/28/19 16:00 98.1 101 20 132/67 (88) 99 03/28/19 15:13 89 20 99 Nasal Cannula 4.0 36 03/28/19 15:02 91 18 96 Nasal Cannula 4.0 36 03/28/19 14:17 153/75 03/28/19 12:00 85 03/28/19 12:00 97.7 89 20 153/75 (101) 99 Intake and Output 03/28/19 03/29/19 19:00 07:00 Intake Total 220 ml Output Total 400 ml Balance -400 ml 220 ml Intake Oral 220 ml Output Urine Total 400 ml # Voids 2 3 # Bowel Movements 3 1 Height (Feet): 5 Height (Inches): 10.00 Weight (Pounds): 228 General Appearance: no apparent distress Objective no change Tre Ochoa MD Mar 29, 2019 11:59
--- NOTE | 2019-03-29 13:41 | NUR ---
DISCHARGE PLANNING Discharge order noted [facility] verified acceptance Spoke with Lexie, Home Health will come out tomorrow morning 03/30/19 to [email or web address] patient. [address] [address]
--- NOTE | 2019-03-29 14:18 | NUR ---
NURSE NOTES: Per Dr. Emily Klein, no further antibiotics needed
--- NOTE | 2019-03-29 14:22 | NUR ---
*-* INSURANCE *-* ALL CLINICALS AND REVIEWS HAVE BEEN FAXED TO: [facility] AUTH#[id number] FAX ALL CLINICALS TO: [phone]
--- NOTE | 2019-03-29 14:23 | Infectious Diseases Prog Note ---
Assessment/Plan Assessment/Plan IMPRESSION: Pneumonia, Uncontrolled diabetes mellitus, Sarcoidosis, Onychomycocic Hypokalemia, Chronic stasis dermatitis and ulceration of legs, Blindness, Anemia, Hypertension. RECOMMENDATION: Discontinue Zosyn Agree with discharge Wound care Subjective ROS Limited/Unobtainable: Yes Respiratory: Reports: shortness of breath, dry cough, other - chronic Gastrointestinal/Abdominal: Reports: no symptoms Genitourinary: Reports: no symptoms Allergies: Coded Allergies: No Known Allergies (Unverified , 03/22/19) Objective Vital Signs Last 24 Hour Vital Signs Date Time Temp Pulse Resp B/P (MAP) Pulse Ox O2 Delivery O2 Flow Rate FiO2 03/29/19 12:00 98.7 81 20 123/76 (92) 99 03/29/19 12:00 97 03/29/19 11:12 78 20 100 Nasal Cannula 4.0 36 03/29/19 11:05 74 20 99 Nasal Cannula 4.0 36 03/29/19 09:29 79 129/65 03/29/19 09:29 79 129/65 03/29/19 09:00 Nasal Cannula 2.0 03/29/19 08:00 97.7 79 20 129/65 (86) 100 03/29/19 08:00 79 03/29/19 07:32 64 20 100 Nasal Cannula 4.0 36 03/29/19 07:27 60 20 99 Nasal Cannula 4.0 36 03/29/19 07:27 99 Nasal Cannula 4.0 36 03/29/19 05:38 148/63 03/29/19 04:00 98.2 76 18 148/63 (91) 100 03/29/19 04:00 86 03/29/19 02:20 77 20 100 Nasal Cannula 4.0 36 03/29/19 02:10 75 18 100 Nasal Cannula 4.0 36 03/29/19 00:00 98.2 88 18 138/69 (92) 100 03/29/19 00:00 88 03/29/19 00:00 106 03/28/19 23:19 92 20 100 Nasal Cannula 4.0 36 03/28/19 23:08 91 18 100 Nasal Cannula 4.0 36 03/28/19 21:09 138/71 03/28/19 21:08 114 138/71 03/28/19 21:00 Nasal Cannula 2.0 03/28/19 20:00 98.7 114 18 138/71 (93) 97 03/28/19 20:00 107 03/28/19 19:48 99 20 100 Nasal Cannula 4.0 36 03/28/19 19:38 98 18 100 Nasal Cannula 4.0 36 03/28/19 19:38 100 Nasal Cannula 4.0 36 03/28/19 16:00 107 03/28/19 16:00 98.1 101 20 132/67 (88) 99 03/28/19 15:13 89 20 99 Nasal Cannula 4.0 36 03/28/19 15:02 91 18 96 Nasal Cannula 4.0 36 Height (Feet): 5 Height (Inches): 10.00 Weight (Pounds): 228 General Appearance: no acute distress HEENT: mucous membranes moist Respiratory/Chest: lungs clear Cardiovascular: normal rate Abdomen: soft, non tender Extremities: other - mild leg edema Skin: other - hyperkatotic lesions of legs Neurologic/Psychiatric: alert, oriented x 3, responsive Current Medications Medications (Trade) Dose Ordered Sig/Malissa Route PRN Reason Start Time Stop Time Status Last Admin Dose Admin Acetaminophen (Tylenol) 650 mg Q6H PRN ORAL Mild Pain/Temp > 100.5 03/23/19 00:30 04/22/19 00:29 03/27/19 11:02 Albuterol Sulfate (Proventil) 1.25 mg Q2H PRN HHN Shortness of Breath 03/26/19 15:06 03/31/19 15:05 03/27/19 21:26 Albuterol/ Ipratropium (Albuterol/ Ipratropium) 3 ml Q4HRT HHN 03/26/19 11:00 03/31/19 10:59 03/29/19 11:07 Amlodipine Besylate (Norvasc) 10 mg DAILY ORAL 03/23/19 09:00 04/22/19 08:59 03/29/19 09:29 Ammonium Lactate (Lac Hydrin) 1 applic TWICE A DAY TOPIC 03/24/19 09:00 04/23/19 08:59 03/29/19 09:39 Calcium Carbonate (Tums) 500 mg Q4H PRN ORAL for heartburn 03/25/19 13:00 04/24/19 12:59 03/28/19 14:31 Chlorhexidine Gluconate (Sonya-Hex 2%) 1 applic BID TOPIC 03/24/19 09:30 04/23/19 09:29 03/29/19 09:28 Clonidine HCl (Catapres Tab) 0.1 mg EVERY 8 HOURS ORAL 03/23/19 14:00 04/22/19 13:59 03/29/19 05:38 Dextrose (Dextrose 50%) 25 ml Q30M PRN IV Hypoglycemia 03/27/19 20:15 04/26/19 20:14 Dextrose (Dextrose 50%) 50 ml Q30M PRN IV Hypoglycemia 03/27/19 20:15 04/26/19 20:14 Enoxaparin Sodium (Lovenox) 40 mg DAILY SUBQ 03/24/19 09:00 04/23/19 08:59 03/29/19 09:34 Famotidine (Pepcid) 20 mg BID ORAL 03/24/19 14:15 04/23/19 14:14 03/29/19 09:29 Guaifenesin/ Dextromethorphan (Robitussin DM Syrup) 5 ml Q6H PRN ORAL For Cough 03/23/19 11:15 04/22/19 11:14 03/29/19 03:06 Hydralazine HCl (Apresoline) 25 mg Q4H PRN ORAL bp over 160 syst 03/23/19 12:30 04/22/19 12:29 Insulin Aspart (NovoLOG) BEFORE MEALS AND HS SUBQ 03/27/19 21:00 04/26/19 20:59 03/29/19 13:01 Insulin Aspart (NovoLOG) 15 units TIAC SUBQ 03/28/19 06:30 04/27/19 06:29 03/29/19 12:58 Insulin Detemir (Levemir) 30 units Q12HR SUBQ 03/29/19 09:00 04/26/19 20:59 03/29/19 09:37 Iron Sucrose 100 mg/Sodium Chloride 60 ml @ 240 mls/hr BEDTIME IV 03/25/19 21:00 03/29/19 21:14 03/28/19 21:08 Metformin HCl (Glucophage) 1,000 mg BID ORAL 03/28/19 09:00 04/27/19 08:59 03/29/19 09:28 Metoprolol Tartrate (Lopressor) 50 mg Q12HR ORAL 03/23/19 09:00 04/22/19 08:59 03/29/19 09:29 Montelukast Sodium (Singulair) 10 mg BEDTIME ORAL 03/24/19 21:00 04/23/19 20:59 03/28/19 21:08 Multivitamins (Multivitamins) 1 tab DAILY ORAL 03/23/19 09:00 04/22/19 08:59 03/29/19 09:29 Nateglinide (Starlix) 120 mg TIAC ORAL 03/23/19 16:30 04/22/19 16:29 03/29/19 05:38 Ondansetron HCl (Zofran) 4 mg Q6H PRN IVP Nausea & Vomiting 03/23/19 00:30 04/22/19 00:29 Piperacillin Sod/ Tazobactam Sod 3.375 gm/Sodium Chloride 110 ml @ 27.5 mls/hr Q8HR IVPB 03/23/19 06:00 03/30/19 05:59 03/29/19 05:38 Potassium Chloride (K-Dur) 40 meq TWICE A DAY ORAL 03/24/19 18:00 04/23/19 17:59 03/29/19 09:29 Prednisone (predniSONE) 5 mg BID ORAL 03/24/19 18:00 04/23/19 08:59 03/29/19 09:29 Endy Klein MD Mar 29, 2019 14:23
[2019-03-29] MEDS ORDERED: Tubing IV Secondary IV ONE (15:36)
--- NOTE | 2019-03-29 15:40 | Hematology/Onc Progress Note ---
Assessment/Plan Assessment/Plan Diagnostic Impression: # Anemia of iron deficiency rule out underlying gi bleed, ferritin 44 --> Anemia workup has been ordered, rule out gi bleed (ferritin is low) --> No evidence of hemolysis is noted, peripheral smear has been reviewed. --> Hgb goal >7. Transfuse prn. --> IV IROn has been started x 5 days --> Medications have been reviewed --> renal is aware --> occult is negative # Anemia due to chf --> diuresis if required by cards --> for volume overload, further diuresis # Dyspnea with resp failure --> abx and steriods per pulm # Chronic cutaneous venous stasis ulcer --> wound care/surg recs # DM2 with a1c >10 --> accuchecks qac/qhs --> iss with coverage low dose # Hypok --> kcl was given # Sarcoidosis # Antimicrobial is on zosyn --> now off # DVT ppx lovenox sq The timing of this note does not necessarily reflect the time of the patient was seen. GREATLY APPRECIATE CONSULTATION. Subjective Constitutional: Denies: no symptoms, chills, fever, malaise, weakness, other HEENT: Denies: no symptoms, eye pain, blurred vision, tearing, double vision, ear pain, ear discharge, nose pain, nose congestion, throat pain, throat swelling, mouth pain, mouth swelling, other Cardiovascular: Denies: no symptoms, chest pain, edema, irregular heart rate, lightheadedness, palpitations, syncope, other Respiratory: Denies: no symptoms, cough, shortness of breath, SOB with excertion, SOB at rest, sputum, wheezing, other Gastrointestinal/Abdominal: Denies: no symptoms, abdomen distended, abdominal pain, black stools, tarry stools, blood in stool, constipated, diarrhea, difficulty swallowing, nausea, poor appetite, poor fluid intake, rectal bleeding , vomiting, other Genitourinary: Denies: no symptoms, burning, discharge, frequency, flank pain, hematuria, incontinence, pain, urgency, other Neurologic/Psychiatric: Denies: no symptoms, anxiety, depressed, emotional problems, headache, numbness, paresthesia, pre-existing deficit, seizure, tingling, tremors, weakness, other Allergies: Coded Allergies: No Known Allergies (Unverified , 03/22/19) Subjective 03/24: dressing changes with wounds slowly improving, on iv iron 03/25: on 2l nc, no events noted, on iron, wound care, no f/c 03/27: remains on abx, wound care, lonveox dvt ppx 03/28: no events, on abx, no f/c, no major events 03/29: no fevers, elec repleted, pending cbc, feeling better overall Objective Objective Current Medications Medications (Trade) Dose Ordered Sig/Malissa Route PRN Reason Start Time Stop Time Status Last Admin Dose Admin Acetaminophen (Tylenol) 650 mg Q6H PRN ORAL Mild Pain/Temp > 100.5 03/23/19 00:30 04/22/19 00:29 03/27/19 11:02 Albuterol Sulfate (Proventil) 1.25 mg Q2H PRN HHN Shortness of Breath 03/26/19 15:06 03/31/19 15:05 03/27/19 21:26 Albuterol/ Ipratropium (Albuterol/ Ipratropium) 3 ml Q4HRT HHN 03/26/19 11:00 03/31/19 10:59 03/29/19 15:12 Amlodipine Besylate (Norvasc) 10 mg DAILY ORAL 03/23/19 09:00 04/22/19 08:59 03/29/19 09:29 Ammonium Lactate (Lac Hydrin) 1 applic TWICE A DAY TOPIC 03/24/19 09:00 04/23/19 08:59 03/29/19 09:39 Calcium Carbonate (Tums) 500 mg Q4H PRN ORAL for heartburn 03/25/19 13:00 04/24/19 12:59 03/28/19 14:31 Chlorhexidine Gluconate (Sonya-Hex 2%) 1 applic BID TOPIC 03/24/19 09:30 04/23/19 09:29 03/29/19 09:28 Clonidine HCl (Catapres Tab) 0.1 mg EVERY 8 HOURS ORAL 03/23/19 14:00 04/22/19 13:59 03/29/19 14:38 Dextrose (Dextrose 50%) 25 ml Q30M PRN IV Hypoglycemia 03/27/19 20:15 04/26/19 20:14 Dextrose (Dextrose 50%) 50 ml Q30M PRN IV Hypoglycemia 03/27/19 20:15 04/26/19 20:14 Enoxaparin Sodium (Lovenox) 40 mg DAILY SUBQ 03/24/19 09:00 04/23/19 08:59 03/29/19 09:34 Famotidine (Pepcid) 20 mg BID ORAL 03/24/19 14:15 04/23/19 14:14 03/29/19 09:29 Guaifenesin/ Dextromethorphan (Robitussin DM Syrup) 5 ml Q6H PRN ORAL For Cough 03/23/19 11:15 04/22/19 11:14 03/29/19 03:06 Hydralazine HCl (Apresoline) 25 mg Q4H PRN ORAL bp over 160 syst 03/23/19 12:30 04/22/19 12:29 Insulin Aspart (NovoLOG) BEFORE MEALS AND HS SUBQ 03/27/19 21:00 04/26/19 20:59 03/29/19 13:01 Insulin Aspart (NovoLOG) 15 units TIAC SUBQ 03/28/19 06:30 04/27/19 06:29 03/29/19 12:58 Insulin Detemir (Levemir) 30 units Q12HR SUBQ 03/29/19 09:00 04/26/19 20:59 03/29/19 09:37 Iron Sucrose 100 mg/Sodium Chloride 60 ml @ 240 mls/hr BEDTIME IV 03/25/19 21:00 03/29/19 21:14 03/28/19 21:08 Metformin HCl (Glucophage) 1,000 mg BID ORAL 03/28/19 09:00 04/27/19 08:59 03/29/19 09:28 Metoprolol Tartrate (Lopressor) 50 mg Q12HR ORAL 03/23/19 09:00 04/22/19 08:59 03/29/19 09:29 Montelukast Sodium (Singulair) 10 mg BEDTIME ORAL 03/24/19 21:00 04/23/19 20:59 03/28/19 21:08 Multivitamins (Multivitamins) 1 tab DAILY ORAL 03/23/19 09:00 04/22/19 08:59 03/29/19 09:29 Nateglinide (Starlix) 120 mg TIAC ORAL 03/23/19 16:30 04/22/19 16:29 03/29/19 05:38 Ondansetron HCl (Zofran) 4 mg Q6H PRN IVP Nausea & Vomiting 03/23/19 00:30 04/22/19 00:29 Potassium Chloride (K-Dur) 40 meq TWICE A DAY ORAL 03/24/19 18:00 04/23/19 17:59 03/29/19 09:29 Prednisone (predniSONE) 5 mg BID ORAL 03/24/19 18:00 04/23/19 08:59 03/29/19 09:29 Last 24 Hour Vital Signs Date Time Temp Pulse Resp B/P (MAP) Pulse Ox O2 Delivery O2 Flow Rate FiO2 03/29/19 15:12 83 18 100 Nasal Cannula 4.0 36 03/29/19 15:04 80 18 98 Nasal Cannula 4.0 36 03/29/19 14:38 123/76 03/29/19 12:00 98.7 81 20 123/76 (92) 99 03/29/19 12:00 97 03/29/19 11:12 78 20 100 Nasal Cannula 4.0 36 03/29/19 11:05 74 20 99 Nasal Cannula 4.0 36 03/29/19 09:29 79 129/65 03/29/19 09:29 79 129/65 03/29/19 09:00 Nasal Cannula 2.0 03/29/19 08:00 97.7 79 20 129/65 (86) 100 03/29/19 08:00 79 03/29/19 07:32 64 20 100 Nasal Cannula 4.0 36 03/29/19 07:27 60 20 99 Nasal Cannula 4.0 36 03/29/19 07:27 99 Nasal Cannula 4.0 36 03/29/19 05:38 148/63 03/29/19 04:00 98.2 76 18 148/63 (91) 100 03/29/19 04:00 86 03/29/19 02:20 77 20 100 Nasal Cannula 4.0 36 03/29/19 02:10 75 18 100 Nasal Cannula 4.0 36 03/29/19 00:00 98.2 88 18 138/69 (92) 100 03/29/19 00:00 88 03/29/19 00:00 106 03/28/19 23:19 92 20 100 Nasal Cannula 4.0 36 03/28/19 23:08 91 18 100 Nasal Cannula 4.0 36 03/28/19 21:09 138/71 03/28/19 21:08 114 138/71 03/28/19 21:00 Nasal Cannula 2.0 03/28/19 20:00 98.7 114 18 138/71 (93) 97 03/28/19 20:00 107 03/28/19 19:48 99 20 100 Nasal Cannula 4.0 36 03/28/19 19:38 98 18 100 Nasal Cannula 4.0 36 03/28/19 19:38 100 Nasal Cannula 4.0 36 03/28/19 16:00 107 03/28/19 16:00 98.1 101 20 132/67 (88) 99 03/28/19 15:13 89 20 99 Nasal Cannula 4.0 36 03/28/19 15:02 91 18 96 Nasal Cannula 4.0 36 03/28/19 14:17 153/75 03/28/19 12:00 85 03/28/19 12:00 97.7 89 20 153/75 (101) 99 03/28/19 11:03 88 22 99 Nasal Cannula 4.0 36 03/28/19 10:55 78 20 97 Nasal Cannula 4.0 36 03/28/19 09:38 109 154/87 03/28/19 09:38 109 154/87 03/28/19 09:00 Nasal Cannula 2.0 03/28/19 08:00 95 03/28/19 08:00 98.1 109 20 154/87 (109) 99 03/28/19 07:19 100 20 99 Nasal Cannula 4.0 36 03/28/19 07:19 98 Nasal Cannula 4.0 36 03/28/19 07:08 98 22 99 Nasal Cannula 4.0 36 03/28/19 06:00 151/71 03/28/19 04:00 98.5 91 18 151/71 (97) 96 03/28/19 04:00 83 03/28/19 02:41 88 18 99 Nasal Cannula 4.0 36 03/28/19 02:29 94 24 97 Nasal Cannula 4.0 36 03/28/19 02:29 94 24 97 Nasal Cannula 4.0 36 03/28/19 00:00 84 03/28/19 00:00 98.3 105 18 128/69 (88) 100 03/27/19 22:32 90 20 98 Nasal Cannula 4.0 36 03/27/19 22:20 90 20 98 Nasal Cannula 4.0 36 03/27/19 22:00 124/71 03/27/19 21:55 95 124/71 03/27/19 21:30 95 18 100 Nasal Cannula 4.0 36 03/27/19 21:20 90 18 98 Nasal Cannula 4.0 36 03/27/19 21:00 Nasal Cannula 4.0 03/27/19 20:00 104 03/27/19 20:00 98.3 107 16 124/71 (88) 100 03/27/19 18:54 100 20 99 Nasal Cannula 4.0 36 03/27/19 18:46 98 Nasal Cannula 4.0 36 03/27/19 18:46 104 24 98 Nasal Cannula 4.0 36 03/27/19 16:00 98.2 95 18 118/60 (79) 96 03/27/19 16:00 97 Intake and Output 03/28/19 03/29/19 19:00 07:00 Intake Total 220 ml Output Total 400 ml Balance -400 ml 220 ml Intake Oral 220 ml Output Urine Total 400 ml # Voids 2 3 # Bowel Movements 3 1 Labs Test 03/27/19 07:50 03/27/19 20:30 03/28/19 06:14 White Blood Count 10.7 K/UL (4.8-10.8) Red Blood Count 3.20 M/UL (4.20-5.40) Hemoglobin 8.8 G/DL (12.0-16.0) Hematocrit 29.1 % (37.0-47.0) Mean Corpuscular Volume 91 FL (80-99) Mean Corpuscular Hemoglobin 27.6 PG (27.0-31.0) Mean Corpuscular Hemoglobin Concent 30.4 G/DL (32.0-36.0) Red Cell Distribution Width 12.2 % (11.6-14.8) Platelet Count 406 K/UL (150-450) Mean Platelet Volume 6.1 FL (6.5-10.1) Neutrophils (%) (Auto) 67.0 % (45.0-75.0) Lymphocytes (%) (Auto) 20.7 % (20.0-45.0) Monocytes (%) (Auto) 8.4 % (1.0-10.0) Eosinophils (%) (Auto) 2.7 % (0.0-3.0) Basophils (%) (Auto) 1.1 % (0.0-2.0) Sodium Level 138 MMOL/L (136-145) Potassium Level 4.0 MMOL/L (3.5-5.1) Chloride Level 101 MMOL/L (98-107) Carbon Dioxide Level 31 MMOL/L (21-32) Anion Gap 6 mmol/L (5-15) Blood Urea Nitrogen 9 mg/dL (7-18) Creatinine 0.8 MG/DL (0.55-1.30) Estimat Glomerular Filtration Rate > 60 mL/min (>60) Glucose Level 188 MG/DL (74-106) 240 MG/DL (74-106) Calcium Level 9.6 MG/DL (8.5-10.1) Hemoglobin A1c 10.9 % (4.3-6.0) Pro-B-Type Natriuretic Peptide 555 pg/mL (0-125) Height (Feet): 5 Height (Inches): 10.00 Weight (Pounds): 228 Objective Vitals: reviewed General Appearance: NAD HEENT: normocephalic, atraumatic Neck: non-tender, normal alignment Respiratory/Chest: normal breath sounds bilaterally Cardiovascular/Chest: normal peripheral pulses, normal rate Abdomen: normal bowel sounds, soft, nontender Extremities: normal range of motion, chronic cutaneous venous stasis ulcers/ crusting Javier Walker MD Mar 29, 2019 15:40
--- NOTE | 2019-03-29 16:58 | Pulmonology Progress Note ---
Assessment/Plan Assessment/Plan Pulmonary Progress Note HPI Patient is a 53-year-old woman admitted with cough, shortness of breath, worse for 2 days, LE swelling. Previous history of sarcoidosis, respiratory failure on home oxygen, on chronic Prednisone therapy, Diabetes, Hypertension. Complains of a cough productive with yellowish phlegm. Denies fevers or chills. She has had this swelling to her legs for several months. Denies pain. No other aggravating relieving factors. Denies any other associated symptoms , less SOB, glucose control improved. On antibiotics per ID, chronic fibrotic changes on CXR. CXR stable, remains on Prednisne, HHN, less SOB, no new complaints Allergies: No Known Allergies Past Medical History: Diabetes Mellitus, Sarcoidosis, Hypertension Past Surgical History: none Pertinent Family History: none Social History: Denies: smoking, alcohol use, drug use All Other Systems: negative except mentioned in HPI Physical Exam Vital Signs Noted General Appearance: no apparent distress, alert, GCS 15, non-toxic Head: normocephalic Eyes: bilateral eye normal inspection, bilateral eye PERRL ENT: moist mm, no LN Neck: normal inspection Respiratory: chest non-tender, lungs clear, basal crackles Cardiovascular: regular rate, rhythm, HS1, HS2 normal, no edema Gastrointestinal: normal inspection Musculoskeletal: swelling - chronic cutaneous venous stasis ulcers bilateral legs Neurologic: alert, oriented x3, blind, responsive, motor strength/tone normal, sensory intact, speech normal, no focal signs Impression: Pneumonia Sarcoidosis Chronic Respiratory Failure Diabetes on Metformin Hypertension Chronic cutaneous venous stasis ulcer Plan IV antibiotics DC Metformin Repeat Lactate ISS Swallowing evaluation Aspiration precautions [employer] meds including prednisone 5mg bid HHN O2 PRN PPX Analgesia PRN Dr Rubi following for wound care Labs Test 03/22/19 20:19 03/22/19 20:35 03/22/19 22:01 White Blood Count 12.7 K/UL (4.8-10.8) Red Blood Count 3.25 M/UL (4.20-5.40) Hemoglobin 9.1 G/DL (12.0-16.0) Hematocrit 28.7 % (37.0-47.0) Mean Corpuscular Volume 88 FL (80-99) Mean Corpuscular Hemoglobin 28.2 PG (27.0-31.0) Mean Corpuscular Hemoglobin Concent 31.9 G/DL (32.0-36.0) Red Cell Distribution Width 11.5 % (11.6-14.8) Platelet Count 401 K/UL (150-450) Mean Platelet Volume 5.6 FL (6.5-10.1) Neutrophils (%) (Auto) 74.4 % (45.0-75.0) Lymphocytes (%) (Auto) 19.1 % (20.0-45.0) Monocytes (%) (Auto) 4.5 % (1.0-10.0) Eosinophils (%) (Auto) 0.7 % (0.0-3.0) Basophils (%) (Auto) 1.3 % (0.0-2.0) Sodium Level 140 MMOL/L (136-145) Potassium Level 3.0 MMOL/L (3.5-5.1) Chloride Level 98 MMOL/L (98-107) Carbon Dioxide Level 34 MMOL/L (21-32) Anion Gap 8 mmol/L (5-15) Blood Urea Nitrogen 7 mg/dL (7-18) Creatinine 0.8 MG/DL (0.55-1.30) Estimat Glomerular Filtration Rate > 60 mL/min (>60) Glucose Level 304 MG/DL (74-106) Lactic Acid Level 3.00 mmol/L (0.4-2.0) Calcium Level 9.6 MG/DL (8.5-10.1) Total Bilirubin 0.2 MG/DL (0.2-1.0) Aspartate Amino Transf (AST/SGOT) 13 U/L (15-37) Alanine Aminotransferase (ALT/SGPT) 18 U/L (12-78) Alkaline Phosphatase 115 U/L (46-116) Troponin I 0.000 ng/mL (0.000-0.056) Pro-B-Type Natriuretic Peptide 481 pg/mL (0-125) Total Protein 8.1 G/DL (6.4-8.2) Albumin 2.9 G/DL (3.4-5.0) Globulin 5.2 g/dL Albumin/Globulin Ratio 0.6 (1.0-2.7) Urine Color Pale yellow Urine Appearance Clear Urine pH 7 (4.5-8.0) Urine Specific [place] 1.005 (1.005-1.035) Urine Protein 1+ (NEGATIVE) Urine Glucose (UA) 3+ (NEGATIVE) Urine Ketones Negative (NEGATIVE) Urine Blood Negative (NEGATIVE) Urine Nitrite Negative (NEGATIVE) Urine Bilirubin Negative (NEGATIVE) Urine Urobilinogen Normal MG/DL (0.0-1.0) Urine Leukocyte Esterase Negative (NEGATIVE) Urine RBC 0-2 /HPF (0 - 2) Urine WBC 0-2 /HPF (0 - 2) Urine Squamous Epithelial Cells Few /LPF (NONE/OCC) Urine Bacteria Few /HPF (NONE) EKG: Rate: tachycardiac Rhythm: NSR ST Segments: no acute changes Chest X-Ray: Irregular patchy pulmonary opacities and scarring. Some volume loss in the right hemithorax and shift of the heart and other mediastinal structures to the right. Pleural space: Right pleural effusion versus pleural thickening. No pneumothorax. Subjective ROS Limited/Unobtainable: No Allergies: Coded Allergies: No Known Allergies (Unverified , 03/22/19) Objective Last 24 Hour Vital Signs Date Time Temp Pulse Resp B/P (MAP) Pulse Ox O2 Delivery O2 Flow Rate FiO2 03/29/19 15:12 83 18 100 Nasal Cannula 4.0 36 03/29/19 15:04 80 18 98 Nasal Cannula 4.0 36 03/29/19 14:38 123/76 03/29/19 12:00 98.7 81 20 123/76 (92) 99 03/29/19 12:00 97 03/29/19 11:12 78 20 100 Nasal Cannula 4.0 36 03/29/19 11:05 74 20 99 Nasal Cannula 4.0 36 03/29/19 09:29 79 129/65 03/29/19 09:29 79 129/65 03/29/19 09:00 Nasal Cannula 2.0 03/29/19 08:00 97.7 79 20 129/65 (86) 100 03/29/19 08:00 79 03/29/19 07:32 64 20 100 Nasal Cannula 4.0 36 03/29/19 07:27 60 20 99 Nasal Cannula 4.0 36 03/29/19 07:27 99 Nasal Cannula 4.0 36 03/29/19 05:38 148/63 03/29/19 04:00 98.2 76 18 148/63 (91) 100 03/29/19 04:00 86 03/29/19 02:20 77 20 100 Nasal Cannula 4.0 36 03/29/19 02:10 75 18 100 Nasal Cannula 4.0 36 03/29/19 00:00 98.2 88 18 138/69 (92) 100 03/29/19 00:00 88 03/29/19 00:00 106 03/28/19 23:19 92 20 100 Nasal Cannula 4.0 36 03/28/19 23:08 91 18 100 Nasal Cannula 4.0 36 03/28/19 21:09 138/71 03/28/19 21:08 114 138/71 03/28/19 21:00 Nasal Cannula 2.0 03/28/19 20:00 98.7 114 18 138/71 (93) 97 03/28/19 20:00 107 03/28/19 19:48 99 20 100 Nasal Cannula 4.0 36 03/28/19 19:38 98 18 100 Nasal Cannula 4.0 36 03/28/19 19:38 100 Nasal Cannula 4.0 36 Intake and Output 03/28/19 03/29/19 19:00 07:00 Intake Total 220 ml Output Total 400 ml Balance -400 ml 220 ml Intake Oral 220 ml Output Urine Total 400 ml # Voids 2 3 # Bowel Movements 3 1 Current Medications Medications (Trade) Dose Ordered Sig/Malissa Route PRN Reason Start Time Stop Time Status Last Admin Dose Admin Acetaminophen (Tylenol) 650 mg Q6H PRN ORAL Mild Pain/Temp > 100.5 03/23/19 00:30 04/22/19 00:29 03/27/19 11:02 Albuterol Sulfate (Proventil) 1.25 mg Q2H PRN HHN Shortness of Breath 03/26/19 15:06 03/31/19 15:05 03/27/19 21:26 Albuterol/ Ipratropium (Albuterol/ Ipratropium) 3 ml Q4HRT HHN 03/26/19 11:00 03/31/19 10:59 03/29/19 15:12 Amlodipine Besylate (Norvasc) 10 mg DAILY ORAL 03/23/19 09:00 04/22/19 08:59 03/29/19 09:29 Ammonium Lactate (Lac Hydrin) 1 applic TWICE A DAY TOPIC 03/24/19 09:00 04/23/19 08:59 03/29/19 09:39 Calcium Carbonate (Tums) 500 mg Q4H PRN ORAL for heartburn 03/25/19 13:00 04/24/19 12:59 03/28/19 14:31 Chlorhexidine Gluconate (Sonya-Hex 2%) 1 applic BID TOPIC 03/24/19 09:30 04/23/19 09:29 03/29/19 09:28 Clonidine HCl (Catapres Tab) 0.1 mg EVERY 8 HOURS ORAL 03/23/19 14:00 04/22/19 13:59 03/29/19 14:38 Dextrose (Dextrose 50%) 25 ml Q30M PRN IV Hypoglycemia 03/27/19 20:15 04/26/19 20:14 Dextrose (Dextrose 50%) 50 ml Q30M PRN IV Hypoglycemia 03/27/19 20:15 04/26/19 20:14 Enoxaparin Sodium (Lovenox) 40 mg DAILY SUBQ 03/24/19 09:00 04/23/19 08:59 03/29/19 09:34 Famotidine (Pepcid) 20 mg BID ORAL 03/24/19 14:15 04/23/19 14:14 03/29/19 09:29 Guaifenesin/ Dextromethorphan (Robitussin DM Syrup) 5 ml Q6H PRN ORAL For Cough 03/23/19 11:15 04/22/19 11:14 03/29/19 03:06 Hydralazine HCl (Apresoline) 25 mg Q4H PRN ORAL bp over 160 syst 03/23/19 12:30 04/22/19 12:29 Insulin Aspart (NovoLOG) BEFORE MEALS AND HS SUBQ 03/27/19 21:00 04/26/19 20:59 03/29/19 13:01 Insulin Aspart (NovoLOG) 15 units TIAC SUBQ 03/28/19 06:30 04/27/19 06:29 03/29/19 12:58 Insulin Detemir (Levemir) 30 units Q12HR SUBQ 03/29/19 09:00 04/26/19 20:59 03/29/19 09:37 Iron Sucrose 100 mg/Sodium Chloride 60 ml @ 240 mls/hr BEDTIME IV 03/25/19 21:00 03/29/19 21:14 03/28/19 21:08 Metformin HCl (Glucophage) 1,000 mg BID ORAL 03/28/19 09:00 04/27/19 08:59 03/29/19 09:28 Metoprolol Tartrate (Lopressor) 50 mg Q12HR ORAL 03/23/19 09:00 04/22/19 08:59 03/29/19 09:29 Montelukast Sodium (Singulair) 10 mg BEDTIME ORAL 03/24/19 21:00 04/23/19 20:59 03/28/19 21:08 Multivitamins (Multivitamins) 1 tab DAILY ORAL 03/23/19 09:00 04/22/19 08:59 03/29/19 09:29 Nateglinide (Starlix) 120 mg TIAC ORAL 03/23/19 16:30 04/22/19 16:29 03/29/19 05:38 Ondansetron HCl (Zofran) 4 mg Q6H PRN IVP Nausea & Vomiting 03/23/19 00:30 04/22/19 00:29 Potassium Chloride (K-Dur) 40 meq TWICE A DAY ORAL 03/24/19 18:00 04/23/19 17:59 03/29/19 09:29 Prednisone (predniSONE) 5 mg BID ORAL 03/24/19 18:00 04/23/19 08:59 03/29/19 09:29 Vinh Cano MD Mar 29, 2019 16:58
--- NOTE | 2019-03-29 19:21 | NUR ---
HAND-OFF: Report given to ARYA Martel. Plan of care endorsed
[2019-03-29] MEDS: Tums 500mg ORAL PRN (19:56)
[2019-03-29] MEDS: Iron Sucrose 100 MG in NS 55 ML IV SCH (21:00)
[2019-03-29] MEDS: Montelukast 10mg tablet ORAL SCH (21:21)
--- NOTE | 2019-03-29 21:56 | NUR ---
NURSE NOTES: PT HAS BEEN DISCHARGED HOME. IV REMOVED. VSS
--- NOTE | 2019-03-30 07:48 | Discharge Summary ---
Discharge Summary Discharge Summary _ DATE OF ADMISSION: 03/22/2019 DATE OF DISCHARGE: 03/29/2019 DISCHARGED BY: Dr. Little REASON FOR ADMISSION: 53 years old female with past medical history of diabetes mellitus, sarcoidosis , legally blind, was brought by sister for evaluation due to shortness of breath. Patient at home oxygen dependent. According to sister, patient was short of breath for the last 2 days. Also noted productive cough with yellow-colored phlegm. Patient had leg swelling for the last few months. No fever, no chills. Upon evaluation vital signs revealed elevated blood pressure 150/80. Laboratory work-up revealed leukocytosis WBC 12.7, hemoglobin 9.1 , hematocrit 28.7. Platelet count 401. Potassium 3.0. Glucose 304. Lactic acid 3.0. BUN 7, creatinine 0.8. Stable LFT. Troponin negative. Pro BNP 481. EKG revealed sinus tachycardia, no acute ischemic changes. Albumin 2.9. Urinalysis revealed no evidence of UTI , +1 protein, +4 glucose. Chest x-ray demonstrated severe bilateral airspace disease , possibly representing severe emphysema, advanced cystic lung disease or pulmonary fibrosis. Patchy airspace opacities may be related to underlying lung disease, but superimposed multifocal pneumonia was not excluded. Physical examination revealed evidence of venous stasis ulcers. In emergency department patient pancultured , started on empiric antibiotics . Potassium repleted. Fluid bolus was not given due to interstitial lung disease. Patient subsequently admitted to telemetry floor for further management. CONSULTANTS: test borer helper Dr. Cano ID specialist Dr. Storey carroting machine offbearer Dr. Ochoa senior quality methods specialist/oncologist Dr. Walker cement mason maintenance Dr. Aguillon podiatry Dr. Mheta [facility] COURSE: Patient admitted to telemetry floor. Patient started on empiric antibiotics for pneumonia. Antihypertensive medication were adjusted. Potassium was replaced. Blood pressure was managed with calcium channel deo and clonidine. Hydralazine was on board as needed . Blood pressure stabilized. Venous duplex bilateral lower extremity revealed no evidence of acute DVT. Supplemental oxygen provided and titrated to keep pulse oximetry above 92%. Bronchodilator treatment via handheld nebulizing therapy provided. DVT prophylaxis provided. Patient received antitussive. Patient was continued on oral steroids and Singulair. Antibiotic provided as per ID specialist recommendation. Blood cultures were negative. Leukocytosis resolved , no fevers. Patient was followed-up with chest x-ray . Patient completed antibiotic treatment while in the hospital. Echocardiogram demonstrated preserved ejection fraction of 65% with mild left ventricular hypertrophy. No evidence of wall motion abnormality. Right ventricular systolic pressure of 52 consistent with moderate pulmonary hypertension. Metformin initially was hold due to elevated lactic acid . Technical Operations Specialist directed management of diabetes. Blood sugar was managed with long-acting Levemir, pre-meal short acting NovoLog and Starlix. When lactic acidosis resolved, metformin was added later. Hemoglobin A1c 11.4 , clearly not at goal. Diabetic diet provided. Diabetic teaching was discussed with the patient sister and encouraged compliance with the anti-glycemic medication and diabetic diet. Technical Operations Specialist explained to the sister, that the patient will need a talking meter for glucose monitoring due to blindness. Prescription for all diabetic supplies provided by cement mason maintenance. Blood sugar improved while in the hospital. Renal parameters and electrolytes were closely monitored. Electrolytes /potassium and magnesium corrected. Nephrotoxic were avoided. Hemoglobin and hematocrit were closely monitored with goal to keep hemoglobin above 7. Stool for occult blood was negative. B12 and folate level stable. Anemia work-up revealed evidence of anemia of iron deficiency. Patient received to IV Venofer in the hospital. Prior to discharge hemoglobin 8.8, hematocrit 29.1. Wound care for venous stasis dermatitis of bilateral lower extremity provided as per surgeon recommendation. Television Anchor debrided the [id number]. Strict aspiration precaution maintained. Bedside swallow evaluation revealed silent aspiration risk. Diet texture provided as per speech therapist recommendation. Video swallow evaluation was recommended, which can be done as outpatient. Skilled dysphagia management was provided. hourly caregiver recommendation implemented in plan of care. Fall precautions maintained. Patient was working with physical therapist. Patient clinically stabilized and was ready for discharge home with home health services nephrotoxins were avoided. 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 DISCHARGE INSTRUCTIONS: Patient was discharged home with home health services. Follow up with primary care provider in one week. I have been assigned to dictate discharge summary for this account. I was not involved in the patient's management. Kaylan Ryan NP Mar 30, 2019 07:48
--- NOTE | 2019-03-30 16:06 | NUR ---
*-* INSURANCE *-* discharge summary HAVE BEEN FAXED TO: [facility]#[id number] FAX ALL CLINICALS TO: [phone]
== END 2019-03-29 21:45 | disposition home health service (06) | DRG 194 ==
LOC: EDBD 19:34 → EMR 21:10 → 2E 21:17 → EDBEDREQ 22:27 → 2E 03-23 10:04
PROC: 0HBRXZZ Excision of Toe Nail, External Approach (ICD-10-PCS; principal; 2019-03-24)
DX: J18.9 Pneumonia, unspecified organism (principal); J96.10 Chronic respiratory failure, unspecified whether with hypoxia or hypercapnia; E87.2 Acidosis; J44.0 Chronic obstructive pulmonary disease with (acute) lower respiratory infection; E11.65 Type 2 diabetes mellitus with hyperglycemia; J84.9 Interstitial pulmonary disease, unspecified; D86.9 Sarcoidosis, unspecified; Z99.81 Dependence on supplemental oxygen; E87.6 Hypokalemia; E83.42 Hypomagnesemia; I83.009 Varicose veins of unspecified lower extremity with ulcer of unspecified site; L60.2 Onychogryphosis; D50.9 Iron deficiency anemia, unspecified; E78.5 Hyperlipidemia, unspecified; K21.9 Gastro-esophageal reflux disease without esophagitis; I11.0 Hypertensive heart disease with heart failure; I50.9 Heart failure, unspecified; H54.8 Legal blindness, as defined in USA
CPT/HCPCS: 36415; 71045; 80048; 80053; 80061; 80076; 81003; 82270; 82607; 82728; 82746; 82947; 82962; 82977; 83036; 83540; 83550; 83605; 83615; 83735; 83880; 84100; 84443; 84484; 84550; 85007; 85025; 86140; 86710; 87040; 92610; 93005; 93306; 93970; 94640; 94664; 96365; 96368; 99285; J1815; J7620; J8499; S5561